=== PATIENT | male | born 1950 | race Caucasian/White ===

== ENCOUNTER → 2017-09-23 08:16 | Outpatient (CLI) | payer MEDICAID, SELFPAY ==
[2017-09-23 09:05] LABS: INR 3.1 (1.0-3.5); Prothrombin Time 29.3 sec (9.3-10.8)
== END ==
PROVIDERS: PCP General Practice; Visit Provider General Practice
DX: I48.91 Unspecified atrial fibrillation (principal); Z79.01 Long term (current) use of anticoagulants
CPT/HCPCS: 36415; 85610

== ENCOUNTER → 2017-09-28 08:00 | Outpatient (CLI) | payer MEDICAID, SELFPAY ==
[2017-09-28 08:45] LABS: INR 3.2 (1.0-3.5); Prothrombin Time 29.9 sec (9.3-10.8)
== END ==
PROVIDERS: PCP General Practice; Visit Provider General Practice
DX: I48.91 Unspecified atrial fibrillation (principal); Z79.01 Long term (current) use of anticoagulants
CPT/HCPCS: 36415; 85610

== ENCOUNTER → 2017-10-04 07:43 | Outpatient (CLI) | payer MEDICAID, SELFPAY ==
[2017-10-04 08:22] LABS: INR 2.4 (1.0-3.5); Prothrombin Time 22.4 sec (9.3-10.8)
== END ==
PROVIDERS: PCP General Practice; Visit Provider General Practice
DX: I48.91 Unspecified atrial fibrillation (principal); Z79.01 Long term (current) use of anticoagulants
CPT/HCPCS: 36415; 85610

== ENCOUNTER 2017-10-19 07:57 | Outpatient (CLI) | payer MEDICAID, SELFPAY ==
[2017-10-19 08:37] LABS: INR 3.1 (1.0-3.5)
== END 2017-10-19 08:17 ==
PROVIDERS: PCP General Practice; Visit Provider General Practice
DX: I48.91 Unspecified atrial fibrillation (principal); Z79.01 Long term (current) use of anticoagulants
CPT/HCPCS: 36415; 85610

== ENCOUNTER 2017-11-01 07:45 | Outpatient (CLI) | payer MEDICAID, SELFPAY ==
[2017-11-01 09:39] LABS: INR 4.2 (1.0-3.5)
== END 2017-11-01 08:05 ==
PROVIDERS: PCP General Practice; Visit Provider General Practice
DX: I48.91 Unspecified atrial fibrillation (principal); Z79.01 Long term (current) use of anticoagulants
CPT/HCPCS: 36415; 85610

== ENCOUNTER 2017-11-04 07:53 | Outpatient (CLI) | payer MEDICAID, SELFPAY ==
[2017-11-04 08:33] LABS: INR 1.5 (1.0-3.5); Prothrombin Time 14.8 sec (9.3-10.8)
== END 2017-11-04 08:13 ==
PROVIDERS: PCP General Practice; Visit Provider General Practice
DX: I48.91 Unspecified atrial fibrillation (principal); Z79.01 Long term (current) use of anticoagulants
CPT/HCPCS: 36415; 85610

== ENCOUNTER 2017-11-08 04:53 | Emergency (ER) | payer MEDICAID, SELFPAY ==
[2017-11-08 05:05] VITALS: BP 145/98; PULSE 81; RESP 15; TEMP 36.4; O2SAT 96
[2017-11-08 05:34] LABS: Abs Immature Grans 0.15 k/cumm (0.0-0.09); Absolute Basophil Count 0.03 k/cumm (0.0-0.2); Absolute Eosinophil Count 0.05 k/cumm (0.0-0.7); Absolute Lymphocyte Count 1.77 k/cumm (1.2-3.4); Absolute Monocyte Count 0.87 k/cumm (0.11-0.7); Absolute Neutrophil Count 7.31 k/cumm (1.2-6.7); Basophils % 0.3; Eosinophils % 0.5; HCT 40.2 % (40.0-50.0); HGB 13.1 g/dL (13.5-17.5); Immature Grans % 1.5; Lymphocytes % 17.4; Mean Corp. HGB Concentration 32.6 g/dL (32.0-36.0); Mean Corpuscular Hemoglobin 30.7 pg (27.0-33.0); Mean Corpuscular Volume 94.1 fL (80-95); Mean Platelet Volume 9.3 fL (8.0-11.0); Monocytes % 8.5; Neutrophils % 71.8; Platelet Count 312 x1000/uL (130-400); RBC 4.27 m/cumm (4.50-6.00); RBC Distribution Width 14.1 % (11.8-14.1); White Blood Cell Count 10.18 k/cumm (4.4-10.8)
[2017-11-08 05:46] LABS: ALT 52 U/L (12-78); AST 31 U/L (15-37); Albumin 3.9 g/dL (3.4-5.0); Alkaline Phosphatase 106 U/L (46-116); Anion Gap 16.2 mmol/L (3-11); BUN 55 mg/dL (7-18); Bilirubin, Total 0.5 mg/dL (0.2-1.0); CO2 22.8 mmol/L (21.0-32.0); Chloride 101 mmol/L (98-107); Estimated GFR 14.05 (mL/min/1.73m2); Glucose 94 mg/dL (70-100); Lipase 715 U/L (73-393); Potassium 3.3 mmol/L (3.5-5.1); Sodium 140 mmol/L (136-145); Total Protein 7.8 g/dL (6.4-8.2)
--- NOTE | 2017-11-08 05:52 | DI.CT_ITS ---
SYMPTOM/DIAGNOSIS: LOW ABD PAIN, H/O COLITIS AND DIARRHEA ABDOMEN AND PELVIC CT: CT scan of the abdomen and pelvis was performed following uneventful administration of oral contrast material. Intravenous contrast material was not administered. Comparison examination is 03/20/16. No acute findings are seen in the lung bases. The heart is enlarged. The unenhanced liver, spleen, pancreas, gallbladder and bile ducts are unremarkable. There is a stable left adrenal nodule. The right adrenal gland is unremarkable. There is stable bilateral renal cortical atrophy and renal cysts. Calcifications are seen in the renal pelves. These may represent vascular or represent non obstructing stones. No ureterolithiasis or hydronephrosis is seen. The urinary bladder is intact. There is apparent thickening of the wall of the urinary bladder. This may be due do under distension. Cystitis cannot be excluded. Please correlate clinically. The prostate gland appears enlarged with calcifications. There is atherosclerosis of the abdominal aorta but no aneurysmal dilatation. No significant abdominal or pelvic adenopathy, ascites or pneumoperitoneum is present. There is diverticulosis of the colon. There is a question of thickening of the wall of the distal colon. This may be due to under distension. No significant pericolonic inflammatory changes are seen. There is a normal appendix present. The remainder of the bowel is unremarkable. Degenerative changes are present in the spine. Central spinal canal stenosis is seen at L 3-4 and L 4-5 due to the degenerative changes. IMPRESSION: 1. Diverticulosis, equivocal thickening of the wall of the distal colon. This may be due to under distension but colitis cannot be excluded. 2. Question of thickening of the wall of the urinary bladder. This may be due to under distension but an infectious or inflammatory cystitis cannot be excluded.
--- NOTE | 2017-11-08 05:53 | W.ED.GENAD ---
Discharge Plan Disposition Patient Disposition: STILL A PATIENT Condition: Stable Discharge Details Chief Complaint: Abd Prob Clinical Impression: Chronic abdominal pain, Chronic kidney disease, History of colitis, Chronic diarrhea Primary Care Provider: Basilio Antunez ED Provider: Kimberly Hernandez Home Meds and New Rx's Prescriptions: No Action pravastatin 20 MG tablet 40 mg PO DAILY RF: 0 warfarin 5 MG tablet 5 mg PO DAILY RF: 0 finasteride 5 MG tablet 5 mg PO DAILY Qty: 90 RF: 4 nitroglycerin 0.4 MG tablet, sublingual 0.4 mg Sublingual PRN PRNRF: 0 Metoprolol Succinate 50 MG TAB.ER.24H 50 mg PO DAILY RF: 0 spironolactone 25 MG tablet 25 mg PO DAILY RF: 0 acetaminophen [Mapap Extra Strength] 500 MG tablet 500 mg PO PRN PRNRF: 0 aspirin [Aspirin Low-Strength] 81 MG tablet,chewable 81 mg PO DAILY RF: 0 Psyllium [Metamucil] 1 EACH Pkt 1 tsp PO DAILY RF: 0 amlodipine 5 mg Tablet 5 g PO DAILY RF: 0 Discharge Data Discharge Date/Time-TO BE ENTERED AT DEPARTURE: 11/08/17 05:30 Medical Decision Making Patient is a 66-year-old male with history of atrial fibrillation, pulmonary embolism on Coumadin, CKD, hypertension, CHF and colitis who presents with lower abdominal pain for 2 years, worse since last night. Followed by GI at [facility] he last saw 2 weeks ago for his abdominal pain and was started on hydrocortisone and sulfasalazine. Took only 1 dose of sulfasalazine due to worsening diarrhea. Admits to some relief of diarrhea with hydrocortisone. Blood pressure 145/98, otherwise vitals within normal limits. Afebrile. Patient's abdomen is soft with very mild tenderness across lower abdomen. No other acute obvious findings on exam. Discussed with patient that as his abdominal pain is chronic, we may not find the source today, but can rule out acute electrolyte abnormality or acute abdominal process. IV fluids and Zofran ordered. Patient cannot take NSAIDs due to his CKD. Patient was offered morphine and discussed that we can keep him here to monitor him for several hours after this dose, but he is again declining stating that he drove himself here and does not have a ride home. 0600 --CT abdomen was initially ordered with IV contrast, but due to patient's chronic kidney disease, will change to p.o. contrast without IV contrast. Per radiology who brought p.o. contrast, patient will be ready for CT at 7:30 AM. 0615 -- EKG notes a rate of 78, paced, no acute significant change from previous. 0620 --labs reviewed. White blood cell count 10. Hemoglobin 13. INR 1.5. Potassium 3.3. Bicarb 22.8. Anion gap 16.2. Creatinine 4.28. GFR 14. Calcium 5.9. Phosphorus 4. Lipase of 715. Hypocalcemia likely due to CKD. Patient denied any upper abdominal pain. He denies any alcohol use. Will await CT to also assess pancreas. 0700 --Pt in no acute distress. Declines pain meds at this time. 0730 --case endorsed to Dr. Williamson to f/u on CT imaging. HPI General Mode of arrival: ambulatory. Date/Time Provider Initiated Documentation: 11/08/17 04:57. Limitations to Documentation: no limitations. Information obtained by: patient. HPI Narrative: Pt is a 66yo M w/ a h/o Afib, PE, CKD, HLD, HTN, GERD, and colitis who presents with chronic lower abdominal pain for 2 years associated with his colitis but states this is been worse since last night. He describes his pain as constant, sharp, without radiation, and currently 6/10. He denies any aggravating or alleviating factors. States he saw his GI doctor Sayra at [facility] 2 weeks ago for this continual abdominal pain and was started on hydrocortisone injections and sulfasalazine. Patient states he stopped the sulfasalazine due to worsening diarrhea. Patient states he feels like the hydrocortisone is helping his diarrhea. He admits to frequent all-day diarrhea every day for 2 years. States he often has more than 20 episodes of loose or watery brown stools daily. He states yesterday he had 4 episodes of diarrhea. He admits to occasional nausea but denies any vomiting. He admits to slightly decreased appetite but otherwise states he has been eating okay. He states his last colonoscopy was 2 years ago. He denies fever, recent antibiotics, recent travel or sick contacts. Past medical history: Pulmonary embolism, chronic kidney disease, hyperlipidemia, atrial fibrillation, hypertension, congestive heart failure, GERD, colitis Surgical history: Pacemaker Social history: Smoked for 40 years, quit in 2013, denies previous history of heavy alcohol use, but states he quit drinking a few years ago, denies drug use Medications: See list, Coumadin Allergies: None PCP: Dr. Tulio DEL ROSARIO at [facility]: Related Data Home Medications Medication Instructions Recorded Confirmed pravastatin 40 mg PO DAILY tab-cap 07/02/15 11/08/17 warfarin 5 mg PO DAILY tab-cap 12/19/15 11/08/17 finasteride 5 mg PO DAILY #90 tab-cap 03/09/16 11/08/17 Psyllium [Metamucil] 1 tsp PO DAILY 11/13/16 11/08/17 acetaminophen [Mapap Extra 500 mg PO PRN PRN 11/13/16 11/08/17 Strength] aspirin [Aspirin Low-Strength] 81 mg PO DAILY 11/13/16 11/08/17 spironolactone 25 mg PO DAILY 11/13/16 11/08/17 Metoprolol Succinate 50 mg PO DAILY tab-cap 01/11/17 11/08/17 nitroglycerin 0.4 mg SUBLINGUAL PRN PRN 01/11/17 11/08/17 amlodipine 5 g PO DAILY 11/08/17 11/08/17 Allergies Allergy/AdvReac Type Severity Reaction Status Date / Time No Known Allergies Allergy Unverified 11/08/17 05:09 General Stated Complaint: Abd Prob BRI: 3 Review of Systems Review of Systems All systems reviewed & are unremarkable except as noted in HPI and below Constitutional Denies chills, Denies excessive sweating, Denies fatigue, Denies fever(s), Denies weakness and Denies weight loss Eyes Reports system reviewed and no additional complaints, except as docu and Denies blurry vision ENT Denies vertigo, Denies dizziness, Denies otalgia, Denies nasal congestion, Denies sore throat and Denies throat swelling Cardiovascular Denies chest pain, Denies syncope, Denies rapid heart rate and Denies dyspnea Respiratory Denies dyspnea Gastrointestinal Reports abdominal pain, Denies melena, Denies hematochezia, Reports diarrhea, Reports nausea and Denies vomiting Genitourinary Denies hematuria, Denies dysuria and Denies flank pain Musculoskeletal Denies back pain and Denies joint swelling Integumentary/Breasts Denies lesions and Denies rash Neurologic Denies behavioral changes, Denies confusion, Denies vertigo, Denies dizziness, Denies syncope and Denies weakness Psychiatric Denies behavioral changes, Denies confusion and Denies depression Endocrine Denies excessive sweating and Denies fatigue Hematologic/Lymphatic Denies easy bruising and Denies lymphadenopathy Allergic/Immunologic Denies throat swelling [facility] Medical History Atrial fibrillation CHF (congestive heart failure), NYHA class I Chronic anticoagulation Chronic kidney disease Essential hypertension GERD with esophagitis History of pulmonary embolism Hyperlipidemia Social History Smoking/Tobacco Use Status: Former Tobacco Use Surgical History Colonoscopy - MAC EGD - MAC (01/29/16) Pacemaker Exam Const General: cooperative and no acute distress Orientation: alert, awake and oriented x3 HENMT Head: normal to inspection Ears: hearing grossly normal bilaterally and external ears normal General nose exam: external nose normal Face and sinus: normal facial exam Mouth: oral mucosae normal Eyes General: appearance normal, both eyes and all related structures Eyelids: eyelids normal EOM: EOM intact bilaterally Neck Neck: normal visual inspection Lymphatic: no lymphadenopathy noted Chest Chest: normal inspection of the chest Resp Effort & Inspection: normal respiratory effort and able to speak in complete sentences Auscultation: clear to auscultation bilaterally Cardio Rate: regular rate Rhythm: regular rhythm GI Inspection: normal to inspection Palpation: soft, not firm, no guarding, no hepatosplenomegaly, no masses and tender (mild across lower abdomen) Auscultation: normal bowel sounds and hyperactive bowel sounds Back/Spine/Pelvis Back: no CVA tenderness Skin General skin exam: no rashes or lesions noted Neuro General: alert and awake Cognition: normal cognition Speech: speech normal Gait: normal gait Motor: muscle tone normal throughout Sensory Exam: no sensory deficits noted Extrem General: normal to inspection, full ROM, normal capillary refill and no edema Psych Appearance: grossly normal Mental Status: mental status grossly normal Speech and Movement: speech and movement normal Affect: normal affect Thought Process: normal Course Vital Signs Temperature 97.5 F L 11/08/17 05:05 Pulse 81 11/08/17 05:05 Respiratory Rate 15 11/08/17 05:05 Blood Pressure 145/98 H 11/08/17 05:05 Pulse Oximetry 96 11/08/17 05:05 Temperature 97.5 F L 11/08/17 05:05 Temperature Source Temporal Artery Scan 11/08/17 05:05 Pulse 81 11/08/17 05:05 Respiratory Rate 15 11/08/17 05:05 Respiratory Effort 11/08/17 05:10 Blood Pressure 145/98 H 11/08/17 05:05 Blood Pressure Position Sitting 11/08/17 05:05 Pulse Oximetry 96 11/08/17 05:05 Oxygen Delivery Method Room Air 11/08/17 05:05 Oxygen Flow Rate 0 11/08/17 05:05 Pain Level 6 11/08/17 05:32 Lab/Test Results Lab/Test Results: Laboratory Tests Range/Units 11/08/17 05:25 WBC (4.4-10.8) k/cumm 10.18 RBC (4.50-6.00) m/cumm 4.27 L Hgb (13.5-17.5) g/dL 13.1 L Hct (40.0-50.0) % 40.2 MCV (80-95) fL 94.1 MCH (27.0-33.0) pg 30.7 MCHC (32.0-36.0) g/dL 32.6 RDW (11.8-14.1) % 14.1 Plt Count (130-400) x1000/uL 312 MPV (8.0-11.0) fL 9.3 Immature Gran % 1.5 Neutrophils % 71.8 Lymphocytes % 17.4 Monocytes % 8.5 Eosinophils % 0.5 Basophils % 0.3 Absolute Neutrophils (1.2-6.7) k/cumm 7.31 H Absolute Lymphocytes (1.2-3.4) k/cumm 1.77 Absolute Monocytes (0.11-0.7) k/cumm 0.87 H Absolute Eosinophils (0.0-0.7) k/cumm 0.05 Absolute Basophils (0.0-0.2) k/cumm 0.03
[2017-11-08 05:57] LABS: CREATININE 4.28 mg/dL (0.70-1.30); Calcium 5.9 mg/dL (8.5-10.1)
[2017-11-08] MEDS: Ondansetron 4 MG/2 ML VIAL IVP (06:01)
[2017-11-08] MEDS: Normal Saline 1,000 ML 125 ML IV (06:02)
[2017-11-08 06:09] LABS: INR 1.5 (1.0-3.5); PTT Activated 25.4 sec (21.0-31.4); Prothrombin Time 14.4 sec (9.3-10.8)
[2017-11-08 07:33] LABS: Bilirubin Negative (Negative); Blood Moderate (Negative); Clarity Clear; Glucose Negative (Negative); Ketones Negative (Negative); Leukocyte Esterase Negative (Negative); Nitrite Negative (Negative); Urobilinogen 0.2 EU/dL (Up TO 0.2)
[2017-11-08 07:35] LABS: Bacteria Rare HPF (Negative); C & S Indicated? No; Casts Negative LPF (Negative); Crystals Negative HPF (Negative); Epithelial Cells Rare HPF (Negative); Mucus Trace (Negative); WBC 0-2 HPF (0-5)
--- NOTE | 2017-11-08 08:13 | DI.VRAD_ITS ---
EXAM: CT Abdomen and Pelvis Without Intravenous Contrast EXAM DATE/TIME: 11/08/2017 5:54 AM CLINICAL HISTORY: 66 years old, male; Pain; Abdominal pain; Additional info: Lower abd shanon h/o colitis diarrhea x 2yrs TECHNIQUE: Axial computed tomography images of the abdomen and pelvis without intravenous contrast. Coronal and sagittal reformatted images were created and reviewed. COMPARISON: CT ABD PELVIS WO CONTRAST 03/20/2016 8:00 AM FINDINGS: Lower thorax: Cardiomegaly ABDOMEN: Liver: Normal. No mass. Gallbladder and bile ducts: Normal. No calcified stones. No ductal dilation. Pancreas: Normal. No ductal dilation. Spleen: Normal. No splenomegaly. Adrenals: Left sided adrenal adenomas hyperplasia incidentally noted Kidneys and ureters: Lobulated atrophic appearance of the kidneys with multiple simple renal cysts Stomach and bowel: Equivocal distal colonic wall thickening may reflect artifact related to underdistention versus a distal colitis, either infectious or inflammatory. Appendix: No evidence of appendicitis. PELVIS: Bladder: The urinary bladder is questionably thickwalled. This may reflect incomplete distention. However correlation with UA is recommended to exclude cystitis. Reproductive: See Bladder Finding. ABDOMEN and PELVIS: Intraperitoneal space: Normal. No free air. No significant fluid collection. Bones/joints: No acute fracture. No dislocation. Soft tissues: Unremarkable. Vasculature: Normal. No abdominal aortic aneurysm. Lymph nodes: Normal. No enlarged lymph nodes. IMPRESSION: 1. Equivocal distal colonic wall thickening may reflect artifact related to underdistention versus a distal colitis, either infectious or inflammatory. 2. Equivocal cystitis. Dictated and Authenticated by: Asael Hinojosa MD. Ordering:PAM CONDON MD
[2017-11-08 08:24] VITALS: BP 139/71; PULSE 82; RESP 17; TEMP 36.7; O2SAT 97
--- NOTE | 2017-11-08 08:51 | W.ED.FU ---
Follow Up Plan: Gus Collins is a 66-year-old man with history of chronic kidney disease and chronic abdominal pain for the past 2 years presenting to the emergency department with worsening abdominal pain. Patient was signed out to me by Dr. Hernandez with CT abdomen/pelvis pending. CT abdomen pelvis shows thickening of the distal colon wall and thickening of the bladder. On reassessment patient reports continued mild pain across the lower abdomen without focality. Mild tenderness across lower abdomen with negative McBurney's point tenderness and no peritoneal signs. Patient is nontoxic appearing. Labs significant for lipase 715, creatinine 4, anion gap 16, calcium 5.9. I discussed patient with Dr. Handley of GI at [facility], who reported that patient has been diagnosed with ulcerative colitis, though has not had a colonoscopy to confirm. She recommended hold abx, give 40 mg of prednisone, and will schedule colonoscopy for tomorrow morning. She requested patient be given prescription for GoLYTELY, and [facility] will call the patient this afternoon to give instructions for starting the medication. She also notes that patient had anion gap of 15 when he was seen in clinic. Plan to replete calcium, will check magnesium. Magnesium low, will give p.o. potassium also repleted. I did speak to Dr. Antunez about Pt presentation/results including abnormal electrolytes, who will send rpt labs/see patient in follow-up this week. Lengthy discussion with patient regarding return to emergency department precautions and importance of outpatient follow-up tomorrow for colonoscopy, with his physician compensation analyst within the next 1-2 weeks, and also with Dr. Antunez this week re abnl labs and CT results. OTC Tums for calcium repletion discussed and not starting GoLYTELY until he speaks further with her this afternoon. Patient's amenable to the plan. ABDOMEN AND PELVIC CT: CT scan of the abdomen and pelvis was performed following uneventful administration of oral contrast material. Intravenous contrast material was not administered. Comparison examination is 03/20/16. No acute findings are seen in the lung bases. The heart is enlarged. The unenhanced liver, spleen, pancreas, gallbladder and bile ducts are unremarkable. There is a stable left adrenal nodule. The right adrenal gland is unremarkable. There is stable bilateral renal cortical atrophy and renal cysts. Calcifications are seen in the renal pelves. These may represent vascular or represent non obstructing stones. No ureterolithiasis or hydronephrosis is seen. The urinary bladder is intact. There is apparent thickening of the wall of the urinary bladder. This may be due do under distension. Cystitis cannot be excluded. Please correlate clinically. The prostate gland appears enlarged with calcifications. There is atherosclerosis of the abdominal aorta but no aneurysmal dilatation. No significant abdominal or pelvic adenopathy, ascites or pneumoperitoneum is present. There is diverticulosis of the colon. There is a question of thickening of the wall of the distal colon. This may be due to under distension. No significant pericolonic inflammatory changes are seen. There is a normal appendix present. The remainder of the bowel is unremarkable. Degenerative changes are present in the spine. Central spinal canal stenosis is seen at L 3-4 and L 4-5 due to the degenerative changes. IMPRESSION: 1. Diverticulosis, equivocal thickening of the wall of the distal colon. This may be due to under distension but colitis cannot be excluded. 2. Question of thickening of the wall of the urinary bladder. This may be due to under distension but an infectious or inflammatory cystitis cannot be excluded.
--- NOTE | 2017-11-08 08:55 | ED.FU.B_ITS ---
Follow Up Plan: Gus Collins is a 66-year-old man with history of chronic kidney disease and chronic abdominal pain for the past 2 years presenting to the emergency department with worsening abdominal pain. Patient was signed out to me by Dr. Hernandez with CT abdomen/pelvis pending. CT abdomen pelvis shows thickening of the distal colon wall and thickening of the bladder. On reassessment patient reports continued mild pain across the lower abdomen without focality. Mild tenderness across lower abdomen with negative McBurney' s point tenderness and no peritoneal signs. Patient is nontoxic appearing. Labs significant for lipase 715, creatinine 4, anion gap 16, calcium 5.9. I discussed patient with Dr. Handley of GI at [facility], who reported that patient has been diagnosed with ulcerative colitis, though has not had a colonoscopy to confirm. She recommended hold abx, give 40 mg of prednisone, and will schedule colonoscopy for tomorrow morning. She requested patient be given prescription for GoLYTELY, and [facility] will call the patient this afternoon to give instructions for starting the medication. She also notes that patient had anion gap of 15 when he was seen in clinic. Plan to replete calcium, will check magnesium. Magnesium low, will give p.o. potassium also repleted. I did speak to Dr. Antunez about Pt presentation/results including abnormal electrolytes, who will send rpt labs/see patient in follow-up this week. 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 Antunez this week re abnl labs and CT results. OTC Tums for calcium repletion discussed and not starting GoLYTELY until he speaks further with her this afternoon. Patient's amenable to the plan. ABDOMEN AND PELVIC CT: CT scan of the abdomen and pelvis was performed following uneventful administration of oral contrast material. Intravenous contrast material was not administered. Comparison examination is 03/20/16. No acute findings are seen in the lung bases. The heart is enlarged. The unenhanced liver, spleen, pancreas, gallbladder and bile ducts are unremarkable. There is a stable left adrenal nodule. The right adrenal gland is unremarkable. There is stable bilateral renal cortical atrophy and renal cysts. Calcifications are seen in the renal pelves. These may represent vascular or represent non obstructing stones. No ureterolithiasis or hydronephrosis is seen. The urinary bladder is intact. There is apparent thickening of the wall of the urinary bladder. This may be due do under distension. Cystitis cannot be excluded. Please correlate clinically. The prostate gland appears enlarged with calcifications. There is atherosclerosis of the abdominal aorta but no aneurysmal dilatation. No significant abdominal or pelvic adenopathy, ascites or pneumoperitoneum is present. There is diverticulosis of the colon. There is a question of thickening of the wall of the distal colon. This may be due to under distension. No significant pericolonic inflammatory changes are seen. There is a normal appendix present. The remainder of the bowel is unremarkable. Degenerative changes are present in the spine. Central spinal canal stenosis is seen at L 3-4 and L 4-5 due to the degenerative changes. IMPRESSION: 1. Diverticulosis, equivocal thickening of the wall of the distal colon. This may be due to under distension but colitis cannot be excluded. 2. Question of thickening of the wall of the urinary bladder. This may be due to under distension but an infectious or inflammatory cystitis cannot be excluded.
[2017-11-08] MEDS: predniSONE 20 MG TAB 40 MG PO (09:33)
[2017-11-08] MEDS: Calcium Gluconate 4.65 MEQ/10 ML VIAL 4.65 MG IVP (09:33)
[2017-11-08 09:35] LABS: Magnesium 1.6 mg/dL (1.8-2.4)
[2017-11-08] MEDS: Potassium Chloride 20 MEQ TABCR 40 MEQ PO (10:36)
[2017-11-08] MEDS: Magnesium Oxide 400 MG TAB PO (10:36)
[2017-11-08 10:40] VITALS: BP 161/88; PULSE 69; RESP 17; TEMP 36.7; O2SAT 97
== END 2017-11-08 11:07 | disposition home or self-care (01) ==
LOC: ER 05:30
PROVIDERS: Physician Assistant; Emergency Provider Student in an Organized Health Care Education/Training Program; PCP General Practice
DX: R10.30 Lower abdominal pain, unspecified (principal); G89.29 Other chronic pain; N18.9 Chronic kidney disease, unspecified; I12.9 Hypertensive chronic kidney disease with stage 1 through stage 4 chronic kidney disease, or unspecified chronic kidney disease; K52.9 Noninfective gastroenteritis and colitis, unspecified; E83.51 Hypocalcemia
CPT/HCPCS: 36415; 80053; 83690; 93005; 96361; 96374; 96375; 99285; 74176; 81003; 81015; 83735; 84100; 85025; 85610; 85730; 93010; J0610; J2405; J7512

== ENCOUNTER 2017-11-10 05:36 | Inpatient (IN) | payer MEDICAID, SELFPAY ==
[2017-11-10] VITALS (50 sets, daily range): BP systolic 94–167; BP diastolic 67–95; PULSE 68–97; RESP 9–18; TEMP 36.1–36.7; O2SAT 85–98
--- NOTE | 2017-11-10 03:00 | DI.RAD_ITS ---
SYMPTOM/DIAGNOSIS: LEUKOCYTOSIS PA AND LATERAL CHEST: Cardiomegaly is demonstrated, unchanged. Cardiac pacing wires are in stable position. There is no pulmonary infiltrate There is no pleural effusion. SUMMARY: Generalized cardiomegaly unchanged. No evidence of congestive failure or pneumonia.
--- NOTE | 2017-11-10 06:01 | W.ED.GENAD ---
Discharge Plan Discharge Details Chief Complaint: Abd Prob Primary Care Provider: Basilio Antunez ED Provider: Ryan Moser Home Meds and New Rx's Prescriptions: No Action pravastatin 20 MG tablet 40 mg PO DAILY RF: 0 warfarin 5 MG tablet 5 mg PO DAILY RF: 0 finasteride 5 MG tablet 5 mg PO DAILY Qty: 90 RF: 4 nitroglycerin 0.4 MG tablet, sublingual 0.4 mg Sublingual PRN PRNRF: 0 Metoprolol Succinate 50 MG TAB.ER.24H 50 mg PO DAILY RF: 0 spironolactone 25 MG tablet 25 mg PO DAILY RF: 0 acetaminophen [Mapap Extra Strength] 500 MG tablet 500 mg PO PRN PRNRF: 0 aspirin [Aspirin Low-Strength] 81 MG tablet,chewable 81 mg PO DAILY RF: 0 Psyllium [Metamucil] 1 EACH Pkt 1 tsp PO DAILY RF: 0 amlodipine 5 mg Tablet 5 g PO DAILY RF: 0 calcium carbonate [Tums Ultra] 1,177 mg tablet,chewable 1,177 mg PO DAILY Qty: 10 RF: 0 magnesium oxide 400 mg capsule 400 mg PO DAILY Qty: 10 RF: 0 Medical Decision Making This is a pleasant 62-year-old male who was in department 48 hours ago, was diagnosed with colitis, and pancreatitis and admitted. He was sent discharged to [facility] for colonoscopy and EGD. Since then he has had continued diarrhea without blood, and worsening abdominal pain. physical exam demonstrates diffuse abdominal tenderness. Differential at this time is concerning for perforation, worsening colitis, or other acute pathology. We will get a CT scan to evaluate for these etiologies, perform laboratory workup, rehydrate the patient, and perform an EKG and troponin for evaluation of nearsyncope which I feel is most likely secondary to dehydration and volume depletion. EKG 6:19 AM Rate 70, QTc 542, QRS 160, electronic ventricular pacing with good capture. NEgative for scarbossa criteria for STEMI Department has called back at 8:10 AM I discussed the case with Dr. Ellis the aba tutor. I discussed the imaging findings, the patient's current laboratory workup, the patient's current clinical disposition with his pain, and signs of dehydration. Dr. Weber specifically recommended that we do not start antibiotics at this time given the findings that were noted on the colonoscopy. She recommends that we perform a steroid enema, to help with the symptoms. She does not recommend starting systemic steroids at this time. We discussed potential further management versus various disposition options, she has no additional recommendations from a gastroenterological perspective at this time. She recommends reassessing after he has been given the steroid enema. We are waiting for callback from the call back Center for potential transfer. 20 6 AM the patient's white count is notably elevated, this was referred to and discussed with the aba tutor who does not recommend antibiotics at this time. Additionally the patient's troponin is mildly elevated at 0.18. EKG shows no signs of ST elevations that are significant in regards Scarbossa criterion. Patient's INR is 2, she is therapeutic. With the patient's ulcerative colitis, recent history of GI bleeding, and therapeutic INR I do not think that heparin is indicated at this time. I feel that at the very least his troponins need to be trended. Patient does require further evaluation and admission for this. HPI General Date/Time Provider Initiated Documentation: 11/10/17 05:47. HPI Narrative: This is a pleasant 66-year-old male who presents today for evaluation of abdominal pain. The patient was here in the emergency department over 48 hours ago, where he was seen and assessed for abdominal pain. His laboratory and imaging workup at that time demonstrated evidence of colitis, as well as mild pancreatitis. The patient has a long history of greater than 2-3 years of abdominal pain, occasional GI bleed, and GI workup for colitis. On his evaluation in the emergency department a few days ago antibiotics were held per [facility]'s recommendation, and steroids were given. The patient was sent down to [facility] for colonoscopy and EGD that occurred yesterday. Review of the records do indicate that he had colitis noted in the colon, biopsies were performed. There are no significant complications from the procedure and he was discharged home. After going home the patient has had continued diarrhea, and worsening abdominal pain. This morning he woke up, stood up, and passed out. He felt himself passing out and is able to slowly lowered himself to the ground. He did have a loss of consciousness albeit extremely brief. He did not hit his head. He landed on his knees without any significant pain or complication. Although the patient initially had some blood in his stool on his prior visit to the ER he denies any current blood in his stool now. States that his stool is slightly darker but denies any melanotic tarry stool. Patient states that he was given a prescription for medication from the aba tutor but he does not recall what it was. Additionally he did not fill it because his insurance did not cover it. We will request these records. Aside for the continued diarrhea and worsening abdominal pain the patient denies any other complaints at this time. He denies any fevers, chills, chest pain, shortness of breath, numbness tingling or weakness. Patient's past medical history is positive for pulmonary embolism, pacemaker, renal disease with a notably elevated creatinine of greater than 4 on his last visit, atrial fibrillation and Coumadin use for which he has been holding his Coumadin for the procedure. Patient denies any IV or illicit drug use. Related Data Home Medications Medication Instructions Recorded Confirmed pravastatin 40 mg PO DAILY tab-cap 07/02/15 11/10/17 warfarin 5 mg PO DAILY tab-cap 12/19/15 11/10/17 finasteride 5 mg PO DAILY #90 tab-cap 03/09/16 11/10/17 Psyllium [Metamucil] 1 tsp PO DAILY 11/13/16 11/10/17 acetaminophen [Mapap Extra 500 mg PO PRN PRN 11/13/16 11/10/17 Strength] aspirin [Aspirin Low-Strength] 81 mg PO DAILY 11/13/16 11/10/17 spironolactone 25 mg PO DAILY 11/13/16 11/10/17 Metoprolol Succinate 50 mg PO DAILY tab-cap 01/11/17 11/10/17 nitroglycerin 0.4 mg SUBLINGUAL PRN PRN 01/11/17 11/10/17 amlodipine 5 g PO DAILY 11/08/17 11/10/17 calcium carbonate [Tums Ultra] 1,177 mg PO DAILY #10 tab 11/08/17 11/10/17 magnesium oxide 400 mg PO DAILY #10 cap 11/08/17 11/10/17 Previous Rx's Medication Instructions Recorded calcium carbonate [Tums Ultra] 1,177 mg PO DAILY #10 tab 11/08/17 magnesium oxide 400 mg PO DAILY #10 cap 11/08/17 Allergies Allergy/AdvReac Type Severity Reaction Status Date / Time No Known Allergies Allergy Unverified 11/10/17 05:43 General Stated Complaint: Abd Prob BRI: 3 Review of Systems Review of Systems All systems reviewed & are unremarkable except as noted in HPI and below Exam Narrative Exam Narrative: 1.Const: Well-nourished, Well-developed, appearing stated age 2.Eyes: PERRL, no conjunctival injection, and symmetrical lids. 3.ENT: Atraumatic external nose and ears. Notably dry MM. Neck: Symmetric, trachea midline, No thyromegaly. No signs of trauma to the head, neck, chest. No signs of significant trauma to the upper extremities. 4.CVS: +S1/S2, mild systolic cardiac murmur. Peripheral pulses 2+ and equal in all extremities. Brisk capillary refill in all extremities. 5.RESP: Unlabored respiratory effort. Clear to auscultation bilaterally. No wheezes rales or rhonchi 6.GI: Abdomen is minimally distended, generalized tenderness throughout. Subjective involuntary guarding is present. Pain at all sites in the abdomen. Patient does have questionable abnormality on palpation of the skin which may be secondary to subcutaneous crepitus versus atypical adipose palpation. 7.MSK: Normocephalic/Atraumatic, Extremities w/o deformity or ttp No cyanosis or clubbing, Normal movement of all extremities. No evidence of significant bruising or deformity of the upper and lower extremities. 8.Skin: Warm, Dry. No rashes or lesions. 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 Sensation grossly intact, no focal neurologic deficits. Normal sensation in all extremities. No signs of horizontal vertical or rotatory nystagmus normal coordination of all extremities. 10.Psych: (AAO) x3. Appropriate mood and affect Course Vital Signs Temperature 36.1 C L 11/10/17 05:39 Pulse 83 11/10/17 05:39 Respiratory Rate 18 11/10/17 05:39 Blood Pressure 153/86 H 11/10/17 05:39 Pulse Oximetry 98 11/10/17 05:39 Temperature 36.1 C L 11/10/17 05:39 Temperature Source Skin 11/10/17 05:39 Pulse 83 11/10/17 05:39 Respiratory Rate 18 11/10/17 05:39 Respiratory Effort Non-Labored 11/10/17 05:41 Blood Pressure 153/86 H 11/10/17 05:39 Blood Pressure Position Sitting 11/10/17 05:39 Pulse Oximetry 98 11/10/17 05:39 Oxygen Delivery Method Room Air 11/10/17 05:39 Oxygen Flow Rate 0 11/10/17 05:39
[2017-11-10 06:07] LABS: Abs Immature Grans 0.09 k/cumm (0.0-0.09); Absolute Eosinophil Count 0.03 k/cumm (0.0-0.7); Absolute Lymphocyte Count 0.57 k/cumm (1.2-3.4); Eosinophils % 0.1; HGB 12.5 g/dL (13.5-17.5); Immature Grans % 0.3; Lymphocytes % 2.1; Mean Corp. HGB Concentration 32.9 g/dL (32.0-36.0); Mean Corpuscular Hemoglobin 30.6 pg (27.0-33.0); Mean Corpuscular Volume 92.9 fL (80-95); Mean Platelet Volume 9.3 fL (8.0-11.0); Monocytes % 4.7; Neutrophils % 92.8; Platelet Count 250 x1000/uL (130-400); RBC 4.09 m/cumm (4.50-6.00); RBC Distribution Width 13.9 % (11.8-14.1)
[2017-11-10 06:08] LABS: Absolute Monocyte Count 1.27 k/cumm (0.11-0.7); Absolute Neutrophil Count 25.12 k/cumm (1.2-6.7)
[2017-11-10 06:09] LABS: White Blood Cell Count 27.07 k/cumm (4.4-10.8)
--- NOTE | 2017-11-10 06:14 | ED.GENADUL_ITS ---
Discharge Plan Discharge Details Chief Complaint: Abd Prob Primary Care Provider: Basilio Antunez ED Provider: Ryan Moser Home Meds and New Rx's Prescriptions: No Action pravastatin 20 MG tablet 40 mg PO DAILY RF: 0 warfarin 5 MG tablet 5 mg PO DAILY RF: 0 finasteride 5 MG tablet 5 mg PO DAILY Qty: 90 RF: 4 nitroglycerin 0.4 MG tablet, sublingual 0.4 mg Sublingual PRN PRNRF: 0 Metoprolol Succinate 50 MG TAB.ER.24H 50 mg PO DAILY RF: 0 spironolactone 25 MG tablet 25 mg PO DAILY RF: 0 acetaminophen [Mapap Extra Strength] 500 MG tablet 500 mg PO PRN PRNRF: 0 aspirin [Aspirin Low-Strength] 81 MG tablet,chewable 81 mg PO DAILY RF: 0 Psyllium [Metamucil] 1 EACH Pkt 1 tsp PO DAILY RF: 0 amlodipine 5 mg Tablet 5 g PO DAILY RF: 0 calcium carbonate [Tums Ultra] 1,177 mg tablet,chewable 1,177 mg PO DAILY Qty: 10 RF: 0 magnesium oxide 400 mg capsule 400 mg PO DAILY Qty: 10 RF: 0 Medical Decision Making This is a pleasant 62-year-old male who was in department 48 hours ago, was diagnosed with colitis, and pancreatitis and admitted. He was sent discharged to [facility] for colonoscopy and EGD. Since then he has had continued diarrhea without blood, and worsening abdominal pain. physical exam demonstrates diffuse abdominal tenderness. Differential at this time is concerning for perforation, worsening colitis, or other acute pathology. We will get a CT scan to evaluate for these etiologies, perform laboratory workup, rehydrate the patient, and perform an EKG and troponin for evaluation of nearsyncope which I feel is most likely secondary to dehydration and volume depletion. EKG 6:19 AM Rate 70, QTc 542, QRS 160, electronic ventricular pacing with good capture. NEgative for scarbossa criteria for STEMI Department has called back at 8:10 AM I discussed the case with Dr. Ellis the serology teacher. I discussed the imaging findings, the patient's current laboratory workup, the patient's current clinical disposition with his pain, and signs of dehydration. Dr. Weber specifically recommended that we do not start antibiotics at this time given the findings that were noted on the colonoscopy. She recommends that we perform a steroid enema, to help with the symptoms. She does not recommend starting systemic steroids at this time. We discussed potential further management versus various disposition options, she has no additional recommendations from a gastroenterological perspective at this time. She recommends reassessing after he has been given the steroid enema. We are waiting for callback from the call back Center for potential transfer. 20 6 AM the patient's white count is notably elevated, this was referred to and discussed with the serology teacher who does not recommend antibiotics at this time. Additionally the patient's troponin is mildly elevated at 0.18. EKG shows no signs of ST elevations that are significant in regards Scarbossa criterion. Patient's INR is 2, she is therapeutic. With the patient's ulcerative colitis, recent history of GI bleeding, and therapeutic INR I do not think that heparin is indicated at this time. I feel that at the very least his troponins need to be trended. Patient does require further evaluation and admission for this. HPI General Date/Time Provider Initiated Documentation: 11/10/17 05:47 . HPI Narrative: This is a pleasant 66-year-old male who presents today for evaluation of abdominal pain. The patient was here in the emergency department over 48 hours ago, where he was seen and assessed for abdominal pain. His laboratory and imaging workup at that time demonstrated evidence of colitis, as well as mild pancreatitis. The patient has a long history of greater than 2-3 years of abdominal pain, occasional GI bleed, and GI workup for colitis. On his evaluation in the emergency department a few days ago antibiotics were held per [facility]'s recommendation, and steroids were given. The patient was sent down to [facility] for colonoscopy and EGD that occurred yesterday. Review of the records do indicate that he had colitis noted in the colon, biopsies were performed. There are no significant complications from the procedure and he was discharged home. After going home the patient has had continued diarrhea, and worsening abdominal pain. This morning he woke up, stood up, and passed out. He felt himself passing out and is able to slowly lowered himself to the ground. He did have a loss of consciousness albeit extremely brief. He did not hit his head. He landed on his knees without any significant pain or complication. Although the patient initially had some blood in his stool on his prior visit to the ER he denies any current blood in his stool now. States that his stool is slightly darker but denies any melanotic tarry stool. Patient states that he was given a prescription for medication from the serology teacher but he does not recall what it was. Additionally he did not fill it because his insurance did not cover it. We will request these records. Aside for the continued diarrhea and worsening abdominal pain the patient denies any other complaints at this time. He denies any fevers, chills, chest pain, shortness of breath, numbness tingling or weakness. Patient's past medical history is positive for pulmonary embolism, pacemaker, renal disease with a notably elevated creatinine of greater than 4 on his last visit, atrial fibrillation and Coumadin use for which he has been holding his Coumadin for the procedure. Patient denies any IV or illicit drug use. Related Data Home Medications Medication Instructions Recorded Confirmed pravastatin 40 mg PO DAILY tab-cap 07/02/15 11/10/17 warfarin 5 mg PO DAILY tab-cap 12/19/15 11/10/17 finasteride 5 mg PO DAILY #90 tab-cap 03/09/16 11/10/17 Psyllium [Metamucil] 1 tsp PO DAILY 11/13/16 11/10/17 acetaminophen [Mapap Extra 500 mg PO PRN PRN 11/13/16 11/10/17 Strength] aspirin [Aspirin Low-Strength] 81 mg PO DAILY 11/13/16 11/10/17 spironolactone 25 mg PO DAILY 11/13/16 11/10/17 Metoprolol Succinate 50 mg PO DAILY tab-cap 01/11/17 11/10/17 nitroglycerin 0.4 mg SUBLINGUAL PRN PRN 01/11/17 11/10/17 amlodipine 5 g PO DAILY 11/08/17 11/10/17 calcium carbonate [Tums Ultra] 1,177 mg PO DAILY #10 tab 11/08/17 11/10/17 magnesium oxide 400 mg PO DAILY #10 cap 11/08/17 11/10/17 Previous Rx's Medication Instructions Recorded calcium carbonate [Tums Ultra] 1,177 mg PO DAILY #10 tab 11/08/17 magnesium oxide 400 mg PO DAILY #10 cap 11/08/17 Allergies Allergy/AdvReac Type Severity Reaction Status Date / Time No Known Allergies Allergy Unverified 11/10/17 05:43 General Stated Complaint: Abd Prob BRI: 3 Review of Systems Review of Systems All systems reviewed & are unremarkable except as noted in HPI and below Exam Narrative Exam Narrative: 1.Const: Well-nourished, Well-developed, appearing stated age 2.Eyes: PERRL, no conjunctival injection, and symmetrical lids. 3.ENT: Atraumatic external nose and ears. Notably dry MM. Neck: Symmetric, trachea midline, No thyromegaly. No signs of trauma to the head, neck, chest. No signs of significant trauma to the upper extremities. 4.CVS: +S1/S2, mild systolic cardiac murmur. Peripheral pulses 2+ and equal in all extremities. Brisk capillary refill in all extremities. 5.RESP: Unlabored respiratory effort. Clear to auscultation bilaterally. No wheezes rales or rhonchi 6.GI: Abdomen is minimally distended, generalized tenderness throughout. Subjective involuntary guarding is present. Pain at all sites in the abdomen. Patient does have questionable abnormality on palpation of the skin which may be secondary to subcutaneous crepitus versus atypical adipose palpation. 7.MSK: Normocephalic/Atraumatic, Extremities w/o deformity or ttp No cyanosis or clubbing, Normal movement of all extremities. No evidence of significant bruising or deformity of the upper and lower extremities. 8.Skin: Warm, Dry. No rashes or lesions. 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 Sensation grossly intact, no focal neurologic deficits. Normal sensation in all extremities. No signs of horizontal vertical or rotatory nystagmus normal coordination of all extremities. 10.Psych: (AAO) x3. Appropriate mood and affect Course Vital Signs Temperature 36.1 C L 11/10/17 05:39 Pulse 83 11/10/17 05:39 Respiratory Rate 18 11/10/17 05:39 Blood Pressure 153/86 H 11/10/17 05:39 Pulse Oximetry 98 11/10/17 05:39 Temperature 36.1 C L 11/10/17 05:39 Temperature Source Skin 11/10/17 05:39 Pulse 83 11/10/17 05:39 Respiratory Rate 18 11/10/17 05:39 Respiratory Effort Non-Labored 11/10/17 05:41 Blood Pressure 153/86 H 11/10/17 05:39 Blood Pressure Position Sitting 11/10/17 05:39 Pulse Oximetry 98 11/10/17 05:39 Oxygen Delivery Method Room Air 11/10/17 05:39 Oxygen Flow Rate 0 11/10/17 05:39
[2017-11-10] MEDS: Lactated Ringers 1,000 ML 1000 ML IV ×2 (06:15→07:40)
[2017-11-10 06:18] LABS: Lipase 497 U/L (73-393)
[2017-11-10] MEDS: MORPHine 10 MG/ML VIAL 4 MG IVP ×2 (06:19→08:50)
[2017-11-10 06:20] LABS: INR 2.1 (1.0-3.5); PTT Activated 30.1 sec (21.0-31.4); Prothrombin Time 20.3 sec (9.3-10.8)
[2017-11-10 06:23] LABS: ALT 35 U/L (12-78); AST 25 U/L (15-37); Albumin 3.4 g/dL (3.4-5.0); Alkaline Phosphatase 93 U/L (46-116); Anion Gap 14.7 mmol/L (3-11); BUN 46 mg/dL (7-18); Bilirubin, Total 0.8 mg/dL (0.2-1.0); CO2 21.3 mmol/L (21.0-32.0); Chloride 100 mmol/L (98-107); Estimated GFR 13.33 (mL/min/1.73m2); Glucose 120 mg/dL (70-100); Potassium 3.4 mmol/L (3.5-5.1); Sodium 136 mmol/L (136-145); Total Protein 6.8 g/dL (6.4-8.2)
--- NOTE | 2017-11-10 06:25 | DI.CT_ITS ---
SYMPTOMS/DIAGNOSIS: RECENT COLONOSCOPY, GENERAL TENDERNESS, ? PERFORATED COLITIS CT EXAMINATION OF THE ABDOMEN AND PELVIS: The study was carried out without contrast enhancement. Cardiomegaly is noted and there is a small pericardial effusion. The liver is normal. The gallbladder is normal. There are no stones or ductal dilatation. The pancreas and spleen are normal. There is probable adenomatous hyperplasia of the adrenal glands. Bilateral renal atrophy is demonstrated. There is colonic wall thickening, which may represent nonspecific colitis, either infectious or inflammatory. There is no evidence of an appendicitis. The bladder is unremarkable. The reproductive organs as visualized are unremarkable. There is no evidence of free air or free fluid in the intraperitoneal space. Scattered bony radiolucencies are present. These include vertebral body as well as iliac bones. These appear to have been present on a previous study and are likely not secondary to metastatic disease. The soft tissues are unremarkable. The vasculature is unremarkable with no evidence of an aortic aneurysm. There is no lymphadenopathy. SUMMARY: Colonic wall thickening could represent a nonspecific colitis of infectious or inflammatory origin. Note is made of renal atrophy and bilateral nonobstructive nephrolithiasis. Also, the heart appears somewhat enlarged and there is an apparent small pericardial effusion.
[2017-11-10 06:27] LABS: CREATININE 4.48 mg/dL (0.70-1.30); Calcium 6.2 mg/dL (8.5-10.1); Troponin I 0.17 ng/mL (0.00-0.06)
--- NOTE | 2017-11-10 06:44 | DI.VRAD_ITS ---
EXAM: CT Abdomen and Pelvis Without Intravenous Contrast EXAM DATE/TIME: 11/10/2017 5:55 AM CLINICAL HISTORY: 66 years old, male; Pain; Abdominal pain; Localized; Lower; Prior surgery; Surgery date: 6+ months; Surgery type: Pacemaker; Patient HX: Pain and discomfort following a colonoscopy yesterday at [facility] TECHNIQUE: Axial computed tomography images of the abdomen and pelvis without intravenous contrast. All CT scans at this facility use at least one of these dose optimization techniques: automated exposure control; mA and/or kV adjustment per patient size (includes targeted exams where dose is matched to clinical indication); or iterative reconstruction. Coronal and sagittal reformatted images were created and reviewed. COMPARISON: DI.CTAPWO 11/08/2017 7:40 AM FINDINGS: Lower thorax: Cardiomegaly Trace pericardial fluid ABDOMEN: Liver: Normal. No mass. Gallbladder and bile ducts: Normal. No calcified stones. No ductal dilation. Pancreas: Normal. No ductal dilation. Spleen: Normal. No splenomegaly. Adrenals: Probable adenomatous hyperplasia of the adrenal glands Kidneys and ureters: Bilateral renal atrophy noted Stomach and bowel: Colonic wall thickening may reflect a nonspecific colitis, either infectious or inflammatory. Appendix: No evidence of appendicitis. PELVIS: Bladder: Unremarkable as visualized. Reproductive: Unremarkable as visualized. ABDOMEN and PELVIS: Intraperitoneal space: Normal. No free air. No significant fluid collection. Bones/joints: Scattered osseous lucencies are present. These include vertebral bodies as well as the iliac bones. These appear to have been present on the previous study and likely does not reflect evidence for metastatic disease Soft tissues: Unremarkable. Vasculature: Normal. No abdominal aortic aneurysm. Lymph nodes: Normal. No enlarged lymph nodes. IMPRESSION: Colonic wall thickening may reflect a nonspecific colitis, either infectious or inflammatory. Dictated and Authenticated by: Asael Hinojosa MD. Ordering:POLLY HUNTER MD
[2017-11-10] MEDS: Pantoprazole 40 MG VIAL IVP (08:34)
[2017-11-10] MEDS: Dicyclomine 10 MG CAP PO (08:35)
[2017-11-10 10:47] LABS: Troponin I 0.18 ng/mL (0.00-0.06)
--- NOTE | 2017-11-10 11:17 | ED.GENADUL_ITS ---
Discharge Plan Discharge Details Chief Complaint: Abd Prob Primary Care Provider: Basilio Antunez ED Provider: Miko Saenz Home Meds and New Rx's Prescriptions: No Action pravastatin 20 MG tablet 40 mg PO DAILY RF: 0 warfarin 5 MG tablet 5 mg PO DAILY RF: 0 finasteride 5 MG tablet 5 mg PO DAILY Qty: 90 RF: 4 nitroglycerin 0.4 MG tablet, sublingual 0.4 mg Sublingual PRN PRNRF: 0 Metoprolol Succinate 50 MG TAB.ER.24H 50 mg PO DAILY RF: 0 spironolactone 25 MG tablet 25 mg PO DAILY RF: 0 acetaminophen [Mapap Extra Strength] 500 MG tablet 500 mg PO PRN PRNRF: 0 aspirin [Aspirin Low-Strength] 81 MG tablet,chewable 81 mg PO DAILY RF: 0 Psyllium [Metamucil] 1 EACH Pkt 1 tsp PO DAILY RF: 0 amlodipine 5 mg Tablet 5 mg PO DAILY RF: 0 calcium carbonate [Tums Ultra] 1,177 mg tablet,chewable 1,177 mg PO DAILY Qty: 10 RF: 0 magnesium oxide 400 mg capsule 400 mg PO DAILY Qty: 10 RF: 0 Medical Decision Making Received signout from Dr. Moser. Please see his note regarding details of the patient's history, presentation, initial exam and findings. The case had been discussed with Dr. Ellis of [facility] gastroenterology by Dr. Moser. She recommended the administration of steroid enemas, admission for fluid resuscitation, ongoing trending of troponin. I discussed the case with the [facility] who stated they also did not have availability to accept in transfer, but may have bed availability tomorrow. For hour repeat troponin is essentially the same. Patient remains stable. Discussed with Dr Augustine who will admit to [facility] in face of lack of bed availability at [facility] or [facility]. HPI General Date/Time Provider Initiated Documentation: 11/10/17 05:47 . Related Data Home Medications Medication Instructions Recorded Confirmed pravastatin 40 mg PO DAILY tab-cap 07/02/15 11/10/17 warfarin 5 mg PO DAILY tab-cap 12/19/15 11/10/17 finasteride 5 mg PO DAILY #90 tab-cap 03/09/16 11/10/17 Psyllium [Metamucil] 1 tsp PO DAILY 11/13/16 11/10/17 acetaminophen [Mapap Extra 500 mg PO PRN PRN 11/13/16 11/10/17 Strength] aspirin [Aspirin Low-Strength] 81 mg PO DAILY 11/13/16 11/10/17 spironolactone 25 mg PO DAILY 11/13/16 11/10/17 Metoprolol Succinate 50 mg PO DAILY tab-cap 01/11/17 11/10/17 nitroglycerin 0.4 mg SUBLINGUAL PRN PRN 01/11/17 11/10/17 amlodipine 5 mg PO DAILY 11/08/17 11/10/17 calcium carbonate [Tums Ultra] 1,177 mg PO DAILY #10 tab 11/08/17 11/10/17 magnesium oxide 400 mg PO DAILY #10 cap 11/08/17 11/10/17 Previous Rx's Medication Instructions Recorded calcium carbonate [Tums Ultra] 1,177 mg PO DAILY #10 tab 11/08/17 magnesium oxide 400 mg PO DAILY #10 cap 11/08/17 Allergies Allergy/AdvReac Type Severity Reaction Status Date / Time No Known Allergies Allergy Unverified 11/10/17 05:43 General Stated Complaint: Abd Prob BRI: 3 Course Vital Signs Temperature 36.1 C L 11/10/17 05:39 Pulse 83 11/10/17 05:39 Respiratory Rate 18 11/10/17 05:39 Blood Pressure 153/86 H 11/10/17 05:39 Pulse Oximetry 98 11/10/17 05:39 Temperature 36.1 C L 11/10/17 05:39 Temperature Source Skin 11/10/17 05:39 Pulse 83 11/10/17 05:39 Pulse 70 11/10/17 06:50 Respiratory Rate 15 11/10/17 06:50 Respiratory Effort Non-Labored 11/10/17 05:41 Blood Pressure 153/86 H 11/10/17 05:39 Blood Pressure Position Sitting 11/10/17 05:39 Pulse Oximetry 98 11/10/17 05:39 Oxygen Delivery Method Room Air 11/10/17 05:39 Oxygen Flow Rate 0 11/10/17 05:39 Pain Level 6 11/10/17 08:50 Lab/Test Results Lab/Test Results: 11/10/17 08:40 Blood Blood Culture - Pending 11/10/17 08:30 Blood Blood Culture - Pending Laboratory Tests Range/Units 11/10/17 11/10/17 11/10/17 05:55 05:55 05:55 WBC (4.4-10.8) k/cumm 27.07 H* RBC (4.50-6.00) m/cumm 4.09 L Hgb (13.5-17.5) g/dL 12.5 L Hct (40.0-50.0) % 38.0 L MCV (80-95) fL 92.9 MCH (27.0-33.0) pg 30.6 MCHC (32.0-36.0) g/dL 32.9 RDW (11.8-14.1) % 13.9 Plt Count (130-400) x1000/uL 250 MPV (8.0-11.0) fL 9.3 Immature Gran % 0.3 Neutrophils % 92.8 Lymphocytes % 2.1 Monocytes % 4.7 Eosinophils % 0.1 Basophils % 0.0 Absolute Neutrophils (1.2-6.7) k/cumm 25.12 H Absolute Lymphocytes (1.2-3.4) k/cumm 0.57 L Absolute Monocytes (0.11-0.7) k/cumm 1.27 H Absolute Eosinophils (0.0-0.7) k/cumm 0.03 Absolute Basophils (0.0-0.2) k/cumm 0.00 Differential Comment PT (9.3-10.8) sec 20.3 H D INR (1.0-3.5) 2.1 D APTT (21.0-31.4) sec 30.1 Sodium (136-145) mmol/L 136 Potassium (3.5-5.1) mmol/L 3.4 L Chloride (98-107) mmol/L 100 Carbon Dioxide (21.0-32.0) mmol/L 21.3 Anion Gap (3-11) mmol/L 14.7 H BUN (7-18) mg/dL 46 H D Creatinine (0.70-1.30) mg/dL 4.48 H* Estimated GFR/1.73 m2 (mL/min/1.73m2) 13.33 Glucose (70-100) mg/dL 120 H Lactate (0.6-1.4) mmol/L Calcium (8.5-10.1) mg/dL 6.2 L* Total Bilirubin (0.2-1.0) mg/dL 0.8 AST (15-37) U/L 25 ALT (12-78) U/L 35 Alkaline Phosphatase (46-116) U/L 93 Troponin I (0.00-0.06) ng/mL Total Protein (6.4-8.2) g/dL 6.8 Albumin (3.4-5.0) g/dL 3.4 Lipase (73-393) U/L Range/Units 11/10/17 11/10/17 11/10/17 05:55 05:55 08:30 WBC (4.4-10.8) k/cumm RBC (4.50-6.00) m/cumm Hgb (13.5-17.5) g/dL Hct (40.0-50.0) % MCV (80-95) fL MCH (27.0-33.0) pg MCHC (32.0-36.0) g/dL RDW (11.8-14.1) % Plt Count (130-400) x1000/uL MPV (8.0-11.0) fL Immature Gran % Neutrophils % Lymphocytes % Monocytes % Eosinophils % Basophils % Absolute Neutrophils (1.2-6.7) k/cumm Absolute Lymphocytes (1.2-3.4) k/cumm Absolute Monocytes (0.11-0.7) k/cumm Absolute Eosinophils (0.0-0.7) k/cumm Absolute Basophils (0.0-0.2) k/cumm Differential Comment PT (9.3-10.8) sec INR (1.0-3.5) APTT (21.0-31.4) sec Sodium (136-145) mmol/L Potassium (3.5-5.1) mmol/L Chloride (98-107) mmol/L Carbon Dioxide (21.0-32.0) mmol/L Anion Gap (3-11) mmol/L BUN (7-18) mg/dL Creatinine (0.70-1.30) mg/dL Estimated GFR/1.73 m2 (mL/min/1.73m2) Glucose (70-100) mg/dL Lactate (0.6-1.4) mmol/L 1.0 Calcium (8.5-10.1) mg/dL Total Bilirubin (0.2-1.0) mg/dL AST (15-37) U/L ALT (12-78) U/L Alkaline Phosphatase (46-116) U/L Troponin I (0.00-0.06) ng/mL 0.17 H Total Protein (6.4-8.2) g/dL Albumin (3.4-5.0) g/dL Lipase (73-393) U/L 497 H Range/Units 11/10/17 10:18 WBC (4.4-10.8) k/cumm RBC (4.50-6.00) m/cumm Hgb (13.5-17.5) g/dL Hct (40.0-50.0) % MCV (80-95) fL MCH (27.0-33.0) pg MCHC (32.0-36.0) g/dL RDW (11.8-14.1) % Plt Count (130-400) x1000/uL MPV (8.0-11.0) fL Immature Gran % Neutrophils % Lymphocytes % Monocytes % Eosinophils % Basophils % Absolute Neutrophils (1.2-6.7) k/cumm Absolute Lymphocytes (1.2-3.4) k/cumm Absolute Monocytes (0.11-0.7) k/cumm Absolute Eosinophils (0.0-0.7) k/cumm Absolute Basophils (0.0-0.2) k/cumm Differential Comment PT (9.3-10.8) sec INR (1.0-3.5) APTT (21.0-31.4) sec Sodium (136-145) mmol/L Potassium (3.5-5.1) mmol/L Chloride (98-107) mmol/L Carbon Dioxide (21.0-32.0) mmol/L Anion Gap (3-11) mmol/L BUN (7-18) mg/dL Creatinine (0.70-1.30) mg/dL Estimated GFR/1.73 m2 (mL/min/1.73m2) Glucose (70-100) mg/dL Lactate (0.6-1.4) mmol/L Calcium (8.5-10.1) mg/dL Total Bilirubin (0.2-1.0) mg/dL AST (15-37) U/L ALT (12-78) U/L Alkaline Phosphatase (46-116) U/L Troponin I (0.00-0.06) ng/mL 0.18 H Total Protein (6.4-8.2) g/dL Albumin (3.4-5.0) g/dL Lipase (73-393) U/L Sign Out Sign Out Data: Sign Out Comment: pending transfer options Last updated by Ryan Moser DO at 11/10/17 08:18
[2017-11-10 14:41] LABS: Bilirubin Negative (Negative); Blood Moderate (Negative); Clarity Clear; Glucose Negative (Negative); Ketones Trace mg/dL (Negative); Leukocyte Esterase Negative (Negative); Nitrite Negative (Negative); Urobilinogen 0.2 EU/dL (Up TO 0.2)
[2017-11-10] MEDS: Normal Saline 1,000 ML 150 ML IV ×2 (14:47→19:10)
[2017-11-10 14:55] LABS: Bacteria Rare HPF (Negative); C & S Indicated? No; Casts Negative LPF (Negative); Crystals Negative HPF (Negative); Epithelial Cells Rare HPF (Negative); Mucus Negative (Negative); RBC 0-2 (0-2); WBC 0-2 HPF (0-5)
--- NOTE | 2017-11-10 18:23 | W.PM.HP.N ---
Date of service: 11/10/17 Time of Service: 18:24 Assessment and Plan (1) Colitis: Current visit: Yes Status: Acute (2) CKD (chronic kidney disease): Current visit: Yes Status: Acute (3) Atrial fibrillation: Current visit: Yes Status: Chronic (4) DVT prophylaxis: Current visit: Yes Status: Acute History of Present Illness Chief Complaint: Abdominal Pain, Diarrhea. Colitis. Narrative: A very pleasant 66-year-old man with a past medical history significant for atrial fibrillation as well as prior history of both deep vein thrombosis and pulmonary embolus on 2 separate occasions, on chronic anticoagulation, as well as chronic kidney disease presented to [facility] emergency department with complaints of multiple bloody bowel movements. Mr. Collins had had a history of loose stools for quite some time. He had had a flexible sigmoidoscopy at [facility] by his rehabilitation therapy aide, for which his Coumadin was not held due to his history of pulmonary embolus, deep vein thrombosis, as well as atrial fibrillation. This test was significant for evidence of moderate to severe segmental colitis associated with diverticulosis, for which biopsies were obtained. He was started on Cipro and Flagyl for a planned 10-day total course. The patient noted that following the procedure he continued to have bloody stools and contacted the outside institution where he had his flexible sigmoidoscopy performed at; and he was advised to continue to monitor. However, the night before his admission he became quite anxious as he had had multiple bloody bowel movements and presented to the emergency department. At that time his hemoglobin was checked at 11.8; with a repeat returning at 11.4. Given his chronic anticoagulation as well as his continued gastrointestinal bleeding, the decision was made to admit the patient for further evaluation and treatment. Past Medical History: 1. Atrial fibrillation on chronic anticoagulation with warfarin. 2. History of deep vein thrombosis in 2016 following hospitalization for hematuria with subsequent holding of his anticoagulation. 3. History of pulmonary embolus in 1996 following placement of his pacemaker. 4. Coronary artery disease with a history of silent myocardial infarction. 5. History of significant hematuria in 2016; follows with Urology. 6. History of cardiomyopathy. 7. Atrophic right kidney. 8. Chronic kidney disease. 9. Benign prostatic hypertrophy. 10. History of nephrolithiasis. 11. Gastroesophageal reflux disease. 12. Transient ischemic attack in 2013. Past Surgical History: 1. Status post permanent pacemaker/ automatic implantable cardioverter-defibrillator. 2. Prior cystoscopy, colonoscopy, and esophagogastroduodenoscopy. Meds Home Medications Medication Instructions Recorded Confirmed Type pravastatin 40 mg PO DAILY tab-cap 07/02/15 11/10/17 History warfarin 5 mg PO DAILY tab-cap 12/19/15 11/10/17 History finasteride 5 mg PO DAILY #90 tab-cap 03/09/16 11/10/17 History Psyllium [Metamucil] 1 tsp PO DAILY 11/13/16 11/10/17 History acetaminophen [Mapap Extra 500 mg PO PRN PRN 11/13/16 11/10/17 History Strength] aspirin [Aspirin Low-Strength] 81 mg PO DAILY 11/13/16 11/10/17 History spironolactone 25 mg PO DAILY 11/13/16 11/10/17 History Metoprolol Succinate 50 mg PO DAILY tab-cap 01/11/17 11/10/17 History nitroglycerin 0.4 mg SUBLINGUAL PRN PRN 01/11/17 11/10/17 History amlodipine 5 mg PO DAILY 11/08/17 11/10/17 History calcium carbonate [Tums Ultra] 1,177 mg PO DAILY #10 tab 11/08/17 11/10/17 Rx magnesium oxide 400 mg PO DAILY #10 cap 11/08/17 11/10/17 Rx Allergies Allergy/AdvReac Type Severity Reaction Status Date / Time No Known Allergies Allergy Unverified 11/10/17 05:43 Exam Narrative Exam Narrative: General: Patient appears comfortable, AAOX3, NAD Neck: Supple CV: Regular, nontachycardic, S1S2, No rubs, murmurs, or gallops. Pulmonary: Clear to auscultation bilaterally, no crackles, wheezing, or rhonchi Abdomen: + Bowel Sounds, soft, nontender, nondistended Vascular: No lower extremity edema Neurologic: CN II-XII grossly intact. No focal deficits. Psych: Normal mood and affect. Results Imaging Imaging Studies: Exam(s) CT EXAMINATION OF THE ABDOMEN AND PELVIS: The study was carried out without contrast enhancement. Cardiomegaly is noted and there is a small pericardial effusion. The liver is normal. The gallbladder is normal. There are no stones or ductal dilatation. The pancreas and spleen are normal. There is probable adenomatous hyperplasia of the adrenal glands. Bilateral renal atrophy is demonstrated. There is colonic wall thickening, which may represent nonspecific colitis, either infectious or inflammatory. There is no evidence of an appendicitis. The bladder is unremarkable. The reproductive organs as visualized are unremarkable. There is no evidence of free air or free fluid in the intraperitoneal space. Scattered bony radiolucencies are present. These include vertebral body as well as iliac bones. These appear to have been present on a previous study and are likely not secondary to metastatic disease. The soft tissues are unremarkable. The vasculature is unremarkable with no evidence of an aortic aneurysm. There is no lymphadenopathy. SUMMARY: Colonic wall thickening could represent a nonspecific colitis of infectious or inflammatory origin. Note is made of renal atrophy and bilateral nonobstructive nephrolithiasis. Also, the heart appears somewhat enlarged and there is an apparent small pericardial effusion. Labs : 11/10/17 05:55 11/10/17 05:55 Laboratory Results - last 24 hr 11/10/17 11/10/17 11/10/17 05:55 05:55 05:55 WBC 27.07 H* RBC 4.09 L Hgb 12.5 L Hct 38.0 L MCV 92.9 MCH 30.6 MCHC 32.9 RDW 13.9 Plt Count 250 MPV 9.3 Immature Gran % 0.3 Neutrophils % 92.8 Lymphocytes % 2.1 Monocytes % 4.7 Eosinophils % 0.1 Basophils % 0.0 Absolute Neutrophils 25.12 H Absolute Lymphocytes 0.57 L Absolute Monocytes 1.27 H Absolute Eosinophils 0.03 Absolute Basophils 0.00 Differential Comment PT 20.3 H D INR 2.1 D APTT 30.1 Sodium 136 Potassium 3.4 L Chloride 100 Carbon Dioxide 21.3 Anion Gap 14.7 H BUN 46 H D Creatinine 4.48 H* Estimated GFR/1.73 m2 13.33 Glucose 120 H Lactate Calcium 6.2 L* Total Bilirubin 0.8 AST 25 ALT 35 Alkaline Phosphatase 93 Troponin I Total Protein 6.8 Albumin 3.4 Lipase Urine Color Urine Clarity Urine pH Ur Specific [place] Urine Protein Urine Ketones Urine Blood Urine Nitrite Urine Bilirubin Urine Urobilinogen Ur Leukocyte Esterase Urine RBC Urine WBC Ur Epithelial Cells Urine Crystals Urine Bacteria Urine Casts Urine Mucus Ur Culture Indicated? Urine Glucose 11/10/17 11/10/17 11/10/17 05:55 05:55 08:30 WBC RBC Hgb Hct MCV MCH MCHC RDW Plt Count MPV Immature Gran % Neutrophils % Lymphocytes % Monocytes % Eosinophils % Basophils % Absolute Neutrophils Absolute Lymphocytes Absolute Monocytes Absolute Eosinophils Absolute Basophils Differential Comment PT INR APTT Sodium Potassium Chloride Carbon Dioxide Anion Gap BUN Creatinine Estimated GFR/1.73 m2 Glucose Lactate 1.0 Calcium Total Bilirubin AST ALT Alkaline Phosphatase Troponin I 0.17 H Total Protein Albumin Lipase 497 H Urine Color Urine Clarity Urine pH Ur Specific [place] Urine Protein Urine Ketones Urine Blood Urine Nitrite Urine Bilirubin Urine Urobilinogen Ur Leukocyte Esterase Urine RBC Urine WBC Ur Epithelial Cells Urine Crystals Urine Bacteria Urine Casts Urine Mucus Ur Culture Indicated? Urine Glucose 11/10/17 11/10/17 10:18 14:32 WBC RBC Hgb Hct MCV MCH MCHC RDW Plt Count MPV Immature Gran % Neutrophils % Lymphocytes % Monocytes % Eosinophils % Basophils % Absolute Neutrophils Absolute Lymphocytes Absolute Monocytes Absolute Eosinophils Absolute Basophils Differential Comment PT INR APTT Sodium Potassium Chloride Carbon Dioxide Anion Gap BUN Creatinine Estimated GFR/1.73 m2 Glucose Lactate Calcium Total Bilirubin AST ALT Alkaline Phosphatase Troponin I 0.18 H Total Protein Albumin Lipase Urine Color Yellow Urine Clarity Clear Urine pH 7.0 Ur Specific [place] 1.010 Urine Protein 100 H Urine Ketones Trace H Urine Blood Moderate H Urine Nitrite Negative Urine Bilirubin Negative Urine Urobilinogen 0.2 Ur Leukocyte Esterase Negative Urine RBC 0-2 Urine WBC 0-2 Ur Epithelial Cells Rare Urine Crystals Negative Urine Bacteria Rare Urine Casts Negative Urine Mucus Negative Ur Culture Indicated? No Urine Glucose Negative
[2017-11-10 19:17] LABS: Troponin I 0.15 ng/mL (0.00-0.06)
[2017-11-11] MEDS: Normal Saline 1,000 ML 150 ML IV ×2 (01:52→08:22)
[2017-11-11 03:00] VITALS: BP 157/92; PULSE 82; RESP 18; TEMP 36.3; O2SAT 95
[2017-11-11 07:15] VITALS: O2SAT 98
[2017-11-11 07:17] LABS: Abs Immature Grans 0.05 k/cumm (0.0-0.09); Absolute Basophil Count 0.01 k/cumm (0.0-0.2); Absolute Eosinophil Count 0.05 k/cumm (0.0-0.7); Absolute Lymphocyte Count 0.67 k/cumm (1.2-3.4); Absolute Monocyte Count 0.61 k/cumm (0.11-0.7); Absolute Neutrophil Count 11.28 k/cumm (1.2-6.7); Basophils % 0.1; Eosinophils % 0.4; HCT 36.9 % (40.0-50.0); HGB 11.7 g/dL (13.5-17.5); Immature Grans % 0.4; Lymphocytes % 5.3; Mean Corp. HGB Concentration 31.7 g/dL (32.0-36.0); Mean Corpuscular Hemoglobin 30.4 pg (27.0-33.0); Mean Corpuscular Volume 95.8 fL (80-95); Mean Platelet Volume 9.7 fL (8.0-11.0); Monocytes % 4.8; Platelet Count 219 x1000/uL (130-400); RBC 3.85 m/cumm (4.50-6.00); RBC Distribution Width 14.1 % (11.8-14.1); White Blood Cell Count 12.67 k/cumm (4.4-10.8)
[2017-11-11 07:30] LABS: INR 2.1 (1.0-3.5)
[2017-11-11 07:47] LABS: ALT 26 U/L (12-78); AST 19 U/L (15-37); Alkaline Phosphatase 84 U/L (46-116); Anion Gap 13.8 mmol/L (3-11); BUN 35 mg/dL (7-18); Bilirubin, Total 0.6 mg/dL (0.2-1.0); CO2 22.2 mmol/L (21.0-32.0); Chloride 105 mmol/L (98-107); Estimated GFR 15.19 (mL/min/1.73m2); Glucose 118 mg/dL (70-100); Potassium 3.7 mmol/L (3.5-5.1); Sodium 141 mmol/L (136-145); Total Protein 6.4 g/dL (6.4-8.2)
[2017-11-11 07:50] VITALS: BP 160/90; PULSE 74; RESP 17; TEMP 36; O2SAT 97
[2017-11-11 07:55] LABS: Troponin I 0.14 ng/mL (0.00-0.06)
[2017-11-11 08:01] VITALS: PULSE 77
[2017-11-11] MEDS: Pravastatin 20 MG TAB 40 MG PO (08:21)
[2017-11-11] MEDS: Finasteride 5 MG TAB PO (08:21)
[2017-11-11 08:23] LABS: Lipase 634 U/L (73-393)
[2017-11-11] MEDS: MetroNIDAZOLE 500 MG/100 ML BAG 100 MG IVPB ×3 (08:24→21:39)
[2017-11-11] MEDS: amLODIPine 5 MG TAB PO (08:25)
[2017-11-11] MEDS: Spironolactone 25 MG TAB PO (08:25)
[2017-11-11] MEDS: Aspirin 81 MG CHEW PO (08:25)
[2017-11-11] MEDS: Metoprolol CR 50 MG TABCR PO (08:25)
[2017-11-11] MEDS: Magnesium Oxide 400 MG TAB PO (08:26)
--- NOTE | 2017-11-11 08:34 | MERGE_ITS ---
*[facility]* *[facility]* [address] [place] [address] Date of study: 11/11/2017 Transthoracic Echocardiography M-mode, complete 2D, complete spectral Doppler, and color Doppler *STUDY CONCLUSIONS* Summary: 1. Left ventricle: The cavity size was dilated. Wall thickness was increased in a pattern of mild LVH. Systolic function was moderately reduced. The estimated ejection fraction was 35-40%. Moderate diffuse hypokinesis. Akinesis of the basalinferior myocardium. 2. Right ventricle: The cavity size was normal. Device wire noted in right ventricle. Systolic function was normal. 3. Ventricular septum: Septal motion showed paradoxical motion consistent with Bundle Branch Block. 4. Left atrium: The atrium was severely dilated. 5. Aortic valve: Trileaflet; mildly thickened, mildly calcified leaflets. Valve mobility was restricted. Transvalvular velocity was increased. There was mild stenosis. VTI ratio of LVOT to aortic valve: 0.58. Valve area (VTI): 1.6cm^2. 6. Tricuspid valve: There was mild-moderate regurgitation. 7. Pulmonary arteries: Pulmonary systolic pressure was increased, in the range of 40mm Hg to 45mm Hg. 8. Pericardium, extracardiac: A trivial pericardial effusion was identified posterior to the heart. There was no evidence of hemodynamic compromise. *PATIENT PRESENTATION* Height: 165.1cm ((65in) ) S/D Pressure: 157 / 92 Weight: 66.7kg ((146.7lb) ) BSA: 1.76m^2 Test start time: 08:30 AM. Test stop time: 09:30 AM. PERFORMING Unknown ORDERING Lathari, Boy A REFERRING Boy Augustine PERFORMING [facility] MANUAL ARTS THERAPIST Angelia Baez *PROCEDURE DATA* Procedure information: This study was interpreted by [facility]. Pertinent images and digital data are archived for permanent storage and are available for subsequent review. No prior study was available for comparison. Study status: Routine. Transthoracic echocardiography. M-mode, complete 2D, complete spectral Doppler, and color Doppler. A Transthoracic Echocardiogram was performed. Scanning was performed from the parasternal, apical, subcostal, and suprasternal notch acoustic windows. Images were obtained using an [employer] SC 2000 cardiac ultrasound machine. Image quality was adequate. Study completion: The patient tolerated the procedure well. There were no complications. History: PMH: CHF. *CARDIAC ANATOMY* Left ventricle: The cavity size was dilated. Wall thickness was increased in a pattern of mild LVH. Systolic function was moderately reduced. The estimated ejection fraction was 35-40%. Moderate diffuse hypokinesis. Regional wall motion abnormalities: Akinesis of the basalinferior myocardium. Aortic valve: Trileaflet; mildly thickened, mildly calcified leaflets. Valve mobility was restricted. Doppler: Transvalvular velocity was increased. There was mild stenosis. There was no significant regurgitation. VTI ratio of LVOT to aortic valve: 0.58. Valve area (VTI): 1.6cm^2. Indexed valve area (VTI): 0.9cm^2/m^2. Peak velocity ratio of LVOT to aortic valve: 0.63. Valve area (Vmax): 1.8cm^2. Indexed valve area (Vmax): 1cm^2/m^2. Mean velocity ratio of LVOT to aortic valve: 0.55. Valve area (Vmean): 1.5cm^2. Indexed valve area (Vmean): 0.9cm^2/m^2. Mean gradient (S): 9.3mm Hg. Peak gradient (S): 17.7mm Hg. Aorta: Aortic root: The aortic root was normal in size. Ascending aorta: The ascending aorta was normal in size. Mitral valve: Mildly calcified annulus. Mildly thickened leaflets. Mobility was not restricted. Doppler: Transvalvular velocity was within the normal range. There was no evidence for stenosis. There was mild regurgitation. Valve area by pressure half-time: 5.8cm^2. Indexed valve area by pressure half-time: 3.3cm^2/m^2. Peak gradient (D): 6.7mm Hg. Left atrium: The atrium was severely dilated. Right ventricle: The cavity size was normal. Device wire noted in right ventricle. Systolic function was normal. Ventricular septum: Septal motion showed paradoxical motion consistent with Bundle Branch Block. Pulmonic valve: Poorly visualized. Doppler: Transvalvular velocity was within the normal range. There was no evidence for stenosis. There was trivial regurgitation. Tricuspid valve: Structurally normal valve. Doppler: Transvalvular velocity was within the normal range. There was no evidence for stenosis. There was mild-moderate regurgitation. Pulmonary artery: Poorly visualized. Pulmonary systolic pressure was increased, in the range of 40mm Hg to 45mm Hg. Right atrium: The atrium was dilated. Device wire noted in right atrium. Pericardium: A trivial pericardial effusion was identified posterior to the heart. There was no evidence of hemodynamic compromise. Systemic veins: Inferior vena cava: The vessel was normal in size. The respirophasic diameter changes were in the normal range (greater than or equal to 50%), consistent with normal central venous pressure. Measurements Left ventricle Value Reference LV ID, ED, PLAX 5.8 cm 3.5 - 6.0 LV ID, ES, PLAX (H) 5.0 cm 2.1 - 4.0 LV PW thickness, ED, PLAX 1.2 cm LV end-diastolic volume, 1-p A2C 115 ml LV ejection fraction, 1-p A2C 47 % LV end-diastolic volume, 1-p A4C 104 ml LV ejection fraction, 1-p A4C 25 % LV e', lateral 0.087 m/sec LV E/e', lateral 15 LV e', medial 0.144 m/sec LV E/e', medial 9 LV e', average 0.115 m/sec LV E/e', average 11 Ventricular septum Value Reference IVS thickness, ED, PLAX 1.2 cm LVOT Value Reference LVOT ID, A-P 1.9 cm LVOT area 2.8 cm^2 LVOT peak velocity, S 1.33 m/sec LVOT mean velocity, S 0.78 m/sec LVOT VTI, S 21.2 cm LVOT peak gradient, S 7 mm Hg LVOT mean gradient, S 3.1 mm Hg Stroke volume (SV), LVOT DP 59 ml Stroke index (SV/bsa), LVOT DP 34 ml/m^2 Aortic valve Value Reference Aortic valve peak velocity, S 2.1 m/sec Aortic valve mean velocity, S 1.42 m/sec Aortic valve VTI, S 36.8 cm Aortic mean gradient, S 9.3 mm Hg Aortic peak gradient, S 17.7 mm Hg VTI ratio, LVOT/AV 0.58 Aortic valve area, VTI 1.6 cm^2 Velocity ratio, peak, LVOT/AV 0.63 Aortic valve area, peak velocity 1.8 cm^2 Velocity ratio, mean, LVOT/AV 0.55 Aortic valve area, mean velocity 1.5 cm^2 Aortic valve area/bsa, mean velocity 0.9 cm^2/m^2 Aorta Value Reference Aortic root ID, ED 2.6 cm Ascending aorta ID, A-P, S 3.0 cm Left atrium Value Reference LA ID, A-P, ES 4.9 cm LA ID/bsa, A-P (H) 2.8 cm/m^2 <=2.2 LA area, ES, A4C (H) 41.1 cm^2 8.8 - 23.4 LA area, ES, A2C 44 cm^2 LA volume/bsa, S 104 ml/m^2 LA volume, ES, 2-p 172 ml LA volume/bsa, ES, 2-p 98 ml/m^2 LA/aortic root ratio 1.86 Mitral valve Value Reference Mitral E-wave peak velocity 1.29 m/sec Mitral A-wave peak velocity 0.44 m/sec Mitral deceleration time (L) 132 ms 150 - 230 Mitral pressure half-time 38 ms Mitral peak gradient, D 6.7 mm Hg Mitral E/A ratio, peak 2.96 Mitral valve area, PHT, DP 5.8 cm^2 Tricuspid valve Value Reference Tricuspid regurg peak velocity 3.1 m/sec Tricuspid peak RV-RA gradient 39.6 mm Hg Right atrium Value Reference RA area, ES, A4C (H) 41.2 cm^2 8.3 - 19.5 Legend: (L) and (H) aileen values outside specified reference range. I have personally reviewed the images and have reviewed and edited the reported findings. Electronically signed by Andrea Toro 11/11/2017 11:30
[2017-11-11] MEDS: CIPROFLOXACIN 400 MG/200 ML BAG 200 MG IVPB (09:38)
[2017-11-11] MEDS: POTASSIUM CHLORIDE 20 MEQ, POTASSIUM CHLORIDE 10 MEQ 30 MEQ PO (09:38)
--- NOTE | 2017-11-11 11:40 | PHARADMIT ---
Addendum entered by Roby Lebron III 11/20/17 14:01: Pharmacy Note Subjective I&Os remain low. Objective VS-OK temp rising 37.4C K+4.7 SCr-4.67 INR-1.4 H&H-8.5/26.9 Plts-255 Assessment No medication changes Plan Awaiting Hospitalist note. Original Note: Addendum entered by Roby Lebron III 11/19/17 15:10: Pharmacy Note Subjective Patient is has marginal intake & urine output, IV fluids restarted. 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 Objective VS-OK INR-1.7 SCr-4.70 K+5.0 Na-139 H&H-down (8.9/28.2 Plts-246 Assessment MD not re-starting Warfarin at this time,(concerned over dark stoolss) Heparin SQ ordered instead. Potassium down Plan May consider IV steroids if GI symptoms do not improve. Original Note: Addendum entered by Roby Lebron III 11/18/17 17:34: Pharmacy Note Subjective Oatient Potassium jumped to 638 (KXL8 ordered with One doses of regular Insulin. Objective VS-OK Na-134 SCr-4.97 Last BM 11/16 Assessment Budesonide Capsules & Jr-enemas continue Plan INR normalized at 3.0 yesterday, MD waiting for Budesonide caps to stabilize patient befoe discharge, once potassium has normalized. Original Note: Addendum entered by Angela Hinojosa 11/17/17 16:51: Pharmacy Note Subjective Objective VS-okay SCr-4.52(up) K+5.7(up) INR-3.0(down) Assessment -sulfasalazine discontinued due to worsening renal function -PO budesonide ordered (non-form, had some in pharmacy but will need to order more if pt is expected to be here over the weekend) -pt had been refusing hydrocortisone enemas, but did get one today -spironolactone and potassium discontinued for now -warfarin still being held -psyllium added before meals in addition to the night time dose Plan watch renal function, INR, electrolytes Original Note: Addendum entered by Roby Lebron III 11/15/17 12:35: Pharmacy Note Subjective C-diff neg, Jr-enemas to daily. Provider wants to add bulk laxative to help with diarrgea. Objective VS-OK INR-5.7 SCr-4.01 K+4.3 Na-136 Ca++7.3 H&H,Plts,WBC-OK BM today (heme+) Assessment Flagyl & Cipro DC'd Plan Cose to discharge Original Note: Addendum entered by Duyen Bush 11/14/17 13:53: Pharmacy Note Subjective waiting for cdiff PCR results Objective INR 6.4, calcium up to 6.6, Mag down to 1.6, Scr stable 4.05 Assessment calcium and hydrocortisone enemas found at [facility]. med order changed to once per day, warfarin stopped Plan follow INR, restart warfarin when in range, watch change meds closely due to renal function Original Note: Addendum entered by Duyen Bush 11/13/17 08:57: Pharmacy Note Subjective hydocortisone enema on backorder we have enough in stock for 1 more day therapy Objective vs ok, INR 4.6 Assessment amlodipine form home list restarted Plan contact local pharmacy to see if they have hydrocortisone enema, will watch for order to hold warfarin dose until INR comes down(make sure MD aware) Original Note: Addendum entered by Roby Lebron III 11/12/17 15:12: Pharmacy Note Subjective MD reviewed past records and determined patient is suffering with another bout of Ulcerative Colitis. Objective VS-OK INR-2.9 SCr-4.00 (Baseline) Lipase-310 Ca-5.9 (MD aware) H&H-10.4/33.0 WBC-10.40 Having liquid stools, C-diff negative for toxin positive for antigen Assessment Hydrocortisone enemas are what work well or this patient.Warfarin continues. Plan Send up Jr-enema BID (Labelled). Watch INRs Original Note: Admission Pharmacy Clinical Review COLITIS 9Hx of diarrhea x 2 yrs) Code Status Full Code Current Weight Wgt-66.7 kg Renally Cleared and Narrow Therapeutic Index Meds CrCl~ 16 mL/min Meds-OK QTc Value / Action Taken na BP Control, Fever BP- 160/90 Tmax- 36.7C Electrolytes reviewed Na- 141 K+3.7 Mag- DVT Prophylaxis Warfarin Opiate Usage / Scheduled Bowel Regimen Ordered No Yes Plt/SCr for Heparin / Enoxaparin Plts-219 SCr-4.00 INR for Warfarin INR-2.1 H/H stable, WBC/Bands H&H- 11.7/36.9 WBC- 12.67 Antibiotic appropriateness Cipro IV, Flagyl IV Cultures and Sensitivities Blood- Gram Positive [facility] ABX d/c within 24 hr na DM control / Insulin Dosing BG-118 Heart Failure (Check EF%) (TIMOTEO's, B-Block, Diuretics) Norvasc, Toprol-XL. NTG, Spironolactone IV to PO Switch No Home Meds Reviewed Yes Home Meds Not Ordered Ordered Comments Lipase-497 ^ 634
[2017-11-11] MEDS: Normal Saline Flush 10 ML SYR IVP (13:45)
--- NOTE | 2017-11-11 13:50 | W.PM.HP.N ---
Date of service: 11/10/17 Time of Service: 18:00 Assessment and Plan (1) Colitis: Current visit: Yes Status: Chronic Likely UC by review of [facility] records. Patient has not tolerated prior attempts at oral or rectal therapy with 5-ASA, oral steroids, or other treatment modalities as per discussion with GI. Continue steroid enemas, and given positive blood cultures also initiated on antibiotic therapy, Day #1 of Cipro/Flagyl. Monitor symptoms, blood cultures carefully. (2) Peptic ulcer disease: Current visit: Yes Status: Chronic Continue IV PPI therapy. Monitor Hgb. Prior EGD reviewed with evidence of erosive gastropathy and duodenal ulcers. (3) Cardiomyopathy: Current visit: Yes Status: Chronic Mention of prior LVEF of 40%. ECHO obtained and showing an LVEF of 35-40% with moderate diffuse hypokinesis. Patient has history of CAD - Unsure if cardiomyopathy is on basis of ischemia or not. Patient appears euvolemic - IVF's discontinued. Continue BB, spironolactone (chronic medication despite CKD 5). Also on statin and asa. Monitor blood pressure, volume status carefully. 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 (5) History of TIA (transient ischemic attack): Current visit: Yes Status: Acute 2013. Continue daily antiplatelet therapy with aspirin. Also with history of afib, on chronic anticoagulation with coumadin, with therapeutic INR. (6) CKD (chronic kidney disease): Current visit: Yes Status: Chronic Stage 5, with clearance calculated at 8. Ensure renally dosed medications and avoid nephrotoxins. (7) Atrial fibrillation: Current visit: Yes Status: Chronic Continue BB, coumadin. Monitor on telemetry. Replete electrolytes. (8) DVT prophylaxis: Current visit: Yes Status: Acute On active anticoagulation with coumadin. Monitor daily INR. History of Present Illness Chief Complaint: Diarrhea, Abdominal Pain Narrative: 66-year-old man with a past medical history significant for atrial fibrillation, prior deep vein thrombosis and pulmonary embolus on 2 separate occasions on chronic anticoagulation, as well as CKD stage 4, presented to [facility] emergency department with complaints of abdominal pain and diarrhea. Mr. Collins had had a history of loose stools for quite some time, approximately 2 years by his account. This is described as diarrhea following meals, along with abdominal discomfort. He had a flexible sigmoidoscopy at [facility] by his application manager in April of this year, and subsequently diagnosed with a moderate to severe segmental colitis based on diverticulitis. He was given a 14 day course of antibiotics. The patient was subsequently admitted here the next day for continued bloody stools in the setting of colonoscopy and active anticoagulation. His hospitalization was uneventful and he was discharged the next day. Mr. Estrada reports ongoing symptoms since that time. He reported to [facility] emergency department 2 days ago with a CT showing a nonspecific colitis of either infectious or inflammatory origin, and had a subsequent colonoscopy and Endoscopy the next day at [facility]. The Colonoscopy showed a mild area of inflammation at the distal colon involving the rectum, and EGD showed evidence of Erosive Gastropathy with multiple duodenal ulcers. However, the patient presented back to the ED the next day with continued symptoms, and a repeat CT was performed and essentially showing the same results. GI recommended initiation of steroid enemas without antibiotic or systemic steroid use. Overnight the patient continued having bloody diarrhea. His blood cultures were positive in one set with Gram Positive Rods, and was initiated on antibiotic therapy overnight. He has remained afebrile, receiving twice daily steroid enemas, with vastly improved leukocytosis. No other events reported. Past Medical History: 1. Atrial fibrillation on chronic anticoagulation with warfarin. 2. History of deep vein thrombosis in 2015 following hospitalization for hematuria with subsequent holding of his anticoagulation. 3. History of pulmonary embolus in 1996 following placement of his pacemaker. 4. Coronary artery disease with a history of silent myocardial infarction. 5. History of significant hematuria in 2016; follows with Urology. 6. History of cardiomyopathy. 7. Atrophic right kidney. 8. Chronic kidney disease, Stage 5 with creatinine clearance calculated at 8. 9. Benign prostatic hypertrophy. 10. History of nephrolithiasis. 11. Gastroesophageal reflux disease. 12. Transient ischemic attack in 2013. 13. PUD 14. Hx Embolus of femoral artery, b/l Past Surgical History: 1. Status post permanent pacemaker/ automatic implantable cardioverter-defibrillator. 2. Prior cystoscopy, colonoscopy, and esophagogastroduodenoscopy. Meds Home Medications Medication Instructions Recorded Confirmed Type pravastatin 40 mg PO DAILY tab-cap 07/02/15 11/10/17 History warfarin 5 mg PO DAILY tab-cap 12/19/15 11/10/17 History finasteride 5 mg PO DAILY #90 tab-cap 03/09/16 11/10/17 History Psyllium [Metamucil] 1 tsp PO DAILY 11/13/16 11/10/17 History acetaminophen [Mapap Extra 500 mg PO PRN PRN 11/13/16 11/10/17 History Strength] aspirin [Aspirin Low-Strength] 81 mg PO DAILY 11/13/16 11/10/17 History spironolactone 25 mg PO DAILY 11/13/16 11/10/17 History Metoprolol Succinate 50 mg PO DAILY tab-cap 01/11/17 11/10/17 History nitroglycerin 0.4 mg SUBLINGUAL PRN PRN 01/11/17 11/10/17 History amlodipine 5 mg PO DAILY 11/08/17 11/10/17 History calcium carbonate [Tums Ultra] 1,177 mg PO DAILY #10 tab 11/08/17 11/10/17 Rx magnesium oxide 400 mg PO DAILY #10 cap 11/08/17 11/10/17 Rx Allergies Allergy/AdvReac Type Severity Reaction Status Date / Time No Known Allergies Allergy Unverified 11/10/17 05:43 Exam Narrative Exam Narrative: General: Patient appears comfortable, AAOX3, NAD Neck: Supple CV: Regular, nontachycardic, S1S2, No rubs, murmurs, or gallops. Pulmonary: Clear to auscultation bilaterally, no crackles, wheezing, or rhonchi Abdomen: + Bowel Sounds, soft, nondistended. Diffuse tenderness, worse in the LLQ. Vascular: No lower extremity edema Psych: Normal mood and affect. Results Imaging Abdomen CT scan report/results: report reviewed CT scan - chest: report reviewed Imaging Studies: Exam(s) a CT:CT abdomen & pelvis wo SYMPTOMS/DIAGNOSIS: RECENT COLONOSCOPY, GENERAL TENDERNESS, ? PERFORATED COLITIS CT EXAMINATION OF THE ABDOMEN AND PELVIS: The study was carried out without contrast enhancement. Cardiomegaly is noted and there is a small pericardial effusion. The liver is normal. The gallbladder is normal. There are no stones or ductal dilatation. The pancreas and spleen are normal. There is probable adenomatous hyperplasia of the adrenal glands. Bilateral renal atrophy is demonstrated. There is colonic wall thickening, which may represent nonspecific colitis, either infectious or inflammatory. There is no evidence of an appendicitis. The bladder is unremarkable. The reproductive organs as visualized are unremarkable. There is no evidence of free air or free fluid in the intraperitoneal space. Scattered bony radiolucencies are present. These include vertebral body as well as iliac bones. These appear to have been present on a previous study and are likely not secondary to metastatic disease. The soft tissues are unremarkable. The vasculature is unremarkable with no evidence of an aortic aneurysm. There is no lymphadenopathy. SUMMARY: Colonic wall thickening could represent a nonspecific colitis of infectious or inflammatory origin. Note is made of renal atrophy and bilateral nonobstructive nephrolithiasis. Also, the heart appears somewhat enlarged and there is an apparent small pericardial effusion. Exam(s) a RAD:XR chest 2V PA & lateral SYMPTOM/DIAGNOSIS: LEUKOCYTOSIS PA AND LATERAL CHEST: Cardiomegaly is demonstrated, unchanged. Cardiac pacing wires are in stable position. There is no pulmonary infiltrate There is no pleural effusion. SUMMARY: Generalized cardiomegaly unchanged. No evidence of congestive failure or pneumonia. Labs : 11/11/17 06:50 11/11/17 06:50 Laboratory Results - last 24 hr 11/10/17 11/10/17 11/11/17 14:32 18:33 06:50 WBC RBC Hgb Hct MCV MCH MCHC RDW Plt Count MPV Immature Gran % Neutrophils % Lymphocytes % Monocytes % Eosinophils % Basophils % Absolute Neutrophils Absolute Lymphocytes Absolute Monocytes Absolute Eosinophils Absolute Basophils PT INR Sodium 141 Potassium 3.7 Chloride 105 Carbon Dioxide 22.2 Anion Gap 13.8 H BUN 35 H D Creatinine 4.00 H* Estimated GFR/1.73 m2 15.19 Glucose 118 H Calcium 6.0 L* Total Bilirubin 0.6 AST 19 ALT 26 Alkaline Phosphatase 84 Troponin I 0.15 H 0.14 H Total Protein 6.4 Albumin 3.0 L Lipase 634 H Urine Color Yellow Urine Clarity Clear Urine pH 7.0 Ur Specific [place] 1.010 Urine Protein 100 H Urine Ketones Trace H Urine Blood Moderate H Urine Nitrite Negative Urine Bilirubin Negative Urine Urobilinogen 0.2 Ur Leukocyte Esterase Negative Urine RBC 0-2 Urine WBC 0-2 Ur Epithelial Cells Rare Urine Crystals Negative Urine Bacteria Rare Urine Casts Negative Urine Mucus Negative Ur Culture Indicated? No Urine Glucose Negative 11/11/17 11/11/17 06:50 06:50 WBC 12.67 H D RBC 3.85 L Hgb 11.7 L Hct 36.9 L MCV 95.8 H MCH 30.4 MCHC 31.7 L RDW 14.1 Plt Count 219 MPV 9.7 Immature Gran % 0.4 Neutrophils % 89.0 Lymphocytes % 5.3 Monocytes % 4.8 Eosinophils % 0.4 Basophils % 0.1 Absolute Neutrophils 11.28 H Absolute Lymphocytes 0.67 L Absolute Monocytes 0.61 Absolute Eosinophils 0.05 Absolute Basophils 0.01 PT 20.0 H INR 2.1 Sodium Potassium Chloride Carbon Dioxide Anion Gap BUN Creatinine Estimated GFR/1.73 m2 Glucose Calcium Total Bilirubin AST ALT Alkaline Phosphatase Troponin I Total Protein Albumin Lipase Urine Color Urine Clarity Urine pH Ur Specific [place] Urine Protein Urine Ketones Urine Blood Urine Nitrite Urine Bilirubin Urine Urobilinogen Ur Leukocyte Esterase Urine RBC Urine WBC Ur Epithelial Cells Urine Crystals Urine Bacteria Urine Casts Urine Mucus Ur Culture Indicated? Urine Glucose
[2017-11-11 13:52] VITALS: PULSE 70
--- NOTE | 2017-11-11 13:54 | HPE_ITS ---
Date of service: 11/10/17 Time of Service: 18:00 Assessment and Plan (1) Colitis: Current visit: Yes Status: Chronic Likely UC by review of [facility] records. Patient has not tolerated prior attempts at oral or rectal therapy with 5-ASA, oral steroids, or other treatment modalities as per discussion with GI. Continue steroid enemas, and given positive blood cultures also initiated on antibiotic therapy, Day #1 of Cipro/Flagyl. Monitor symptoms, blood cultures carefully. (2) Peptic ulcer disease: Current visit: Yes Status: Chronic Continue IV PPI therapy. Monitor Hgb. Prior EGD reviewed with evidence of erosive gastropathy and duodenal ulcers. (3) Cardiomyopathy: Current visit: Yes Status: Chronic Mention of prior LVEF of 40%. ECHO obtained and showing an LVEF of 35-40% with moderate diffuse hypokinesis. Patient has history of CAD - Unsure if cardiomyopathy is on basis of ischemia or not. Patient appears euvolemic - IVF's discontinued. Continue BB, spironolactone ( chronic medication despite CKD 5). Also on statin and asa. Monitor blood pressure, volume status carefully. 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 (5) History of TIA (transient ischemic attack): Current visit: Yes Status: Acute 2013. Continue daily antiplatelet therapy with aspirin. Also with history of afib, on chronic anticoagulation with coumadin, with therapeutic INR. (6) CKD (chronic kidney disease): Current visit: Yes Status: Chronic Stage 5, with clearance calculated at 8. Ensure renally dosed medications and avoid nephrotoxins. (7) Atrial fibrillation: Current visit: Yes Status: Chronic Continue BB, coumadin. Monitor on telemetry. Replete electrolytes. (8) DVT prophylaxis: Current visit: Yes Status: Acute On active anticoagulation with coumadin. Monitor daily INR. History of Present Illness Chief Complaint: Diarrhea, Abdominal Pain Narrative: 66-year-old man with a past medical history significant for atrial fibrillation, prior deep vein thrombosis and pulmonary embolus on 2 separate occasions on chronic anticoagulation, as well as CKD stage 4, presented to [facility] emergency department with complaints of abdominal pain and diarrhea. Mr. Collins had had a history of loose stools for quite some time, approximately 2 years by his account. This is described as diarrhea following meals, along with abdominal discomfort. He had a flexible sigmoidoscopy at [facility] by his public health dentist in April of this year, and subsequently diagnosed with a moderate to severe segmental colitis based on diverticulitis. He was given a 14 day course of antibiotics. The patient was subsequently admitted here the next day for continued bloody stools in the setting of colonoscopy and active anticoagulation. His hospitalization was uneventful and he was discharged the next day. Mr. Estrada reports ongoing symptoms since that time. He reported to [facility] emergency department 2 days ago with a CT showing a nonspecific colitis of either infectious or inflammatory origin, and had a subsequent colonoscopy and Endoscopy the next day at [facility]. The Colonoscopy showed a mild area of inflammation at the distal colon involving the rectum, and EGD showed evidence of Erosive Gastropathy with multiple duodenal ulcers. However, the patient presented back to the ED the next day with continued symptoms, and a repeat CT was performed and essentially showing the same results. GI recommended initiation of steroid enemas without antibiotic or systemic steroid use. Overnight the patient continued having bloody diarrhea. His blood cultures were positive in one set with Gram Positive Rods, and was initiated on antibiotic therapy overnight. He has remained afebrile, receiving twice daily steroid enemas, with vastly improved leukocytosis. No other events reported. Past Medical History: 1. Atrial fibrillation on chronic anticoagulation with warfarin. 2. History of deep vein thrombosis in 2015 following hospitalization for hematuria with subsequent holding of his anticoagulation. 3. History of pulmonary embolus in 1996 following placement of his pacemaker. 4. Coronary artery disease with a history of silent myocardial infarction. 5. History of significant hematuria in 2016; follows with Urology. 6. History of cardiomyopathy. 7. Atrophic right kidney. 8. Chronic kidney disease, Stage 5 with creatinine clearance calculated at 8. 9. Benign prostatic hypertrophy. 10. History of nephrolithiasis. 11. Gastroesophageal reflux disease. 12. Transient ischemic attack in 2013. 13. PUD 14. Hx Embolus of femoral artery, b/l Past Surgical History: 1. Status post permanent pacemaker/ automatic implantable cardioverter- defibrillator. 2. Prior cystoscopy, colonoscopy, and esophagogastroduodenoscopy. Meds Home Medications Medication Instructions Recorded Confirmed Type pravastatin 40 mg PO DAILY tab-cap 07/02/15 11/10/17 History warfarin 5 mg PO DAILY tab-cap 12/19/15 11/10/17 History finasteride 5 mg PO DAILY #90 tab-cap 03/09/16 11/10/17 History Psyllium [Metamucil] 1 tsp PO DAILY 11/13/16 11/10/17 History acetaminophen [Mapap Extra 500 mg PO PRN PRN 11/13/16 11/10/17 History Strength] aspirin [Aspirin Low-Strength] 81 mg PO DAILY 11/13/16 11/10/17 History spironolactone 25 mg PO DAILY 11/13/16 11/10/17 History Metoprolol Succinate 50 mg PO DAILY tab-cap 01/11/17 11/10/17 History nitroglycerin 0.4 mg SUBLINGUAL PRN PRN 01/11/17 11/10/17 History amlodipine 5 mg PO DAILY 11/08/17 11/10/17 History calcium carbonate [Tums Ultra] 1,177 mg PO DAILY #10 tab 11/08/17 11/10/17 Rx magnesium oxide 400 mg PO DAILY #10 cap 11/08/17 11/10/17 Rx Allergies Allergy/AdvReac Type Severity Reaction Status Date / Time No Known Allergies Allergy Unverified 11/10/17 05:43 Exam Narrative Exam Narrative: General: Patient appears comfortable, AAOX3, NAD Neck: Supple CV: Regular, nontachycardic, S1S2, No rubs, murmurs, or gallops. Pulmonary: Clear to auscultation bilaterally, no crackles, wheezing, or rhonchi Abdomen: + Bowel Sounds, soft, nondistended. Diffuse tenderness, worse in the LLQ. Vascular: No lower extremity edema Psych: Normal mood and affect. Results Imaging Abdomen CT scan report/results: report reviewed CT scan - chest: report reviewed Imaging Studies: Exam(s) a CT:CT abdomen & pelvis wo SYMPTOMS/DIAGNOSIS: RECENT COLONOSCOPY, GENERAL TENDERNESS, ? PERFORATED COLITIS CT EXAMINATION OF THE ABDOMEN AND PELVIS: The study was carried out without contrast enhancement. Cardiomegaly is noted and there is a small pericardial effusion. The liver is normal. The gallbladder is normal. There are no stones or ductal dilatation. The pancreas and spleen are normal. There is probable adenomatous hyperplasia of the adrenal glands. Bilateral renal atrophy is demonstrated. There is colonic wall thickening, which may represent nonspecific colitis, either infectious or inflammatory. There is no evidence of an appendicitis. The bladder is unremarkable. The reproductive organs as visualized are unremarkable. There is no evidence of free air or free fluid in the intraperitoneal space. Scattered bony radiolucencies are present. These include vertebral body as well as iliac bones. These appear to have been present on a previous study and are likely not secondary to metastatic disease. The soft tissues are unremarkable. The vasculature is unremarkable with no evidence of an aortic aneurysm. There is no lymphadenopathy. SUMMARY: Colonic wall thickening could represent a nonspecific colitis of infectious or inflammatory origin. Note is made of renal atrophy and bilateral nonobstructive nephrolithiasis. Also, the heart appears somewhat enlarged and there is an apparent small pericardial effusion. Exam(s) a RAD:XR chest 2V PA & lateral SYMPTOM/DIAGNOSIS: LEUKOCYTOSIS PA AND LATERAL CHEST: Cardiomegaly is demonstrated, unchanged. Cardiac pacing wires are in stable position. There is no pulmonary infiltrate There is no pleural effusion. SUMMARY: Generalized cardiomegaly unchanged. No evidence of congestive failure or pneumonia. Labs : 11/11/17 06:50 11/11/17 06:50 Laboratory Results - last 24 hr 11/10/17 11/10/17 11/11/17 14:32 18:33 06:50 WBC RBC Hgb Hct MCV MCH MCHC RDW Plt Count MPV Immature Gran % Neutrophils % Lymphocytes % Monocytes % Eosinophils % Basophils % Absolute Neutrophils Absolute Lymphocytes Absolute Monocytes Absolute Eosinophils Absolute Basophils PT INR Sodium 141 Potassium 3.7 Chloride 105 Carbon Dioxide 22.2 Anion Gap 13.8 H BUN 35 H D Creatinine 4.00 H* Estimated GFR/1.73 m2 15.19 Glucose 118 H Calcium 6.0 L* Total Bilirubin 0.6 AST 19 ALT 26 Alkaline Phosphatase 84 Troponin I 0.15 H 0.14 H Total Protein 6.4 Albumin 3.0 L Lipase 634 H Urine Color Yellow Urine Clarity Clear Urine pH 7.0 Ur Specific [place] 1.010 Urine Protein 100 H Urine Ketones Trace H Urine Blood Moderate H Urine Nitrite Negative Urine Bilirubin Negative Urine Urobilinogen 0.2 Ur Leukocyte Esterase Negative Urine RBC 0-2 Urine WBC 0-2 Ur Epithelial Cells Rare Urine Crystals Negative Urine Bacteria Rare Urine Casts Negative Urine Mucus Negative Ur Culture Indicated? No Urine Glucose Negative 11/11/17 11/11/17 06:50 06:50 WBC 12.67 H D RBC 3.85 L Hgb 11.7 L Hct 36.9 L MCV 95.8 H MCH 30.4 MCHC 31.7 L RDW 14.1 Plt Count 219 MPV 9.7 Immature Gran % 0.4 Neutrophils % 89.0 Lymphocytes % 5.3 Monocytes % 4.8 Eosinophils % 0.4 Basophils % 0.1 Absolute Neutrophils 11.28 H Absolute Lymphocytes 0.67 L Absolute Monocytes 0.61 Absolute Eosinophils 0.05 Absolute Basophils 0.01 PT 20.0 H INR 2.1 Sodium Potassium Chloride Carbon Dioxide Anion Gap BUN Creatinine Estimated GFR/1.73 m2 Glucose Calcium Total Bilirubin AST ALT Alkaline Phosphatase Troponin I Total Protein Albumin Lipase Urine Color Urine Clarity Urine pH Ur Specific [place] Urine Protein Urine Ketones Urine Blood Urine Nitrite Urine Bilirubin Urine Urobilinogen Ur Leukocyte Esterase Urine RBC Urine WBC Ur Epithelial Cells Urine Crystals Urine Bacteria Urine Casts Urine Mucus Ur Culture Indicated? Urine Glucose
--- NOTE | 2017-11-11 14:33 | INITIAL_ITS ---
- If Service Date Differs Date of service: 11/11/17 Time of Service: 13:39 Care Management Initial Assess REASON FOR HOSPITALIZATION:: Colitis PAST MEDICAL HISTORY/PAST SURGICAL HISTORY:: 1. Atrial fibrillation on chronic anticoagulation with warfarin. 2. History of deep vein thrombosis in 2015 following hospitalization for hematuria with subsequent holding of his anticoagulation. 3. History of pulmonary embolus in 1996 following placement of his pacemaker. 4. Coronary artery disease with a history of silent myocardial infarction. 5. History of significant hematuria in 2016; follows with Urology. 6. History of cardiomyopathy. 7. Atrophic right kidney. 8. Chronic kidney disease. 9. Benign prostatic hypertrophy. 10. History of nephrolithiasis. 11. Gastroesophageal reflux disease. 12. Transient ischemic attack in 2013. Past Surgical History: 1. Status post permanent pacemaker/ automatic implantable cardioverter-defibrillator. 2. Prior cystoscopy, colonoscopy, and esophagogastroduodenoscopy. PREVIOUS FUNCTIONAL STATUS/SOCIAL/FAMILY SUPPORTS:: Gus resides alone in an apartment in [facility]. He has no family locally and states that he has no children. Gus is independent at baseline, he drives, and manages ADL's. CURRENT FUNCTIONAL STATUS:: Currently Gus is lying in bed when this insurance writer visits. He is receptive to conversation, though guarded with information. ADVANCE DIRECTIVES:: None on file Has patient been provided with information about the portal?: Yes Did the patient sign up for the portal?: No CODE STATUS:: Full Code INSURANCE COVERAGE / FINANCIAL ISSUES:: Medicaid CURRENT HOME/COMMUNITY SERVICES/EQUIPMENT:: Currently Gus has no services or medical equipment in the community. PRIMARY CARE PHYSICIAN:: Dr. Antunez POTENTIAL DISCHARGE NEEDS:: F/U appointment with PCP PATIENT/FAMILY EDUCATION NEEDS:: Review DC instructions, any limitations, and ongoing DC planning discussion. discuss Ask Me Three ANTICIPATED BARRIERS TO DISCHARGE:: None identified at this time. TRANSPORTATION:: Via private vehicle PLAN:: Gus will return home with no anticipated services. He will f/u with PCP and plan of care as prescribed. Gus will transport via private vehicle
--- NOTE | 2017-11-11 15:06 | W.PM.PROGNOT ---
Assessment and Plan (1) Colitis: Current visit: Yes Status: Chronic Likely UC by review of [facility] records. Patient has not tolerated prior attempts at oral or rectal therapy with 5-ASA, oral steroids, or other treatment modalities as per discussion with GI. Continue steroid enemas, and given positive blood cultures also initiated on antibiotic therapy, Day #1 of Cipro/Flagyl. Monitor symptoms, blood cultures carefully. (2) Peptic ulcer disease: Current visit: Yes Status: Chronic Continue IV PPI therapy. Monitor Hgb. Prior EGD reviewed with evidence of erosive gastropathy and duodenal ulcers. (3) Cardiomyopathy: Current visit: Yes Status: Chronic Mention of prior LVEF of 40%. ECHO obtained and showing an LVEF of 35-40% with moderate diffuse hypokinesis. Patient has history of CAD - Unsure if cardiomyopathy is on basis of ischemia or not. Patient appears euvolemic - IVF's discontinued. Continue BB, spironolactone (chronic medication despite CKD 5). Also on statin and asa. Monitor blood pressure, volume status carefully. 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 (5) History of TIA (transient ischemic attack): Current visit: Yes Status: Acute 2013. Continue daily antiplatelet therapy with aspirin. Also with history of afib, on chronic anticoagulation with coumadin, with therapeutic INR. (6) CKD (chronic kidney disease): Current visit: Yes Status: Chronic Stage 5, with clearance calculated at 8. Ensure renally dosed medications and avoid nephrotoxins. (7) Atrial fibrillation: Current visit: Yes Status: Chronic Continue BB, coumadin. Monitor on telemetry. Replete electrolytes. (8) DVT prophylaxis: Current visit: Yes Status: Acute On active anticoagulation with coumadin. Monitor daily INR. Subjective Interval history since last seen: 66-year-old man with a past medical history significant for atrial fibrillation, prior deep vein thrombosis and pulmonary embolus on 2 separate occasions on chronic anticoagulation, as well as CKD stage 5, presented to [facility] emergency department with complaints of abdominal pain and diarrhea. Mr. Collins had had a history of loose stools for quite some time, approximately 2 years by his account. This is described as diarrhea following meals, along with abdominal discomfort. He had a flexible sigmoidoscopy at [facility] by his computer technology instructor in April of this year, and subsequently diagnosed with a moderate to severe segmental colitis based on diverticulitis. He was given a 14 day course of antibiotics. The patient was subsequently admitted here the next day for continued bloody stools in the setting of colonoscopy and active anticoagulation. His hospitalization was uneventful and he was discharged the next day. Mr. Estrada reports ongoing symptoms since that time. He reported to [facility] emergency department 2 days ago with a CT showing a nonspecific colitis of either infectious or inflammatory origin, and had a subsequent colonoscopy and Endoscopy the next day at [facility]. The Colonoscopy showed a mild area of inflammation at the distal colon involving the rectum, and EGD showed evidence of Erosive Gastropathy with multiple duodenal ulcers. However, the patient presented back to the ED the next day with continued symptoms, and a repeat CT was performed and essentially showing the same results. GI recommended initiation of steroid enemas without antibiotic or systemic steroid use. Overnight the patient continued having bloody diarrhea. His blood cultures were positive in one set with Gram Positive Rods, and was initiated on antibiotic therapy overnight. He has remained afebrile, receiving twice daily steroid enemas, with vastly improved leukocytosis. No other events reported. Exam Narrative Exam Narrative: General: Patient appears comfortable, AAOX3, NAD Neck: Supple CV: Regular, nontachycardic, S1S2, No rubs, murmurs, or gallops. Pulmonary: Clear to auscultation bilaterally, no crackles, wheezing, or rhonchi Abdomen: + Bowel Sounds, soft, nondistended. Diffuse tenderness, worse in the LLQ. Vascular: No lower extremity edema Psych: Normal mood and affect. Objective Objective Clinical Data: Abnormal lab results 11/10/17 11/11/17 11/11/17 Range/Units 18:33 06:50 06:50 WBC 12.67 H D (4.4-10.8) k/cumm RBC 3.85 L (4.50-6.00) m/cumm Hgb 11.7 L (13.5-17.5) g/dL Hct 36.9 L (40.0-50.0) % MCV 95.8 H (80-95) fL MCHC 31.7 L (32.0-36.0) g/dL Absolute Neutrophils 11.28 H (1.2-6.7) k/cumm Absolute Lymphocytes 0.67 L (1.2-3.4) k/cumm PT (9.3-10.8) sec Anion Gap 13.8 H (3-11) mmol/L BUN 35 H D (7-18) mg/dL Creatinine 4.00 H* (0.70-1.30) mg/dL Glucose 118 H (70-100) mg/dL Calcium 6.0 L* (8.5-10.1) mg/dL Troponin I 0.15 H 0.14 H (0.00-0.06) ng/mL Albumin 3.0 L (3.4-5.0) g/dL Lipase 634 H (73-393) U/L 11/11/17 Range/Units 06:50 WBC (4.4-10.8) k/cumm RBC (4.50-6.00) m/cumm Hgb (13.5-17.5) g/dL Hct (40.0-50.0) % MCV (80-95) fL MCHC (32.0-36.0) g/dL Absolute Neutrophils (1.2-6.7) k/cumm Absolute Lymphocytes (1.2-3.4) k/cumm PT 20.0 H (9.3-10.8) sec Anion Gap (3-11) mmol/L BUN (7-18) mg/dL Creatinine (0.70-1.30) mg/dL Glucose (70-100) mg/dL Calcium (8.5-10.1) mg/dL Troponin I (0.00-0.06) ng/mL Albumin (3.4-5.0) g/dL Lipase (73-393) U/L Vital Signs Temperature 36.0 C L 11/11/17 07:50 Temperature Source Tympanic 11/11/17 07:50 Pulse 70 11/11/17 13:52 Pulse Rhythm Regular 11/11/17 05:17 Pulse 76 11/10/17 10:31 Respiratory Rate 17 11/11/17 07:50 Respiratory Effort Non-Labored 11/11/17 08:25 Respiratory Depth Normal 11/11/17 08:25 Respiratory Pattern Normal 11/11/17 08:25 Blood Pressure 160/90 H 11/11/17 07:50 Blood Pressure Mean 95 11/10/17 12:31 Blood Pressure Position Sitting 11/10/17 05:39 Pulse Oximetry 97 11/11/17 07:50 Oxygen Delivery Method Room Air 11/11/17 07:50 Oxygen Flow Rate 0 11/11/17 07:50 Pain Level 0 11/10/17 16:35 Comment 11/11/17 03:00 Intake & Output 11/10/17 11/11/17 11/11/17 23:59 11:59 23:59 Intake Total 1000 / 1000 3027.5 / 3027.5 Output Total 400 / 400 1250 / 1250 Balance 600 / 600 1777.5 / 1777.5 Weight 66.7 kg Intake: IV 1000 / 1000 2487.5 / 2487.5 Oral 540 / 540 Output: Urine 400 / 400 1250 / 1250 Other: Urine Color Yellow Yellow Urine Appearance Clear Clear Urine Odor Normal Normal Comment Urine not seen, voiding independently Stool Occult Blood Positive Stool Size Moderate Small Stool Characteristics Soft Liquid Brown Voiding Methods Toilet Toilet Urinal Laboratory Results WBC 12.67 k/cumm (4.4-10.8) H D 11/11/17 06:50 RBC 3.85 m/cumm (4.50-6.00) L 11/11/17 06:50 Hgb 11.7 g/dL (13.5-17.5) L 11/11/17 06:50 Hct 36.9 % (40.0-50.0) L 11/11/17 06:50 MCV 95.8 fL (80-95) H 11/11/17 06:50 MCH 30.4 pg (27.0-33.0) 11/11/17 06:50 MCHC 31.7 g/dL (32.0-36.0) L 11/11/17 06:50 RDW 14.1 % (11.8-14.1) 11/11/17 06:50 Plt Count 219 x1000/uL (130-400) 11/11/17 06:50 MPV 9.7 fL (8.0-11.0) 11/11/17 06:50 Immature Gran % 0.4 11/11/17 06:50 Neutrophils % 89.0 11/11/17 06:50 Lymphocytes % 5.3 11/11/17 06:50 Monocytes % 4.8 11/11/17 06:50 Eosinophils % 0.4 11/11/17 06:50 Basophils % 0.1 11/11/17 06:50 Absolute Neutrophils 11.28 k/cumm (1.2-6.7) H 11/11/17 06:50 Absolute Lymphocytes 0.67 k/cumm (1.2-3.4) L 11/11/17 06:50 Absolute Monocytes 0.61 k/cumm (0.11-0.7) 11/11/17 06:50 Absolute Eosinophils 0.05 k/cumm (0.0-0.7) 11/11/17 06:50 Absolute Basophils 0.01 k/cumm (0.0-0.2) 11/11/17 06:50 Differential Comment 11/10/17 05:55 PT 20.0 sec (9.3-10.8) H 11/11/17 06:50 INR 2.1 (1.0-3.5) 11/11/17 06:50 APTT 30.1 sec (21.0-31.4) 11/10/17 05:55 Sodium 141 mmol/L (136-145) 11/11/17 06:50 Potassium 3.7 mmol/L (3.5-5.1) 11/11/17 06:50 Chloride 105 mmol/L (98-107) 11/11/17 06:50 Carbon Dioxide 22.2 mmol/L (21.0-32.0) 11/11/17 06:50 Anion Gap 13.8 mmol/L (3-11) H 11/11/17 06:50 BUN 35 mg/dL (7-18) H D 11/11/17 06:50 Creatinine 4.00 mg/dL (0.70-1.30) H* 11/11/17 06:50 Estimated GFR/1.73 m2 15.19 (mL/min/1.73m2) 11/11/17 06:50 Glucose 118 mg/dL (70-100) H 11/11/17 06:50 Lactate 1.0 mmol/L (0.6-1.4) 11/10/17 08:30 Calcium 6.0 mg/dL (8.5-10.1) L* 11/11/17 06:50 Total Bilirubin 0.6 mg/dL (0.2-1.0) 11/11/17 06:50 AST 19 U/L (15-37) 11/11/17 06:50 ALT 26 U/L (12-78) 11/11/17 06:50 Alkaline Phosphatase 84 U/L (46-116) 11/11/17 06:50 Troponin I 0.14 ng/mL (0.00-0.06) H 11/11/17 06:50 Total Protein 6.4 g/dL (6.4-8.2) 11/11/17 06:50 Albumin 3.0 g/dL (3.4-5.0) L 11/11/17 06:50 Lipase 634 U/L (73-393) H 11/11/17 06:50 Urine Color Yellow (Yellow) 11/10/17 14:32 Urine Clarity Clear 11/10/17 14:32 Urine pH 7.0 (5-8) 11/10/17 14:32 Ur Specific [place] 1.010 (1.005-1.025) 11/10/17 14:32 Urine Protein 100 mg/dL (Negative) H 11/10/17 14:32 Urine Ketones Trace mg/dL (Negative) H 11/10/17 14:32 Urine Blood Moderate (Negative) H 11/10/17 14:32 Urine Nitrite Negative (Negative) 11/10/17 14:32 Urine Bilirubin Negative (Negative) 11/10/17 14:32 Urine Urobilinogen 0.2 EU/dL (Up TO 0.2) 11/10/17 14:32 Ur Leukocyte Esterase Negative (Negative) 11/10/17 14:32 Urine RBC 0-2 (0-2) 11/10/17 14:32 Urine WBC 0-2 HPF (0-5) 11/10/17 14:32 Ur Epithelial Cells Rare HPF (Negative) 11/10/17 14:32 Urine Crystals Negative HPF (Negative) 11/10/17 14:32 Urine Bacteria Rare HPF (Negative) 11/10/17 14:32 Urine Casts Negative LPF (Negative) 11/10/17 14:32 Urine Mucus Negative (Negative) 11/10/17 14:32 Ur Culture Indicated? No 11/10/17 14:32 Urine Glucose Negative mg/dL (Negative) 11/10/17 14:32 Objective Narrative Objective Narrative: Exam(s) Date of study: 11/11/2017 Transthoracic Echocardiography M-mode, complete 2D, complete spectral Doppler, and color Doppler *STUDY CONCLUSIONS* Summary: 1. Left ventricle: The cavity size was dilated. Wall thickness was increased in a pattern of mild LVH. Systolic function was moderately reduced. The estimated ejection fraction was 35-40%. Moderate diffuse hypokinesis. Akinesis of the basalinferior myocardium. 2. Right ventricle: The cavity size was normal. Device wire noted in right ventricle. Systolic function was normal. 3. Ventricular septum: Septal motion showed paradoxical motion consistent with Bundle Branch Block. 4. Left atrium: The atrium was severely dilated. 5. Aortic valve: Trileaflet; mildly thickened, mildly calcified leaflets. Valve mobility was restricted. Transvalvular velocity was increased. There was mild stenosis. VTI ratio of LVOT to aortic valve: 0.58. Valve area (VTI): 1.6cm^2. 6. Tricuspid valve: There was mild-moderate regurgitation. 7. Pulmonary arteries: Pulmonary systolic pressure was increased, in the range of 40mm Hg to 45mm Hg. 8. Pericardium, extracardiac: A trivial pericardial effusion was identified posterior to the heart. There was no evidence of hemodynamic compromise.
[2017-11-11 15:57] VITALS: BP 144/76; PULSE 70; RESP 20; TEMP 36.2; O2SAT 97
[2017-11-11] MEDS: Calcium Carbonate *TUMS* 500 MG CHEW 1000 MG CH (18:29)
[2017-11-11] MEDS: Warfarin 5 MG TAB PO (21:37)
[2017-11-12 00:11] VITALS: BP 160/93; PULSE 80; RESP 18; TEMP 36.4; O2SAT 99
[2017-11-12] MEDS: MetroNIDAZOLE 500 MG/100 ML BAG 100 MG IVPB ×4 (02:17→20:50)
[2017-11-12] MEDS: Normal Saline Flush 10 ML SYR IVP ×4 (02:17→20:47)
[2017-11-12 07:08] LABS: Abs Immature Grans 0.03 k/cumm (0.0-0.09); Absolute Eosinophil Count 0.01 k/cumm (0.0-0.7); Absolute Lymphocyte Count 0.33 k/cumm (1.2-3.4); Absolute Monocyte Count 0.39 k/cumm (0.11-0.7); Absolute Neutrophil Count 9.64 k/cumm (1.2-6.7); Eosinophils % 0.1; HGB 10.4 g/dL (13.5-17.5); Immature Grans % 0.3; Lymphocytes % 3.2; Mean Corp. HGB Concentration 31.5 g/dL (32.0-36.0); Mean Corpuscular Hemoglobin 30.2 pg (27.0-33.0); Mean Corpuscular Volume 95.9 fL (80-95); Mean Platelet Volume 9.6 fL (8.0-11.0); Monocytes % 3.8; Neutrophils % 92.6; Platelet Count 190 x1000/uL (130-400); RBC 3.44 m/cumm (4.50-6.00); RBC Distribution Width 13.9 % (11.8-14.1)
[2017-11-12 07:21] LABS: INR 2.9 (1.0-3.5); Prothrombin Time 27.3 sec (9.3-10.8)
[2017-11-12 07:25] LABS: ALT 22 U/L (12-78); AST 15 U/L (15-37); Albumin 2.7 g/dL (3.4-5.0); Alkaline Phosphatase 75 U/L (46-116); Anion Gap 12.4 mmol/L (3-11); BUN 32 mg/dL (7-18); Bilirubin, Total 0.4 mg/dL (0.2-1.0); CO2 20.6 mmol/L (21.0-32.0); Chloride 107 mmol/L (98-107); Estimated GFR 15.19 (mL/min/1.73m2); Glucose 139 mg/dL (70-100); Lipase 310 U/L (73-393); Potassium 3.8 mmol/L (3.5-5.1); Sodium 140 mmol/L (136-145); Total Protein 5.6 g/dL (6.4-8.2)
[2017-11-12 07:45] VITALS: BP 161/89; PULSE 69; RESP 20; TEMP 36.5; O2SAT 95
[2017-11-12 07:51] LABS: Calcium 5.9 mg/dL (8.5-10.1)
[2017-11-12 08:00] VITALS: O2SAT 95
[2017-11-12] MEDS: Metoprolol CR 50 MG TABCR PO (09:11)
[2017-11-12] MEDS: Aspirin 81 MG CHEW PO (09:11)
[2017-11-12] MEDS: Pravastatin 20 MG TAB 40 MG PO (09:11)
[2017-11-12] MEDS: Finasteride 5 MG TAB PO (09:11)
[2017-11-12] MEDS: Spironolactone 25 MG TAB PO (09:11)
[2017-11-12] MEDS: Magnesium Oxide 400 MG TAB PO (09:11)
[2017-11-12] MEDS: amLODIPine 5 MG TAB 7.5 MG PO (09:12)
[2017-11-12] MEDS: Psyllium PKT 1 EACH PO (09:12)
[2017-11-12] MEDS: CIPROFLOXACIN 400 MG/200 ML BAG 200 MG IVPB (10:47)
--- NOTE | 2017-11-12 12:01 | PDOC.CMPRO ---
- If Service Date Differs Date of service: 11/12/17 Time of Service: 12:01 Care Management Progress Note S/O: Gus is sitting up in bed when this ghost writer visits this morning. He is open to discussion, though remains guarded during conversation. Gus continues to require IV antibiotics at this time. As his C. Diff antigen was positive and toxin was negative a send out is required - currently awaiting results. no change in DC plan at this time. A: 66 y/o male admitted 11/10/17 for colitis P: Gus will return home with no anticipated services. he will F/U with PCP and plan of care as prescribed.
--- NOTE | 2017-11-12 12:26 | CMPROGNOTE_ITS ---
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 He is open to discussion, though remains guarded during conversation. Gus continues to require IV antibiotics at this time. As his C. Diff antigen was positive and toxin was negative a send out is required - currently awaiting results. no change in DC plan at this time. A: 66 y/o male admitted 11/10/17 for colitis P: Gus will return home with no anticipated services. he will F/U with PCP and plan of care as prescribed.
--- NOTE | 2017-11-12 14:55 | W.PM.PROGNOT ---
Assessment and Plan (1) Colitis: Current visit: Yes Status: Chronic Likely UC by review of [facility] records. Patient has not tolerated prior attempts at oral or rectal therapy with 5-ASA, oral steroids, or other treatment modalities as per discussion with GI. Continue steroid enemas, and given positive blood cultures also initiated on antibiotic therapy, Day #2 of Cipro/Flagyl. Blood Cultures showing Gram Positive [place], not yet speciated, in one set only. Of note, C. Diff screen returned positive for Ag, negative for Toxin, and PCR has been sent out and pending at this time. (2) Peptic ulcer disease: Current visit: Yes Status: Chronic Continue IV PPI therapy. Monitor Hgb. Prior EGD reviewed with evidence of erosive gastropathy and duodenal ulcers. (3) Cardiomyopathy: Current visit: Yes Status: Chronic Mention of prior LVEF of 40%. ECHO obtained and showing an LVEF of 35-40% with moderate diffuse hypokinesis. Patient has history of CAD - Unsure if cardiomyopathy is on basis of ischemia or not. Patient appears euvolemic - IVF's discontinued. Continue BB, spironolactone (chronic medication despite CKD 5). Also on statin and asa. Monitor blood pressure, volume status carefully. 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 (5) History of TIA (transient ischemic attack): Current visit: Yes Status: Acute 2013. Continue daily antiplatelet therapy with aspirin. Also with history of afib, on chronic anticoagulation with coumadin, with therapeutic INR. (6) CKD (chronic kidney disease): Current visit: Yes Status: Chronic Stage 5, with clearance calculated at 8. Ensure renally dosed medications and avoid nephrotoxins. (7) Atrial fibrillation: Current visit: Yes Status: Chronic Continue BB, coumadin. Monitor on telemetry. Replete electrolytes. (8) DVT prophylaxis: Current visit: Yes Status: Acute On active anticoagulation with coumadin. Monitor daily INR. Subjective Interval history since last seen: 66-year-old man with a past medical history significant for atrial fibrillation, prior history of Iliac and femoral artery thrombus/emboli on chronic anticoagulation, as well as CKD stage 5, presented to [facility] emergency department with complaints of abdominal pain and diarrhea. Mr. Collins had had a history of loose stools for quite some time, approximately 2 years by his account. This is described as diarrhea following meals, along with abdominal discomfort. He had a flexible sigmoidoscopy at [facility] by his market specialist in April of this year, and subsequently diagnosed with a moderate to severe segmental colitis based on diverticulitis. He was given a 14 day course of antibiotics. The patient was subsequently admitted here the next day for continued bloody stools in the setting of colonoscopy and active anticoagulation. His hospitalization was uneventful and he was discharged the next day. Mr. Estrada reports ongoing symptoms since that time. He has been evaluated and has a diagnosis of UC - until now intolerant of oral medications into prednisone. He reported to [facility] emergency department 2 days ago with a CT showing a nonspecific colitis of either infectious or inflammatory origin, and had a subsequent colonoscopy and Endoscopy the next day at [facility]. The Colonoscopy showed a mild area of inflammation at the distal colon involving the rectum. However, the patient presented back to the ED the next day with continued symptoms, and a repeat CT was performed and essentially showing the same results. GI recommended initiation of steroid enemas without antibiotic or systemic steroid use. Overnight the patient continued having bloody diarrhea. His blood cultures were positive in one set with Gram Positive Rods, and was initiated on antibiotic therapy. He has remained afebrile, receiving twice daily steroid enemas, with vastly improved leukocytosis. No other events reported. Exam Narrative Exam Narrative: General: Patient appears comfortable, AAOX3, NAD Neck: Supple CV: Regular, nontachycardic, S1S2, No rubs, murmurs, or gallops. Pulmonary: Clear to auscultation bilaterally, no crackles, wheezing, or rhonchi Abdomen: + Bowel Sounds, soft, nondistended. Diffuse tenderness resolved, and pain in the LLQ vastly improved. Vascular: No lower extremity edema Psych: Normal mood and affect. Objective Objective Clinical Data: Abnormal lab results 11/12/17 11/12/17 11/12/17 Range/Units 06:48 06:48 06:48 RBC 3.44 L (4.50-6.00) m/cumm Hgb 10.4 L (13.5-17.5) g/dL Hct 33.0 L (40.0-50.0) % MCV 95.9 H (80-95) fL MCHC 31.5 L (32.0-36.0) g/dL Absolute Neutrophils 9.64 H (1.2-6.7) k/cumm Absolute Lymphocytes 0.33 L (1.2-3.4) k/cumm PT 27.3 H D (9.3-10.8) sec Carbon Dioxide 20.6 L (21.0-32.0) mmol/L Anion Gap 12.4 H (3-11) mmol/L BUN 32 H (7-18) mg/dL Creatinine 4.00 H* (0.70-1.30) mg/dL Glucose 139 H (70-100) mg/dL Calcium 5.9 L* (8.5-10.1) mg/dL Total Protein 5.6 L (6.4-8.2) g/dL Albumin 2.7 L (3.4-5.0) g/dL Vital Signs Temperature 36.5 C 11/12/17 07:45 Temperature Source Tympanic 11/12/17 07:45 Pulse 69 11/12/17 07:45 Pulse Rhythm Irregular 11/12/17 08:30 Pulse 76 11/10/17 10:31 Respiratory Rate 20 11/12/17 07:45 Respiratory Effort 11/12/17 08:30 Respiratory Depth Normal 11/12/17 08:30 Respiratory Pattern Normal 11/12/17 08:30 Blood Pressure 161/89 H 11/12/17 07:45 Blood Pressure Mean 95 11/10/17 12:31 Blood Pressure Position Sitting 11/10/17 05:39 Pulse Oximetry 95 11/12/17 08:00 Oxygen Delivery Method Room Air 11/12/17 08:00 Oxygen Flow Rate 0 11/12/17 08:00 Pain Level 1 11/11/17 15:57 Comment 11/11/17 03:00 Intake & Output 11/11/17 11/12/17 11/12/17 23:59 11:59 23:59 Intake Total 640 / 640 690 / 690 440 / 440 Output Total 250 / 250 200 / 200 200 / 200 Balance 390 / 390 490 / 490 240 / 240 Intake: IV 400 / 400 200 / 200 200 / 200 Oral 240 / 240 490 / 490 240 / 240 Output: Urine 200 / 200 200 / 200 Stool 250 / 250 Other: Urine Color Pale Yellow Urine Appearance Clear Clear Urine Odor None None Comment toilet Stool Size Moderate Small Stool Characteristics Liquid Liquid Voiding Methods Toilet Laboratory Results WBC 10.40 k/cumm (4.4-10.8) 11/12/17 06:48 RBC 3.44 m/cumm (4.50-6.00) L 11/12/17 06:48 Hgb 10.4 g/dL (13.5-17.5) L 11/12/17 06:48 Hct 33.0 % (40.0-50.0) L 11/12/17 06:48 MCV 95.9 fL (80-95) H 11/12/17 06:48 MCH 30.2 pg (27.0-33.0) 11/12/17 06:48 MCHC 31.5 g/dL (32.0-36.0) L 11/12/17 06:48 RDW 13.9 % (11.8-14.1) 11/12/17 06:48 Plt Count 190 x1000/uL (130-400) 11/12/17 06:48 MPV 9.6 fL (8.0-11.0) 11/12/17 06:48 Immature Gran % 0.3 11/12/17 06:48 Neutrophils % 92.6 11/12/17 06:48 Lymphocytes % 3.2 11/12/17 06:48 Monocytes % 3.8 11/12/17 06:48 Eosinophils % 0.1 11/12/17 06:48 Basophils % 0.0 11/12/17 06:48 Absolute Neutrophils 9.64 k/cumm (1.2-6.7) H 11/12/17 06:48 Absolute Lymphocytes 0.33 k/cumm (1.2-3.4) L 11/12/17 06:48 Absolute Monocytes 0.39 k/cumm (0.11-0.7) 11/12/17 06:48 Absolute Eosinophils 0.01 k/cumm (0.0-0.7) 11/12/17 06:48 Absolute Basophils 0.00 k/cumm (0.0-0.2) 11/12/17 06:48 Differential Comment 11/10/17 05:55 PT 27.3 sec (9.3-10.8) H D 11/12/17 06:48 INR 2.9 (1.0-3.5) D 11/12/17 06:48 APTT 30.1 sec (21.0-31.4) 11/10/17 05:55 Sodium 140 mmol/L (136-145) 11/12/17 06:48 Potassium 3.8 mmol/L (3.5-5.1) 11/12/17 06:48 Chloride 107 mmol/L (98-107) 11/12/17 06:48 Carbon Dioxide 20.6 mmol/L (21.0-32.0) L 11/12/17 06:48 Anion Gap 12.4 mmol/L (3-11) H 11/12/17 06:48 BUN 32 mg/dL (7-18) H 11/12/17 06:48 Creatinine 4.00 mg/dL (0.70-1.30) H* 11/12/17 06:48 Estimated GFR/1.73 m2 15.19 (mL/min/1.73m2) 11/12/17 06:48 Glucose 139 mg/dL (70-100) H 11/12/17 06:48 Lactate 1.0 mmol/L (0.6-1.4) 11/10/17 08:30 Calcium 5.9 mg/dL (8.5-10.1) L* 11/12/17 06:48 Total Bilirubin 0.4 mg/dL (0.2-1.0) 11/12/17 06:48 AST 15 U/L (15-37) 11/12/17 06:48 ALT 22 U/L (12-78) 11/12/17 06:48 Alkaline Phosphatase 75 U/L (46-116) 11/12/17 06:48 Troponin I 0.14 ng/mL (0.00-0.06) H 11/11/17 06:50 Total Protein 5.6 g/dL (6.4-8.2) L 11/12/17 06:48 Albumin 2.7 g/dL (3.4-5.0) L 11/12/17 06:48 Lipase 310 U/L (73-393) 11/12/17 06:48 Urine Color Yellow (Yellow) 11/10/17 14:32 Urine Clarity Clear 11/10/17 14:32 Urine pH 7.0 (5-8) 11/10/17 14:32 Ur Specific [place] 1.010 (1.005-1.025) 11/10/17 14:32 Urine Protein 100 mg/dL (Negative) H 11/10/17 14:32 Urine Ketones Trace mg/dL (Negative) H 11/10/17 14:32 Urine Blood Moderate (Negative) H 11/10/17 14:32 Urine Nitrite Negative (Negative) 11/10/17 14:32 Urine Bilirubin Negative (Negative) 11/10/17 14:32 Urine Urobilinogen 0.2 EU/dL (Up TO 0.2) 11/10/17 14:32 Ur Leukocyte Esterase Negative (Negative) 11/10/17 14:32 Urine RBC 0-2 (0-2) 11/10/17 14:32 Urine WBC 0-2 HPF (0-5) 11/10/17 14:32 Ur Epithelial Cells Rare HPF (Negative) 11/10/17 14:32 Urine Crystals Negative HPF (Negative) 11/10/17 14:32 Urine Bacteria Rare HPF (Negative) 11/10/17 14:32 Urine Casts Negative LPF (Negative) 11/10/17 14:32 Urine Mucus Negative (Negative) 11/10/17 14:32 Ur Culture Indicated? No 11/10/17 14:32 Urine Glucose Negative mg/dL (Negative) 11/10/17 14:32
--- NOTE | 2017-11-12 15:02 | PGE_ITS ---
Assessment and Plan (1) Colitis: Current visit: Yes Status: Chronic Likely UC by review of [facility] records. Patient has not tolerated prior attempts at oral or rectal therapy with 5-ASA, oral steroids, or other treatment modalities as per discussion with GI. Continue steroid enemas, and given positive blood cultures also initiated on antibiotic therapy, Day #2 of Cipro/Flagyl. Blood Cultures showing Gram Positive [place], not yet speciated, in one set only. Of note, C. Diff screen returned positive for Ag, negative for Toxin, and PCR has been sent out and pending at this time. (2) Peptic ulcer disease: Current visit: Yes Status: Chronic Continue IV PPI therapy. Monitor Hgb. Prior EGD reviewed with evidence of erosive gastropathy and duodenal ulcers. (3) Cardiomyopathy: Current visit: Yes Status: Chronic Mention of prior LVEF of 40%. ECHO obtained and showing an LVEF of 35-40% with moderate diffuse hypokinesis. Patient has history of CAD - Unsure if cardiomyopathy is on basis of ischemia or not. Patient appears euvolemic - IVF's discontinued. Continue BB, spironolactone ( chronic medication despite CKD 5). Also on statin and asa. Monitor blood pressure, volume status carefully. 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 (5) History of TIA (transient ischemic attack): Current visit: Yes Status: Acute 2013. Continue daily antiplatelet therapy with aspirin. Also with history of afib, on chronic anticoagulation with coumadin, with therapeutic INR. (6) CKD (chronic kidney disease): Current visit: Yes Status: Chronic Stage 5, with clearance calculated at 8. Ensure renally dosed medications and avoid nephrotoxins. (7) Atrial fibrillation: Current visit: Yes Status: Chronic Continue BB, coumadin. Monitor on telemetry. Replete electrolytes. (8) DVT prophylaxis: Current visit: Yes Status: Acute On active anticoagulation with coumadin. Monitor daily INR. Subjective Interval history since last seen: 66-year-old man with a past medical history significant for atrial fibrillation, prior history of Iliac and femoral artery thrombus/emboli on chronic anticoagulation, as well as CKD stage 5, presented to [facility] emergency department with complaints of abdominal pain and diarrhea. Mr. Collins had had a history of loose stools for quite some time, approximately 2 years by his account. This is described as diarrhea following meals, along with abdominal discomfort. He had a flexible sigmoidoscopy at [facility] by his egg processing supervisor in April of this year, and subsequently diagnosed with a moderate to severe segmental colitis based on diverticulitis. He was given a 14 day course of antibiotics. The patient was subsequently admitted here the next day for continued bloody stools in the setting of colonoscopy and active anticoagulation. His hospitalization was uneventful and he was discharged the next day. Mr. Estrada reports ongoing symptoms since that time. He has been evaluated and has a diagnosis of UC - until now intolerant of oral medications into prednisone. He reported to [facility] emergency department 2 days ago with a CT showing a nonspecific colitis of either infectious or inflammatory origin, and had a subsequent colonoscopy and Endoscopy the next day at [facility]. The Colonoscopy showed a mild area of inflammation at the distal colon involving the rectum. However, the patient presented back to the ED the next day with continued symptoms, and a repeat CT was performed and essentially showing the same results. GI recommended initiation of steroid enemas without antibiotic or systemic steroid use. Overnight the patient continued having bloody diarrhea. His blood cultures were positive in one set with Gram Positive Rods, and was initiated on antibiotic therapy. He has remained afebrile, receiving twice daily steroid enemas, with vastly improved leukocytosis. No other events reported. Exam Narrative Exam Narrative: General: Patient appears comfortable, AAOX3, NAD Neck: Supple CV: Regular, nontachycardic, S1S2, No rubs, murmurs, or gallops. Pulmonary: Clear to auscultation bilaterally, no crackles, wheezing, or rhonchi Abdomen: + Bowel Sounds, soft, nondistended. Diffuse tenderness resolved, and pain in the LLQ vastly improved. Vascular: No lower extremity edema Psych: Normal mood and affect. Objective Objective Clinical Data: Abnormal lab results 11/12/17 11/12/17 11/12/17 Range/Units 06:48 06:48 06:48 RBC 3.44 L (4.50-6.00) m/cumm Hgb 10.4 L (13.5-17.5) g/dL Hct 33.0 L (40.0-50.0) % MCV 95.9 H (80-95) fL MCHC 31.5 L (32.0-36.0) g/dL Absolute Neutrophils 9.64 H (1.2-6.7) k/cumm Absolute Lymphocytes 0.33 L (1.2-3.4) k/cumm PT 27.3 H D (9.3-10.8) sec Carbon Dioxide 20.6 L (21.0-32.0) mmol/L Anion Gap 12.4 H (3-11) mmol/L BUN 32 H (7-18) mg/dL Creatinine 4.00 H* (0.70-1.30) mg/dL Glucose 139 H (70-100) mg/dL Calcium 5.9 L* (8.5-10.1) mg/dL Total Protein 5.6 L (6.4-8.2) g/dL Albumin 2.7 L (3.4-5.0) g/dL Vital Signs Temperature 36.5 C 11/12/17 07:45 Temperature Source Tympanic 11/12/17 07:45 Pulse 69 11/12/17 07:45 Pulse Rhythm Irregular 11/12/17 08:30 Pulse 76 11/10/17 10:31 Respiratory Rate 20 11/12/17 07:45 Respiratory Effort 11/12/17 08:30 Respiratory Depth Normal 11/12/17 08:30 Respiratory Pattern Normal 11/12/17 08:30 Blood Pressure 161/89 H 11/12/17 07:45 Blood Pressure Mean 95 11/10/17 12:31 Blood Pressure Position Sitting 11/10/17 05:39 Pulse Oximetry 95 11/12/17 08:00 Oxygen Delivery Method Room Air 11/12/17 08:00 Oxygen Flow Rate 0 11/12/17 08:00 Pain Level 1 11/11/17 15:57 Comment 11/11/17 03:00 Intake & Output 11/11/17 11/12/17 11/12/17 23:59 11:59 23:59 Intake Total 640 / 640 690 / 690 440 / 440 Output Total 250 / 250 200 / 200 200 / 200 Balance 390 / 390 490 / 490 240 / 240 Intake: IV 400 / 400 200 / 200 200 / 200 Oral 240 / 240 490 / 490 240 / 240 Output: Urine 200 / 200 200 / 200 Stool 250 / 250 Other: Urine Color Pale Yellow Urine Appearance Clear Clear Urine Odor None None Comment toilet Stool Size Moderate Small Stool Characteristics Liquid Liquid Voiding Methods Toilet Laboratory Results WBC 10.40 k/cumm (4.4-10.8) 11/12/17 06:48 RBC 3.44 m/cumm (4.50-6.00) L 11/12/17 06:48 Hgb 10.4 g/dL (13.5-17.5) L 11/12/17 06:48 Hct 33.0 % (40.0-50.0) L 11/12/17 06:48 MCV 95.9 fL (80-95) H 11/12/17 06:48 MCH 30.2 pg (27.0-33.0) 11/12/17 06:48 MCHC 31.5 g/dL (32.0-36.0) L 11/12/17 06:48 RDW 13.9 % (11.8-14.1) 11/12/17 06:48 Plt Count 190 x1000/uL (130-400) 11/12/17 06:48 MPV 9.6 fL (8.0-11.0) 11/12/17 06:48 Immature Gran % 0.3 11/12/17 06:48 Neutrophils % 92.6 11/12/17 06:48 Lymphocytes % 3.2 11/12/17 06:48 Monocytes % 3.8 11/12/17 06:48 Eosinophils % 0.1 11/12/17 06:48 Basophils % 0.0 11/12/17 06:48 Absolute Neutrophils 9.64 k/cumm (1.2-6.7) H 11/12/17 06:48 Absolute Lymphocytes 0.33 k/cumm (1.2-3.4) L 11/12/17 06:48 Absolute Monocytes 0.39 k/cumm (0.11-0.7) 11/12/17 06:48 Absolute Eosinophils 0.01 k/cumm (0.0-0.7) 11/12/17 06:48 Absolute Basophils 0.00 k/cumm (0.0-0.2) 11/12/17 06:48 Differential Comment 11/10/17 05:55 PT 27.3 sec (9.3-10.8) H D 11/12/17 06:48 INR 2.9 (1.0-3.5) D 11/12/17 06:48 APTT 30.1 sec (21.0-31.4) 11/10/17 05:55 Sodium 140 mmol/L (136-145) 11/12/17 06:48 Potassium 3.8 mmol/L (3.5-5.1) 11/12/17 06:48 Chloride 107 mmol/L (98-107) 11/12/17 06:48 Carbon Dioxide 20.6 mmol/L (21.0-32.0) L 11/12/17 06:48 Anion Gap 12.4 mmol/L (3-11) H 11/12/17 06:48 BUN 32 mg/dL (7-18) H 11/12/17 06:48 Creatinine 4.00 mg/dL (0.70-1.30) H* 11/12/17 06:48 Estimated GFR/1.73 m2 15.19 (mL/min/1.73m2) 11/12/17 06:48 Glucose 139 mg/dL (70-100) H 11/12/17 06:48 Lactate 1.0 mmol/L (0.6-1.4) 11/10/17 08:30 Calcium 5.9 mg/dL (8.5-10.1) L* 11/12/17 06:48 Total Bilirubin 0.4 mg/dL (0.2-1.0) 11/12/17 06:48 AST 15 U/L (15-37) 11/12/17 06:48 ALT 22 U/L (12-78) 11/12/17 06:48 Alkaline Phosphatase 75 U/L (46-116) 11/12/17 06:48 Troponin I 0.14 ng/mL (0.00-0.06) H 11/11/17 06:50 Total Protein 5.6 g/dL (6.4-8.2) L 11/12/17 06:48 Albumin 2.7 g/dL (3.4-5.0) L 11/12/17 06:48 Lipase 310 U/L (73-393) 11/12/17 06:48 Urine Color Yellow (Yellow) 11/10/17 14:32 Urine Clarity Clear 11/10/17 14:32 Urine pH 7.0 (5-8) 11/10/17 14:32 Ur Specific [place] 1.010 (1.005-1.025) 11/10/17 14:32 Urine Protein 100 mg/dL (Negative) H 11/10/17 14:32 Urine Ketones Trace mg/dL (Negative) H 11/10/17 14:32 Urine Blood Moderate (Negative) H 11/10/17 14:32 Urine Nitrite Negative (Negative) 11/10/17 14:32 Urine Bilirubin Negative (Negative) 11/10/17 14:32 Urine Urobilinogen 0.2 EU/dL (Up TO 0.2) 11/10/17 14:32 Ur Leukocyte Esterase Negative (Negative) 11/10/17 14:32 Urine RBC 0-2 (0-2) 11/10/17 14:32 Urine WBC 0-2 HPF (0-5) 11/10/17 14:32 Ur Epithelial Cells Rare HPF (Negative) 11/10/17 14:32 Urine Crystals Negative HPF (Negative) 11/10/17 14:32 Urine Bacteria Rare HPF (Negative) 11/10/17 14:32 Urine Casts Negative LPF (Negative) 11/10/17 14:32 Urine Mucus Negative (Negative) 11/10/17 14:32 Ur Culture Indicated? No 11/10/17 14:32 Urine Glucose Negative mg/dL (Negative) 11/10/17 14:32
[2017-11-12 17:02] VITALS: BP 145/73; PULSE 70; RESP 18; TEMP 35.7; O2SAT 96
[2017-11-12] MEDS: Calcium Carbonate *TUMS* 500 MG CHEW 1000 MG CH (18:11)
[2017-11-12 18:54] LABS: Result Negative; Specimen Description Feces
[2017-11-12] MEDS: Warfarin 5 MG TAB PO (20:47)
[2017-11-12] MEDS: Normal Saline 500 ML IV (20:47)
[2017-11-13 00:20] VITALS: BP 153/89; PULSE 71; RESP 18; TEMP 36; O2SAT 98
[2017-11-13] MEDS: MetroNIDAZOLE 500 MG/100 ML BAG 100 MG IVPB ×4 (02:25→20:46)
[2017-11-13] MEDS: Normal Saline Flush 10 ML SYR IVP ×6 (02:25→20:43)
[2017-11-13 07:34] LABS: Abs Immature Grans 0.04 k/cumm (0.0-0.09); Absolute Basophil Count 0.01 k/cumm (0.0-0.2); Absolute Eosinophil Count 0.09 k/cumm (0.0-0.7); Absolute Lymphocyte Count 0.81 k/cumm (1.2-3.4); Absolute Monocyte Count 0.76 k/cumm (0.11-0.7); Absolute Neutrophil Count 8.63 k/cumm (1.2-6.7); Basophils % 0.1; Eosinophils % 0.9; HCT 33.9 % (40.0-50.0); HGB 10.9 g/dL (13.5-17.5); Immature Grans % 0.4; Lymphocytes % 7.8; Mean Corp. HGB Concentration 32.2 g/dL (32.0-36.0); Mean Corpuscular Hemoglobin 30.4 pg (27.0-33.0); Mean Corpuscular Volume 94.7 fL (80-95); Mean Platelet Volume 9.7 fL (8.0-11.0); Monocytes % 7.4; Neutrophils % 83.4; Platelet Count 204 x1000/uL (130-400); RBC 3.58 m/cumm (4.50-6.00); RBC Distribution Width 13.6 % (11.8-14.1); White Blood Cell Count 10.34 k/cumm (4.4-10.8)
[2017-11-13 07:40] VITALS: BP 154/84; PULSE 69; RESP 20; TEMP 36.6; O2SAT 97
[2017-11-13 07:52] LABS: Prothrombin Time 42.1 sec (9.3-10.8)
[2017-11-13 07:53] LABS: ALT 19 U/L (12-78); AST 13 U/L (15-37); Albumin 2.7 g/dL (3.4-5.0); Alkaline Phosphatase 73 U/L (46-116); Anion Gap 12.4 mmol/L (3-11); BUN 29 mg/dL (7-18); Bilirubin, Total 0.4 mg/dL (0.2-1.0); CO2 22.6 mmol/L (21.0-32.0); Chloride 106 mmol/L (98-107); Estimated GFR 14.93 (mL/min/1.73m2); Glucose 108 mg/dL (70-100); Lipase 395 U/L (73-393); Potassium 3.2 mmol/L (3.5-5.1); Sodium 141 mmol/L (136-145); Total Protein 5.7 g/dL (6.4-8.2)
[2017-11-13 07:57] LABS: INR 4.6 (1.0-3.5)
[2017-11-13 08:01] LABS: CREATININE 4.06 mg/dL (0.70-1.30)
[2017-11-13 08:02] LABS: Calcium 6.1 mg/dL (8.5-10.1)
[2017-11-13] MEDS: amLODIPine 5 MG TAB 7.5 MG PO (08:51)
[2017-11-13] MEDS: Metoprolol CR 50 MG TABCR PO (08:52)
[2017-11-13] MEDS: Aspirin 81 MG CHEW PO (08:52)
[2017-11-13] MEDS: Magnesium Oxide 400 MG TAB PO (08:52)
[2017-11-13] MEDS: Pravastatin 20 MG TAB 40 MG PO (08:52)
[2017-11-13] MEDS: Finasteride 5 MG TAB PO (08:52)
[2017-11-13] MEDS: Spironolactone 25 MG TAB PO (08:52)
[2017-11-13] MEDS: CIPROFLOXACIN 400 MG/200 ML BAG 200 MG IVPB (10:12)
--- NOTE | 2017-11-13 12:15 | PDOC.CMPRO ---
- If Service Date Differs Date of service: 11/13/17 Time of Service: 12:15 Care Management Progress Note S/O: Gus is lying in bed when CM and GUITAR REPAIRER Maria Guadalupe visit this morning. He is engaged in conversation, makes good eye contact and is talkative. Gus reports that he is discouraged as he has had abdominal problems for two years. He denies nausea but is having abdominal pain and reports micheline blood in his stools. He is C.diff+ (antigen) and negative for toxin. Labs have been sent out and are pending. Gus is on precautions for C.diff at this time and is being treated for such with IV antibiotics. Gus reports that he is followed by GI at [facility]. A: 66 year old male admitted with colitis. P: Gus will discharge home when medically ready per MD. Anticipate Gus will discharge with no services and follow up with his PCP and GI at [facility]. Gus's car is in the parking lot at [facility] and he will transport himself home. CM will continue to offer support to patient and care team regarding discharge planning and disposition.
--- NOTE | 2017-11-13 12:21 | CMPROGNOTE_ITS ---
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 He is engaged in conversation, makes good eye contact and is talkative. Gus reports that he is discouraged as he has had abdominal problems for two years. He denies nausea but is having abdominal pain and reports micheline blood in his stools. He is C.diff+ (antigen) and negative for toxin. Labs have been sent out and are pending. Gus is on precautions for C.diff at this time and is being treated for such with IV antibiotics. Gus reports that he is followed by GI at [facility]. A: 66 year old male admitted with colitis. P: Gus will discharge home when medically ready per MD. Anticipate Gus will discharge with no services and follow up with his PCP and GI at [facility]. Gus's car is in the parking lot at [facility] and he will transport himself home. CM will continue to offer support to patient and care team regarding discharge planning and disposition.
[2017-11-13 14:01] LABS: Magnesium 1.8 mg/dL (1.8-2.4)
[2017-11-13 15:49] VITALS: BP 143/80; PULSE 70; RESP 18; TEMP 36.4; O2SAT 98
--- NOTE | 2017-11-13 16:03 | PGE_ITS ---
Assessment and Plan (1) Colitis: Current visit: Yes Status: Chronic Has been receiving twice daily steroid enemas will decrease to daily for 1 more week. Will continue Cipro and Flagyl while awaiting C. difficile PCR. We will need to follow his electrolytes closely and replete as needed magnesium was normal today potassium will be replaced with IV and oral and will recheck electrolytes in the a.m. (2) Atrial fibrillation: Current visit: Yes Status: Chronic Rate is controlled, will continue aspirin beta jose Coumadin will be placed on hold as his INR is 4.6 today we will recheck INR in the a.m. (3) CKD (chronic kidney disease): Current visit: Yes Status: Chronic Creatinine is stable we will avoid nephrotoxic drugs (4) DVT prophylaxis: Current visit: Yes Status: Acute Anticoagulated on Coumadin (5) Cardiomyopathy: Current visit: Yes Status: Chronic Stable at this time will monitor fluid balance continue spironolactone and beta-jose (6) Hypocalcemia: Current visit: Yes Status: Acute Likely due to acute illness and renal disease but will check vitamin D and phosphorus levels. Mag level was 1.8, I will give him 1000 mg of calcium gluconate and continue to follow consider adding oral calcium supplement, continue to follow Subjective Patient reports: still having pain, diarrhea, afebrile and other (decreased appetite); denies vomiting and fever Interval history since last seen: This is a 66-year-old male patient with a past medical history significant for A. fib and peripheral vascular disease on chronic anticoagulation, kidney disease stage V who presented to the emergency department with increased abdominal pain and chronic diarrhea. His evaluation showed a nonspecific colitis with a leukocytosis . He continues to receive steroid enemas with no improvement in his symptoms he has been taking the enemas he states for about 2 weeks. His C. difficile PCR is pending. His white count has normalized from a high of 27 on admission, and his H&H has remained stable. He continues to have complaints of abdominal pain which she states worsened yesterday after receiving his enema. His appetite remains poor. Hemodynamically he has been stable. His abdominal exam shows a soft abdomen with hyperactive bowel sounds there is no guarding. He is feeling quite discouraged about his lack of improvement in his symptoms Exam Const General: cooperative, no acute distress and ill appearing chronically Nutritional Appearance: average body habitus Orientation: alert, awake and oriented x3 [facility] Mouth: moist mucous membranes abnormal (Slightly dry no exudate) Resp Effort & Inspection: normal respiratory effort and able to speak in complete sentences Auscultation: clear to auscultation bilaterally Cardio Rate: regular rate Rhythm: regular rhythm GI Inspection: distended (Slightly) Palpation: soft, not firm, no guarding and no hernias Auscultation: hyperactive bowel sounds Skin General skin exam: no rashes or lesions noted Neuro General: alert, awake and oriented x3 Motor: muscle tone normal throughout and strength 5/5 throughout Extrem General: normal to inspection and full ROM Psych Appearance: grossly normal Speech and Movement: speech and movement normal Mood: congruent mood Affect: blunted Attitude: cooperative Objective Objective Clinical Data: Abnormal lab results 11/13/17 11/13/17 11/13/17 Range/Units 06:58 06:58 06:58 RBC 3.58 L (4.50-6.00) m/cumm Hgb 10.9 L (13.5-17.5) g/dL Hct 33.9 L (40.0-50.0) % Absolute Neutrophils 8.63 H (1.2-6.7) k/cumm Absolute Lymphocytes 0.81 L (1.2-3.4) k/cumm Absolute Monocytes 0.76 H (0.11-0.7) k/cumm PT 42.1 H D (9.3-10.8) sec INR 4.6 H* D (1.0-3.5) Potassium 3.2 L (3.5-5.1) mmol/L Anion Gap 12.4 H (3-11) mmol/L BUN 29 H (7-18) mg/dL Creatinine 4.06 H* (0.70-1.30) mg/dL Glucose 108 H (70-100) mg/dL Calcium 6.1 L* (8.5-10.1) mg/dL AST 13 L (15-37) U/L Total Protein 5.7 L (6.4-8.2) g/dL Albumin 2.7 L (3.4-5.0) g/dL Lipase 395 H (73-393) U/L Vital Signs Temperature 36.6 C 11/13/17 07:40 Temperature Source Tympanic 11/13/17 07:40 Pulse 69 11/13/17 07:40 Pulse Rhythm Regular 11/13/17 08:30 Pulse 76 11/10/17 10:31 Respiratory Rate 20 11/13/17 07:40 Respiratory Effort Non-Labored 11/13/17 08:30 Respiratory Depth Normal 11/13/17 08:30 Respiratory Pattern Normal 11/13/17 08:30 Blood Pressure 154/84 H 11/13/17 07:40 Blood Pressure Mean 95 11/10/17 12:31 Blood Pressure Position Sitting 11/10/17 05:39 Pulse Oximetry 97 11/13/17 07:40 Oxygen Delivery Method Room Air 11/13/17 07:40 Oxygen Flow Rate 0 11/13/17 07:40 Pain Level 1 11/11/17 15:57 Comment 11/11/17 03:00 Intake & Output 11/12/17 11/13/17 11/13/17 23:59 11:59 23:59 Intake Total 1168.335 / 1168.335 690 / 690 820 / 820 Output Total 350 / 350 600 / 600 Balance 818.335 / 818.335 90 / 90 820 / 820 Intake: IV 448.335 / 448.335 210 / 210 220 / 220 Oral 720 / 720 480 / 480 600 / 600 Output: Urine 350 / 350 600 / 600 Other: Urine Color Straw Yellow Urine Appearance Clear Clear Urine Odor Normal Normal Stool Occult Blood Positive Stool Size Small Stool Characteristics Liquid Liquid Voiding Methods Urinal Urinal Laboratory Results WBC 10.34 k/cumm (4.4-10.8) 11/13/17 06:58 RBC 3.58 m/cumm (4.50-6.00) L 11/13/17 06:58 Hgb 10.9 g/dL (13.5-17.5) L 11/13/17 06:58 Hct 33.9 % (40.0-50.0) L 11/13/17 06:58 MCV 94.7 fL (80-95) 11/13/17 06:58 MCH 30.4 pg (27.0-33.0) 11/13/17 06:58 MCHC 32.2 g/dL (32.0-36.0) 11/13/17 06:58 RDW 13.6 % (11.8-14.1) 11/13/17 06:58 Plt Count 204 x1000/uL (130-400) 11/13/17 06:58 MPV 9.7 fL (8.0-11.0) 11/13/17 06:58 Immature Gran % 0.4 11/13/17 06:58 Neutrophils % 83.4 11/13/17 06:58 Lymphocytes % 7.8 11/13/17 06:58 Monocytes % 7.4 11/13/17 06:58 Eosinophils % 0.9 11/13/17 06:58 Basophils % 0.1 11/13/17 06:58 Absolute Neutrophils 8.63 k/cumm (1.2-6.7) H 11/13/17 06:58 Absolute Lymphocytes 0.81 k/cumm (1.2-3.4) L 11/13/17 06:58 Absolute Monocytes 0.76 k/cumm (0.11-0.7) H 11/13/17 06:58 Absolute Eosinophils 0.09 k/cumm (0.0-0.7) 11/13/17 06:58 Absolute Basophils 0.01 k/cumm (0.0-0.2) 11/13/17 06:58 Differential Comment 11/10/17 05:55 PT 42.1 sec (9.3-10.8) H D 11/13/17 06:58 INR 4.6 (1.0-3.5) H* D 11/13/17 06:58 APTT 30.1 sec (21.0-31.4) 11/10/17 05:55 Sodium 141 mmol/L (136-145) 11/13/17 06:58 Potassium 3.2 mmol/L (3.5-5.1) L 11/13/17 06:58 Chloride 106 mmol/L (98-107) 11/13/17 06:58 Carbon Dioxide 22.6 mmol/L (21.0-32.0) 11/13/17 06:58 Anion Gap 12.4 mmol/L (3-11) H 11/13/17 06:58 BUN 29 mg/dL (7-18) H 11/13/17 06:58 Creatinine 4.06 mg/dL (0.70-1.30) H* 11/13/17 06:58 Estimated GFR/1.73 m2 14.93 (mL/min/1.73m2) 11/13/17 06:58 Glucose 108 mg/dL (70-100) H 11/13/17 06:58 Lactate 1.0 mmol/L (0.6-1.4) 11/10/17 08:30 Calcium 6.1 mg/dL (8.5-10.1) L* 11/13/17 06:58 Magnesium 1.8 mg/dL (1.8-2.4) 11/13/17 06:58 Total Bilirubin 0.4 mg/dL (0.2-1.0) 11/13/17 06:58 AST 13 U/L (15-37) L 11/13/17 06:58 ALT 19 U/L (12-78) 11/13/17 06:58 Alkaline Phosphatase 73 U/L (46-116) 11/13/17 06:58 Troponin I 0.14 ng/mL (0.00-0.06) H 11/11/17 06:50 Total Protein 5.7 g/dL (6.4-8.2) L 11/13/17 06:58 Albumin 2.7 g/dL (3.4-5.0) L 11/13/17 06:58 Lipase 395 U/L (73-393) H 11/13/17 06:58 Urine Color Yellow (Yellow) 11/10/17 14:32 Urine Clarity Clear 11/10/17 14:32 Urine pH 7.0 (5-8) 11/10/17 14:32 Ur Specific [place] 1.010 (1.005-1.025) 11/10/17 14:32 Urine Protein 100 mg/dL (Negative) H 11/10/17 14:32 Urine Ketones Trace mg/dL (Negative) H 11/10/17 14:32 Urine Blood Moderate (Negative) H 11/10/17 14:32 Urine Nitrite Negative (Negative) 11/10/17 14:32 Urine Bilirubin Negative (Negative) 11/10/17 14:32 Urine Urobilinogen 0.2 EU/dL (Up TO 0.2) 11/10/17 14:32 Ur Leukocyte Esterase Negative (Negative) 11/10/17 14:32 Urine RBC 0-2 (0-2) 11/10/17 14:32 Urine WBC 0-2 HPF (0-5) 11/10/17 14:32 Ur Epithelial Cells Rare HPF (Negative) 11/10/17 14:32 Urine Crystals Negative HPF (Negative) 11/10/17 14:32 Urine Bacteria Rare HPF (Negative) 11/10/17 14:32 Urine Casts Negative LPF (Negative) 11/10/17 14:32 Urine Mucus Negative (Negative) 11/10/17 14:32 Ur Culture Indicated? No 11/10/17 14:32 Urine Glucose Negative mg/dL (Negative) 11/10/17 14:32
[2017-11-13 16:26] LABS: PHOSPHORUS 3.5 mg/dL (2.6-4.7)
[2017-11-13 16:34] LABS: Abs Immature Grans 0.04 k/cumm (0.0-0.09); Absolute Eosinophil Count 0.01 k/cumm (0.0-0.7); Absolute Lymphocyte Count 0.35 k/cumm (1.2-3.4); Absolute Monocyte Count 0.37 k/cumm (0.11-0.7); Absolute Neutrophil Count 8.51 k/cumm (1.2-6.7); Eosinophils % 0.1; HCT 36.1 % (40.0-50.0); HGB 11.7 g/dL (13.5-17.5); Immature Grans % 0.4; Lymphocytes % 3.8; Mean Corp. HGB Concentration 32.4 g/dL (32.0-36.0); Mean Corpuscular Hemoglobin 30.7 pg (27.0-33.0); Mean Corpuscular Volume 94.8 fL (80-95); Mean Platelet Volume 9.3 fL (8.0-11.0); Neutrophils % 91.7; Platelet Count 212 x1000/uL (130-400); RBC 3.81 m/cumm (4.50-6.00); RBC Distribution Width 13.6 % (11.8-14.1); White Blood Cell Count 9.28 k/cumm (4.4-10.8)
[2017-11-13] MEDS: POTASSIUM CHLORIDE 10 MEQ/100 ML BAG 100 MEQ IVPB (16:46)
[2017-11-13] MEDS: Hamamelis Leaf/Glycerin 100 EACH BOX PR (18:48)
[2017-11-13] MEDS: Calcium Carbonate *TUMS* 500 MG CHEW 1000 MG CH (18:48)
[2017-11-13] MEDS: Potassium Chloride 20 MEQ TABCR PO (20:43)
[2017-11-14] MEDS: Normal Saline Flush 10 ML SYR IVP ×3 (02:45→21:14)
[2017-11-14] MEDS: Normal Saline 500 ML 100 ML IV (02:45)
[2017-11-14] MEDS: MetroNIDAZOLE 500 MG/100 ML BAG 100 MG IVPB ×4 (02:45→19:46)
[2017-11-14 02:52] VITALS: BP 155/89; PULSE 72; RESP 18; TEMP 36.7; O2SAT 97
[2017-11-14 07:50] VITALS: BP 155/81; PULSE 71; RESP 18; TEMP 36; O2SAT 97
[2017-11-14 07:57] LABS: ALT 19 U/L (12-78); AST 21 U/L (15-37); Alkaline Phosphatase 73 U/L (46-116); Anion Gap 13.4 mmol/L (3-11); BUN 28 mg/dL (7-18); Bilirubin, Total 0.4 mg/dL (0.2-1.0); CO2 20.6 mmol/L (21.0-32.0); Calcium 6.6 mg/dL (8.5-10.1); Chloride 105 mmol/L (98-107); Estimated GFR 14.98 (mL/min/1.73m2); Glucose 107 mg/dL (70-100); Magnesium 1.6 mg/dL (1.8-2.4); Potassium 3.6 mmol/L (3.5-5.1); Sodium 139 mmol/L (136-145); Total Protein 6.1 g/dL (6.4-8.2)
[2017-11-14 08:02] LABS: Prothrombin Time 58.6 sec (9.3-10.8)
[2017-11-14 08:08] LABS: INR 6.4 (1.0-3.5)
[2017-11-14] MEDS: Finasteride 5 MG TAB PO (08:08)
[2017-11-14] MEDS: amLODIPine 5 MG TAB 7.5 MG PO (08:08)
[2017-11-14 08:09] LABS: CREATININE 4.05 mg/dL (0.70-1.30)
[2017-11-14] MEDS: Pravastatin 20 MG TAB 40 MG PO (08:09)
[2017-11-14] MEDS: Metoprolol CR 50 MG TABCR PO (08:09)
[2017-11-14] MEDS: Aspirin 81 MG CHEW PO (08:09)
[2017-11-14] MEDS: Magnesium Oxide 400 MG TAB PO (08:09)
[2017-11-14] MEDS: Potassium Chloride 20 MEQ TABCR PO ×2 (08:09→19:46)
[2017-11-14] MEDS: Spironolactone 25 MG TAB PO (08:09)
[2017-11-14] MEDS: CIPROFLOXACIN 400 MG/200 ML BAG 200 MG IVPB (09:50)
--- NOTE | 2017-11-14 12:43 | PDOC.CMPRO ---
- If Service Date Differs Date of service: 11/14/17 Time of Service: 12:43 Care Management Progress Note S/O: Gus is lying in bed when CM visits this morning. He is engaged in conversation, makes good eye contact and is talkative. Gus reports that he is still having diarrhea and continues to have moderate abdominal pain. He is C.diff+ (antigen) and negative for toxin. Labs have been sent out and are pending. Gus is on precautions for C.diff at this time and is being treated for such with IV antibiotics. A: 66 year old male admitted with colitis. P: uGs will discharge home when medically ready per MD. Anticipate Gus will discharge with no services and follow up with his PCP and GI at [facility] [place] [place]. Gus's car is in the parking lot at [facility] and he will transport himself home. CM will continue to offer support to patient and care team regarding discharge planning and disposition.
--- NOTE | 2017-11-14 15:25 | PGE_ITS ---
Assessment and Plan (1) Colitis: Current visit: Yes Status: Chronic Cdiff PCR negative. cortenemas reduced to daily yesterday as he has been using BID for over 2 weeks with no significant improvement. He also refused his metamucil yesterday. H&H has stabilized, white count remains normal, he has had no fevers. will continue push oral fluid and electrolyte replacement. probably reasonable to stop cipro/flagyl tomorrow, will have completed 5 days. (2) CKD (chronic kidney disease): Current visit: Yes Status: Chronic stable, avoid nephrotoxic drugs, renally dose medications. follow urine output and kidney functions closely (3) DVT prophylaxis: Current visit: Yes Status: Acute anticoagulated on coumadin (4) Peptic ulcer disease: Current visit: Yes Status: Chronic (5) Cardiomyopathy: Current visit: Yes Status: Chronic Stable at this time will monitor fluid balance continue spironolactone and beta-jose (6) Hypocalcemia: Current visit: Yes Status: Acute slight improvement in calcium after receiving calcium gluconate yesterday , will repeat. phosphorus level normal, creatinine stable (7) Atrial fibrillation: Current visit: Yes Status: Chronic Rate is controlled, will continue aspirin beta jose Coumadin will be placed on hold as his INR is 6.4 today we will recheck INR in the a.m. no signs of active bleeding. will need vitamin K if he does. monitor closely Subjective Patient reports: still having pain (abdominal), tolerating liquids well and diarrhea Interval history since last seen: reports overnight his diarrhea has worsened, no evidence of bleeding. appetite remains poor but tolerating some fluids. hemodynamically stable with no fevers. no dizziness, chest pressure or shortness of breath. Exam Const General: cooperative, comfortable, no acute distress, frail appearing and ill appearing chronically Orientation: alert, awake and oriented x3 [facility] Mouth: abnormal tongue (thrush) and moist mucous membranes abnormal (slightly dry) Chest Chest: normal inspection of the chest Resp Effort & Inspection: normal respiratory effort and not labored Auscultation: clear to auscultation bilaterally and no wheezes Cardio Rate: regular rate Rhythm: regular rhythm GI Inspection: normal to inspection Palpation: soft, not firm, no guarding and tender Skin General skin exam: no rashes or lesions noted Neuro General: alert, awake and oriented x3 Cognition: normal cognition Speech: speech normal Gait: normal gait Motor: muscle tone normal throughout and strength 5/5 throughout Extrem General: normal to inspection and full ROM Objective Objective Clinical Data: Abnormal lab results 11/13/17 11/14/17 11/14/17 Range/Units 16:24 07:09 07:09 RBC 3.81 L (4.50-6.00) m/cumm Hgb 11.7 L (13.5-17.5) g/dL Hct 36.1 L (40.0-50.0) % Absolute Neutrophils 8.51 H (1.2-6.7) k/cumm Absolute Lymphocytes 0.35 L (1.2-3.4) k/cumm PT 58.6 H (9.3-10.8) sec INR 6.4 H* D (1.0-3.5) Carbon Dioxide 20.6 L (21.0-32.0) mmol/L Anion Gap 13.4 H (3-11) mmol/L BUN 28 H (7-18) mg/dL Creatinine 4.05 H* (0.70-1.30) mg/dL Glucose 107 H (70-100) mg/dL Calcium 6.6 L (8.5-10.1) mg/dL Magnesium 1.6 L (1.8-2.4) mg/dL Total Protein 6.1 L (6.4-8.2) g/dL Albumin 3.0 L (3.4-5.0) g/dL Vital Signs Temperature 36 C L 11/14/17 07:50 Temperature Source Tympanic 11/14/17 07:50 Pulse 71 11/14/17 07:50 Pulse Rhythm Regular 11/14/17 02:50 Pulse 76 11/10/17 10:31 Respiratory Rate 18 11/14/17 07:50 Respiratory Effort Non-Labored 11/14/17 02:50 Respiratory Depth Normal 11/14/17 02:50 Respiratory Pattern Normal 11/14/17 02:50 Blood Pressure 155/81 H 11/14/17 07:50 Blood Pressure Mean 95 11/10/17 12:31 Blood Pressure Position Sitting 11/10/17 05:39 Pulse Oximetry 97 11/14/17 07:50 Oxygen Delivery Method Room Air 11/14/17 07:50 Oxygen Flow Rate 0 11/14/17 07:50 Pain Level 0 11/14/17 02:52 Comment 11/11/17 03:00 Intake & Output 11/13/17 11/14/17 11/14/17 23:59 11:59 23:59 Intake Total 1586.666 / 1586.666 250 / 250 250 / 250 Output Total 300 / 300 600 / 600 Balance 1286.666 / 1286.666 -350 / -350 250 / 250 Intake: IV 866.666 / 866.666 250 / 250 Oral 720 / 720 250 / 250 Output: Urine 300 / 300 600 / 600 Other: Urine Color Yellow Yellow Urine Appearance Clear Clear Urine Odor Normal Normal Stool Characteristics Liquid Brown Voiding Methods Urinal Urinal Laboratory Results WBC 9.28 k/cumm (4.4-10.8) 11/13/17 16:24 RBC 3.81 m/cumm (4.50-6.00) L 11/13/17 16:24 Hgb 11.7 g/dL (13.5-17.5) L 11/13/17 16:24 Hct 36.1 % (40.0-50.0) L 11/13/17 16:24 MCV 94.8 fL (80-95) 11/13/17 16:24 MCH 30.7 pg (27.0-33.0) 11/13/17 16:24 MCHC 32.4 g/dL (32.0-36.0) 11/13/17 16:24 RDW 13.6 % (11.8-14.1) 11/13/17 16:24 Plt Count 212 x1000/uL (130-400) 11/13/17 16:24 MPV 9.3 fL (8.0-11.0) 11/13/17 16:24 Immature Gran % 0.4 11/13/17 16:24 Neutrophils % 91.7 11/13/17 16:24 Lymphocytes % 3.8 11/13/17 16:24 Monocytes % 4.0 11/13/17 16:24 Eosinophils % 0.1 11/13/17 16:24 Basophils % 0.0 11/13/17 16:24 Absolute Neutrophils 8.51 k/cumm (1.2-6.7) H 11/13/17 16:24 Absolute Lymphocytes 0.35 k/cumm (1.2-3.4) L 11/13/17 16:24 Absolute Monocytes 0.37 k/cumm (0.11-0.7) 11/13/17 16:24 Absolute Eosinophils 0.01 k/cumm (0.0-0.7) 11/13/17 16:24 Absolute Basophils 0.00 k/cumm (0.0-0.2) 11/13/17 16:24 Differential Comment 11/10/17 05:55 PT 58.6 sec (9.3-10.8) H 11/14/17 07:09 INR 6.4 (1.0-3.5) H* D 11/14/17 07:09 APTT 30.1 sec (21.0-31.4) 11/10/17 05:55 Sodium 139 mmol/L (136-145) 11/14/17 07:09 Potassium 3.6 mmol/L (3.5-5.1) 11/14/17 07:09 Chloride 105 mmol/L (98-107) 11/14/17 07:09 Carbon Dioxide 20.6 mmol/L (21.0-32.0) L 11/14/17 07:09 Anion Gap 13.4 mmol/L (3-11) H 11/14/17 07:09 BUN 28 mg/dL (7-18) H 11/14/17 07:09 Creatinine 4.05 mg/dL (0.70-1.30) H* 11/14/17 07:09 Estimated GFR/1.73 m2 14.98 (mL/min/1.73m2) 11/14/17 07:09 Glucose 107 mg/dL (70-100) H 11/14/17 07:09 Lactate 1.0 mmol/L (0.6-1.4) 11/10/17 08:30 Calcium 6.6 mg/dL (8.5-10.1) L 11/14/17 07:09 Phosphorus 3.5 mg/dL (2.6-4.7) 11/13/17 06:58 Magnesium 1.6 mg/dL (1.8-2.4) L 11/14/17 07:09 Total Bilirubin 0.4 mg/dL (0.2-1.0) 11/14/17 07:09 AST 21 U/L (15-37) 11/14/17 07:09 ALT 19 U/L (12-78) 11/14/17 07:09 Alkaline Phosphatase 73 U/L (46-116) 11/14/17 07:09 Troponin I 0.14 ng/mL (0.00-0.06) H 11/11/17 06:50 Total Protein 6.1 g/dL (6.4-8.2) L 11/14/17 07:09 Albumin 3.0 g/dL (3.4-5.0) L 11/14/17 07:09 Lipase 395 U/L (73-393) H 11/13/17 06:58 Urine Color Yellow (Yellow) 11/10/17 14:32 Urine Clarity Clear 11/10/17 14:32 Urine pH 7.0 (5-8) 11/10/17 14:32 Ur Specific [place] 1.010 (1.005-1.025) 11/10/17 14:32 Urine Protein 100 mg/dL (Negative) H 11/10/17 14:32 Urine Ketones Trace mg/dL (Negative) H 11/10/17 14:32 Urine Blood Moderate (Negative) H 11/10/17 14:32 Urine Nitrite Negative (Negative) 11/10/17 14:32 Urine Bilirubin Negative (Negative) 11/10/17 14:32 Urine Urobilinogen 0.2 EU/dL (Up TO 0.2) 11/10/17 14:32 Ur Leukocyte Esterase Negative (Negative) 11/10/17 14:32 Urine RBC 0-2 (0-2) 11/10/17 14:32 Urine WBC 0-2 HPF (0-5) 11/10/17 14:32 Ur Epithelial Cells Rare HPF (Negative) 11/10/17 14:32 Urine Crystals Negative HPF (Negative) 11/10/17 14:32 Urine Bacteria Rare HPF (Negative) 11/10/17 14:32 Urine Casts Negative LPF (Negative) 11/10/17 14:32 Urine Mucus Negative (Negative) 11/10/17 14:32 Ur Culture Indicated? No 11/10/17 14:32 Urine Glucose Negative mg/dL (Negative) 11/10/17 14:32 Stl C.difficile Tox PCR Negative 11/11/17 15:01 C.difficile Tox Source Feces 11/11/17 15:01
[2017-11-14 15:40] VITALS: BP 144/82; PULSE 71; RESP 18; TEMP 36; O2SAT 98
[2017-11-14] MEDS: MAGNESIUM SULFATE 2 GM/50 ML BAG IVPB (16:56)
[2017-11-14] MEDS: Calcium Carbonate *TUMS* 500 MG CHEW 1000 MG CH (18:51)
[2017-11-14] MEDS: Nystatin 500000 UNITS/5 ML SUSP 5ML CUP PO (19:47)
[2017-11-15 01:16] VITALS: BP 158/75; PULSE 78; RESP 20; TEMP 36.8; O2SAT 96
[2017-11-15] MEDS: Normal Saline Flush 10 ML SYR IVP ×3 (01:22→21:28)
[2017-11-15] MEDS: MetroNIDAZOLE 500 MG/100 ML BAG 100 MG IVPB (01:23)
[2017-11-15 05:36] LABS: Vitamin D 25 Total 9.8 ng/ml (30-100)
[2017-11-15 07:03] LABS: Abs Immature Grans 0.05 k/cumm (0.0-0.09); Absolute Basophil Count 0.02 k/cumm (0.0-0.2); Absolute Eosinophil Count 0.07 k/cumm (0.0-0.7); Absolute Lymphocyte Count 0.68 k/cumm (1.2-3.4); Absolute Monocyte Count 0.55 k/cumm (0.11-0.7); Absolute Neutrophil Count 8.08 k/cumm (1.2-6.7); Basophils % 0.2; Eosinophils % 0.7; HGB 11.9 g/dL (13.5-17.5); Immature Grans % 0.5; Lymphocytes % 7.2; Mean Corp. HGB Concentration 32.2 g/dL (32.0-36.0); Mean Corpuscular Hemoglobin 30.6 pg (27.0-33.0); Mean Corpuscular Volume 95.1 fL (80-95); Mean Platelet Volume 9.7 fL (8.0-11.0); Monocytes % 5.8; Neutrophils % 85.6; Platelet Count 219 x1000/uL (130-400); RBC 3.89 m/cumm (4.50-6.00); RBC Distribution Width 13.4 % (11.8-14.1); White Blood Cell Count 9.45 k/cumm (4.4-10.8)
[2017-11-15 07:06] LABS: Prothrombin Time 52.1 sec (9.3-10.8)
[2017-11-15 07:10] LABS: ALT 19 U/L (12-78); AST 18 U/L (15-37); Albumin 3.1 g/dL (3.4-5.0); Alkaline Phosphatase 75 U/L (46-116); Anion Gap 14.8 mmol/L (3-11); BUN 36 mg/dL (7-18); Bilirubin, Total 0.4 mg/dL (0.2-1.0); CO2 18.2 mmol/L (21.0-32.0); Calcium 7.3 mg/dL (8.5-10.1); Chloride 103 mmol/L (98-107); Estimated GFR 15.15 (mL/min/1.73m2); Glucose 108 mg/dL (70-100); Magnesium 2.2 mg/dL (1.8-2.4); Potassium 4.3 mmol/L (3.5-5.1); Sodium 136 mmol/L (136-145); Total Protein 6.1 g/dL (6.4-8.2)
[2017-11-15 07:15] LABS: CREATININE 4.01 mg/dL (0.70-1.30)
[2017-11-15 07:21] LABS: INR 5.7 (1.0-3.5)
[2017-11-15 07:30] VITALS: BP 161/83; PULSE 68; RESP 20; TEMP 36.5; O2SAT 97
[2017-11-15] MEDS: Pravastatin 20 MG TAB 40 MG PO (08:37)
[2017-11-15] MEDS: Potassium Chloride 20 MEQ TABCR PO ×2 (08:37→21:28)
[2017-11-15] MEDS: Spironolactone 25 MG TAB PO (08:37)
[2017-11-15] MEDS: Nystatin 500000 UNITS/5 ML SUSP 5ML CUP PO ×3 (08:37→21:28)
[2017-11-15] MEDS: Finasteride 5 MG TAB PO (08:37)
[2017-11-15] MEDS: Metoprolol CR 50 MG TABCR PO (08:37)
[2017-11-15] MEDS: Magnesium Oxide 400 MG TAB PO (08:37)
[2017-11-15] MEDS: amLODIPine 5 MG TAB 7.5 MG PO (08:38)
[2017-11-15] MEDS: Aspirin 81 MG CHEW PO (08:38)
--- NOTE | 2017-11-15 10:34 | PDOC.CMPRO ---
- If Service Date Differs Date of service: 11/15/17 Time of Service: 10:35 Care Management Progress Note S/O: Gus is lying in bed when CM visits this morning. He is open to discussion. Per report Gus is negative for C. Diff therefore is no longer on precautions. He continues to discuss having problems with his bowels for a couple of years and how this is discouraging for him. CM reviewed DC plan with Gus which remains unchanged at this time. A: 66 year old male admitted with colitis. P: Gus will discharge home when medically ready per MD. Anticipate Gus will discharge with no services and follow up with his PCP and GI at [facility] [place]. Gus's car is in the parking lot at [facility] and he will transport himself home. CM will continue to offer support to patient and care team regarding discharge planning and disposition.
[2017-11-15] MEDS: Pantoprazole 40 MG TABCR PO (11:34)
--- NOTE | 2017-11-15 12:03 | PGE_ITS ---
Assessment and Plan (1) Colitis: Current visit: Yes Status: Chronic Cdiff PCR negative. Continue Cortenemas daily. Gus has been refusing Metamucil, however we had a discussion regarding its importance in bulking stool , so he is agreeable to taking daily at at bedtime. No leukocytosis, afebrile. We will continue to monitor blood work. Advance diet today from full liquid to regular. Cipro and Flagyl discontinued after 5-day course. Is established with gastroenterology at [facility]. As long as he tolerates advancing his diet and has no further abdominal discomfort he could be discharged with close follow -up. Right aid in [facility] reports that the new prescription is Protonix 40 mg daily which I have started. (2) CKD (chronic kidney disease): Current visit: Yes Status: Chronic Cr stable at 4. Avoid nephrotoxic drugs, renally dose medications. Bloodwork to monitor renal function. (3) DVT prophylaxis: Current visit: Yes Status: Acute anticoagulated on coumadin which is currently being held due to a supratherapeutic INR. (4) Peptic ulcer disease: Current visit: Yes Status: Chronic Monitor Hgb. Prior EGD reviewed with evidence of erosive gastropathy and duodenal ulcers. (5) Cardiomyopathy: Current visit: Yes Status: Chronic Stable at this time will monitor fluid balance continue spironolactone and beta-jose (6) Hypocalcemia: Current visit: Yes Status: Acute Stable after replacement. Continue to monitor. (7) Atrial fibrillation: Current visit: Yes Status: Chronic Rate controlled with BB. Has pacemaker as well. Coumadin being held due to supratherapeutic INR of 5.7, down from 6.4 yesterday. Will continue to monitor with daily INR's. No signs of bleeding so will hold off on reversal for now, but would consider vitamin K if shows signs of bleeding. Subjective Patient reports: no new complaints and diarrhea Interval history since last seen: Gus is a 66-year-old gentleman with history of atrial fibrillation status post pacemaker, chronic anticoagulation with Coumadin, prior DVT and PE, stage IV chronic kidney disease, history of colitis who presented to the emergency department on 11/11/2017 with complaints of abdominal pain and diarrhea. He was started on IV antibiotics including both Cipro and Flagyl and has since completed a 5-day course. Is no longer experiencing abdominal pain, however reports that his diarrhea is ongoing. This is not exactly a new problem for him. He states over the past 2 years his diarrhea has increased in frequency. Is established with a distillation operator at [facility] and states he had a colonoscopy last week. He believes a prescription was sent to him to his local pharmacy, however he has not yet picked this up and is not sure what it is. He is also curious regarding his anticoagulation. Is hoping to be able to take 1 of the NOACs, however was informed by his security rover that he would need to discuss further with nephrology. Review of systems: 10 point review of systems obtained with pertinent positives noted in HPI, otherwise negative. Exam Narrative Exam Narrative: General: 66yo male. Well developed and well nourished. No acute distress. A/Ox3. Pleasant and cooperative. HEENT: Normocephalic, Atraumatic. Conjunctiva clear, sclera non-icteric. PERRL. EOMI. Moist mucous membranes, oropharynx clear. Neck supple, no JVD, thyromegaly or lymphadenopathy. Cardiovascular: Regular rate and rhythm, S1S2, no S3 or S4. No atrial fibrillation appreciated, however could be AV paced. No murmur, rub, gallop. Left anterior chest with permanent pacemaker Respiratory: Chest expansion symmetrical, respirations unlabored. Lungs clear to auscultation, no adventitious breath sounds. GI: Abdomen round, soft, minimal tenderness to palpation. Normoactive bowel sounds in all 4 quadrants. No hepatosplenomegaly or prominent masses. : deferred Extremities: Lower extremities without deformity or edema Neurological: non-focal. CN 2-12 grossly intact. Psychiatric: pleasant and cooperative. Speech clear and articulate. Mood and affect normal. Objective Objective Clinical Data: Abnormal lab results 11/13/17 11/15/17 11/15/17 Range/Units 06:58 06:15 06:15 RBC 3.89 L (4.50-6.00) m/cumm Hgb 11.9 L (13.5-17.5) g/dL Hct 37.0 L (40.0-50.0) % MCV 95.1 H (80-95) fL Absolute Neutrophils 8.08 H (1.2-6.7) k/cumm Absolute Lymphocytes 0.68 L (1.2-3.4) k/cumm PT (9.3-10.8) sec INR (1.0-3.5) Carbon Dioxide 18.2 L (21.0-32.0) mmol/L Anion Gap 14.8 H (3-11) mmol/L BUN 36 H (7-18) mg/dL Creatinine 4.01 H* (0.70-1.30) mg/dL Glucose 108 H (70-100) mg/dL Calcium 7.3 L (8.5-10.1) mg/dL Total Protein 6.1 L (6.4-8.2) g/dL Albumin 3.1 L (3.4-5.0) g/dL 25-OH Vitamin D Total 9.8 L (30-100) ng/ml 11/15/17 Range/Units 06:15 RBC (4.50-6.00) m/cumm Hgb (13.5-17.5) g/dL Hct (40.0-50.0) % MCV (80-95) fL Absolute Neutrophils (1.2-6.7) k/cumm Absolute Lymphocytes (1.2-3.4) k/cumm PT 52.1 H (9.3-10.8) sec INR 5.7 H* D (1.0-3.5) Carbon Dioxide (21.0-32.0) mmol/L Anion Gap (3-11) mmol/L BUN (7-18) mg/dL Creatinine (0.70-1.30) mg/dL Glucose (70-100) mg/dL Calcium (8.5-10.1) mg/dL Total Protein (6.4-8.2) g/dL Albumin (3.4-5.0) g/dL 25-OH Vitamin D Total (30-100) ng/ml Vital Signs Temperature 36.5 C 11/15/17 07:30 Temperature Source Tympanic 11/15/17 07:30 Pulse 68 11/15/17 07:30 Pulse Rhythm Regular 11/15/17 08:41 Pulse 76 11/10/17 10:31 Respiratory Rate 20 11/15/17 07:30 Respiratory Effort Non-Labored 11/15/17 08:41 Respiratory Depth Normal 11/15/17 08:41 Respiratory Pattern Normal 11/15/17 08:41 Blood Pressure 161/83 H 10/01/18 07:30 Blood Pressure Mean 95 11/10/17 12:31 Blood Pressure Position Sitting 11/10/17 05:39 Pulse Oximetry 97 11/15/17 07:30 Oxygen Delivery Method Room Air 11/15/17 07:30 Oxygen Flow Rate 0 11/15/17 07:30 Pain Level 0 11/15/17 01:16 Comment 11/11/17 03:00 Intake & Output 11/14/17 11/14/17 11/15/17 11:59 23:59 11:59 Intake Total 250 / 250 770 / 770 370 / 370 Output Total 600 / 600 200 / 200 100 / 100 Balance -350 / -350 570 / 570 270 / 270 Intake: IV 250 / 250 520 / 520 Oral 250 / 250 370 / 370 Output: Urine 600 / 600 200 / 200 Stool 100 / 100 Other: Urine Color Yellow Yellow Urine Appearance Clear Clear Clear Urine Odor Normal Stool Occult Blood Positive Stool Size Small Stool Characteristics Liquid Liquid Brown Voiding Methods Urinal Bedside Commode Laboratory Results WBC 9.45 k/cumm (4.4-10.8) 11/15/17 06:15 RBC 3.89 m/cumm (4.50-6.00) L 11/15/17 06:15 Hgb 11.9 g/dL (13.5-17.5) L 11/15/17 06:15 Hct 37.0 % (40.0-50.0) L 11/15/17 06:15 MCV 95.1 fL (80-95) H 11/15/17 06:15 MCH 30.6 pg (27.0-33.0) 11/15/17 06:15 MCHC 32.2 g/dL (32.0-36.0) 11/15/17 06:15 RDW 13.4 % (11.8-14.1) 11/15/17 06:15 Plt Count 219 x1000/uL (130-400) 11/15/17 06:15 MPV 9.7 fL (8.0-11.0) 11/15/17 06:15 Immature Gran % 0.5 11/15/17 06:15 Neutrophils % 85.6 11/15/17 06:15 Lymphocytes % 7.2 11/15/17 06:15 Monocytes % 5.8 11/15/17 06:15 Eosinophils % 0.7 11/15/17 06:15 Basophils % 0.2 11/15/17 06:15 Absolute Neutrophils 8.08 k/cumm (1.2-6.7) H 11/15/17 06:15 Absolute Lymphocytes 0.68 k/cumm (1.2-3.4) L 11/15/17 06:15 Absolute Monocytes 0.55 k/cumm (0.11-0.7) 11/15/17 06:15 Absolute Eosinophils 0.07 k/cumm (0.0-0.7) 11/15/17 06:15 Absolute Basophils 0.02 k/cumm (0.0-0.2) 11/15/17 06:15 Differential Comment 11/10/17 05:55 PT 52.1 sec (9.3-10.8) H 11/15/17 06:15 INR 5.7 (1.0-3.5) H* D 11/15/17 06:15 APTT 30.1 sec (21.0-31.4) 11/10/17 05:55 Sodium 136 mmol/L (136-145) 11/15/17 06:15 Potassium 4.3 mmol/L (3.5-5.1) 11/15/17 06:15 Chloride 103 mmol/L (98-107) 11/15/17 06:15 Carbon Dioxide 18.2 mmol/L (21.0-32.0) L 11/15/17 06:15 Anion Gap 14.8 mmol/L (3-11) H 11/15/17 06:15 BUN 36 mg/dL (7-18) H 11/15/17 06:15 Creatinine 4.01 mg/dL (0.70-1.30) H* 11/15/17 06:15 Estimated GFR/1.73 m2 15.15 (mL/min/1.73m2) 11/15/17 06:15 Glucose 108 mg/dL (70-100) H 11/15/17 06:15 Lactate 1.0 mmol/L (0.6-1.4) 11/10/17 08:30 Calcium 7.3 mg/dL (8.5-10.1) L 11/15/17 06:15 Phosphorus 3.5 mg/dL (2.6-4.7) 11/13/17 06:58 Magnesium 2.2 mg/dL (1.8-2.4) 11/15/17 06:15 Total Bilirubin 0.4 mg/dL (0.2-1.0) 11/15/17 06:15 AST 18 U/L (15-37) 11/15/17 06:15 ALT 19 U/L (12-78) 11/15/17 06:15 Alkaline Phosphatase 75 U/L (46-116) 11/15/17 06:15 Troponin I 0.14 ng/mL (0.00-0.06) H 11/11/17 06:50 Total Protein 6.1 g/dL (6.4-8.2) L 11/15/17 06:15 Albumin 3.1 g/dL (3.4-5.0) L 11/15/17 06:15 Lipase 395 U/L (73-393) H 11/13/17 06:58 25-OH Vitamin D Total 9.8 ng/ml (30-100) L 11/13/17 06:58 Urine Color Yellow (Yellow) 11/10/17 14:32 Urine Clarity Clear 11/10/17 14:32 Urine pH 7.0 (5-8) 11/10/17 14:32 Ur Specific [place] 1.010 (1.005-1.025) 11/10/17 14:32 Urine Protein 100 mg/dL (Negative) H 11/10/17 14:32 Urine Ketones Trace mg/dL (Negative) H 11/10/17 14:32 Urine Blood Moderate (Negative) H 11/10/17 14:32 Urine Nitrite Negative (Negative) 11/10/17 14:32 Urine Bilirubin Negative (Negative) 11/10/17 14:32 Urine Urobilinogen 0.2 EU/dL (Up TO 0.2) 11/10/17 14:32 Ur Leukocyte Esterase Negative (Negative) 11/10/17 14:32 Urine RBC 0-2 (0-2) 11/10/17 14:32 Urine WBC 0-2 HPF (0-5) 11/10/17 14:32 Ur Epithelial Cells Rare HPF (Negative) 11/10/17 14:32 Urine Crystals Negative HPF (Negative) 11/10/17 14:32 Urine Bacteria Rare HPF (Negative) 11/10/17 14:32 Urine Casts Negative LPF (Negative) 11/10/17 14:32 Urine Mucus Negative (Negative) 11/10/17 14:32 Ur Culture Indicated? No 11/10/17 14:32 Urine Glucose Negative mg/dL (Negative) 11/10/17 14:32 Stl C.difficile Tox PCR Negative 11/11/17 15:01 C.difficile Tox Source Feces 11/11/17 15:01
[2017-11-15 15:30] VITALS: BP 130/81; PULSE 74; RESP 20; TEMP 34.6; O2SAT 98
[2017-11-15] MEDS: Calcium Carbonate *TUMS* 500 MG CHEW 1000 MG CH (18:01)
[2017-11-15] MEDS: Psyllium PKT 1 EACH PO (21:28)
[2017-11-15 23:42] VITALS: BP 145/94; PULSE 82; RESP 16; TEMP 35.8; O2SAT 96
[2017-11-16 07:18] LABS: Abs Immature Grans 0.06 k/cumm (0.0-0.09); Absolute Basophil Count 0.02 k/cumm (0.0-0.2); Absolute Lymphocyte Count 1.01 k/cumm (1.2-3.4); Absolute Monocyte Count 0.69 k/cumm (0.11-0.7); Basophils % 0.2; Eosinophils % 2.3; HCT 34.6 % (40.0-50.0); HGB 11.1 g/dL (13.5-17.5); Immature Grans % 0.7; Lymphocytes % 11.4; Mean Corp. HGB Concentration 32.1 g/dL (32.0-36.0); Mean Corpuscular Hemoglobin 30.3 pg (27.0-33.0); Mean Corpuscular Volume 94.5 fL (80-95); Mean Platelet Volume 10.1 fL (8.0-11.0); Monocytes % 7.8; Neutrophils % 77.6; Platelet Count 234 x1000/uL (130-400); RBC 3.66 m/cumm (4.50-6.00); RBC Distribution Width 13.6 % (11.8-14.1); White Blood Cell Count 8.88 k/cumm (4.4-10.8)
[2017-11-16 07:25] VITALS: BP 150/80; PULSE 78; RESP 19; TEMP 36.7; O2SAT 98
[2017-11-16 07:26] LABS: BUN 46 mg/dL (7-18); Calcium 7.6 mg/dL (8.5-10.1); Chloride 104 mmol/L (98-107); Estimated GFR 14.36 (mL/min/1.73m2); Glucose 102 mg/dL (70-100); Potassium 5.1 mmol/L (3.5-5.1); Sodium 135 mmol/L (136-145)
[2017-11-16 07:32] LABS: Prothrombin Time 37.6 sec (9.3-10.8)
[2017-11-16 08:30] VITALS: O2SAT 96
[2017-11-16] MEDS: amLODIPine 5 MG TAB 7.5 MG PO (09:24)
[2017-11-16] MEDS: Nystatin 500000 UNITS/5 ML SUSP 5ML CUP PO ×3 (09:24→19:43)
[2017-11-16] MEDS: Magnesium Oxide 400 MG TAB PO (09:24)
[2017-11-16] MEDS: Pravastatin 20 MG TAB 40 MG PO (09:24)
[2017-11-16] MEDS: Finasteride 5 MG TAB PO (09:24)
[2017-11-16] MEDS: sulfaSALAzine 500 MG TAB PO ×2 (09:24→19:43)
[2017-11-16] MEDS: Metoprolol CR 50 MG TABCR PO (09:24)
[2017-11-16] MEDS: Pantoprazole 40 MG TABCR PO (09:25)
[2017-11-16] MEDS: Spironolactone 25 MG TAB PO (09:25)
[2017-11-16] MEDS: Potassium Chloride 20 MEQ TABCR PO ×2 (09:25→19:43)
[2017-11-16] MEDS: Aspirin 81 MG CHEW PO (09:25)
--- NOTE | 2017-11-16 13:25 | W.PM.PROGNOT ---
Assessment and Plan (1) Colitis: Current visit: Yes Status: Chronic Still having diarrhea but it seems to be slowing, not painful and not bloody. Benign exam. Review of the [facility] notes indicates there was a plan to start him on sulfasalazine 1000 mg 3 times daily. He does not recall ever having this prescription. His renal function is a relative contraindication to this medication but I think it is worth a try at low dose to see if he will tolerated and if it will help with his symptoms. Continue cortisone enemas. (2) Atrial fibrillation: Current visit: Yes Status: Chronic He has not had any breakthrough symptoms. No tachyarrhythmias. Exam most indicative of paced rhythm. Anticoagulation remains on hold with his supratherapeutic INR but no bleeding. (3) CKD (chronic kidney disease): Current visit: Yes Status: Chronic Slight bump in his BUN and creatinine in the past 24 hours, unclear if this has any clinical significance. Continue to monitor urine output, BUN and creatinine. (4) Peptic ulcer disease: Current visit: Yes Status: Chronic No dyspeptic symptoms on daily Protonix. (5) Cardiomyopathy: Current visit: Yes Status: Chronic Stable, with no decompensation on his outpatient dose of spironolactone and metoprolol. (6) Hypocalcemia: Current visit: Yes Status: Acute Has been stable, no change in supplement at this time. (7) Positive blood culture: Current visit: Yes Status: Acute Gram-positive rods in anaerobic bottle only, subsequent culture negative. At this point he is not acting septic. Suspect this is contaminant. (8) Vitamin D deficiency: Current visit: Yes Status: Acute Will supplement orally with vitamin D (9) Reactive depression (situational): Current visit: Yes Status: Acute Hopefully with improvement in his diarrhea he will have an improvement in his overall mood. No medications initiated for mood disorder at this time. Subjective Interval history since last seen: Still very worried that his diarrhea will not get better. He has been a captive in his own home because of his unpredictable diarrhea and fear of bowel incontinence. He is very discouraged by the chronicity of this. He is not having much in the way of pain. He denies nausea or vomiting. He has not seen any blood in his diarrhea recently. His appetite is fair. He has had no orthopnea PND chest pain or palpitations. No overt bleeding despite his continued elevated INR. Warfarin remains on hold. Exam Narrative Exam Narrative: A little anxious, no acute emotional or physical distress. He has been afebrile with systolic blood pressures in the 140-150 range. Sclera clear. Neck veins flat. Lungs clear. No heart murmur S3 or S4. Bowel sounds active, neither hyper nor hypoactive. He has no tenderness to palpation the abdomen. No pitting edema at the ankles, good pulses distally. Symmetric movement of all extremities. He sits up unassisted. Objective Objective Clinical Data: Abnormal lab results 11/16/17 11/16/17 11/16/17 Range/Units 06:15 06:15 06:15 RBC 3.66 L (4.50-6.00) m/cumm Hgb 11.1 L (13.5-17.5) g/dL Hct 34.6 L (40.0-50.0) % Absolute Neutrophils 6.90 H (1.2-6.7) k/cumm Absolute Lymphocytes 1.01 L (1.2-3.4) k/cumm PT 37.6 H (9.3-10.8) sec INR 4.0 H D (1.0-3.5) Sodium 135 L (136-145) mmol/L Carbon Dioxide 19.0 L (21.0-32.0) mmol/L Anion Gap 12.0 H (3-11) mmol/L BUN 46 H D (7-18) mg/dL Creatinine 4.20 H* (0.70-1.30) mg/dL Glucose 102 H (70-100) mg/dL Calcium 7.6 L (8.5-10.1) mg/dL Vital Signs Temperature 36.7 C 11/16/17 07:25 Temperature Source Tympanic 11/16/17 07:25 Pulse 78 11/16/17 07:25 Pulse Rhythm Regular 11/16/17 09:28 Pulse 76 11/10/17 10:31 Respiratory Rate 19 11/16/17 07:25 Respiratory Effort Non-Labored 11/16/17 09:28 Respiratory Depth Normal 11/16/17 09:28 Respiratory Pattern Normal 11/16/17 09:28 Blood Pressure 150/80 H 11/16/17 07:25 Blood Pressure Mean 95 11/10/17 12:31 Blood Pressure Position Sitting 11/10/17 05:39 Pulse Oximetry 96 11/16/17 08:30 Oxygen Delivery Method Room Air 11/16/17 08:30 Oxygen Flow Rate 0 11/16/17 08:30 Pain Level 0 11/15/17 01:16 Comment 11/11/17 03:00 Intake & Output 11/15/17 11/16/17 11/16/17 23:59 11:59 23:59 Intake Total 660 / 660 250 / 250 Output Total 300 / 300 300 / 300 Balance 360 / 360 -50 / -50 Intake: IV Oral 640 / 640 250 / 250 Output: Urine 300 / 300 300 / 300 Other: Urine Color Yellow Yellow Urine Appearance Clear Clear Comment pt voiding independently in toilet; not assessed at this time. pt denies issues at this time Stool Size Small Stool Characteristics Liquid Black Voiding Methods Urinal Urinal Laboratory Results WBC 8.88 k/cumm (4.4-10.8) 11/16/17 06:15 RBC 3.66 m/cumm (4.50-6.00) L 11/16/17 06:15 Hgb 11.1 g/dL (13.5-17.5) L 11/16/17 06:15 Hct 34.6 % (40.0-50.0) L 11/16/17 06:15 MCV 94.5 fL (80-95) 11/16/17 06:15 MCH 30.3 pg (27.0-33.0) 11/16/17 06:15 MCHC 32.1 g/dL (32.0-36.0) 11/16/17 06:15 RDW 13.6 % (11.8-14.1) 11/16/17 06:15 Plt Count 234 x1000/uL (130-400) 11/16/17 06:15 MPV 10.1 fL (8.0-11.0) 11/16/17 06:15 Immature Gran % 0.7 11/16/17 06:15 Neutrophils % 77.6 11/16/17 06:15 Lymphocytes % 11.4 11/16/17 06:15 Monocytes % 7.8 11/16/17 06:15 Eosinophils % 2.3 11/16/17 06:15 Basophils % 0.2 11/16/17 06:15 Absolute Neutrophils 6.90 k/cumm (1.2-6.7) H 11/16/17 06:15 Absolute Lymphocytes 1.01 k/cumm (1.2-3.4) L 11/16/17 06:15 Absolute Monocytes 0.69 k/cumm (0.11-0.7) 11/16/17 06:15 Absolute Eosinophils 0.20 k/cumm (0.0-0.7) 11/16/17 06:15 Absolute Basophils 0.02 k/cumm (0.0-0.2) 11/16/17 06:15 Differential Comment 11/10/17 05:55 PT 37.6 sec (9.3-10.8) H 11/16/17 06:15 INR 4.0 (1.0-3.5) H D 11/16/17 06:15 APTT 30.1 sec (21.0-31.4) 11/10/17 05:55 Sodium 135 mmol/L (136-145) L 11/16/17 06:15 Potassium 5.1 mmol/L (3.5-5.1) 11/16/17 06:15 Chloride 104 mmol/L (98-107) 11/16/17 06:15 Carbon Dioxide 19.0 mmol/L (21.0-32.0) L 11/16/17 06:15 Anion Gap 12.0 mmol/L (3-11) H 11/16/17 06:15 BUN 46 mg/dL (7-18) H D 11/16/17 06:15 Creatinine 4.20 mg/dL (0.70-1.30) H* 11/16/17 06:15 Estimated GFR/1.73 m2 14.36 (mL/min/1.73m2) 11/16/17 06:15 Glucose 102 mg/dL (70-100) H 11/16/17 06:15 Lactate 1.0 mmol/L (0.6-1.4) 11/10/17 08:30 Calcium 7.6 mg/dL (8.5-10.1) L 11/16/17 06:15 Phosphorus 3.5 mg/dL (2.6-4.7) 11/13/17 06:58 Magnesium 2.2 mg/dL (1.8-2.4) 11/15/17 06:15 Total Bilirubin 0.4 mg/dL (0.2-1.0) 11/15/17 06:15 AST 18 U/L (15-37) 11/15/17 06:15 ALT 19 U/L (12-78) 11/15/17 06:15 Alkaline Phosphatase 75 U/L (46-116) 11/15/17 06:15 Troponin I 0.14 ng/mL (0.00-0.06) H 11/11/17 06:50 Total Protein 6.1 g/dL (6.4-8.2) L 11/15/17 06:15 Albumin 3.1 g/dL (3.4-5.0) L 11/15/17 06:15 Lipase 395 U/L (73-393) H 11/13/17 06:58 25-OH Vitamin D Total 9.8 ng/ml (30-100) L 11/13/17 06:58 Urine Color Yellow (Yellow) 11/10/17 14:32 Urine Clarity Clear 11/10/17 14:32 Urine pH 7.0 (5-8) 11/10/17 14:32 Ur Specific [place] 1.010 (1.005-1.025) 11/10/17 14:32 Urine Protein 100 mg/dL (Negative) H 11/10/17 14:32 Urine Ketones Trace mg/dL (Negative) H 11/10/17 14:32 Urine Blood Moderate (Negative) H 11/10/17 14:32 Urine Nitrite Negative (Negative) 11/10/17 14:32 Urine Bilirubin Negative (Negative) 11/10/17 14:32 Urine Urobilinogen 0.2 EU/dL (Up TO 0.2) 11/10/17 14:32 Ur Leukocyte Esterase Negative (Negative) 11/10/17 14:32 Urine RBC 0-2 (0-2) 11/10/17 14:32 Urine WBC 0-2 HPF (0-5) 11/10/17 14:32 Ur Epithelial Cells Rare HPF (Negative) 11/10/17 14:32 Urine Crystals Negative HPF (Negative) 11/10/17 14:32 Urine Bacteria Rare HPF (Negative) 11/10/17 14:32 Urine Casts Negative LPF (Negative) 11/10/17 14:32 Urine Mucus Negative (Negative) 11/10/17 14:32 Ur Culture Indicated? No 11/10/17 14:32 Urine Glucose Negative mg/dL (Negative) 11/10/17 14:32 Stl C.difficile Tox PCR Negative 11/11/17 15:01 C.difficile Tox Source Feces 11/11/17 15:01
--- NOTE | 2017-11-16 14:31 | PDOC.CMPRO ---
- If Service Date Differs Date of service: 11/16/17 Time of Service: 14:31 Care Management Progress Note S/O: Gus is lying in bed when CM visits this morning. He continues to discuss his difficulties with leaving his home due to his chronic diarrhea. CM reviewed DC plan which remains unchanged at this time. A: 66 year old male admitted with colitis. P: Gus will discharge home when medically ready per MD. Anticipate Gus will discharge with no services and follow up with his PCP and GI at [facility] [place]. Gus's car is in the parking lot at [facility] and he will transport himself home. CM will continue to offer support to patient and care team regarding discharge planning and disposition.
[2017-11-16 15:25] VITALS: BP 117/74; PULSE 73; RESP 20; TEMP 36.2; O2SAT 99
[2017-11-16] MEDS: Calcium Carbonate *TUMS* 500 MG CHEW 1000 MG CH (18:09)
[2017-11-16] MEDS: Normal Saline Flush 10 ML SYR IVP (21:23)
[2017-11-16] MEDS: Psyllium PKT 1 EACH PO (21:23)
[2017-11-16 21:26] VITALS: BP 124/78; PULSE 72; RESP 18; TEMP 36.6; O2SAT 98
[2017-11-17 07:28] LABS: Prothrombin Time 28.6 sec (9.3-10.8)
[2017-11-17 07:56] LABS: Anion Gap 9.3 mmol/L (3-11); BUN 62 mg/dL (7-18); CO2 20.7 mmol/L (21.0-32.0); Calcium 7.6 mg/dL (8.5-10.1); Chloride 105 mmol/L (98-107); Estimated GFR 13.19 (mL/min/1.73m2); Glucose 100 mg/dL (70-100); Potassium 5.7 mmol/L (3.5-5.1); Sodium 135 mmol/L (136-145)
[2017-11-17 07:58] LABS: CREATININE 4.52 mg/dL (0.70-1.30)
[2017-11-17 08:20] VITALS: O2SAT 98
[2017-11-17] MEDS: Aspirin 81 MG CHEW PO (09:35)
[2017-11-17] MEDS: Pravastatin 20 MG TAB 40 MG PO (09:35)
[2017-11-17] MEDS: Pantoprazole 40 MG TABCR PO (09:35)
[2017-11-17] MEDS: amLODIPine 5 MG TAB 7.5 MG PO (09:35)
[2017-11-17] MEDS: Magnesium Oxide 400 MG TAB PO (09:35)
[2017-11-17] MEDS: Metoprolol CR 50 MG TABCR PO (09:36)
[2017-11-17] MEDS: sulfaSALAzine 500 MG TAB PO (09:36)
[2017-11-17] MEDS: Finasteride 5 MG TAB PO (09:36)
--- NOTE | 2017-11-17 09:36 | PDOC.CMDIS ---
- If Service Date Differs Date of service: 11/17/17 Time of Service: 09:36 LACE Index Scoring Tool - Questions: Length of Stay (in days): 7 - 13 Acuity (Admit via E.D.?): Yes Comorbidities: Congestive Heart Failure, Liver or Renal Disease E.D. Visits: 5 - Answers: Total Score: 17 Risk of Readmission: High Risk Care Management Discharge Reason for Hospitalization: Colitis Discharge Plan: Gus will return home with no anticipated services. He will F/U with PCP and plan of care as prescribed. Patient/Family Education Needs: Review DC instructions, any limitations, and ongoing DC planning discussion.
[2017-11-17] MEDS: Nystatin 500000 UNITS/5 ML SUSP 5ML CUP PO ×3 (09:41→19:24)
--- NOTE | 2017-11-17 09:42 | CMDISCH_ITS ---
- If Service Date Differs Date of service: 11/17/17 Time of Service: 09:36 LACE Index Scoring Tool - Questions: Length of Stay (in days): 7 - 13 Acuity (Admit via E.D.?): Yes Comorbidities: Congestive Heart Failure, Liver or Renal Disease E.D. Visits: 5 - Answers: Total Score: 17 Risk of Readmission: High Risk Care Management Discharge Reason for Hospitalization: Colitis Discharge Plan: Gus will return home with no anticipated services. He will F/ U with PCP and plan of care as prescribed. Patient/Family Education Needs: Review DC instructions, any limitations, and ongoing DC planning discussion.
[2017-11-17 09:44] VITALS: BP 114/68; PULSE 74; RESP 18; TEMP 36.4; O2SAT 98
--- NOTE | 2017-11-17 10:36 | SATEXT_ITS ---
Assessment: Mr. Collins requested a nutrition consult for colitis especially with regard to his diarrhea. He reports that since 0300 today he has 8 watery stools and it was 1000 at the time. His diet recall shows that he does not eat many fruits and vegetables. He takes Metamucil just in the evening. He has an Portuguese muffin with butter for breakfast, soup or sandwich for lunch, and cereal with milk for supper. His BMI is 24 kg/m2 which is WNL. Nutritional Diagnosis: Altered gastrointestinal status related to ulcerative colitis. Intervention: Would consider giving Mr. Collins a dose of Metamucil (or some prepared soluble fiber) three times per day before each meal as it can be helpful to have soluble on fiber in the gut prior to eating minimize or prevent diarrhea. I will also provide Mr. Collins with written materials regarding UC as well as tips to improve the nutritional quality of his diet without exacerbating his diarrhea. For example, he needs to include more protein and he can include fruits and vegetables that are higher in soluble fiber versus insoluble fibers. Monitoring and Evaluation: 1. Will monitor Mr. Collins's progress while he is here and can follow up with him as an outpatient should he desire. 2. Will evaluate nutrition care plan ongoing and adjust as needed.
--- NOTE | 2017-11-17 13:06 | W.PM.PROGNOT ---
Assessment and Plan (1) Colitis: Current visit: Yes Status: Chronic Not much change overnight. Discussion with Dr. Ohara, GI at [facility], suggest we try oral steroids either prednisone or budesonide. Given his past reaction to prednisone I will try to get budesonide, nonformulary medication. Discontinue sulfasalazine because of worsening renal function. Continue hydrocortisone enemas. (2) Atrial fibrillation: Current visit: Yes Status: Chronic No problems with tachyarrhythmias or bradycardia arrhythmias on his outpatient dose of metoprolol. No changes made to his meds today. (3) CKD (chronic kidney disease): Current visit: Yes Status: Chronic BUN and creatinine worsening, not clear how much of this is due to the recent addition of sulfasalazine, possible relative dehydration with GI losses although he has not had excessive diarrhea. Stop sulfasalazine, hold spironolactone and discontinue potassium. Recheck BUN and creatinine tomorrow. Monitor urine output. (4) Peptic ulcer disease: Current visit: Yes Status: Chronic Dark stools but no gross blood. Continue PPI. Monitor CBC. (5) Cardiomyopathy: Current visit: Yes Status: Chronic No decompensation. Spironolactone temporarily on hold. Continue metoprolol. (6) Reactive depression (situational): Current visit: Yes Status: Acute Starting to get a little more hopeful but still discouraged. No meds. (7) Supratherapeutic INR: Current visit: Yes Status: Acute INR slowly drifting down. Warfarin remains on hold. Follow CBC. Subjective Interval history since last seen: Mr. Toney continues to have frequent small volume stools that appear to him to look like coffee grounds. He has not had any bright red blood. He has a little bit of lower abdominal cramping since starting on sulfasalazine. No nausea or vomiting. No trouble with his breathing. No increased swelling. His INR is slowly drifting down. His BUN/creatinine and potassium are all going up. I spoke with GI at [facility], Dr. Anatoliy Coughlin, who has recommended we try some form of steroids, prednisone or budesonide. If this is totally intolerable consider mesalamine enema. Mr. Boggs reports that he was on prednisone in the past, the first week it seemed to work very well with his diarrhea slowing down but in the second week had a intolerable mood changes, trouble sleeping, leg swelling and generally felt worse. He has been afebrile, no dysuria. He has not been up walking much. No chest pains. No trouble breathing. No orthopnea or PND. Exam Narrative Exam Narrative: Comfortable sitting in bed, little bit anxious. Sclera nonicteric and not pale. No JVD. Lungs clear. Heart rhythm is surprisingly regular this morning, no S3-S4 or murmur heard. Bowel sounds present, normal activity, no tenderness to palpation in any quadrant. No ankle swelling with good distal pulses. Symmetric movement of all extremities. Objective Objective Clinical Data: Abnormal lab results 11/17/17 11/17/17 Range/Units 06:17 06:17 PT 28.6 H (9.3-10.8) sec Sodium 135 L (136-145) mmol/L Potassium 5.7 H (3.5-5.1) mmol/L Carbon Dioxide 20.7 L (21.0-32.0) mmol/L BUN 62 H D (7-18) mg/dL Creatinine 4.52 H* (0.70-1.30) mg/dL Calcium 7.6 L (8.5-10.1) mg/dL Vital Signs Temperature 36.4 C L 11/17/17 09:44 Temperature Source Tympanic 11/17/17 09:44 Pulse 74 11/17/17 09:44 Pulse Rhythm Regular 11/16/17 20:41 Pulse 76 11/10/17 10:31 Respiratory Rate 18 11/17/17 09:44 Respiratory Effort 11/16/17 20:41 Respiratory Depth Normal 11/16/17 20:41 Respiratory Pattern Normal 11/16/17 20:41 Blood Pressure 114/68 11/17/17 09:44 Blood Pressure Mean 95 11/10/17 12:31 Blood Pressure Position Sitting 11/10/17 05:39 Pulse Oximetry 98 11/17/17 09:44 Oxygen Delivery Method Room Air 11/17/17 09:44 Oxygen Flow Rate 0 11/17/17 09:44 Pain Level 0 11/15/17 01:16 Comment 11/11/17 03:00 Intake & Output 11/16/17 11/17/17 11/17/17 23:59 11:59 23:59 Intake Total 360 / 360 500 / 500 Output Total 250 / 250 Balance 360 / 360 250 / 250 Intake: Oral 360 / 360 500 / 500 Output: Urine 250 / 250 Other: Urine Color Straw Urine Appearance Clear Urine Odor Normal Stool Size Small Stool Characteristics Brown Black Voiding Methods Urinal Laboratory Results WBC 8.88 k/cumm (4.4-10.8) 11/16/17 06:15 RBC 3.66 m/cumm (4.50-6.00) L 11/16/17 06:15 Hgb 11.1 g/dL (13.5-17.5) L 11/16/17 06:15 Hct 34.6 % (40.0-50.0) L 11/16/17 06:15 MCV 94.5 fL (80-95) 11/16/17 06:15 MCH 30.3 pg (27.0-33.0) 11/16/17 06:15 MCHC 32.1 g/dL (32.0-36.0) 11/16/17 06:15 RDW 13.6 % (11.8-14.1) 11/16/17 06:15 Plt Count 234 x1000/uL (130-400) 11/16/17 06:15 MPV 10.1 fL (8.0-11.0) 11/16/17 06:15 Immature Gran % 0.7 11/16/17 06:15 Neutrophils % 77.6 11/16/17 06:15 Lymphocytes % 11.4 11/16/17 06:15 Monocytes % 7.8 11/16/17 06:15 Eosinophils % 2.3 11/16/17 06:15 Basophils % 0.2 11/16/17 06:15 Absolute Neutrophils 6.90 k/cumm (1.2-6.7) H 11/16/17 06:15 Absolute Lymphocytes 1.01 k/cumm (1.2-3.4) L 11/16/17 06:15 Absolute Monocytes 0.69 k/cumm (0.11-0.7) 11/16/17 06:15 Absolute Eosinophils 0.20 k/cumm (0.0-0.7) 11/16/17 06:15 Absolute Basophils 0.02 k/cumm (0.0-0.2) 11/16/17 06:15 Differential Comment 11/10/17 05:55 PT 28.6 sec (9.3-10.8) H 11/17/17 06:17 INR 3.0 (1.0-3.5) D 11/17/17 06:17 APTT 30.1 sec (21.0-31.4) 11/10/17 05:55 Sodium 135 mmol/L (136-145) L 11/17/17 06:17 Potassium 5.7 mmol/L (3.5-5.1) H 11/17/17 06:17 Chloride 105 mmol/L (98-107) 11/17/17 06:17 Carbon Dioxide 20.7 mmol/L (21.0-32.0) L 11/17/17 06:17 Anion Gap 9.3 mmol/L (3-11) 11/17/17 06:17 BUN 62 mg/dL (7-18) H D 11/17/17 06:17 Creatinine 4.52 mg/dL (0.70-1.30) H* 11/17/17 06:17 Estimated GFR/1.73 m2 13.19 (mL/min/1.73m2) 11/17/17 06:17 Glucose 100 mg/dL (70-100) 11/17/17 06:17 Lactate 1.0 mmol/L (0.6-1.4) 11/10/17 08:30 Calcium 7.6 mg/dL (8.5-10.1) L 11/17/17 06:17 Phosphorus 3.5 mg/dL (2.6-4.7) 11/13/17 06:58 Magnesium 2.2 mg/dL (1.8-2.4) 11/15/17 06:15 Total Bilirubin 0.4 mg/dL (0.2-1.0) 11/15/17 06:15 AST 18 U/L (15-37) 11/15/17 06:15 ALT 19 U/L (12-78) 11/15/17 06:15 Alkaline Phosphatase 75 U/L (46-116) 11/15/17 06:15 Troponin I 0.14 ng/mL (0.00-0.06) H 11/11/17 06:50 Total Protein 6.1 g/dL (6.4-8.2) L 11/15/17 06:15 Albumin 3.1 g/dL (3.4-5.0) L 11/15/17 06:15 Lipase 395 U/L (73-393) H 11/13/17 06:58 25-OH Vitamin D Total 9.8 ng/ml (30-100) L 11/13/17 06:58 Urine Color Yellow (Yellow) 11/10/17 14:32 Urine Clarity Clear 11/10/17 14:32 Urine pH 7.0 (5-8) 11/10/17 14:32 Ur Specific [place] 1.010 (1.005-1.025) 11/10/17 14:32 Urine Protein 100 mg/dL (Negative) H 11/10/17 14:32 Urine Ketones Trace mg/dL (Negative) H 11/10/17 14:32 Urine Blood Moderate (Negative) H 11/10/17 14:32 Urine Nitrite Negative (Negative) 11/10/17 14:32 Urine Bilirubin Negative (Negative) 11/10/17 14:32 Urine Urobilinogen 0.2 EU/dL (Up TO 0.2) 11/10/17 14:32 Ur Leukocyte Esterase Negative (Negative) 11/10/17 14:32 Urine RBC 0-2 (0-2) 11/10/17 14:32 Urine WBC 0-2 HPF (0-5) 11/10/17 14:32 Ur Epithelial Cells Rare HPF (Negative) 11/10/17 14:32 Urine Crystals Negative HPF (Negative) 11/10/17 14:32 Urine Bacteria Rare HPF (Negative) 11/10/17 14:32 Urine Casts Negative LPF (Negative) 11/10/17 14:32 Urine Mucus Negative (Negative) 11/10/17 14:32 Ur Culture Indicated? No 11/10/17 14:32 Urine Glucose Negative mg/dL (Negative) 11/10/17 14:32 Stl C.difficile Tox PCR Negative 11/11/17 15:01 C.difficile Tox Source Feces 11/11/17 15:01
[2017-11-17] MEDS: BUDESONIDE 3 MG CAPCR 9 MG PO (14:45)
[2017-11-17] MEDS: Psyllium PKT 1 EACH PO ×2 (16:16→19:23)
[2017-11-17 16:22] VITALS: BP 125/75; PULSE 71; RESP 18; TEMP 36; O2SAT 98
[2017-11-17] MEDS: Calcium Carbonate *TUMS* 500 MG CHEW 1000 MG CH (17:54)
[2017-11-18] VITALS (7 sets, daily range): BP systolic 117–131; BP diastolic 64–76; PULSE 69–77; RESP 17–20; TEMP 36.2–36.4; O2SAT 98–99
[2017-11-18 06:54] LABS: HCT 29.7 % (40.0-50.0); HGB 9.6 g/dL (13.5-17.5); Mean Corp. HGB Concentration 32.3 g/dL (32.0-36.0); Mean Corpuscular Hemoglobin 31.1 pg (27.0-33.0); Mean Corpuscular Volume 96.1 fL (80-95); Mean Platelet Volume 9.5 fL (8.0-11.0); Platelet Count 231 x1000/uL (130-400); RBC 3.09 m/cumm (4.50-6.00); RBC Distribution Width 13.8 % (11.8-14.1); White Blood Cell Count 6.46 k/cumm (4.4-10.8)
[2017-11-18 06:58] LABS: BUN 66 mg/dL (7-18); Calcium 8.2 mg/dL (8.5-10.1); Chloride 105 mmol/L (98-107); Estimated GFR 11.82 (mL/min/1.73m2); Glucose 96 mg/dL (70-100); Potassium 5.8 mmol/L (3.5-5.1); Sodium 134 mmol/L (136-145)
[2017-11-18 07:13] LABS: CREATININE 4.97 mg/dL (0.70-1.30)
[2017-11-18] MEDS: BUDESONIDE 3 MG CAPCR 9 MG PO (07:56)
[2017-11-18] MEDS: Pravastatin 20 MG TAB 40 MG PO (07:57)
[2017-11-18] MEDS: amLODIPine 5 MG TAB 7.5 MG PO (07:57)
[2017-11-18] MEDS: Pantoprazole 40 MG TABCR PO (07:57)
[2017-11-18] MEDS: Finasteride 5 MG TAB PO (07:58)
[2017-11-18] MEDS: Multivitamin TAB 1 TAB PO (07:58)
[2017-11-18] MEDS: Psyllium PKT 1 EACH PO ×4 (07:58→20:56)
[2017-11-18] MEDS: Aspirin 81 MG CHEW PO (07:58)
[2017-11-18] MEDS: Nystatin 500000 UNITS/5 ML SUSP 5ML CUP PO ×3 (07:58→20:53)
[2017-11-18] MEDS: Magnesium Oxide 400 MG TAB PO (07:58)
[2017-11-18] MEDS: Metoprolol CR 50 MG TABCR PO (07:58)
[2017-11-18] MEDS: Dextrose 50%-Water 25 GM/50 ML SYR IVP ×2 (11:42→17:04)
[2017-11-18] MEDS: Normal Saline Flush 10 ML SYR IVP ×3 (11:42→20:56)
[2017-11-18] MEDS: Lactated Ringers 1,000 ML 80 ML IV (11:43)
[2017-11-18] MEDS: Insulin REGULAR-Human 100 UNITS/ML UNIT 10 UNITS SC (11:43)
--- NOTE | 2017-11-18 12:54 | PGE_ITS ---
Assessment and Plan (1) Colitis: Current visit: Yes Status: Chronic Still no significant change in the frequency of small volume bowel movements. Probably too soon to aqua ammonia operator whether or not oral budesonide has been effective. No change in management at this time. (2) Positive blood culture: Current visit: Yes Status: Acute Clostridium ramosum isolated from 2 blood cultures, the other sterile. He has not been febrile, has had no significant change in any of his vital signs and has not had an elevated white count. I think this is a contaminant and does not represent an infection. No antibiotics initiated at this time. (3) CKD (chronic kidney disease): Current visit: Yes Status: Chronic Worsening of his BUN and creatinine. Spoke with religious studies professor, Dr. Thayer , who suggests IV fluids and encourage oral hydration and treatment of his hyperkalemia with glucose and insulin. We will see how he responds to these interventions. (4) Hyperkalemia: Current visit: Yes Status: Acute IV dextrose and insulin, monitor blood sugar to avoid hypoglycemia. May require additional insulin. Recheck potassium later today. Monitor rhythm while potassium is elevated. (5) Acidemia: Current visit: Yes Status: Acute Due to his worsening renal function. Prevention as above. (6) Supratherapeutic INR: Current visit: Yes Status: Acute Warfarin remains on hold. Recheck INR tomorrow. (7) Atrial fibrillation: Current visit: Yes Status: Chronic Paced rhythm, anticoagulation on hold. (8) Cardiomyopathy: Current visit: Yes Status: Chronic Stable as far, spironolactone remains on hold. Continue beta-jose. (9) Anemia: Current visit: Yes Status: Chronic No gross blood loss. Probably has an element of anemia from chronic kidney disease, supratherapeutic INR increases risk for bleed. Continue to monitor hemoglobin and hematocrit. Subjective Interval history since last seen: Continues to have frequent small bowel movements, 9 since midday yesterday. Has not seen any blood. Does not have pain. No dyspnea with walking about in his room or taking a shower. He has noted decreased urine output but it is not appear dark or bloody. Appetite is stable. No cough. No chest pain. No dizziness. His potassium BUN and creatinine are all going up and his bicarb is going down. His urine output has dropped. Spironolactone and potassium were stopped yesterday as well as his sulfasalazine. I spoke with religious studies professor, Dr. Null, [facility] who recommends insulin and glucose and IV fluids to try to get potassium down and renal function back to his recent baseline. No indication at this time for dialysis. His hemoglobin has dropped without clear etiology. Exam Narrative Exam Narrative: Comfortable seated, speaks in full sentences. Afebrile with blood pressures 130s-170s. Pulse mostly regular, occasional ectopic beat. Neck veins are flat. Lungs clear. Low pitched late systolic murmur mid left sternal border no diastolic murmur S3 or S4. Normal bowel sounds. Abdomen is not distended nor tender. No ankle edema with 1+ distal pulses. A few small bruises from IV puncture sites on his forearms, no bleeding. Objective Objective Clinical Data: Abnormal lab results 11/18/17 11/18/17 Range/Units 06:10 06:10 RBC 3.09 L (4.50-6.00) m/cumm Hgb 9.6 L (13.5-17.5) g/dL Hct 29.7 L (40.0-50.0) % MCV 96.1 H (80-95) fL Sodium 134 L (136-145) mmol/L Potassium 5.8 H (3.5-5.1) mmol/L Carbon Dioxide 19.0 L (21.0-32.0) mmol/L BUN 66 H (7-18) mg/dL Creatinine 4.97 H* (0.70-1.30) mg/dL Calcium 8.2 L (8.5-10.1) mg/dL Vital Signs Temperature 36.4 C L 11/18/17 07:25 Temperature Source Tympanic 11/18/17 07:25 Pulse 69 11/18/17 07:25 Pulse Rhythm Regular 11/18/17 08:04 Pulse 76 11/10/17 10:31 Respiratory Rate 18 11/18/17 07:25 Respiratory Effort Non-Labored 11/18/17 08:04 Respiratory Depth Normal 11/18/17 08:04 Respiratory Pattern Normal 11/18/17 08:04 Blood Pressure 131/73 11/18/17 07:25 Blood Pressure Mean 95 11/10/17 12:31 Blood Pressure Position Sitting 11/10/17 05:39 Pulse Oximetry 99 11/18/17 08:15 Oxygen Delivery Method Room Air 11/18/17 08:15 Oxygen Flow Rate 0 11/18/17 08:15 Pain Level 0 11/17/17 16:22 Comment 11/11/17 03:00 Intake & Output 11/17/17 11/18/17 11/18/17 23:59 11:59 23:59 Intake Total 300 / 300 480 / 480 Output Total 350 / 350 Balance 300 / 300 130 / 130 Intake: Oral 300 / 300 480 / 480 Output: Urine 350 / 350 Other: Urine Color Yellow Urine Appearance Clear Clear Urine Odor Normal Comment voiding independent pt voids independently, denies abnormality Voiding Methods Toilet Urinal Urinal Laboratory Results WBC 6.46 k/cumm (4.4-10.8) 11/18/17 06:10 RBC 3.09 m/cumm (4.50-6.00) L 11/18/17 06:10 Hgb 9.6 g/dL (13.5-17.5) L 11/18/17 06:10 Hct 29.7 % (40.0-50.0) L 11/18/17 06:10 MCV 96.1 fL (80-95) H 11/18/17 06:10 MCH 31.1 pg (27.0-33.0) 11/18/17 06:10 MCHC 32.3 g/dL (32.0-36.0) 11/18/17 06:10 RDW 13.8 % (11.8-14.1) 11/18/17 06:10 Plt Count 231 x1000/uL (130-400) 11/18/17 06:10 MPV 9.5 fL (8.0-11.0) 11/18/17 06:10 Immature Gran % 0.7 11/16/17 06:15 Neutrophils % 77.6 11/16/17 06:15 Lymphocytes % 11.4 11/16/17 06:15 Monocytes % 7.8 11/16/17 06:15 Eosinophils % 2.3 11/16/17 06:15 Basophils % 0.2 11/16/17 06:15 Absolute Neutrophils 6.90 k/cumm (1.2-6.7) H 11/16/17 06:15 Absolute Lymphocytes 1.01 k/cumm (1.2-3.4) L 11/16/17 06:15 Absolute Monocytes 0.69 k/cumm (0.11-0.7) 11/16/17 06:15 Absolute Eosinophils 0.20 k/cumm (0.0-0.7) 11/16/17 06:15 Absolute Basophils 0.02 k/cumm (0.0-0.2) 11/16/17 06:15 Differential Comment 11/10/17 05:55 PT 28.6 sec (9.3-10.8) H 11/17/17 06:17 INR 3.0 (1.0-3.5) D 11/17/17 06:17 APTT 30.1 sec (21.0-31.4) 11/10/17 05:55 Sodium 134 mmol/L (136-145) L 11/18/17 06:10 Potassium 5.8 mmol/L (3.5-5.1) H 11/18/17 06:10 Chloride 105 mmol/L (98-107) 11/18/17 06:10 Carbon Dioxide 19.0 mmol/L (21.0-32.0) L 11/18/17 06:10 Anion Gap 10.0 mmol/L (3-11) 11/18/17 06:10 BUN 66 mg/dL (7-18) H 11/18/17 06:10 Creatinine 4.97 mg/dL (0.70-1.30) H* 11/18/17 06:10 Estimated GFR/1.73 m2 11.82 (mL/min/1.73m2) 11/18/17 06:10 Glucose 96 mg/dL (70-100) 11/18/17 06:10 Lactate 1.0 mmol/L (0.6-1.4) 11/10/17 08:30 Calcium 8.2 mg/dL (8.5-10.1) L 11/18/17 06:10 Phosphorus 3.5 mg/dL (2.6-4.7) 11/13/17 06:58 Magnesium 2.2 mg/dL (1.8-2.4) 11/15/17 06:15 Total Bilirubin 0.4 mg/dL (0.2-1.0) 11/15/17 06:15 AST 18 U/L (15-37) 11/15/17 06:15 ALT 19 U/L (12-78) 11/15/17 06:15 Alkaline Phosphatase 75 U/L (46-116) 11/15/17 06:15 Troponin I 0.14 ng/mL (0.00-0.06) H 11/11/17 06:50 Total Protein 6.1 g/dL (6.4-8.2) L 11/15/17 06:15 Albumin 3.1 g/dL (3.4-5.0) L 11/15/17 06:15 Lipase 395 U/L (73-393) H 11/13/17 06:58 25-OH Vitamin D Total 9.8 ng/ml (30-100) L 11/13/17 06:58 Urine Color Yellow (Yellow) 11/10/17 14:32 Urine Clarity Clear 11/10/17 14:32 Urine pH 7.0 (5-8) 11/10/17 14:32 Ur Specific [place] 1.010 (1.005-1.025) 11/10/17 14:32 Urine Protein 100 mg/dL (Negative) H 11/10/17 14:32 Urine Ketones Trace mg/dL (Negative) H 11/10/17 14:32 Urine Blood Moderate (Negative) H 11/10/17 14:32 Urine Nitrite Negative (Negative) 11/10/17 14:32 Urine Bilirubin Negative (Negative) 11/10/17 14:32 Urine Urobilinogen 0.2 EU/dL (Up TO 0.2) 11/10/17 14:32 Ur Leukocyte Esterase Negative (Negative) 11/10/17 14:32 Urine RBC 0-2 (0-2) 11/10/17 14:32 Urine WBC 0-2 HPF (0-5) 11/10/17 14:32 Ur Epithelial Cells Rare HPF (Negative) 11/10/17 14:32 Urine Crystals Negative HPF (Negative) 11/10/17 14:32 Urine Bacteria Rare HPF (Negative) 11/10/17 14:32 Urine Casts Negative LPF (Negative) 11/10/17 14:32 Urine Mucus Negative (Negative) 11/10/17 14:32 Ur Culture Indicated? No 11/10/17 14:32 Urine Glucose Negative mg/dL (Negative) 11/10/17 14:32 Stl C.difficile Tox PCR Negative 11/11/17 15:01 C.difficile Tox Source Feces 11/11/17 15:01 Lab lab calls reporting the gram-positive azra isolated from 1 of 2 blood cultures is Clostridium ramosum. His other blood culture was negative.
--- NOTE | 2017-11-18 14:43 | PDOC.CMPRO ---
- If Service Date Differs Date of service: 11/18/17 Time of Service: 14:43 Care Management Progress Note S/O: Gus is sitting up this morning when this food writer visits. He is pleasant throughout discussion. Ellis BUN, Potassium, and Creatinine are all elevated, MD has outreached to [facility], and the recommendation is insulin, IV fluids, and glucose at this time. No change in DC plan at this time. Gus is hopeful to be able to return home soon. A: 66 year old male admitted with colitis. P: Gus will discharge home when medically ready per MD. Anticipate Gus will discharge with no services and follow up with his PCP and GI at [facility]. Gus's car is in the parking lot at [facility] and he will transport himself home. CM will continue to offer support to patient and care team regarding discharge planning and disposition.
--- NOTE | 2017-11-18 14:49 | CMPROGNOTE_ITS ---
- If Service Date Differs Date of service: 11/18/17 Time of Service: 14:43 Care Management Progress Note S/O: Gus is sitting up this morning when this justowriter operator visits. He is pleasant throughout discussion. Ellis BUN, Potassium, and Creatinine are all elevated, MD has outreached to [facility], and the recommendation is insulin, IV fluids, and glucose at this time. No change in DC plan at this time. Gus is hopeful to be able to return home soon. A: 66 year old male admitted with colitis. P: Gus will discharge home when medically ready per MD. Anticipate Gus will discharge with no services and follow up with his PCP and GI at [facility]. Gus's car is in the parking lot at [facility] and he will transport himself home. CM will continue to offer support to patient and care team regarding discharge planning and disposition.
[2017-11-18 16:29] LABS: Potassium 6.8 mmol/L (3.5-5.1)
[2017-11-18] MEDS: Insulin REGULAR-Human 100 UNITS/ML UNIT 10 UNITS IV (17:10)
[2017-11-18] MEDS: Calcium Carbonate *TUMS* 500 MG CHEW 1000 MG CH (18:34)
[2017-11-18 19:45] LABS: Potassium 5.7 mmol/L (3.5-5.1)
[2017-11-19 07:00] VITALS: PULSE 73
[2017-11-19 07:08] LABS: HCT 28.2 % (40.0-50.0); HGB 8.9 g/dL (13.5-17.5); Mean Corp. HGB Concentration 31.6 g/dL (32.0-36.0); Mean Corpuscular Hemoglobin 30.2 pg (27.0-33.0); Mean Corpuscular Volume 95.6 fL (80-95); Mean Platelet Volume 9.6 fL (8.0-11.0); Platelet Count 246 x1000/uL (130-400); RBC 2.95 m/cumm (4.50-6.00); RBC Distribution Width 13.8 % (11.8-14.1); White Blood Cell Count 9.01 k/cumm (4.4-10.8)
[2017-11-19 07:18] LABS: Anion Gap 10.4 mmol/L (3-11); BUN 66 mg/dL (7-18); CO2 21.6 mmol/L (21.0-32.0); Calcium 7.5 mg/dL (8.5-10.1); Chloride 107 mmol/L (98-107); Estimated GFR 12.61 (mL/min/1.73m2); Glucose 84 mg/dL (70-100); Sodium 139 mmol/L (136-145)
[2017-11-19 07:20] LABS: INR 1.7 (1.0-3.5); Prothrombin Time 16.6 sec (9.3-10.8)
[2017-11-19 07:35] VITALS: BP 139/76; PULSE 70; RESP 16; TEMP 36.5; O2SAT 99
[2017-11-19] MEDS: amLODIPine 5 MG TAB 7.5 MG PO (08:30)
[2017-11-19] MEDS: Multivitamin TAB 1 TAB PO (08:30)
[2017-11-19] MEDS: Metoprolol CR 50 MG TABCR PO (08:30)
[2017-11-19] MEDS: Psyllium PKT 1 EACH PO ×4 (08:30→20:44)
[2017-11-19] MEDS: Pantoprazole 40 MG TABCR PO ×2 (08:30→20:45)
[2017-11-19] MEDS: Nystatin 500000 UNITS/5 ML SUSP 5ML CUP PO (08:30)
[2017-11-19] MEDS: Magnesium Oxide 400 MG TAB PO (08:30)
[2017-11-19] MEDS: Aspirin 81 MG CHEW PO (08:30)
[2017-11-19] MEDS: Pravastatin 20 MG TAB 40 MG PO (08:31)
[2017-11-19] MEDS: Finasteride 5 MG TAB PO (08:31)
[2017-11-19] MEDS: BUDESONIDE 3 MG CAPCR 9 MG PO (08:31)
[2017-11-19] MEDS: Normal Saline Flush 10 ML SYR IVP ×3 (08:33→20:44)
[2017-11-19 08:35] VITALS: O2SAT 98
[2017-11-19 11:14] VITALS: PULSE 76
[2017-11-19] MEDS: Heparin 5,000 UNITS/ML VIAL 5000 UNITS SC (12:33)
[2017-11-19] MEDS: MetroNIDAZOLE 500 MG/100 ML BAG 100 MG IVPB ×2 (12:33→20:42)
--- NOTE | 2017-11-19 12:34 | W.PM.PROGNOT ---
Assessment and Plan (1) Colitis: Current visit: Yes Status: Chronic Perhaps there has been a slight improvement? Discussion with GI who recommends holding the course in terms of treatment for colitis. Diagnostically will check stool for bacterial pathogens via PCR. Treat for possible Clostridium ramosum bacteremia with Flagyl, recognizing that he has not had any other manifestations of infection. If subsequent cultures are negative and no significant improvement in his GI symptoms, consider parenteral steroids. (2) Positive blood culture: Current visit: Yes Status: Acute Clostridium ramosum isolated from blood culture drawn on the preadmission ER visit open culture culture was negative) and he was initially started on antibiotics, promptly stopped with absence of fever or leukocytosis or localizing signs. In discussion with general medicine and GI at [facility] today, decision to reculture and start empiric treatment with metronidazole intravenously. It is possible there was translocation of this gram-positive azra through GI tract although other than his continued small volume frequent bowel movements, no manifestations of infection anywhere else. (3) CKD (chronic kidney disease): Current visit: Yes Status: Chronic BUN/creatinine and acidemia all improving. Oral intake still marginal and urine output marginal. I am going to resume some IV hydration, monitor urine output, BUN and creatini (4) Hyperkalemia: Current visit: Yes Status: Acute Potassium level is down to with single dose of oral Kayexalate and insulin and glucose yesterday. Continue to monitor labs. (5) Supratherapeutic INR: Current visit: Yes Status: Acute INR is now below the therapeutic range. He has a history of prior arterial embolism. But also is having a dropping hemoglobin with known gastric ulcers. He has not had grossly bloody stools but they are dark. I am not resuming warfarin at this point but will place on prophylactic dose heparin. If hemoglobin stabilizes, consider resuming warfarin within the next 24-48 hours. (6) Atrial fibrillation: Current visit: Yes Status: Chronic Paced rhythm, anticoagulation on hold. Continue metoprolol at current dose. Anticoagulation decision as noted above. Given stability and normalization of potassium I am discontinuing his telemetry. (7) Cardiomyopathy: Current visit: Yes Status: Chronic Stable as far, spironolactone remains on hold. Continue beta-jose. Gentle IV hydration. Monitor for signs or symptoms of cardiac decompensation. (8) Anemia: Current visit: Yes Status: Chronic Probable GI blood loss on a background of anemia of chronic kidney disease. Will check stools for occult blood. Stop aspirin. Double his dose of PPI and monitor hemoglobin and hematocrit. (9) History of TIA (transient ischemic attack): Current visit: Yes Status: Acute Has not manifested any new neurologic symptoms. Had been on aspirin for secondary prevention which I am stopping because of his dropping hemoglobin. 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 Will place on prophylactic dose heparin. Subjective Interval history since last seen: Mr. Levy potassium continued to rise yesterday. He received 2 doses of insulin and dextrose and a single oral dose of Kayexalate with an improvement in his potassium overnight. He also received 1 L of lactated Ringer's. His urine output still is low, 450 mL's in the past 24 hours. He has not manifested any problems with edema, pulmonary edema or decompensation of his heart failure even with Spironolactone on hold. He remains afebrile. He is still having frequent small bowel movements that are quite dark but not bloody. No abdominal pain. No hematuria or dysuria. No cough. No dyspnea. Appetite is good. Spirits are holding. Hemoglobin drifting down, INR down below therapeutic range, BUN creatinine and bicarb all a bit better as is his potassium. Conference phone conversation with hospital medicine and GI at [facility] regarding the overall picture. Discussion regarding his 1 of 2 blood cultures positive for Clostridium species and whether or not it represents a current problem. Given that he has not responded to current treatments, decision made to treat this. Also recommendations against systemic steroids at this point until infection has been ruled out or treated. Difficulties recognize regarding dropping hemoglobin and need for anticoagulation and antiplatelet agents for secondary prevention. Settled on prophylactic dose of heparin. Exam Narrative Exam Narrative: He is comfortable sitting up in bed. Fluid balance has been positive by 1-1-1/2 L for the past sequential days. He remains afebrile, blood pressures 1 teens to 130s paced rhythm on telemetry with no ectopics or intrinsic beats. SaO2 on room air 98%. Sclera slightly pale. No JVD. Lungs clear. Mostly regular heart rhythm, 2/6 systolic ejection murmur mid left sternal border no S3 or S4. No diastolic murmur heard. Abdomen normal bowel sounds nontender not distended. No ankle edema. A few small bruises at IV puncture sites on his forearms and antecubital fossa. He sits up unassisted and has symmetric movement of all extremities. Good pulses in the feet. Objective Objective Clinical Data: Abnormal lab results 11/18/17 11/18/17 11/19/17 Range/Units 16:02 18:07 06:20 RBC (4.50-6.00) m/cumm Hgb (13.5-17.5) g/dL Hct (40.0-50.0) % MCV (80-95) fL MCHC (32.0-36.0) g/dL PT (9.3-10.8) sec Potassium 6.8 H* 5.7 H (3.5-5.1) mmol/L BUN 66 H (7-18) mg/dL Creatinine 4.70 H* (0.70-1.30) mg/dL Calcium 7.5 L (8.5-10.1) mg/dL 11/19/17 11/19/17 Range/Units 06:20 06:20 RBC 2.95 L (4.50-6.00) m/cumm Hgb 8.9 L (13.5-17.5) g/dL Hct 28.2 L (40.0-50.0) % MCV 95.6 H (80-95) fL MCHC 31.6 L (32.0-36.0) g/dL PT 16.6 H D (9.3-10.8) sec Potassium (3.5-5.1) mmol/L BUN (7-18) mg/dL Creatinine (0.70-1.30) mg/dL Calcium (8.5-10.1) mg/dL Vital Signs Temperature 36.5 C 11/19/17 07:35 Temperature Source Tympanic 11/19/17 07:35 Pulse 70 11/19/17 07:35 Pulse Rhythm Regular 11/19/17 07:50 Pulse 76 11/10/17 10:31 Respiratory Rate 16 11/19/17 07:35 Respiratory Effort Non-Labored 11/19/17 07:50 Respiratory Depth Normal 11/19/17 07:50 Respiratory Pattern Normal 11/19/17 07:50 Blood Pressure 139/76 11/19/17 07:35 Blood Pressure Mean 95 11/10/17 12:31 Blood Pressure Position Sitting 11/10/17 05:39 Pulse Oximetry 98 11/19/17 08:35 Oxygen Delivery Method Room Air 11/19/17 08:35 Oxygen Flow Rate 0 11/19/17 08:35 Pain Level 0 11/17/17 16:22 Comment 11/11/17 03:00 Intake & Output 11/18/17 11/19/17 11/19/17 23:59 11:59 23:59 Intake Total 820 / 820 1250 / 1250 Output Total 450 / 450 Balance 820 / 820 800 / 800 Intake: IV 460 / 460 1000 / 1000 Oral 360 / 360 250 / 250 Output: Urine 450 / 450 Other: Urine Color Pale Yellow Urine Appearance Clear Urine Odor None Comment pt voiding independently in the toilet Stool Size Moderate Small Stool Characteristics Liquid Soft Brown Voiding Methods Toilet Urinal Laboratory Results WBC 9.01 k/cumm (4.4-10.8) D 11/19/17 06:20 RBC 2.95 m/cumm (4.50-6.00) L 11/19/17 06:20 Hgb 8.9 g/dL (13.5-17.5) L 11/19/17 06:20 Hct 28.2 % (40.0-50.0) L 11/19/17 06:20 MCV 95.6 fL (80-95) H 11/19/17 06:20 MCH 30.2 pg (27.0-33.0) 11/19/17 06:20 MCHC 31.6 g/dL (32.0-36.0) L 11/19/17 06:20 RDW 13.8 % (11.8-14.1) 11/19/17 06:20 Plt Count 246 x1000/uL (130-400) 11/19/17 06:20 MPV 9.6 fL (8.0-11.0) 11/19/17 06:20 Immature Gran % 0.7 11/16/17 06:15 Neutrophils % 77.6 11/16/17 06:15 Lymphocytes % 11.4 11/16/17 06:15 Monocytes % 7.8 11/16/17 06:15 Eosinophils % 2.3 11/16/17 06:15 Basophils % 0.2 11/16/17 06:15 Absolute Neutrophils 6.90 k/cumm (1.2-6.7) H 11/16/17 06:15 Absolute Lymphocytes 1.01 k/cumm (1.2-3.4) L 11/16/17 06:15 Absolute Monocytes 0.69 k/cumm (0.11-0.7) 11/16/17 06:15 Absolute Eosinophils 0.20 k/cumm (0.0-0.7) 11/16/17 06:15 Absolute Basophils 0.02 k/cumm (0.0-0.2) 11/16/17 06:15 Differential Comment 11/10/17 05:55 PT 16.6 sec (9.3-10.8) H D 11/19/17 06:20 INR 1.7 (1.0-3.5) D 11/19/17 06:20 APTT 30.1 sec (21.0-31.4) 11/10/17 05:55 Sodium 139 mmol/L (136-145) 11/19/17 06:20 Potassium 5.0 mmol/L (3.5-5.1) 11/19/17 06:20 Chloride 107 mmol/L (98-107) 11/19/17 06:20 Carbon Dioxide 21.6 mmol/L (21.0-32.0) 11/19/17 06:20 Anion Gap 10.4 mmol/L (3-11) 11/19/17 06:20 BUN 66 mg/dL (7-18) H 11/19/17 06:20 Creatinine 4.70 mg/dL (0.70-1.30) H* 11/19/17 06:20 Estimated GFR/1.73 m2 12.61 (mL/min/1.73m2) 11/19/17 06:20 Glucose 84 mg/dL (70-100) 11/19/17 06:20 Lactate 1.0 mmol/L (0.6-1.4) 11/10/17 08:30 Calcium 7.5 mg/dL (8.5-10.1) L 11/19/17 06:20 Phosphorus 3.5 mg/dL (2.6-4.7) 11/13/17 06:58 Magnesium 2.2 mg/dL (1.8-2.4) 11/15/17 06:15 Total Bilirubin 0.4 mg/dL (0.2-1.0) 11/15/17 06:15 AST 18 U/L (15-37) 11/15/17 06:15 ALT 19 U/L (12-78) 11/15/17 06:15 Alkaline Phosphatase 75 U/L (46-116) 11/15/17 06:15 Troponin I 0.14 ng/mL (0.00-0.06) H 11/11/17 06:50 Total Protein 6.1 g/dL (6.4-8.2) L 11/15/17 06:15 Albumin 3.1 g/dL (3.4-5.0) L 11/15/17 06:15 Lipase 395 U/L (73-393) H 11/13/17 06:58 25-OH Vitamin D Total 9.8 ng/ml (30-100) L 11/13/17 06:58 Urine Color Yellow (Yellow) 11/10/17 14:32 Urine Clarity Clear 11/10/17 14:32 Urine pH 7.0 (5-8) 11/10/17 14:32 Ur Specific [place] 1.010 (1.005-1.025) 11/10/17 14:32 Urine Protein 100 mg/dL (Negative) H 11/10/17 14:32 Urine Ketones Trace mg/dL (Negative) H 11/10/17 14:32 Urine Blood Moderate (Negative) H 11/10/17 14:32 Urine Nitrite Negative (Negative) 11/10/17 14:32 Urine Bilirubin Negative (Negative) 11/10/17 14:32 Urine Urobilinogen 0.2 EU/dL (Up TO 0.2) 11/10/17 14:32 Ur Leukocyte Esterase Negative (Negative) 11/10/17 14:32 Urine RBC 0-2 (0-2) 11/10/17 14:32 Urine WBC 0-2 HPF (0-5) 11/10/17 14:32 Ur Epithelial Cells Rare HPF (Negative) 11/10/17 14:32 Urine Crystals Negative HPF (Negative) 11/10/17 14:32 Urine Bacteria Rare HPF (Negative) 11/10/17 14:32 Urine Casts Negative LPF (Negative) 11/10/17 14:32 Urine Mucus Negative (Negative) 11/10/17 14:32 Ur Culture Indicated? No 11/10/17 14:32 Urine Glucose Negative mg/dL (Negative) 11/10/17 14:32 Stl C.difficile Tox PCR Negative 11/11/17 15:01 C.difficile Tox Source Feces 11/11/17 15:01
--- NOTE | 2017-11-19 13:18 | PDOC.CMPRO ---
- If Service Date Differs Date of service: 11/19/17 Time of Service: 13:18 Care Management Progress Note S/O: Gus is sitting up this morning when this health technical writer visits. Gus has been started on IV Flagyl today, and continues on IV fluids at this time. Reviewed DC plan which remains unchanged at this time. A: 66 year old male admitted with colitis. P: Gus will discharge home when medically ready per MD. Anticipate Gus will discharge with no services and follow up with his PCP and GI at [facility]. Gus's car is in the parking lot at [facility] and he will transport himself home. CM will continue to offer support to patient and care team regarding discharge planning and disposition.
[2017-11-19 15:56] VITALS: BP 114/60; PULSE 69; RESP 18; TEMP 36.7; O2SAT 99
[2017-11-19] MEDS: Calcium Carbonate *TUMS* 500 MG CHEW 1000 MG CH (20:43)
[2017-11-19] MEDS: Cholestyramine/Aspartame PKT 1 EACH PO (22:31)
[2017-11-20] MEDS: Heparin 5,000 UNITS/ML VIAL 5000 UNITS SC ×3 (00:06→23:31)
[2017-11-20 00:07] VITALS: BP 138/77; PULSE 74; RESP 16; TEMP 36.4; O2SAT 97
[2017-11-20] MEDS: Lactated Ringers 1,000 ML 50 ML IV ×2 (00:18→23:27)
[2017-11-20] MEDS: MetroNIDAZOLE 500 MG/100 ML BAG 100 MG IVPB ×3 (04:31→19:49)
[2017-11-20 07:30] VITALS: O2SAT 97
[2017-11-20 07:45] VITALS: BP 137/81; PULSE 72; RESP 17; TEMP 37.4; O2SAT 98
[2017-11-20 07:51] LABS: HCT 26.9 % (40.0-50.0); HGB 8.5 g/dL (13.5-17.5); Mean Corp. HGB Concentration 31.6 g/dL (32.0-36.0); Mean Corpuscular Hemoglobin 30.7 pg (27.0-33.0); Mean Corpuscular Volume 97.1 fL (80-95); Mean Platelet Volume 9.6 fL (8.0-11.0); Platelet Count 255 x1000/uL (130-400); RBC 2.77 m/cumm (4.50-6.00); White Blood Cell Count 6.11 k/cumm (4.4-10.8)
[2017-11-20 08:02] LABS: INR 1.4 (1.0-3.5); Prothrombin Time 13.6 sec (9.3-10.8)
[2017-11-20] MEDS: Psyllium PKT 1 EACH PO ×4 (08:02→21:02)
[2017-11-20] MEDS: Metoprolol CR 50 MG TABCR PO (08:03)
[2017-11-20] MEDS: BUDESONIDE 3 MG CAPCR 9 MG PO (08:03)
[2017-11-20] MEDS: Pantoprazole 40 MG TABCR PO ×2 (08:03→19:49)
[2017-11-20] MEDS: Pravastatin 20 MG TAB 40 MG PO (08:04)
[2017-11-20] MEDS: Finasteride 5 MG TAB PO (08:04)
[2017-11-20] MEDS: Multivitamin TAB 1 TAB PO (08:04)
[2017-11-20] MEDS: amLODIPine 5 MG TAB 7.5 MG PO (08:04)
[2017-11-20] MEDS: Magnesium Oxide 400 MG TAB PO (08:04)
[2017-11-20 08:06] LABS: Anion Gap 7.6 mmol/L (3-11); BUN 63 mg/dL (7-18); CO2 22.4 mmol/L (21.0-32.0); Calcium 7.4 mg/dL (8.5-10.1); Chloride 107 mmol/L (98-107); Estimated GFR 12.71 (mL/min/1.73m2); Glucose 95 mg/dL (70-100); Potassium 4.7 mmol/L (3.5-5.1); Sodium 137 mmol/L (136-145)
[2017-11-20 08:31] LABS: CREATININE 4.67 mg/dL (0.70-1.30)
[2017-11-20] MEDS: Cholestyramine/Aspartame PKT 1 EACH PO ×2 (11:14→19:06)
[2017-11-20 15:47] VITALS: BP 130/71; PULSE 69; RESP 20; TEMP 36.1; O2SAT 99
--- NOTE | 2017-11-20 16:06 | PDOC.CMPRO ---
Care Management Progress Note S/O Gus was sitting up watching TV. States he is feeling better today and is not experiencing the frequent loose bowel movements. Looking forward to going home soon. A: 66 y.o. male admitted for colitis P: Gus will return home and no services will be needed. Will drive himself, car is at [facility], when medically cleared for discharge.
--- NOTE | 2017-11-20 16:11 | CMPROGNOTE_ITS ---
Care Management Progress Note S/O Gus was sitting up watching TV. States he is feeling better today and is not experiencing the frequent loose bowel movements. Looking forward to going home soon. A: 66 y.o. male admitted for colitis P: Gus will return home and no services will be needed. Will drive himself , car is at [facility], when medically cleared for discharge.
[2017-11-20] MEDS: Calcium Carbonate *TUMS* 500 MG CHEW 1000 MG CH (18:15)
--- NOTE | 2017-11-20 18:26 | PGE_ITS ---
Assessment and Plan (1) Colitis: Current visit: Yes Status: Chronic Nonspecific. Likely UC. Diarrhea appears to be slowing down. Continue questran, budesonide. Ultimately, would need to follow up with GI as outpatient. Nearing point of being medically dischargable - likely tomorrow. (2) Anemia: Current visit: Yes Status: Chronic Stable. Ok to resume coumadin (risks of not being on anticoagulation given history of arterial thrombosis, PE, DVT, Afib are much higher than the risk of bleeding). (3) Cardiomyopathy: Current visit: Yes Status: Chronic Euvolemic. Aldactone on hold due to hyperkalemia on this addmission. Continue to monitor volume status. 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 Repeat blood cultures are with no growth to date. Validity of original blood cultures is questionable. (6) CKD (chronic kidney disease): Current visit: Yes Status: Chronic CKD stage 5, continues to have uinary output. Will need to follow up with nephrology as outpatient. (7) Hyperkalemia: Current visit: Yes Status: Resolved In setting of KUNAL on CKD. Aldactone d/c'ed. Recheck prior to discharge tomorrow. Subjective Interval history since last seen: The patient feels better. Just tired. He had not had more than 4 bowel movements in the last 24 hours. He thinks he can live like this at home. He denies any dizziness, chest pain, shortness of breath, nausea, vomiting. He does not quite feel ready to go home today, but thinks he can do so tomorrow. He tells me that his arterial thrombosis was in 2016. Exam Const General: comfortable, no acute distress and well developed [facility] Head: normocephalic Mouth: moist mucous membranes Eyes General: appearance normal, both eyes and all related structures EOM: EOM intact bilaterally Neck Neck: no JVD Thyroid: thyroid normal Resp Effort & Inspection: normal respiratory effort Auscultation: clear to auscultation bilaterally Cardio Rate: regular rate Rhythm: regular rhythm Heart Sounds: murmur (Quiet systolic ejection murmur) GI Palpation: soft, no hepatosplenomegaly, no guarding and nontender Extrem Other: No edema, clubbing, or cyanosis of bilateral lower extremities. Objective Objective Clinical Data: Abnormal lab results 11/20/17 11/20/17 11/20/17 Range/Units 06:55 06:55 06:55 RBC 2.77 L (4.50-6.00) m/cumm Hgb 8.5 L (13.5-17.5) g/dL Hct 26.9 L (40.0-50.0) % MCV 97.1 H (80-95) fL MCHC 31.6 L (32.0-36.0) g/dL PT 13.6 H (9.3-10.8) sec BUN 63 H (7-18) mg/dL Creatinine 4.67 H* (0.70-1.30) mg/dL Calcium 7.4 L (8.5-10.1) mg/dL Vital Signs Temperature 36.1 C L 11/20/17 15:47 Temperature Source Tympanic 11/20/17 15:47 Pulse 69 11/20/17 15:47 Pulse Rhythm Regular 11/20/17 15:47 Pulse 76 11/10/17 10:31 Respiratory Rate 20 11/20/17 15:47 Respiratory Effort 11/20/17 15:47 Respiratory Depth Normal 11/20/17 15:47 Respiratory Pattern Normal 11/20/17 15:47 Blood Pressure 130/71 11/20/17 15:47 Blood Pressure Mean 95 11/10/17 12:31 Blood Pressure Position Sitting 11/10/17 05:39 Pulse Oximetry 99 11/20/17 15:47 Oxygen Delivery Method Room Air 11/20/17 15:47 Oxygen Flow Rate 0 11/20/17 15:47 Pain Level 0 11/20/17 15:47 Comment 11/11/17 03:00 Intake & Output 11/19/17 11/20/17 11/20/17 23:59 11:59 23:59 Intake Total 320 / 320 830 / 830 1005 / 1005 Output Total 450 / 450 650 / 650 150 / 150 Balance -130 / -130 180 / 180 855 / 855 Intake: IV 200 / 200 100 / 100 785 / 785 Oral 120 / 120 730 / 730 220 / 220 Output: Urine 450 / 450 650 / 650 150 / 150 Other: Urine Color Yellow Yellow Yellow Urine Appearance Clear Clear Clear Urine Odor Normal Normal Stool Occult Blood Positive Stool Size Smear Stool Characteristics Soft Soft Formed Formed Brown Brown Alvarado Voiding Methods Urinal Urinal Urinal Laboratory Results WBC 6.11 k/cumm (4.4-10.8) D 11/20/17 06:55 RBC 2.77 m/cumm (4.50-6.00) L 11/20/17 06:55 Hgb 8.5 g/dL (13.5-17.5) L 11/20/17 06:55 Hct 26.9 % (40.0-50.0) L 11/20/17 06:55 MCV 97.1 fL (80-95) H 11/20/17 06:55 MCH 30.7 pg (27.0-33.0) 11/20/17 06:55 MCHC 31.6 g/dL (32.0-36.0) L 11/20/17 06:55 RDW 14.0 % (11.8-14.1) 11/20/17 06:55 Plt Count 255 x1000/uL (130-400) 11/20/17 06:55 MPV 9.6 fL (8.0-11.0) 11/20/17 06:55 Immature Gran % 0.7 11/16/17 06:15 Neutrophils % 77.6 11/16/17 06:15 Lymphocytes % 11.4 11/16/17 06:15 Monocytes % 7.8 11/16/17 06:15 Eosinophils % 2.3 11/16/17 06:15 Basophils % 0.2 11/16/17 06:15 Absolute Neutrophils 6.90 k/cumm (1.2-6.7) H 11/16/17 06:15 Absolute Lymphocytes 1.01 k/cumm (1.2-3.4) L 11/16/17 06:15 Absolute Monocytes 0.69 k/cumm (0.11-0.7) 11/16/17 06:15 Absolute Eosinophils 0.20 k/cumm (0.0-0.7) 11/16/17 06:15 Absolute Basophils 0.02 k/cumm (0.0-0.2) 11/16/17 06:15 Differential Comment 11/10/17 05:55 PT 13.6 sec (9.3-10.8) H 11/20/17 06:55 INR 1.4 (1.0-3.5) 11/20/17 06:55 APTT 30.1 sec (21.0-31.4) 11/10/17 05:55 Sodium 137 mmol/L (136-145) 11/20/17 06:55 Potassium 4.7 mmol/L (3.5-5.1) 11/20/17 06:55 Chloride 107 mmol/L (98-107) 11/20/17 06:55 Carbon Dioxide 22.4 mmol/L (21.0-32.0) 11/20/17 06:55 Anion Gap 7.6 mmol/L (3-11) 11/20/17 06:55 BUN 63 mg/dL (7-18) H 11/20/17 06:55 Creatinine 4.67 mg/dL (0.70-1.30) H* 11/20/17 06:55 Estimated GFR/1.73 m2 12.71 (mL/min/1.73m2) 11/20/17 06:55 Glucose 95 mg/dL (70-100) 11/20/17 06:55 Lactate 1.0 mmol/L (0.6-1.4) 11/10/17 08:30 Calcium 7.4 mg/dL (8.5-10.1) L 11/20/17 06:55 Phosphorus 3.5 mg/dL (2.6-4.7) 11/13/17 06:58 Magnesium 2.2 mg/dL (1.8-2.4) 11/15/17 06:15 Total Bilirubin 0.4 mg/dL (0.2-1.0) 11/15/17 06:15 AST 18 U/L (15-37) 11/15/17 06:15 ALT 19 U/L (12-78) 11/15/17 06:15 Alkaline Phosphatase 75 U/L (46-116) 11/15/17 06:15 Troponin I 0.14 ng/mL (0.00-0.06) H 11/11/17 06:50 Total Protein 6.1 g/dL (6.4-8.2) L 11/15/17 06:15 Albumin 3.1 g/dL (3.4-5.0) L 11/15/17 06:15 Lipase 395 U/L (73-393) H 11/13/17 06:58 25-OH Vitamin D Total 9.8 ng/ml (30-100) L 11/13/17 06:58 Urine Color Yellow (Yellow) 11/10/17 14:32 Urine Clarity Clear 11/10/17 14:32 Urine pH 7.0 (5-8) 11/10/17 14:32 Ur Specific [place] 1.010 (1.005-1.025) 11/10/17 14:32 Urine Protein 100 mg/dL (Negative) H 11/10/17 14:32 Urine Ketones Trace mg/dL (Negative) H 11/10/17 14:32 Urine Blood Moderate (Negative) H 11/10/17 14:32 Urine Nitrite Negative (Negative) 11/10/17 14:32 Urine Bilirubin Negative (Negative) 11/10/17 14:32 Urine Urobilinogen 0.2 EU/dL (Up TO 0.2) 11/10/17 14:32 Ur Leukocyte Esterase Negative (Negative) 11/10/17 14:32 Urine RBC 0-2 (0-2) 11/10/17 14:32 Urine WBC 0-2 HPF (0-5) 11/10/17 14:32 Ur Epithelial Cells Rare HPF (Negative) 11/10/17 14:32 Urine Crystals Negative HPF (Negative) 11/10/17 14:32 Urine Bacteria Rare HPF (Negative) 11/10/17 14:32 Urine Casts Negative LPF (Negative) 11/10/17 14:32 Urine Mucus Negative (Negative) 11/10/17 14:32 Ur Culture Indicated? No 11/10/17 14:32 Urine Glucose Negative mg/dL (Negative) 11/10/17 14:32 Stl C.difficile Tox PCR Negative 11/11/17 15:01 C.difficile Tox Source Feces 11/11/17 15:01
[2017-11-20 19:10] VITALS: BP 132/76; PULSE 74; RESP 16; TEMP 36.7; O2SAT 97
[2017-11-21 03:45] VITALS: BP 129/72; PULSE 75; RESP 18; TEMP 36.8; O2SAT 99
[2017-11-21] MEDS: MetroNIDAZOLE 500 MG/100 ML BAG 100 MG IVPB ×2 (04:19→11:44)
[2017-11-21 07:35] VITALS: BP 128/64; PULSE 69; RESP 16; TEMP 37.1; O2SAT 96
[2017-11-21] MEDS: Psyllium PKT 1 EACH PO ×2 (07:44→11:44)
[2017-11-21] MEDS: Pantoprazole 40 MG TABCR PO (07:44)
[2017-11-21 08:13] LABS: INR 1.2 (1.0-3.5); Prothrombin Time 11.9 sec (9.3-10.8)
[2017-11-21] MEDS: Metoprolol CR 50 MG TABCR PO (08:43)
[2017-11-21] MEDS: amLODIPine 5 MG TAB 7.5 MG PO (08:43)
[2017-11-21] MEDS: Magnesium Oxide 400 MG TAB PO (08:43)
[2017-11-21] MEDS: Multivitamin TAB 1 TAB PO (08:43)
[2017-11-21] MEDS: BUDESONIDE 3 MG CAPCR 9 MG PO (08:43)
[2017-11-21] MEDS: Pravastatin 20 MG TAB 40 MG PO (08:44)
[2017-11-21] MEDS: Finasteride 5 MG TAB PO (08:44)
[2017-11-21] MEDS: Cholestyramine/Aspartame PKT 1 EACH PO (10:15)
[2017-11-21] MEDS: Apixaban 5 MG TAB PO (12:10)
--- NOTE | 2017-11-21 14:28 | W.PM.DS.N ---
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 His therapy here consisted of oral budesonide, [place] [facility] [place] cortisone enemas. Unfortunately, sulfasalazine therapy had to be stopped as it appears to have resulted in acute kidney injury with hyperkalemia. The patient does have CKD stage 5 and was aldactone - which was also discontinued. The diarrhea took a while to improve - and it finally stopped after initiation of questran. 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 The patient's anticoagluation with coumadin had to be placed on hold here as he was supratherapeutic here for majority of his hospitalization. He does continue to require anticoagulation, but because it was so difficult to get the patient to have a therapeutic INR, other modalities of antiocoagulation were considered. At this time, the safest agent is felt to be eliquis - as it can be tolerated with his kidney function. He was hemoccult positive, but did not require any transfusions. His baseline hemoglobin is around 10, and it is 8.5 on discharge, felt to be due to blood draws and dilutional. The patient is instructed to return to the hospital if he notices any bleeding on eliquis. Finally, review of patient's data revealed a positive blood culture on 11/10/17 growing Clostridium Ramosum. He was found to be C. Diff negative (his other fecal pathogens PCR is pending at time of discharge). Repeat blood cultures done on 11/21/17 were negative. Clinically, the patient did not appear to have a bacteremia. We will not be continuing his antibiotics on discharge. The patient's physical exam is benign, and he is hemodynamically stable. His Cr is 4.67 (around baseline) and potassium is 4.7. He will need to follow a renal diet and have his CBC and BMP monitored as outpatient. He is felt to be safe for discharge. Home Meds and New Rx's Prescriptions: New multivitamin [Multiple Vitamins] Tablet 1 tab PO DAILY Qty: 30 RF: 0 amlodipine 5 mg Tablet 7.5 mg PO DAILY Qty: 30 RF: 0 witch carmen-glycerin (hamamel) [Medi Pads] Pads, Medicated 100 ea [place] PRN PRNQty: 10 RF: 0 budesonide [Entocort EC] 3 mg Capsule,Delayed,Extend.Release 9 mg PO DAILY Qty: 21 RF: 0 cholecalciferol (vitamin D3) [Vitamin D3] 400 unit Tablet 400 unit PO BID Qty: 30 RF: 0 cholestyramine-aspartame [Prevalite] 4 gram Powder In Packet 1 ea PO 1000,1900 Qty: 14 RF: 0 pantoprazole [Protonix] 40 mg tablet,delayed release (DR/EC) 40 mg PO DAILY Qty: 30 RF: 0 apixaban [Eliquis] 5 mg tablet 5 mg PO BID Qty: 60 RF: 0 Continue pravastatin 20 MG tablet 40 mg PO DAILY RF: 0 finasteride 5 MG tablet 5 mg PO DAILY Qty: 90 RF: 4 nitroglycerin 0.4 MG tablet, sublingual 0.4 mg Sublingual PRN PRNRF: 0 Metoprolol Succinate 50 MG TAB.ER.24H 50 mg PO DAILY RF: 0 acetaminophen [Mapap Extra Strength] 500 MG tablet 500 mg PO PRN PRNRF: 0 aspirin [Aspirin Low-Strength] 81 MG tablet,chewable 81 mg PO DAILY RF: 0 Psyllium [Metamucil] 1 EACH Pkt 1 tsp PO DAILY RF: 0 calcium carbonate [Tums Ultra] 1,177 mg tablet,chewable 1,177 mg PO DAILY Qty: 10 RF: 0 magnesium oxide 400 mg capsule 400 mg PO DAILY Qty: 10 RF: 0 Discontinued warfarin 5 MG tablet 5 mg PO DAILY RF: 0 spironolactone 25 MG tablet 25 mg PO DAILY RF: 0 amlodipine 5 mg Tablet 5 mg PO DAILY RF: 0 Discharge Instructions Instructions: Cholestyramine (By mouth), Budesonide (By mouth), Apixaban (By mouth), Ulcerative Colitis (DC) Additional Instructions: Return to the hospital with any fever, bleeding, chest pain, or shortness of breath. Back off on questran if you notice no bowel movements for greater than 24 hours. Stand Alone Forms: Nursing Discharge Form Referrals: Basilio Antunez MD [Primary Care Provider] - (Please call the office tomorrow for a follow up ) Activity:: Activity as Tolerated Equipment/Supplies:: No Equipment Needed Diet:: As Tolerated Discharge Orders Discharge Orders: Discharge Order (Routine); Ordered 11/21/17 Ordered By: Kate oFrbes Other Ambulatory Orders: Basic Metabolic Panel (Routine) Timeframe: 3 Days Location: Determined by Patient Ordered By: Kate Forbes Complete Blood Count w/Diff (Routine) Timeframe: 3 Days Location: Determined by Patient Ordered By: Kate Forbes DS: Data Vitals/I&O Vitals and I&O: Vital Signs Temperature 37.1 C 11/21/17 07:35 Temperature Source Tympanic 11/21/17 07:35 Pulse 69 11/21/17 07:35 Pulse Rhythm Regular 11/21/17 08:15 Pulse 76 11/10/17 10:31 Respiratory Rate 16 11/21/17 07:35 Respiratory Effort Non-Labored 11/21/17 08:15 Respiratory Depth Normal 11/21/17 08:15 Respiratory Pattern Normal 11/21/17 08:15 Blood Pressure 128/64 11/21/17 07:35 Blood Pressure Mean 95 11/10/17 12:31 Blood Pressure Position Sitting 11/10/17 05:39 Pulse Oximetry 96 11/21/17 07:35 Oxygen Delivery Method Room Air 11/21/17 07:35 Oxygen Flow Rate 0 11/21/17 07:35 Pain Level 0 11/21/17 07:35 Comment 11/11/17 03:00 Intake & Output 11/20/17 11/21/17 11/21/17 23:59 11:59 23:59 Intake Total 1660 / 1660 540 / 540 Output Total 350 / 350 200 / 200 Balance 1310 / 1310 340 / 340 Intake: IV 1200 / 1200 100 / 100 Oral 460 / 460 440 / 440 Output: Urine 350 / 350 200 / 200 Other: Urine Color Yellow Yellow Urine Appearance Clear Clear Stool Size Moderate Stool Characteristics Soft Brown Voiding Methods Urinal Toilet Completed studies during hospitalization [Text1]: C. Diff negative Echo: 1. Left ventricle: The cavity size was dilated. Wall thickness was increased in a pattern of mild LVH. Systolic function was moderately reduced. The estimated ejection fraction was 35-40%. Moderate diffuse hypokinesis. Akinesis of the basalinferior myocardium. 2. Right ventricle: The cavity size was normal. Device wire noted in right ventricle. Systolic function was normal. 3. Ventricular septum: Septal motion showed paradoxical motion consistent with Bundle Branch Block. 4. Left atrium: The atrium was severely dilated. 5. Aortic valve: Trileaflet; mildly thickened, mildly calcified leaflets. Valve mobility was restricted. Transvalvular velocity was increased. There was mild stenosis. VTI ratio of LVOT to aortic valve: 0.58. Valve area (VTI): 1.6cm^2. 6. Tricuspid valve: There was mild-moderate regurgitation. 7. Pulmonary arteries: Pulmonary systolic pressure was increased, in the range of 40mm Hg to 45mm Hg. 8. Pericardium, extracardiac: A trivial pericardial effusion was identified posterior to the heart. There was no evidence of hemodynamic compromise. Pending studies at discharge: PCR enteric pathogens Labs on day of discharge: Labs from last 24 hours 11/21/17 07:10 PT 11.9 H INR 1.2 Preliminary micro results at discharge 11/19/17 12:30 Blood Culture - Preliminary Blood NO GROWTH 24 HOURS 11/19/17 12:30 Blood Culture - Preliminary Blood NO GROWTH 24 HOURS
--- NOTE | 2017-11-21 14:35 | DSE_ITS ---
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 His therapy here consisted of oral budesonide, sulfasalazine (recommended by [facility] [place]), cortisone enemas. Unfortunately, sulfasalazine therapy had to be stopped as it appears to have resulted in acute kidney injury with hyperkalemia. The patient does have CKD stage 5 and was aldactone - which was also discontinued. The diarrhea took a while to improve - and it finally stopped after initiation of questran. 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 The patient's anticoagluation with coumadin had to be placed on hold here as he was supratherapeutic here for majority of his hospitalization. He does continue to require anticoagulation, but because it was so difficult to get the patient to have a therapeutic INR, other modalities of antiocoagulation were considered. At this time, the safest agent is felt to be eliquis - as it can be tolerated with his kidney function. He was hemoccult positive, but did not require any transfusions. His baseline hemoglobin is around 10, and it is 8.5 on discharge, felt to be due to blood draws and dilutional. The patient is instructed to return to the hospital if he notices any bleeding on eliquis. Finally, review of patient's data revealed a positive blood culture on 11/10/17 growing Clostridium Ramosum. He was found to be C. Diff negative (his other fecal pathogens PCR is pending at time of discharge). Repeat blood cultures done on 11/21/17 were negative. Clinically, the patient did not appear to have a bacteremia. We will not be continuing his antibiotics on discharge. The patient's physical exam is benign, and he is hemodynamically stable. His Cr is 4.67 (around baseline) and potassium is 4.7. He will need to follow a renal diet and have his CBC and BMP monitored as outpatient. He is felt to be safe for discharge. Home Meds and New Rx's Prescriptions: New multivitamin [Multiple Vitamins] Tablet 1 tab PO DAILY Qty: 30 RF: 0 amlodipine 5 mg Tablet 7.5 mg PO DAILY Qty: 30 RF: 0 witch carmen-glycerin (hamamel) [Medi Pads] Pads, Medicated 100 ea [place] PRN PRNQty: 10 RF: 0 budesonide [Entocort EC] 3 mg Capsule,Delayed,Extend.Release 9 mg PO DAILY Qty: 21 RF: 0 cholecalciferol (vitamin D3) [Vitamin D3] 400 unit Tablet 400 unit PO BID Qty: 30 RF: 0 cholestyramine-aspartame [Prevalite] 4 gram Powder In Packet 1 ea PO 1000,1900 Qty: 14 RF: 0 pantoprazole [Protonix] 40 mg tablet,delayed release (DR/EC) 40 mg PO DAILY Qty: 30 RF: 0 apixaban [Eliquis] 5 mg tablet 5 mg PO BID Qty: 60 RF: 0 Continue pravastatin 20 MG tablet 40 mg PO DAILY RF: 0 finasteride 5 MG tablet 5 mg PO DAILY Qty: 90 RF: 4 nitroglycerin 0.4 MG tablet, sublingual 0.4 mg Sublingual PRN PRNRF: 0 Metoprolol Succinate 50 MG TAB.ER.24H 50 mg PO DAILY RF: 0 acetaminophen [Mapap Extra Strength] 500 MG tablet 500 mg PO PRN PRNRF: 0 aspirin [Aspirin Low-Strength] 81 MG tablet,chewable 81 mg PO DAILY RF: 0 Psyllium [Metamucil] 1 EACH Pkt 1 tsp PO DAILY RF: 0 calcium carbonate [Tums Ultra] 1,177 mg tablet,chewable 1,177 mg PO DAILY Qty: 10 RF: 0 magnesium oxide 400 mg capsule 400 mg PO DAILY Qty: 10 RF: 0 Discontinued warfarin 5 MG tablet 5 mg PO DAILY RF: 0 spironolactone 25 MG tablet 25 mg PO DAILY RF: 0 amlodipine 5 mg Tablet 5 mg PO DAILY RF: 0 Discharge Instructions Instructions: Cholestyramine (By mouth), Budesonide (By mouth), Apixaban (By mouth), Ulcerative Colitis (DC) Additional Instructions: Return to the hospital with any fever, bleeding, chest pain, or shortness of breath. Back off on questran if you notice no bowel movements for greater than 24 hours. Stand Alone Forms: Nursing Discharge Form Referrals: Basilio Antunez MD [Primary Care Provider] - (Please call the office tomorrow for a follow up ) Activity:: Activity as Tolerated Equipment/Supplies:: No Equipment Needed Diet:: As Tolerated Discharge Orders Discharge Orders: Discharge Order (Routine); Ordered 11/21/17 Ordered By: Kate Forbes Other Ambulatory Orders: Basic Metabolic Panel (Routine) Timeframe: 3 Days Location: Determined by Patient Ordered By: Kate Forbes Complete Blood Count w/Diff (Routine) Timeframe: 3 Days Location: Determined by Patient Ordered By: Kate Forbes DS: Data Vitals/I&O Vitals and I&O: Vital Signs Temperature 37.1 C 11/21/17 07:35 Temperature Source Tympanic 11/21/17 07:35 Pulse 69 11/21/17 07:35 Pulse Rhythm Regular 11/21/17 08:15 Pulse 76 11/10/17 10:31 Respiratory Rate 16 11/21/17 07:35 Respiratory Effort Non-Labored 11/21/17 08:15 Respiratory Depth Normal 11/21/17 08:15 Respiratory Pattern Normal 11/21/17 08:15 Blood Pressure 128/64 11/21/17 07:35 Blood Pressure Mean 95 11/10/17 12:31 Blood Pressure Position Sitting 11/10/17 05:39 Pulse Oximetry 96 11/21/17 07:35 Oxygen Delivery Method Room Air 11/21/17 07:35 Oxygen Flow Rate 0 11/21/17 07:35 Pain Level 0 11/21/17 07:35 Comment 11/11/17 03:00 Intake & Output 11/20/17 11/21/17 11/21/17 23:59 11:59 23:59 Intake Total 1660 / 1660 540 / 540 Output Total 350 / 350 200 / 200 Balance 1310 / 1310 340 / 340 Intake: IV 1200 / 1200 100 / 100 Oral 460 / 460 440 / 440 Output: Urine 350 / 350 200 / 200 Other: Urine Color Yellow Yellow Urine Appearance Clear Clear Stool Size Moderate Stool Characteristics Soft Brown Voiding Methods Urinal Toilet Completed studies during hospitalization [Text1]: C. Diff negative Echo: 1. Left ventricle: The cavity size was dilated. Wall thickness was increased in a pattern of mild LVH. Systolic function was moderately reduced. The estimated ejection fraction was 35-40%. Moderate diffuse hypokinesis. Akinesis of the basalinferior myocardium. 2. Right ventricle: The cavity size was normal. Device wire noted in right ventricle. Systolic function was normal. 3. Ventricular septum: Septal motion showed paradoxical motion consistent with Bundle Branch Block. 4. Left atrium: The atrium was severely dilated. 5. Aortic valve: Trileaflet; mildly thickened, mildly calcified leaflets. Valve mobility was restricted. Transvalvular velocity was increased. There was mild stenosis. VTI ratio of LVOT to aortic valve: 0.58. Valve area (VTI): 1.6cm^2. 6. Tricuspid valve: There was mild-moderate regurgitation. 7. Pulmonary arteries: Pulmonary systolic pressure was increased, in the range of 40mm Hg to 45mm Hg. 8. Pericardium, extracardiac: A trivial pericardial effusion was identified posterior to the heart. There was no evidence of hemodynamic compromise. Pending studies at discharge: PCR enteric pathogens Labs on day of discharge: Labs from last 24 hours 11/21/17 07:10 PT 11.9 H INR 1.2 Preliminary micro results at discharge 11/19/17 12:30 Blood Culture - Preliminary Blood NO GROWTH 24 HOURS 11/19/17 12:30 Blood Culture - Preliminary Blood NO GROWTH 24 HOURS
--- NOTE | 2017-11-21 19:03 | PDOC.CMDIS ---
LACE Index Scoring Tool - Questions: Length of Stay (in days): 7 - 13 Acuity (Admit via E.D.?): Yes E.D. Visits: 3 - Answers: Total Score: 11 Risk of Readmission: High Risk Care Management Discharge Reason for Hospitalization: Colitis Discharge Plan: Home with no services. Gus has his car at the hospital and will drive himself home. Patient/Family Education Needs: Discharge insructions
[2017-11-22 12:29] LABS: Campylobacter PCR SEE COMMENTS; Salmonella PCR SEE COMMENTS; Shiga Toxin PCR SEE COMMENTS; Shigella/Enteroinvasive Ecoli SEE COMMENTS
== END 2017-11-21 16:10 | disposition home or self-care (01) | DRG 386 ==
LOC: ER 13:02 → MS 16:26
PROVIDERS: Family Medicine; Internal Medicine; Nurse Practitioner Acute Care; Student in an Organized Health Care Education/Training Program; Admitting Provider Internal Medicine; Emergency Provider Emergency Medicine; PCP General Practice; Visit Provider Internal Medicine
DX: K51.90 Ulcerative colitis, unspecified, without complications (principal); N17.9 Acute kidney failure, unspecified; I42.9 Cardiomyopathy, unspecified; N18.5 Chronic kidney disease, stage 5; R78.81 Bacteremia; K27.7 Chronic peptic ulcer, site unspecified, without hemorrhage or perforation; R19.5 Other fecal abnormalities; E87.5 Hyperkalemia; T37.0X5A Adverse effect of sulfonamides, initial encounter; E83.51 Hypocalcemia; F32.9 Major depressive disorder, single episode, unspecified; I51.7 Cardiomegaly; I08.2 Rheumatic disorders of both aortic and tricuspid valves; R79.1 Abnormal coagulation profile; T45.515A Adverse effect of anticoagulants, initial encounter; I48.91 Unspecified atrial fibrillation; Z23 Encounter for immunization; Z79.01 Long term (current) use of anticoagulants; Z86.73 Personal history of transient ischemic attack (TIA), and cerebral infarction without residual deficits; N40.0 Benign prostatic hyperplasia without lower urinary tract symptoms; Z86.711 Personal history of pulmonary embolism; Z86.718 Personal history of other venous thrombosis and embolism; N26.1 Atrophy of kidney (terminal); Z95.0 Presence of cardiac pacemaker
CPT/HCPCS: 36410; 36415; 80048; 80053; 82306; 83690; 85027; 87040; 87077; 87505; 93005; 96361; 96374; 96375; 96376; 99223; 99232; 99233; 99239; 99285; 71046; 74176; 81003; 81015; 83605; 83735; 84100; 84132; 84484; 85025; 85610; 85730; 87324; 87798; 93010; 93306; 99222; J0610; J0744; J1644; J2270; J3480; J3490

== ENCOUNTER 2017-11-24 07:40 | Outpatient (CLI) | payer MEDICAID, SELFPAY ==
[2017-11-24 08:01] LABS: Abs Immature Grans 0.03 k/cumm (0.0-0.09); Absolute Basophil Count 0.03 k/cumm (0.0-0.2); Absolute Eosinophil Count 0.12 k/cumm (0.0-0.7); Absolute Lymphocyte Count 0.76 k/cumm (1.2-3.4); Absolute Monocyte Count 0.42 k/cumm (0.11-0.7); Absolute Neutrophil Count 4.48 k/cumm (1.2-6.7); Basophils % 0.5; Eosinophils % 2.1; HCT 26.5 % (40.0-50.0); HGB 8.3 g/dL (13.5-17.5); Immature Grans % 0.5; Mean Corp. HGB Concentration 31.3 g/dL (32.0-36.0); Mean Corpuscular Hemoglobin 30.9 pg (27.0-33.0); Mean Corpuscular Volume 98.5 fL (80-95); Mean Platelet Volume 8.6 fL (8.0-11.0); Monocytes % 7.2; Neutrophils % 76.7; Platelet Count 276 x1000/uL (130-400); RBC 2.69 m/cumm (4.50-6.00); RBC Distribution Width 14.3 % (11.8-14.1); White Blood Cell Count 5.84 k/cumm (4.4-10.8)
[2017-11-24 08:39] LABS: Anion Gap 15.5 mmol/L (3-11); BUN 52 mg/dL (7-18); CO2 17.5 mmol/L (21.0-32.0); Calcium 7.1 mg/dL (8.5-10.1); Chloride 108 mmol/L (98-107); Estimated GFR 11.96 (mL/min/1.73m2); Glucose 171 mg/dL (70-100); Potassium 4.1 mmol/L (3.5-5.1); Sodium 141 mmol/L (136-145)
[2017-11-24 08:48] LABS: CREATININE 4.92 mg/dL (0.70-1.30)
== END 2017-11-24 08:00 ==
PROVIDERS: PCP General Practice; Visit Provider Internal Medicine
DX: E87.5 Hyperkalemia (principal); N18.9 Chronic kidney disease, unspecified
CPT/HCPCS: 36415; 80048; 85025

== ENCOUNTER 2017-12-03 01:21 | Outpatient (CLI) | payer MEDICAID, SELFPAY ==
--- NOTE | 2017-12-03 10:00 | DI.US_ITS ---
SYMPTOMS/DIAGNOSIS: KAT KIDNEY STONES, N20.0, MONITOR STONES, ? HYDRO, ELEVATED CREAT, CA OXALATE STONES RENAL ULTRASOUND: Renal cortex shows increased echogenicity bilaterally with atrophic appearance of the kidneys. No hydronephrosis identified. No gross renal calcifications seen. The urinary bladder is unremarkable in appearance with pre and postvoid urinary bladder volume measurements 174 cc's and 8 cc's respectively. CONCLUSION: Findings suggesting bilateral renal atrophy with no evidence of obstruction. No gross interval change in appearance in comparison with examination of 08/20/17. The prostate volume is estimated at 28 cc's.
== END 2017-12-03 01:41 ==
PROVIDERS: PCP General Practice; Visit Provider Urology
DX: N20.0 Calculus of kidney (principal); R79.89 Other specified abnormal findings of blood chemistry
CPT/HCPCS: 76770

== ENCOUNTER 2017-12-31 05:20 | Emergency (ER) | payer MEDICARE, MEDICAID, SELFPAY ==
[2017-12-31] VITALS (9 sets, daily range): BP systolic 139–151; BP diastolic 66–74; PULSE 69–91; RESP 16–25; TEMP 36.7; O2SAT 90–95
--- NOTE | 2017-12-31 05:36 | W.ED.GENAD ---
Discharge Plan Disposition Patient Disposition: HOME Condition: Improving Discharge Details Chief Complaint: SOB Clinical Impression: Community acquired pneumonia of right upper lobe of lung Primary Care Provider: Basilio Antunez ED Provider: Miko Saenz Home Meds and New Rx's Prescriptions: New cefdinir 300 mg capsule 300 mg PO Q12H 10 Days Qty: 20 RF: 0 Continue amlodipine 5 mg tablet 10 mg PO DAILY RF: 0 budesonide [Entocort EC] 3 mg capsule,delayed,extend.release 3 mg PO DAILY RF: 0 mirtazapine 15 mg tablet 15 mg PO DAILY RF: 0 pravastatin 20 MG tablet 40 mg PO DAILY RF: 0 finasteride 5 MG tablet 5 mg PO DAILY Qty: 90 RF: 4 nitroglycerin 0.4 MG tablet, sublingual 0.4 mg Sublingual PRN PRNRF: 0 Metoprolol Succinate 50 MG TAB.ER.24H 50 mg PO DAILY RF: 0 acetaminophen [Mapap Extra Strength] 500 MG tablet 500 mg PO PRN PRNRF: 0 aspirin [Aspirin Low-Strength] 81 MG tablet,chewable 81 mg PO DAILY RF: 0 Psyllium [Metamucil] 1 EACH Pkt 1 tsp PO DAILY RF: 0 multivitamin [Multiple Vitamins] Tablet 1 tab PO DAILY Qty: 30 RF: 0 cholecalciferol (vitamin D3) [Vitamin D3] 400 unit Tablet 400 unit PO BID Qty: 30 RF: 0 cholestyramine-aspartame [Prevalite] 4 gram Powder In Packet 1 ea PO 1000,1900 Qty: 14 RF: 0 pantoprazole [Protonix] 40 mg tablet,delayed release (DR/EC) 40 mg PO DAILY Qty: 30 RF: 0 apixaban [Eliquis] 5 mg tablet 5 mg PO BID Qty: 60 RF: 0 calcitriol 0.25 mcg Capsule 0.25 mcg PO QWEEK RF: 0 calcium carbonate [Tums Ultra] 1,177 mg tablet,chewable 1,177 mg PO DAILY Qty: 10 RF: 0 magnesium oxide 400 mg capsule 400 mg PO DAILY Qty: 10 RF: 0 Discharge Instructions Instructions: Community Acquired Pneumonia (ED), Pneumonia (ED) Additional Instructions: Home to rest today. Followup with treatment of your chronic anemia and chronic kidney disease as planned. Antibiotics as prescribed. Return for any acute concern or for worsening. Medical Decision Making 67-year-old male with a history of cardiomyopathy, chronic kidney disease, chronic anemia presents with intermittent episodes of exertional shortness of breath over weeks time. He is afebrile and well-appearing with normal oxygenation. Differential diagnosis is broad including pneumonia, fluid overload, ACS. Patient placed in a cardiac rn referred for laboratory testing and chest x-ray. Diagnostic studies notable for unchanged chronic anemia, unchanged chronic kidney injury with creatinine of 4.6. Potassium is 3.6. 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 He does not have hypoxia. Chest x-ray with right upper lobe pneumonia. Patient given Rocephin IV in the ED, will place on a course of Cefdinir. He has prestading folowup for anemia and CKI. We will ask that care management/community health agent arrange a followup appointment in PMD clinic. Lab Data Lab results reviewed: Yes I reviewed the patient's lab results. Laboratory Tests Range/Units 12/31/17 12/31/17 05:45 05:45 WBC (4.4-10.8) k/cumm 9.53 RBC (4.50-6.00) m/cumm 2.82 L Hgb (13.5-17.5) g/dL 8.1 L Hct (40.0-50.0) % 26.3 L MCV (80-95) fL 93.3 MCH (27.0-33.0) pg 28.7 MCHC (32.0-36.0) g/dL 30.8 L RDW (11.8-14.1) % 14.7 H Plt Count (130-400) x1000/uL 348 MPV (8.0-11.0) fL 8.4 Immature Gran % 0.4 Neutrophils % 81.1 Lymphocytes % 8.1 Monocytes % 7.6 Eosinophils % 2.4 Basophils % 0.4 Absolute Neutrophils (1.2-6.7) k/cumm 7.73 H Absolute Lymphocytes (1.2-3.4) k/cumm 0.77 L Absolute Monocytes (0.11-0.7) k/cumm 0.72 H Absolute Eosinophils (0.0-0.7) k/cumm 0.23 Absolute Basophils (0.0-0.2) k/cumm 0.04 RBC Morphology See below Polychromasia Present Anisocytosis 1+ Sodium (136-145) mmol/L 140 Potassium (3.5-5.1) mmol/L 3.6 Chloride (98-107) mmol/L 105 Carbon Dioxide (21.0-32.0) mmol/L 20.8 L Anion Gap (3-11) mmol/L 14.2 H BUN (7-18) mg/dL 37 H Creatinine (0.70-1.30) mg/dL 4.67 H* Estimated GFR/1.73 m2 (mL/min/1.73m2) 12.67 Glucose (70-100) mg/dL 124 H Calcium (8.5-10.1) mg/dL 8.0 L Total Bilirubin (0.2-1.0) mg/dL 0.3 AST (15-37) U/L 18 ALT (12-78) U/L 29 Alkaline Phosphatase (46-116) U/L 101 Troponin I (0.00-0.06) ng/mL 0.06 NT-Pro-B Natriuret Pep ( - 299) pg/mL 19271 H Total Protein (6.4-8.2) g/dL 6.9 Albumin (3.4-5.0) g/dL 3.0 L ECG Data Attestation: I personally reviewed and interpreted this ECG (s) as follows: Interpretation: Normal sinus rhythm, rate of 84, intraventricular conduction delay with left bundle branch block and repolarization abnormalities. HPI General Mode of arrival: ambulatory. Date/Time Provider Initiated Documentation: 12/31/17 05:21. Limitations to Documentation: no limitations. Information obtained by: patient. History of Present Illness 67 year old M presents to the emergency department with the chief complaint of Shortness of breath, described as moderate and similar to prior episodes, Quality is described as dull, and is localized to the chest. Patient reports no radiation. Patient started experiencing this day(s) and it has been intermittent. Rest improves symptom(s), Movement worsens symptoms . Patient notes cough. HPI Narrative: 67-year-old male presents the emergency department stating he has had intermittent episodes of exertional shortness of breath since being discharged from the hospital in early November. He states that this morning he got up at his normal time and had increased exertional dyspnea when going to the bathroom. Is been associated with a cough and congestion. He is noted chronic lower extremity edema. He states that his Spironolactone was discontinued upon his recent discharge from the hospital. He has known chronic kidney disease, known chronic anemia for which he follows with [facility]. Related Data Home Medications Medication Instructions Recorded Confirmed pravastatin 40 mg PO DAILY tab-cap 07/02/15 12/31/17 finasteride 5 mg PO DAILY #90 tab-cap 03/09/16 12/31/17 Psyllium [Metamucil] 1 tsp PO DAILY 11/13/16 12/31/17 acetaminophen [Mapap Extra 500 mg PO PRN PRN 11/13/16 12/31/17 Strength] aspirin [Aspirin Low-Strength] 81 mg PO DAILY 11/13/16 12/31/17 Metoprolol Succinate 50 mg PO DAILY tab-cap 01/11/17 12/31/17 nitroglycerin 0.4 mg SUBLINGUAL PRN PRN 01/11/17 12/31/17 calcium carbonate [Tums Ultra] 1,177 mg PO DAILY #10 tab 11/08/17 12/31/17 magnesium oxide 400 mg PO DAILY #10 cap 11/08/17 12/31/17 apixaban [Eliquis] 5 mg PO BID #60 tab 11/21/17 12/31/17 cholecalciferol (vitamin D3) 400 unit PO BID #30 tab 11/21/17 12/31/17 [Vitamin D3] cholestyramine-aspartame 1 ea PO 1000,1900 #14 ea 11/21/17 12/31/17 [Prevalite] multivitamin [Multiple Vitamins] 1 tab PO DAILY #30 tab 11/21/17 12/31/17 pantoprazole [Protonix] 40 mg PO DAILY #30 tab 11/21/17 12/31/17 amlodipine 5 mg tablet 10 mg PO DAILY tab 12/03/17 12/31/[address] - ER 3 mg 3 mg PO DAILY cap 12/03/17 12/31/17 capsule,delayed,extended release mirtazapine 15 mg tablet 15 mg PO DAILY 12/03/17 12/31/17 calcitriol 0.25 mcg PO QWEEK 12/31/17 12/31/17 cefdinir 300 mg PO Q12H 10 Days #20 cap 11/16/18 Previous Rx's Medication Instructions Recorded calcium carbonate [Tums Ultra] 1,177 mg PO DAILY #10 tab 11/08/17 magnesium oxide 400 mg PO DAILY #10 cap 11/08/17 apixaban [Eliquis] 5 mg PO BID #60 tab 11/21/17 cholecalciferol (vitamin D3) 400 unit PO BID #30 tab 11/21/17 [Vitamin D3] cholestyramine-aspartame 1 ea PO 1000,1900 #14 ea 11/21/17 [Prevalite] multivitamin [Multiple Vitamins] 1 tab PO DAILY #30 tab 11/21/17 pantoprazole [Protonix] 40 mg PO DAILY #30 tab 11/21/17 cefdinir 300 mg PO Q12H 10 Days #20 cap 12/31/17 Allergies Allergy/AdvReac Type Severity Reaction Status Date / Time No Known Allergies Allergy Unverified 12/31/17 05:28 General Stated Complaint: SOB BRI: 3 Review of Systems Review of Systems 8 systems reviewed and otherwise neg PFSH Medical History History of TIA (transient ischemic attack) (Acute) 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 Pleasant, well groomed, interactive. HEAD: Normocephalic, atraumatic ENT: Mucous membranes moist, oropharynx unremarkable, External ear exam unremarkable EYES: PERRL, EOMI NECK: Full ROM, no YANCI, no menigismus CHEST/RESP: Nontender, clear to auscultation bilateral, no wheeze/rhonchi/rales CARDIOVASCULAR: RRR, 3 out of 6 systolic murmur, rub landy. 2+ Rad pulse bilateral ABDOMEN: Soft, nontender, no mass. +Bowel sounds EXT: Full ROM, trace bilateral pretibial edema, no rash Neuro: Grossly normal neurologic exam, conversant, interactive. Psych: Speech fluent, thoughts congruent, affect normal Course Vital Signs Temperature 36.7 C 12/31/17 05:23 Pulse 87 12/31/17 05:23 Respiratory Rate 24 12/31/17 05:23 Blood Pressure 151/74 H 12/31/17 05:23 Pulse Oximetry 94 L 12/31/17 05:23 Temperature 36.7 C 12/31/17 05:23 Temperature Source Temporal Artery Scan 12/31/17 05:23 Pulse 87 12/31/17 05:23 Respiratory Rate 23 12/31/17 05:32 Respiratory Effort 12/31/17 05:32 Respiratory Depth Shallow 12/31/17 05:32 Respiratory Pattern Normal 12/31/17 05:32 Blood Pressure 151/74 H 12/31/17 05:23 Blood Pressure Position Sitting 12/31/17 05:23 Pulse Oximetry 94 L 12/31/17 05:23 Oxygen Delivery Method Room Air 12/31/17 05:23 Oxygen Flow Rate 0 12/31/17 05:23 Pain Level 0 12/31/17 05:23
--- NOTE | 2017-12-31 05:40 | ED.GENADUL_ITS ---
Discharge Plan Disposition Patient Disposition: HOME Condition: Improving Discharge Details Chief Complaint: SOB Clinical Impression: Community acquired pneumonia of right upper lobe of lung Primary Care Provider: Basilio Antunez ED Provider: Miko Saenz Home Meds and New Rx's Prescriptions: New cefdinir 300 mg capsule 300 mg PO Q12H 10 Days Qty: 20 RF: 0 Continue amlodipine 5 mg tablet 10 mg PO DAILY RF: 0 budesonide [Entocort EC] 3 mg capsule,delayed,extend.release 3 mg PO DAILY RF: 0 mirtazapine 15 mg tablet 15 mg PO DAILY RF: 0 pravastatin 20 MG tablet 40 mg PO DAILY RF: 0 finasteride 5 MG tablet 5 mg PO DAILY Qty: 90 RF: 4 nitroglycerin 0.4 MG tablet, sublingual 0.4 mg Sublingual PRN PRNRF: 0 Metoprolol Succinate 50 MG TAB.ER.24H 50 mg PO DAILY RF: 0 acetaminophen [Mapap Extra Strength] 500 MG tablet 500 mg PO PRN PRNRF: 0 aspirin [Aspirin Low-Strength] 81 MG tablet,chewable 81 mg PO DAILY RF: 0 Psyllium [Metamucil] 1 EACH Pkt 1 tsp PO DAILY RF: 0 multivitamin [Multiple Vitamins] Tablet 1 tab PO DAILY Qty: 30 RF: 0 cholecalciferol (vitamin D3) [Vitamin D3] 400 unit Tablet 400 unit PO BID Qty: 30 RF: 0 cholestyramine-aspartame [Prevalite] 4 gram Powder In Packet 1 ea PO 1000,1900 Qty: 14 RF: 0 pantoprazole [Protonix] 40 mg tablet,delayed release (DR/EC) 40 mg PO DAILY Qty: 30 RF: 0 apixaban [Eliquis] 5 mg tablet 5 mg PO BID Qty: 60 RF: 0 calcitriol 0.25 mcg Capsule 0.25 mcg PO QWEEK RF: 0 calcium carbonate [Tums Ultra] 1,177 mg tablet,chewable 1,177 mg PO DAILY Qty: 10 RF: 0 magnesium oxide 400 mg capsule 400 mg PO DAILY Qty: 10 RF: 0 Discharge Instructions Instructions: Community Acquired Pneumonia (ED), Pneumonia (ED) Additional Instructions: Home to rest today. Followup with treatment of your chronic anemia and chronic kidney disease as planned. Antibiotics as prescribed. Return for any acute concern or for worsening. Medical Decision Making 67-year-old male with a history of cardiomyopathy, chronic kidney disease, chronic anemia presents with intermittent episodes of exertional shortness of breath over weeks time. He is afebrile and well-appearing with normal oxygenation. Differential diagnosis is broad including pneumonia, fluid overload, ACS. Patient placed in a phototypesetting equipment monitor referred for laboratory testing and chest x-ray. Diagnostic studies notable for unchanged chronic anemia, unchanged chronic kidney injury with creatinine of 4.6. Potassium is 3.6. Troponin is negative; BNP is elevated at 15,000, but difficult to tire wrapper given his chronic renal insufficiency. He does not have hypoxia. Chest x-ray with right upper lobe pneumonia. Patient given Rocephin IV in the ED , will place on a course of Cefdinir. He has prestading folowup for anemia and CKI. We will ask that care management/unit director arrange a followup appointment in PMD clinic. Lab Data Lab results reviewed: Yes I reviewed the patient's lab results. Laboratory Tests Range/Units 12/31/17 12/31/17 05:45 05:45 WBC (4.4-10.8) k/cumm 9.53 RBC (4.50-6.00) m/cumm 2.82 L Hgb (13.5-17.5) g/dL 8.1 L Hct (40.0-50.0) % 26.3 L MCV (80-95) fL 93.3 MCH (27.0-33.0) pg 28.7 MCHC (32.0-36.0) g/dL 30.8 L RDW (11.8-14.1) % 14.7 H Plt Count (130-400) x1000/uL 348 MPV (8.0-11.0) fL 8.4 Immature Gran % 0.4 Neutrophils % 81.1 Lymphocytes % 8.1 Monocytes % 7.6 Eosinophils % 2.4 Basophils % 0.4 Absolute Neutrophils (1.2-6.7) k/cumm 7.73 H Absolute Lymphocytes (1.2-3.4) k/cumm 0.77 L Absolute Monocytes (0.11-0.7) k/cumm 0.72 H Absolute Eosinophils (0.0-0.7) k/cumm 0.23 Absolute Basophils (0.0-0.2) k/cumm 0.04 RBC Morphology See below Polychromasia Present Anisocytosis 1+ Sodium (136-145) mmol/L 140 Potassium (3.5-5.1) mmol/L 3.6 Chloride (98-107) mmol/L 105 Carbon Dioxide (21.0-32.0) mmol/L 20.8 L Anion Gap (3-11) mmol/L 14.2 H BUN (7-18) mg/dL 37 H Creatinine (0.70-1.30) mg/dL 4.67 H* Estimated GFR/1.73 m2 (mL/min/1.73m2) 12.67 Glucose (70-100) mg/dL 124 H Calcium (8.5-10.1) mg/dL 8.0 L Total Bilirubin (0.2-1.0) mg/dL 0.3 AST (15-37) U/L 18 ALT (12-78) U/L 29 Alkaline Phosphatase (46-116) U/L 101 Troponin I (0.00-0.06) ng/mL 0.06 NT-Pro-B Natriuret Pep ( - 299) pg/mL 61274 H Total Protein (6.4-8.2) g/dL 6.9 Albumin (3.4-5.0) g/dL 3.0 L ECG Data Attestation: I personally reviewed and interpreted this ECG (s) as follows: Interpretation: Normal sinus rhythm, rate of 84, intraventricular conduction delay with left bundle branch block and repolarization abnormalities. HPI General Mode of arrival: ambulatory . Date/Time Provider Initiated Documentation: 12/31/17 05:21 . Limitations to Documentation: no limitations . Information obtained by: patient . History of Present Illness 67 year old M presents to the emergency department with the chief complaint of Shortness of breath, described as moderate and similar to prior episodes, Quality is described as dull, and is localized to the chest. Patient reports no radiation. Patient started experiencing this day(s) and it has been intermittent. Rest improves symptom(s), Movement worsens symptoms . Patient notes cough. HPI Narrative: 67-year-old male presents the emergency department stating he has had intermittent episodes of exertional shortness of breath since being discharged from the hospital in early November. He states that this morning he got up at his normal time and had increased exertional dyspnea when going to the bathroom. Is been associated with a cough and congestion. He is noted chronic lower extremity edema. He states that his Spironolactone was discontinued upon his recent discharge from the hospital. He has known chronic kidney disease, known chronic anemia for which he follows with [facility]. Related Data Home Medications Medication Instructions Recorded Confirmed pravastatin 40 mg PO DAILY tab-cap 07/02/15 12/31/17 finasteride 5 mg PO DAILY #90 tab-cap 03/09/16 12/31/17 Psyllium [Metamucil] 1 tsp PO DAILY 11/13/16 12/31/17 acetaminophen [Mapap Extra 500 mg PO PRN PRN 11/13/16 12/31/17 Strength] aspirin [Aspirin Low-Strength] 81 mg PO DAILY 11/13/16 12/31/17 Metoprolol Succinate 50 mg PO DAILY tab-cap 01/11/17 12/31/17 nitroglycerin 0.4 mg SUBLINGUAL PRN PRN 01/11/17 12/31/17 calcium carbonate [Tums Ultra] 1,177 mg PO DAILY #10 tab 11/08/17 12/31/17 magnesium oxide 400 mg PO DAILY #10 cap 11/08/17 12/31/17 apixaban [Eliquis] 5 mg PO BID #60 tab 11/21/17 12/31/17 cholecalciferol (vitamin D3) 400 unit PO BID #30 tab 11/21/17 12/31/17 [Vitamin D3] cholestyramine-aspartame 1 ea PO 1000,1900 #14 ea 11/21/17 12/31/17 [Prevalite] multivitamin [Multiple Vitamins] 1 tab PO DAILY #30 tab 11/21/17 12/31/17 pantoprazole [Protonix] 40 mg PO DAILY #30 tab 11/21/17 12/31/17 amlodipine 5 mg tablet 10 mg PO DAILY tab 12/03/17 12/31/[address] - ER 3 mg 3 mg PO DAILY cap 12/03/17 12/31/17 capsule,delayed,extended release mirtazapine 15 mg tablet 15 mg PO DAILY 12/03/17 12/31/17 calcitriol 0.25 mcg PO QWEEK 12/31/17 12/31/17 cefdinir 300 mg PO Q12H 10 Days #20 cap 11/16/18 Previous Rx's Medication Instructions Recorded calcium carbonate [Tums Ultra] 1,177 mg PO DAILY #10 tab 11/08/17 magnesium oxide 400 mg PO DAILY #10 cap 11/08/17 apixaban [Eliquis] 5 mg PO BID #60 tab 11/21/17 cholecalciferol (vitamin D3) 400 unit PO BID #30 tab 11/21/17 [Vitamin D3] cholestyramine-aspartame 1 ea PO 1000,1900 #14 ea 11/21/17 [Prevalite] multivitamin [Multiple Vitamins] 1 tab PO DAILY #30 tab 11/21/17 pantoprazole [Protonix] 40 mg PO DAILY #30 tab 11/21/17 cefdinir 300 mg PO Q12H 10 Days #20 cap 12/31/17 Allergies Allergy/AdvReac Type Severity Reaction Status Date / Time No Known Allergies Allergy Unverified 12/31/17 05:28 General Stated Complaint: SOB BRI: 3 Review of Systems Review of Systems 8 systems reviewed and otherwise neg PFSH Medical History History of TIA (transient ischemic attack) (Acute) 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 Pleasant, well groomed, interactive. HEAD: Normocephalic, atraumatic ENT: Mucous membranes moist, oropharynx unremarkable, External ear exam unremarkable EYES: PERRL, EOMI NECK: Full ROM, no YANCI, no menigismus CHEST/RESP: Nontender, clear to auscultation bilateral, no wheeze/rhonchi/rales CARDIOVASCULAR: RRR, 3 out of 6 systolic murmur, rub landy. 2+ Rad pulse bilateral ABDOMEN: Soft, nontender, no mass. +Bowel sounds EXT: Full ROM, trace bilateral pretibial edema, no rash Neuro: Grossly normal neurologic exam, conversant, interactive. Psych: Speech fluent, thoughts congruent, affect normal Course Vital Signs Temperature 36.7 C 12/31/17 05:23 Pulse 87 12/31/17 05:23 Respiratory Rate 24 12/31/17 05:23 Blood Pressure 151/74 H 12/31/17 05:23 Pulse Oximetry 94 L 12/31/17 05:23 Temperature 36.7 C 12/31/17 05:23 Temperature Source Temporal Artery Scan 12/31/17 05:23 Pulse 87 12/31/17 05:23 Respiratory Rate 23 12/31/17 05:32 Respiratory Effort 12/31/17 05:32 Respiratory Depth Shallow 12/31/17 05:32 Respiratory Pattern Normal 12/31/17 05:32 Blood Pressure 151/74 H 12/31/17 05:23 Blood Pressure Position Sitting 12/31/17 05:23 Pulse Oximetry 94 L 12/31/17 05:23 Oxygen Delivery Method Room Air 12/31/17 05:23 Oxygen Flow Rate 0 12/31/17 05:23 Pain Level 0 12/31/17 05:23
[2017-12-31 05:51] LABS: Abs Immature Grans 0.04 k/cumm (0.0-0.09); Absolute Basophil Count 0.04 k/cumm (0.0-0.2); Absolute Eosinophil Count 0.23 k/cumm (0.0-0.7); Absolute Lymphocyte Count 0.77 k/cumm (1.2-3.4); Absolute Monocyte Count 0.72 k/cumm (0.11-0.7); Absolute Neutrophil Count 7.73 k/cumm (1.2-6.7); Basophils % 0.4; Eosinophils % 2.4; HCT 26.3 % (40.0-50.0); HGB 8.1 g/dL (13.5-17.5); Immature Grans % 0.4; Lymphocytes % 8.1; Mean Corp. HGB Concentration 30.8 g/dL (32.0-36.0); Mean Corpuscular Hemoglobin 28.7 pg (27.0-33.0); Mean Corpuscular Volume 93.3 fL (80-95); Mean Platelet Volume 8.4 fL (8.0-11.0); Monocytes % 7.6; Neutrophils % 81.1; Platelet Count 348 x1000/uL (130-400); RBC 2.82 m/cumm (4.50-6.00); RBC Distribution Width 14.7 % (11.8-14.1); White Blood Cell Count 9.53 k/cumm (4.4-10.8)
--- NOTE | 2017-12-31 05:55 | DI.RAD_ITS ---
SYMPTOM/DIAGNOSIS: SOB, COUGH FRONTAL AND LATERAL CHEST: Comparison is made with 11/10/17. The heart is enlarged but stable. Pacing wires are in stable position. There is a right upper lobe infiltrate. The lungs are otherwise clear. No effusions or pneumothoraces are identified. IMPRESSION: Right upper lobe pneumonia.
[2017-12-31 06:06] LABS: Anisocytosis 1+; Polychromasia Present
[2017-12-31 06:11] LABS: ALT 29 U/L (12-78); AST 18 U/L (15-37); Alkaline Phosphatase 101 U/L (46-116); Anion Gap 14.2 mmol/L (3-11); BUN 37 mg/dL (7-18); Bilirubin, Total 0.3 mg/dL (0.2-1.0); CO2 20.8 mmol/L (21.0-32.0); Chloride 105 mmol/L (98-107); Estimated GFR 12.67 (mL/min/1.73m2); Glucose 124 mg/dL (70-100); NT-proBNP 15352 pg/mL; Potassium 3.6 mmol/L (3.5-5.1); Sodium 140 mmol/L (136-145); Total Protein 6.9 g/dL (6.4-8.2); Troponin I 0.06 ng/mL (0.00-0.06)
[2017-12-31 06:16] LABS: CREATININE 4.67 mg/dL (0.70-1.30)
--- NOTE | 2017-12-31 06:23 | DI.VRAD_ITS ---
EXAM: XR Chest, 2 Views EXAM DATE/TIME: 12/31/2017 5:35 AM CLINICAL HISTORY: 67 years old, male; Signs and symptoms; Shortness of breath; Prior surgery; Surgery date: 6+ months; Surgery type: Pacemaker in 1996; Patient HX: SOB with activity, recent hospital stay TECHNIQUE: XR of the chest, 2 views. COMPARISON: CR XR CHEST 2V PA LATERAL 11/10/2017 12:51 PM FINDINGS: Lungs: Right upper lobe airspace process. Pleural space: Unremarkable. No pleural effusion. No pneumothorax. Heart/Mediastinum: Cardiac silhouette is enlarged, unchanged. Bones/joints: Unremarkable. Other findings: ICD. IMPRESSION: 1. Right upper lobe pneumonia. 2. Stable cardiomegaly. Dictated and Authenticated by: Tawanda Lee MD. Ordering:ISHMAEL MEANS MD
--- NOTE | 2017-12-31 06:58 | NUR.NOTE ---
Assumed care of patient, pt. is sleeping, RR WNL. Will continue to monitor.
== END 2017-12-31 07:31 | disposition home or self-care (01) ==
PROVIDERS: Emergency Provider Emergency Medicine; PCP General Practice
DX: J18.9 Pneumonia, unspecified organism (principal); I13.0 Hypertensive heart and chronic kidney disease with heart failure and stage 1 through stage 4 chronic kidney disease, or unspecified chronic kidney disease; I50.9 Heart failure, unspecified; N18.9 Chronic kidney disease, unspecified; Z86.711 Personal history of pulmonary embolism; I48.91 Unspecified atrial fibrillation; Z79.01 Long term (current) use of anticoagulants; Z87.891 Personal history of nicotine dependence
CPT/HCPCS: 36415; 80053; 93005; 96365; 99285; 71046; 83880; 84484; 85025; 93010; J0696

== ENCOUNTER 2018-01-08 10:40 | Inpatient (IN) | payer MEDICARE, MEDICAID, SELFPAY ==
[2018-01-08] VITALS (22 sets, daily range): BP systolic 132–148; BP diastolic 66–97; PULSE 69–93; RESP 14–33; TEMP 36.4–37.1; O2SAT 91–98
--- NOTE | 2018-01-08 11:26 | W.ED.GENAD ---
Discharge Plan Discharge Details Chief Complaint: SOB Primary Care Provider: Basilio Antunez ED Provider: Luis Alberto Bajwa Home Meds and New Rx's Prescriptions: No Action amlodipine 5 mg tablet 10 mg PO DAILY RF: 0 budesonide [Entocort EC] 3 mg capsule,delayed,extend.release 3 mg PO DAILY RF: 0 mirtazapine 15 mg tablet 15 mg PO DAILY RF: 0 pravastatin 20 MG tablet 40 mg PO DAILY RF: 0 finasteride 5 MG tablet 5 mg PO DAILY Qty: 90 RF: 4 nitroglycerin 0.4 MG tablet, sublingual 0.4 mg Sublingual PRN PRNRF: 0 Metoprolol Succinate 50 MG TAB.ER.24H 50 mg PO DAILY RF: 0 acetaminophen [Mapap Extra Strength] 500 MG tablet 500 mg PO PRN PRNRF: 0 aspirin [Aspirin Low-Strength] 81 MG tablet,chewable 81 mg PO DAILY RF: 0 Psyllium [Metamucil] 1 EACH Pkt 1 tsp PO DAILY RF: 0 multivitamin [Multiple Vitamins] Tablet 1 tab PO DAILY Qty: 30 RF: 0 cholecalciferol (vitamin D3) [Vitamin D3] 400 unit Tablet 400 unit PO BID Qty: 30 RF: 0 cholestyramine-aspartame [Prevalite] 4 gram Powder In Packet 1 ea PO 1000,1900 Qty: 14 RF: 0 pantoprazole [Protonix] 40 mg tablet,delayed release (DR/EC) 40 mg PO DAILY Qty: 30 RF: 0 apixaban [Eliquis] 5 mg tablet 5 mg PO BID Qty: 60 RF: 0 calcitriol 0.25 mcg Capsule 0.25 mcg PO QWEEK RF: 0 cefdinir 300 mg capsule 300 mg PO Q12H 10 Days Qty: 20 RF: 0 magnesium oxide 400 mg capsule 400 mg PO DAILY Qty: 10 RF: 0 furosemide 40 mg Tablet 40 mg PO DAILY PRNRF: 0 calcium carbonate [Tums Ultra] 1,177 mg tablet,chewable 1,177 mg PO DAILY PRNRF: 0 Medical Decision Making 67-year-old male with a history of cardiomyopathy, chronic kidney disease, chronic anemia. He is afebrile and well-appearing with normal oxygenation and no CP. Differential diagnosis is broad including unresolved pneumonia, KUNAL on CKI, and fluid retention from lack of aldactone. Patient referred for laboratory testing and chest x-ray. Diagnostic studies notable for unchanged chronic anemia, unchanged chronic kidney injury with creatinine of 4.6. Potassium is 4. Troponin is negative 0.05; [place] [address] up from previous 15,352, NA 142, Mg 2. He does have slight hypoxia in the low 90's but no distress. Chest X-ray: To me looks likeworsening of the right upper lobe pneumonia. Pt is afebrile non toxic looking and does not look clinically like he has pneumonia. Discussed with Dr. Augustine he accepts patient for admission on Dx of worsening pneumonia failed outpatient antibiotics. Pt apprised and is agreeable to admission. Imaging Data Radiologic Study: Imaging: X-Ray My impression: ? worsening of the RUL pneumonia. Radiologist's impression: FINDINGS: Interval increase in right upper lobe consolidation consistent with worsening of pneumonia or pneumonitis. No other consolidations. Cardiomegaly unchanged. Left-sided pacemaker device in good position. Costophrenic angles are sharp. IMPRESSION: Interval increase in right upper lobe consolidation consistent with worsening of pneumonia or pneumonitis. Lab Data Lab results reviewed: Yes I reviewed the patient's lab results. Lab results narrative: Diagnostic studies notable for unchanged chronic anemia, unchanged chronic kidney injury with creatinine of 4.6. Potassium is 4. Troponin is negative 0.05; [place] [address] up from previous 15,352, NA 142, Mg 2. Creatnine unchanged at 4.67. ECG Data Interpretation: No acute ST changes read with Dr. Hernandez. HPI General Mode of arrival: ambulatory. Date/Time Provider Initiated Documentation: 01/08/18 11:02. Limitations to Documentation: no limitations. Information obtained by: patient. History of Present Illness 67 year old M presents to the emergency department with the chief complaint of CKD, HPI Narrative: 67 y/o male here with concerns of increased leg/foot swelling, pain to feet, and SOB. He was seen here one week ago with similar complaints and was for right upper lobe pneumonia. Patient given Rocephin IV in the ED, and placed on a course of Cefdinir. He has a history of cardiomyopathy, chronic kidney disease, chronic anemia presents with intermittent episodes of exertional shortness of breath over 2 weeks time. He is afebrile and well-appearing with normal oxygenation. Differential diagnosis is broad including pneumonia and fluid overload. He tells me he does not have a cough or fever. He is almost done with his antibiotics. He tells me his editor in chief is ready for him to go on dialysis and recommended trial period to see how he responds and feels. He has been reluctant but now is starting consider. He further explains that he was in this hospital a month ago (hospital course pasted below) and had medication changes resulting in his fluid pill (aldactone) being DC'd. Since that time he has had the increase in swelling and sob. Denies CP. Hospital Course: Mr Collins presented to [facility] on 11/11/17 for intractable diarrhea thought to be secondary due to a flare of suspected underlying ulcerative colitis. His therapy here consisted of oral budesonide, sulfasalazine (recommended by [facility] gastro[facility]), cortisone enemas. Unfortunately, sulfasalazine therapy had to be stopped as it appears to have resulted in acute kidney injury with hyperkalemia. The patient does have CKD stage 5 and was aldactone - which was also discontinued. The diarrhea took a while to improve - and it finally stopped after initiation of questran. The patient will be discharged home with oral budesonide as well as questran and is recommended to follow up with his rn hemodialysis charge for further management of his UC. The patient's anticoagluation with coumadin had to be placed on hold here as he was supratherapeutic here for majority of his hospitalization. He does continue to require anticoagulation, but because it was so difficult to get the patient to have a therapeutic INR, other modalities of antiocoagulation were considered. At this time, the safest agent is felt to be eliquis - as it can be tolerated with his kidney function. He was hemoccult positive, but did not require any transfusions. His baseline hemoglobin is around 10, and it is 8.5 on discharge, felt to be due to blood draws and dilutional. The patient is instructed to return to the hospital if he notices any bleeding on eliquis. Finally, review of patient's data revealed a positive blood culture on 11/10/17 growing Clostridium Ramosum. He was found to be C. Diff negative (his other fecal pathogens PCR is pending at time of discharge). Repeat blood cultures done on 11/21/17 were negative. Clinically, the patient did not appear to have a bacteremia. We will not be continuing his antibiotics on discharge. The patient's physical exam is benign, and he is hemodynamically stable. His Cr is 4.67 (around baseline) and potassium is 4.7. He will need to follow a renal diet and have his CBC and BMP monitored as outpatient. He is felt to be safe for discharge. Related Data Home Medications Medication Instructions Recorded Confirmed pravastatin 40 mg PO DAILY tab-cap 07/02/15 01/08/18 finasteride 5 mg PO DAILY #90 tab-cap 03/09/16 01/08/18 Psyllium [Metamucil] 1 tsp PO DAILY 11/13/16 01/08/18 acetaminophen [Mapap Extra 500 mg PO PRN PRN 11/13/16 01/08/18 Strength] aspirin [Aspirin Low-Strength] 81 mg PO DAILY 11/13/16 01/08/18 Metoprolol Succinate 50 mg PO DAILY tab-cap 01/11/17 01/08/18 nitroglycerin 0.4 mg SUBLINGUAL PRN PRN 01/11/17 01/08/18 magnesium oxide 400 mg PO DAILY #10 cap 11/08/17 01/08/18 apixaban [Eliquis] 5 mg PO BID #60 tab 11/21/17 01/08/18 cholecalciferol (vitamin D3) 400 unit PO BID #30 tab 11/21/17 01/08/18 [Vitamin D3] cholestyramine-aspartame 1 ea PO 1000,1900 #14 ea 11/21/17 01/08/18 [Prevalite] multivitamin [Multiple Vitamins] 1 tab PO DAILY #30 tab 11/21/17 01/08/18 pantoprazole [Protonix] 40 mg PO DAILY #30 tab 11/21/17 01/08/18 amlodipine 5 mg tablet 10 mg PO DAILY tab 12/03/17 01/08/[address] - ER 3 mg 3 mg PO DAILY cap 12/03/17 01/08/18 capsule,delayed,extended release mirtazapine 15 mg tablet 15 mg PO DAILY 12/03/17 01/08/18 calcitriol 0.25 mcg PO QWEEK 12/31/17 01/08/18 cefdinir 300 mg PO Q12H 10 Days #20 cap 12/31/17 01/08/18 calcium carbonate [Tums Ultra] 1,177 mg PO DAILY PRN 01/08/18 01/08/18 furosemide 40 mg PO DAILY PRN 01/08/18 01/08/18 Previous Rx's Medication Instructions Recorded magnesium oxide 400 mg PO DAILY #10 cap 11/08/17 apixaban [Eliquis] 5 mg PO BID #60 tab 11/21/17 cholecalciferol (vitamin D3) 400 unit PO BID #30 tab 11/21/17 [Vitamin D3] cholestyramine-aspartame 1 ea PO 1000,1900 #14 ea 11/21/17 [Prevalite] multivitamin [Multiple Vitamins] 1 tab PO DAILY #30 tab 11/21/17 pantoprazole [Protonix] 40 mg PO DAILY #30 tab 11/21/17 cefdinir 300 mg PO Q12H 10 Days #20 cap 12/31/17 Allergies Allergy/AdvReac Type Severity Reaction Status Date / Time No Known Allergies Allergy Unverified 01/08/18 10:53 General Stated Complaint: SOB BRI: 3 Review of Systems Eyes Reports system reviewed and no additional complaints, except as docu ENT Reports system reviewed and no additional complaints, except as docu Cardiovascular Reports leg edema and Reports dyspnea on exertion Respiratory Reports dyspnea on exertion Gastrointestinal Reports system reviewed and no additional complaints, except as docu Genitourinary Reports dysuria Musculoskeletal Reports system reviewed and no additional complaints, except as docu Integumentary/Breasts Reports system reviewed and no additional complaints, except as docu Hematologic/Lymphatic Reports system reviewed and no additional complaints, except as docu Exam Const General: cooperative, healthy appearing, comfortable and no acute distress Nutritional Appearance: overweight Orientation: alert, awake and oriented x3 HENMT Head: atraumatic Ears: hearing grossly normal bilaterally and external ears normal General nose exam: external nose normal and nares normal Mouth: oral mucosae normal and moist mucous membranes Eyes General: appearance normal, both eyes and all related structures Neck Neck: normal visual inspection, full ROM, no lymphadenopathy and no JVD Resp Effort & Inspection: normal respiratory effort Auscultation: clear to auscultation bilaterally Cardio Rate: regular rate Rhythm: regular rhythm Heart Sounds: murmur GI Inspection: normal to inspection Palpation: soft and nontender Male General Exam: No ecchymosis, Yes edema, No erythema, No inguinal lymphadenopathy and No tenderness Penis: edematous and not erythematous Meatus: meatus normal Scrotum: no ecchymosis, edematous and not erythematous Back/Spine/Pelvis Back: no CVA tenderness and No back tenderness Skin General skin exam: no rashes or lesions noted Other: pale to lower extremeties Neuro General: alert, awake, oriented x3 and gait normal Extrem General: full ROM and normal capillary refill Right upper extremity: full ROM Left upper extremity: full ROM Right lower extremity: full ROM and edema Details: 2+ Left lower extremity: full ROM and edema Details: 2+ Psych Appearance: grossly normal Speech and Movement: speech and movement normal Mood: congruent mood Affect: normal affect Attitude: cooperative Thought Process: normal Thought Content: normal Insight: insight good Judgment: judgment good Course Vital Signs Temperature 36.4 C L 01/08/18 10:44 Pulse 74 01/08/18 10:44 Respiratory Rate 16 01/08/18 10:44 Blood Pressure 148/66 H 01/08/18 10:44 Pulse Oximetry 94 L 01/08/18 10:44 Temperature 36.4 C L 01/08/18 10:44 Temperature Source Skin 01/08/18 10:44 Pulse 74 01/08/18 10:44 Respiratory Rate 16 01/08/18 10:44 Respiratory Effort Labored 01/08/18 10:58 Respiratory Depth Normal 01/08/18 10:58 Respiratory Pattern Normal 01/08/18 10:58 Blood Pressure 148/66 H 01/08/18 10:44 Pulse Oximetry 94 L 01/08/18 10:44 Oxygen Delivery Method Room Air 01/08/18 10:44 Oxygen Flow Rate 0 01/08/18 10:44 Pain Level 2 01/08/18 10:44
--- NOTE | 2018-01-08 11:31 | ED.GENADUL_ITS ---
Discharge Plan Discharge Details Chief Complaint: SOB Primary Care Provider: Basilio Antunez ED Provider: Luis Alberto Bajwa Home Meds and New Rx's Prescriptions: No Action amlodipine 5 mg tablet 10 mg PO DAILY RF: 0 budesonide [Entocort EC] 3 mg capsule,delayed,extend.release 3 mg PO DAILY RF: 0 mirtazapine 15 mg tablet 15 mg PO DAILY RF: 0 pravastatin 20 MG tablet 40 mg PO DAILY RF: 0 finasteride 5 MG tablet 5 mg PO DAILY Qty: 90 RF: 4 nitroglycerin 0.4 MG tablet, sublingual 0.4 mg Sublingual PRN PRNRF: 0 Metoprolol Succinate 50 MG TAB.ER.24H 50 mg PO DAILY RF: 0 acetaminophen [Mapap Extra Strength] 500 MG tablet 500 mg PO PRN PRNRF: 0 aspirin [Aspirin Low-Strength] 81 MG tablet,chewable 81 mg PO DAILY RF: 0 Psyllium [Metamucil] 1 EACH Pkt 1 tsp PO DAILY RF: 0 multivitamin [Multiple Vitamins] Tablet 1 tab PO DAILY Qty: 30 RF: 0 cholecalciferol (vitamin D3) [Vitamin D3] 400 unit Tablet 400 unit PO BID Qty: 30 RF: 0 cholestyramine-aspartame [Prevalite] 4 gram Powder In Packet 1 ea PO 1000,1900 Qty: 14 RF: 0 pantoprazole [Protonix] 40 mg tablet,delayed release (DR/EC) 40 mg PO DAILY Qty: 30 RF: 0 apixaban [Eliquis] 5 mg tablet 5 mg PO BID Qty: 60 RF: 0 calcitriol 0.25 mcg Capsule 0.25 mcg PO QWEEK RF: 0 cefdinir 300 mg capsule 300 mg PO Q12H 10 Days Qty: 20 RF: 0 magnesium oxide 400 mg capsule 400 mg PO DAILY Qty: 10 RF: 0 furosemide 40 mg Tablet 40 mg PO DAILY PRNRF: 0 calcium carbonate [Tums Ultra] 1,177 mg tablet,chewable 1,177 mg PO DAILY PRNRF: 0 Medical Decision Making 67-year-old male with a history of cardiomyopathy, chronic kidney disease, chronic anemia. He is afebrile and well-appearing with normal oxygenation and no CP. Differential diagnosis is broad including unresolved pneumonia, KUNAL on CKI, and fluid retention from lack of aldactone. Patient referred for laboratory testing and chest x-ray. Diagnostic studies notable for unchanged chronic anemia, unchanged chronic kidney injury with creatinine of 4.6. Potassium is 4. Troponin is negative 0.05; [place] [address] up from previous 15,352, NA 142, Mg 2. He does have slight hypoxia in the low 90's but no distress. Chest X-ray: To me looks likeworsening of the right upper lobe pneumonia. Pt is afebrile non toxic looking and does not look clinically like he has pneumonia. Discussed with Dr. Augustine he accepts patient for admission on Dx of worsening pneumonia failed outpatient antibiotics. Pt apprised and is agreeable to admission. Imaging Data Radiologic Study: Imaging: X-Ray My impression: ? worsening of the RUL pneumonia. Radiologist's impression: FINDINGS: Interval increase in right upper lobe consolidation consistent with worsening of pneumonia or pneumonitis. No other consolidations. Cardiomegaly unchanged. Left-sided pacemaker device in good position. Costophrenic angles are sharp. IMPRESSION: Interval increase in right upper lobe consolidation consistent with worsening of pneumonia or pneumonitis. Lab Data Lab results reviewed: Yes I reviewed the patient's lab results. Lab results narrative: Diagnostic studies notable for unchanged chronic anemia, unchanged chronic kidney injury with creatinine of 4.6. Potassium is 4. Troponin is negative 0.05; [place] [address] up from previous 15,352, NA 142, Mg 2. Creatnine unchanged at 4.67. ECG Data Interpretation: No acute ST changes read with Dr. Hernandez. HPI General Mode of arrival: ambulatory . Date/Time Provider Initiated Documentation: 01/08/18 11:02 . Limitations to Documentation: no limitations . Information obtained by: patient . History of Present Illness 67 year old M presents to the emergency department with the chief complaint of CKD, HPI Narrative: 67 y/o male here with concerns of increased leg/foot swelling, pain to feet, and SOB. He was seen here one week ago with similar complaints and was for right upper lobe pneumonia. Patient given Rocephin IV in the ED, and placed on a course of Cefdinir. He has a history of cardiomyopathy, chronic kidney disease, chronic anemia presents with intermittent episodes of exertional shortness of breath over 2 weeks time. He is afebrile and well- appearing with normal oxygenation. Differential diagnosis is broad including pneumonia and fluid overload. He tells me he does not have a cough or fever. He is almost done with his antibiotics. He tells me his health analytics consultant is ready for him to go on dialysis and recommended trial period to see how he responds and feels. He has been reluctant but now is starting consider. He further explains that he was in this hospital a month ago (hospital course pasted below) and had medication changes resulting in his fluid pill (aldactone) being DC'd. Since that time he has had the increase in swelling and sob. Denies CP. Hospital Course: Mr Collins presented to [facility] on 11/11/17 for intractable diarrhea thought to be secondary due to a flare of suspected underlying ulcerative colitis. His therapy here consisted of oral budesonide, sulfasalazine (recommended by [facility]), cortisone enemas. Unfortunately, sulfasalazine therapy had to be stopped as it appears to have resulted in acute kidney injury with hyperkalemia. The patient does have CKD stage 5 and was aldactone - which was also discontinued. The diarrhea took a while to improve - and it finally stopped after initiation of questran. The patient will be discharged home with oral budesonide as well as questran and is recommended to follow up with his steel cutter for further management of his UC. The patient's anticoagluation with coumadin had to be placed on hold here as he was supratherapeutic here for majority of his hospitalization. He does continue to require anticoagulation, but because it was so difficult to get the patient to have a therapeutic INR, other modalities of antiocoagulation were considered. At this time, the safest agent is felt to be eliquis - as it can be tolerated with his kidney function. He was hemoccult positive, but did not require any transfusions. His baseline hemoglobin is around 10, and it is 8.5 on discharge, felt to be due to blood draws and dilutional. The patient is instructed to return to the hospital if he notices any bleeding on eliquis. Finally, review of patient's data revealed a positive blood culture on 11/10/17 growing Clostridium Ramosum. He was found to be C. Diff negative (his other fecal pathogens PCR is pending at time of discharge). Repeat blood cultures done on 11/21/17 were negative. Clinically, the patient did not appear to have a bacteremia. We will not be continuing his antibiotics on discharge. The patient's physical exam is benign, and he is hemodynamically stable. His Cr is 4.67 (around baseline) and potassium is 4.7. He will need to follow a renal diet and have his CBC and BMP monitored as outpatient. He is felt to be safe for discharge. Related Data Home Medications Medication Instructions Recorded Confirmed pravastatin 40 mg PO DAILY tab-cap 07/02/15 01/08/18 finasteride 5 mg PO DAILY #90 tab-cap 03/09/16 01/08/18 Psyllium [Metamucil] 1 tsp PO DAILY 11/13/16 01/08/18 acetaminophen [Mapap Extra 500 mg PO PRN PRN 11/13/16 01/08/18 Strength] aspirin [Aspirin Low-Strength] 81 mg PO DAILY 11/13/16 01/08/18 Metoprolol Succinate 50 mg PO DAILY tab-cap 01/11/17 01/08/18 nitroglycerin 0.4 mg SUBLINGUAL PRN PRN 01/11/17 01/08/18 magnesium oxide 400 mg PO DAILY #10 cap 11/08/17 01/08/18 apixaban [Eliquis] 5 mg PO BID #60 tab 11/21/17 01/08/18 cholecalciferol (vitamin D3) 400 unit PO BID #30 tab 11/21/17 01/08/18 [Vitamin D3] cholestyramine-aspartame 1 ea PO 1000,1900 #14 ea 11/21/17 01/08/18 [Prevalite] multivitamin [Multiple Vitamins] 1 tab PO DAILY #30 tab 11/21/17 01/08/18 pantoprazole [Protonix] 40 mg PO DAILY #30 tab 11/21/17 01/08/18 amlodipine 5 mg tablet 10 mg PO DAILY tab 12/03/17 01/08/[address] - ER 3 mg 3 mg PO DAILY cap 12/03/17 01/08/18 capsule,delayed,extended release mirtazapine 15 mg tablet 15 mg PO DAILY 12/03/17 01/08/18 calcitriol 0.25 mcg PO QWEEK 12/31/17 01/08/18 cefdinir 300 mg PO Q12H 10 Days #20 cap 12/31/17 01/08/18 calcium carbonate [Tums Ultra] 1,177 mg PO DAILY PRN 01/08/18 01/08/18 furosemide 40 mg PO DAILY PRN 01/08/18 01/08/18 Previous Rx's Medication Instructions Recorded magnesium oxide 400 mg PO DAILY #10 cap 11/08/17 apixaban [Eliquis] 5 mg PO BID #60 tab 11/21/17 cholecalciferol (vitamin D3) 400 unit PO BID #30 tab 11/21/17 [Vitamin D3] cholestyramine-aspartame 1 ea PO 1000,1900 #14 ea 11/21/17 [Prevalite] multivitamin [Multiple Vitamins] 1 tab PO DAILY #30 tab 11/21/17 pantoprazole [Protonix] 40 mg PO DAILY #30 tab 11/21/17 cefdinir 300 mg PO Q12H 10 Days #20 cap 12/31/17 Allergies Allergy/AdvReac Type Severity Reaction Status Date / Time No Known Allergies Allergy Unverified 01/08/18 10:53 General Stated Complaint: SOB BRI: 3 Review of Systems Eyes Reports system reviewed and no additional complaints, except as docu ENT Reports system reviewed and no additional complaints, except as docu Cardiovascular Reports leg edema and Reports dyspnea on exertion Respiratory Reports dyspnea on exertion Gastrointestinal Reports system reviewed and no additional complaints, except as docu Genitourinary Reports dysuria Musculoskeletal Reports system reviewed and no additional complaints, except as docu Integumentary/Breasts Reports system reviewed and no additional complaints, except as docu Hematologic/Lymphatic Reports system reviewed and no additional complaints, except as docu Exam Const General: cooperative, healthy appearing, comfortable and no acute distress Nutritional Appearance: overweight Orientation: alert, awake and oriented x3 HENMT Head: atraumatic Ears: hearing grossly normal bilaterally and external ears normal General nose exam: external nose normal and nares normal Mouth: oral mucosae normal and moist mucous membranes Eyes General: appearance normal, both eyes and all related structures Neck Neck: normal visual inspection, full ROM, no lymphadenopathy and no JVD Resp Effort & Inspection: normal respiratory effort Auscultation: clear to auscultation bilaterally Cardio Rate: regular rate Rhythm: regular rhythm Heart Sounds: murmur GI Inspection: normal to inspection Palpation: soft and nontender Male General Exam: No ecchymosis, Yes edema, No erythema, No inguinal lymphadenopathy and No tenderness Penis: edematous and not erythematous Meatus: meatus normal Scrotum: no ecchymosis, edematous and not erythematous Back/Spine/Pelvis Back: no CVA tenderness and No back tenderness Skin General skin exam: no rashes or lesions noted Other: pale to lower extremeties Neuro General: alert, awake, oriented x3 and gait normal Extrem General: full ROM and normal capillary refill Right upper extremity: full ROM Left upper extremity: full ROM Right lower extremity: full ROM and edema Details: 2+ Left lower extremity: full ROM and edema Details: 2+ Psych Appearance: grossly normal Speech and Movement: speech and movement normal Mood: congruent mood Affect: normal affect Attitude: cooperative Thought Process: normal Thought Content: normal Insight: insight good Judgment: judgment good Course Vital Signs Temperature 36.4 C L 01/08/18 10:44 Pulse 74 01/08/18 10:44 Respiratory Rate 16 01/08/18 10:44 Blood Pressure 148/66 H 01/08/18 10:44 Pulse Oximetry 94 L 01/08/18 10:44 Temperature 36.4 C L 01/08/18 10:44 Temperature Source Skin 01/08/18 10:44 Pulse 74 01/08/18 10:44 Respiratory Rate 16 01/08/18 10:44 Respiratory Effort Labored 01/08/18 10:58 Respiratory Depth Normal 01/08/18 10:58 Respiratory Pattern Normal 01/08/18 10:58 Blood Pressure 148/66 H 01/08/18 10:44 Pulse Oximetry 94 L 01/08/18 10:44 Oxygen Delivery Method Room Air 01/08/18 10:44 Oxygen Flow Rate 0 01/08/18 10:44 Pain Level 2 01/08/18 10:44
[2018-01-08 12:06] LABS: Bilirubin Negative (Negative); Blood Trace-lysed (Negative); Clarity Clear; Glucose Negative (Negative); Ketones Negative (Negative); Leukocyte Esterase Negative (Negative); Nitrite Negative (Negative); Specific Gravity 1.015 (1.005-1.025); Urobilinogen 0.2 EU/dL (Up TO 0.2)
[2018-01-08 12:09] LABS: Abs Immature Grans 0.05 k/cumm (0.0-0.09); Absolute Basophil Count 0.04 k/cumm (0.0-0.2); Absolute Eosinophil Count 0.25 k/cumm (0.0-0.7); Absolute Monocyte Count 0.69 k/cumm (0.11-0.7); Absolute Neutrophil Count 6.89 k/cumm (1.2-6.7); Basophils % 0.5; HCT 25.8 % (40.0-50.0); HGB 7.9 g/dL (13.5-17.5); Immature Grans % 0.6; Lymphocytes % 5.9; Mean Corp. HGB Concentration 30.6 g/dL (32.0-36.0); Mean Corpuscular Hemoglobin 28.3 pg (27.0-33.0); Mean Corpuscular Volume 92.5 fL (80-95); Mean Platelet Volume 8.9 fL (8.0-11.0); Monocytes % 8.2; Neutrophils % 81.8; Platelet Count 408 x1000/uL (130-400); RBC 2.79 m/cumm (4.50-6.00); RBC Distribution Width 15.9 % (11.8-14.1); White Blood Cell Count 8.42 k/cumm (4.4-10.8)
--- NOTE | 2018-01-08 12:10 | DI.RAD_ITS ---
SYMPTOM/DIAGNOSIS: PREVIOUS PNEUMONIA, ? HEART FAILURE PA AND LATERAL CHEST: There has been interval increase in size and density of the previously noted right upper lobe infiltrate. Cardiomegaly and pacemaker are stable. No effusions are seen. IMPRESSION: Some interval worsening of right upper lobe pneumonia.
[2018-01-08 12:15] LABS: Bacteria Negative HPF (Negative); C & S Indicated? No; Casts Negative LPF (Negative); Crystals Negative HPF (Negative); Epithelial Cells Negative HPF (Negative); Mucus Negative (Negative); RBC 0-2 (0-2); WBC 0-2 HPF (0-5)
[2018-01-08 12:22] LABS: PTT Activated 30.2 sec (21.0-31.4); Prothrombin Time 11.2 sec (9.3-10.8)
[2018-01-08 12:29] LABS: ALT 22 U/L (12-78); AST 16 U/L (15-37); Albumin 2.7 g/dL (3.4-5.0); Alkaline Phosphatase 101 U/L (46-116); Anion Gap 12.1 mmol/L (3-11); BUN 33 mg/dL (7-18); Bilirubin, Total 0.4 mg/dL (0.2-1.0); CO2 23.9 mmol/L (21.0-32.0); Calcium 8.4 mg/dL (8.5-10.1); Chloride 106 mmol/L (98-107); Creatine Kinase 70 U/L (39-308); Estimated GFR 12.67 (mL/min/1.73m2); Glucose 104 mg/dL (70-100); Sodium 142 mmol/L (136-145); Total Protein 6.9 g/dL (6.4-8.2); Troponin I 0.05 ng/mL (0.00-0.06)
[2018-01-08 12:30] LABS: CREATININE 4.67 mg/dL (0.70-1.30)
[2018-01-08 12:32] LABS: INR 1.1 (1.0-3.5)
--- NOTE | 2018-01-08 13:01 | DI.VRAD_ITS ---
EXAM: XR Chest, 2 Views EXAM DATE/TIME: 01/08/2018 11:25 AM CLINICAL HISTORY: 67 years old, male; Signs and symptoms; Shortness of breath; Prior surgery; Surgery date: 6+ months; Surgery type: Pacemaker. TECHNIQUE: XR of the chest, 2 views. COMPARISON: CR XR CHEST 2V PA LATERAL 12/31/2017 5:54 AM FINDINGS: Interval increase in right upper lobe consolidation consistent with worsening of pneumonia or pneumonitis. No other consolidations. Cardiomegaly unchanged. Left-sided pacemaker device in good position. Costophrenic angles are sharp. IMPRESSION: Interval increase in right upper lobe consolidation consistent with worsening of pneumonia or pneumonitis. Dictated and Authenticated by: Ean Martinez MD. Ordering:NAJMA SPRING MD
--- NOTE | 2018-01-08 14:18 | NUR.NOTE ---
Report called to [facility] on Med Surge Floor.
[2018-01-08] MEDS: Furosemide 40 MG/4 ML VIAL IVP (14:43)
[2018-01-08] MEDS: VANCOMYCIN 1,000 MG in Normal Saline 250 ML 166.667 MG IVPB (14:43)
[2018-01-08] MEDS: Normal Saline Flush 10 ML SYR IVP ×2 (14:44→20:02)
--- NOTE | 2018-01-08 16:17 | W.PM.HP.N ---
Date of service: 01/08/18 Time of Service: 16:17 Assessment and Plan (1) Pneumonia: Current visit: Yes Status: Acute Given failure with outpatient oral antibiotics and recent hospitalization merits treatment with HCAP coverage. Will initiate Vancomycin and renally dosed Cefepime. Check Blood and Sputum cultures as well. (2) Cardiomyopathy: Current visit: Yes Status: Chronic ECHO from 10/2017 with LVEF 35-40%. Despite patient's reported worsening LE Edema his weight is actually essentially unchanged from his prior hospitalization. However, the LE Edema started with discontinuation of patient's Spironolactone in the setting of hyperkalemia and KUNAL. Restart Spironolactone at half dose, and attempt diuresis with careful monitoring of kidney function and electrolytes. Will also continue patient home regimen of ASA and statin. Monitor daily weights and fluid restrict as well. (3) CKD (chronic kidney disease): Current visit: Yes Status: Chronic Creatinine elevated but stable and at baseline. Creatinine Clearance of 6 currently - CKD Stage 5. Monitor renal function with diuresis and reinitiation of Spironolactone. Avoid nephrotoxins, and renally dose medications when appropriate. (4) Atrial fibrillation: Current visit: Yes Status: Chronic Continue BB therapy. On anticoagulation with Apixaban. Will monitor overnight on telemetry. (5) Colitis: Current visit: Yes Status: Chronic Appears quiescent currently. Continue cholestyramine, oral budesonide. (6) History of TIA (transient ischemic attack): Current visit: Yes Status: Chronic Currently on ASA. Also with Afib on chronic anticoagulation. (7) Anemia: Current visit: No Status: Chronic Chronic but slightly lower than baseline. Patient does have a history of UC, with likely GI Blood loss while anticoagulated. Continue to monitor Hgb closely. (8) DVT prophylaxis: Current visit: Yes Status: Acute On anticoagulation with Apixaban. History of Present Illness Chief Complaint: Dyspnea Narrative: 67 year old pleasant man with a past medical history significant for atrial fibrillation, prior DVT and Pulmonary Embolism on 2 separate occasions on chronic anticoagulation, prior arterial thrombus, as well as CKD stage 5, presented to [facility] emergency department with complaints of worsening dyspnea. Mr. Collins was hospitalized at [facility] in October to early November with acute flare of his underlying Ulcerative Colitis. During that hospitalization he was initiated on a trial of Sulfasalazine, with resultant KUNAL and hyperkalemia that prompted discontinuation of his Spironolactone. The patient's UC flare eventually came under control with treatment utilizing Cholestyramine and oral Budesonide. The patient actually reports onset of lower extremity swelling prior to his discharge from the hospital, and it has continued and worsened over the last 1-2 months. However, what initially prompted a visit to the emergency room approximately a week ago was onset of dyspnea with a cough, and although Mr. Collins has a history of Cardiomyopathy, his chest x-ray on 12/31 showed evidence of an infiltrate in the RUL. He was started on Cefdinir and discharged. The patient reports continued and worsening dyspnea despite treatment with antibiotics, prompting a return visit to the emergency department this afternoon. His imaging shows evidence of increase in the RUL consolidation consistent with worsening pneumonia. His labwork did not show any evidence of leukocytosis, and he was noted to be afebrile and without significant hypoxia. He was referred for further evaluation and treatment. Past Medical History: 1. Atrial fibrillation on chronic anticoagulation with warfarin. 2. History of deep vein thrombosis in 2015 following hospitalization for hematuria with subsequent holding of his anticoagulation. 3. History of pulmonary embolus in 1996 following placement of his pacemaker. 4. Coronary artery disease with a history of silent myocardial infarction. 5. History of significant hematuria in 2015; follows with Urology. 6. History of cardiomyopathy. 7. Atrophic right kidney. 8. Chronic kidney disease, Stage 5 with creatinine clearance calculated at 8. 9. Benign prostatic hypertrophy. 10. History of nephrolithiasis. 11. Gastroesophageal reflux disease. 12. Transient ischemic attack in 2013. 13. PUD 14. Hx Embolus of femoral artery, b/l Past Surgical History: 1. Status post permanent pacemaker/ automatic implantable cardioverter-defibrillator. 2. Prior cystoscopy, colonoscopy, and esophagogastroduodenoscopy. Review of Systems Review of Systems All systems reviewed & are unremarkable except as noted in HPI and below Meds Home Medications Medication Instructions Recorded Confirmed Type pravastatin 40 mg PO DAILY tab-cap 07/02/15 01/08/18 History finasteride 5 mg PO DAILY #90 tab-cap 03/09/16 01/08/18 History Psyllium [Metamucil] 1 tsp PO DAILY 11/13/16 01/08/18 History acetaminophen [Mapap Extra 500 mg PO PRN PRN 11/13/16 01/08/18 History Strength] aspirin [Aspirin Low-Strength] 81 mg PO DAILY 11/13/16 01/08/18 History Metoprolol Succinate 50 mg PO DAILY tab-cap 01/11/17 01/08/18 History nitroglycerin 0.4 mg SUBLINGUAL PRN PRN 01/11/17 01/08/18 History magnesium oxide 400 mg PO DAILY #10 cap 11/08/17 01/08/18 Rx apixaban [Eliquis] 5 mg PO BID #60 tab 11/21/17 01/08/18 Rx cholecalciferol (vitamin D3) 400 unit PO BID #30 tab 11/21/17 01/08/18 Rx [Vitamin D3] cholestyramine-aspartame 1 ea PO 1000,1900 #14 ea 11/21/17 01/08/18 Rx [Prevalite] multivitamin [Multiple Vitamins] 1 tab PO DAILY #30 tab 11/21/17 01/08/18 Rx pantoprazole [Protonix] 40 mg PO DAILY #30 tab 11/21/17 01/08/18 Rx amlodipine 5 mg tablet 10 mg PO DAILY tab 12/03/17 01/08/[address] - ER 3 mg 3 mg PO DAILY cap 12/03/17 01/08/18 History capsule,delayed,extended release mirtazapine 15 mg tablet 15 mg PO DAILY 12/03/17 01/08/18 History calcitriol 0.25 mcg PO QWEEK 12/31/17 01/08/18 History cefdinir 300 mg PO Q12H 10 Days #20 cap 12/31/17 01/08/18 Rx calcium carbonate [Tums Ultra] 1,177 mg PO DAILY PRN 01/08/18 01/08/18 History furosemide 40 mg PO DAILY PRN 01/08/18 01/08/18 History Allergies Allergy/AdvReac Type Severity Reaction Status Date / Time No Known Allergies Allergy Unverified 01/08/18 10:53 Exam Narrative Exam Narrative: General: Patient appears comfortable, AAOX3, NAD Neck: Supple CV: Regular, nontachycardic, S1S2, No rubs, murmurs, or gallops. Pulmonary: Clear to auscultation bilaterally with the exception of crackles and decreased breath sounds in the Right upper lung field. Abdomen: + Bowel Sounds, soft, nontender, nondistended Vascular: + b/l equal lower extremity edema - difficult to assess due to current use of TEDS. Neurologic: CN II-XII grossly intact. No focal deficits. Psych: Normal mood and affect. Results Labs : 01/08/18 11:55 01/08/18 11:55 Laboratory Results - last 24 hr 01/08/18 01/08/18 01/08/18 11:19 11:24 11:55 WBC RBC Hgb Hct MCV MCH MCHC RDW Plt Count MPV Immature Gran % Neutrophils % Lymphocytes % Monocytes % Eosinophils % Basophils % Absolute Neutrophils Absolute Lymphocytes Absolute Monocytes Absolute Eosinophils Absolute Basophils PT INR APTT Sodium 142 Potassium 4.0 Chloride 106 Carbon Dioxide 23.9 Anion Gap 12.1 H BUN 33 H Creatinine 4.67 H* Estimated GFR/1.73 m2 12.67 Glucose 104 H Calcium 8.4 L Magnesium 2.0 Total Bilirubin 0.4 AST 16 ALT 22 Alkaline Phosphatase 101 Creatine Kinase Cancelled 70 Troponin I Cancelled 0.05 NT-Pro-B Natriuret Pep Cancelled 35727 H Total Protein 6.9 Albumin 2.7 L Urine Color Urine Clarity Urine pH Ur Specific [place] Urine Protein Urine Ketones Urine Blood Urine Nitrite Urine Bilirubin Urine Urobilinogen Ur Leukocyte Esterase Urine RBC Urine WBC Ur Epithelial Cells Urine Crystals Urine Bacteria Urine Casts Urine Mucus Ur Culture Indicated? Urine Glucose 01/08/18 01/08/18 01/08/18 11:55 11:55 12:03 WBC 8.42 RBC 2.79 L Hgb 7.9 L Hct 25.8 L MCV 92.5 MCH 28.3 MCHC 30.6 L RDW 15.9 H Plt Count 408 H MPV 8.9 Immature Gran % 0.6 Neutrophils % 81.8 Lymphocytes % 5.9 Monocytes % 8.2 Eosinophils % 3.0 Basophils % 0.5 Absolute Neutrophils 6.89 H Absolute Lymphocytes 0.50 L Absolute Monocytes 0.69 Absolute Eosinophils 0.25 Absolute Basophils 0.04 PT 11.2 H INR 1.1 APTT 30.2 Sodium Potassium Chloride Carbon Dioxide Anion Gap BUN Creatinine Estimated GFR/1.73 m2 Glucose Calcium Magnesium Total Bilirubin AST ALT Alkaline Phosphatase Creatine Kinase Troponin I NT-Pro-B Natriuret Pep Total Protein Albumin Urine Color Yellow Urine Clarity Clear Urine pH 6.0 Ur Specific [place] 1.015 Urine Protein 100 H Urine Ketones Negative Urine Blood Trace-lysed H Urine Nitrite Negative Urine Bilirubin Negative Urine Urobilinogen 0.2 Ur Leukocyte Esterase Negative Urine RBC 0-2 Urine WBC 0-2 Ur Epithelial Cells Negative Urine Crystals Negative Urine Bacteria Negative Urine Casts Negative Urine Mucus Negative Ur Culture Indicated? No Urine Glucose Negative Last Vital Signs Temp 36.7 C 01/08/18 16:05 Pulse 70 01/08/18 16:05 Resp 18 01/08/18 16:05 BP 145/75 H 01/08/18 16:05 Pulse Ox 98 01/08/18 16:05
[2018-01-08] MEDS: CEFEPIME 2 GM in Normal Saline 100 ML IVPB (16:31)
[2018-01-08] MEDS: Normal Saline 100 ML 200 ML (16:47)
[2018-01-08] MEDS: Cholestyramine/Aspartame PKT 1 EACH PO (18:19)
[2018-01-08] MEDS: Apixaban 5 MG TAB PO (20:02)
[2018-01-09] VITALS (14 sets, daily range): BP systolic 104–154; BP diastolic 53–85; PULSE 70–82; RESP 18; TEMP 36–37.4; O2SAT 92–99
[2018-01-09 05:56] LABS: Abs Immature Grans 0.02 k/cumm (0.0-0.09); Absolute Basophil Count 0.03 k/cumm (0.0-0.2); Absolute Eosinophil Count 0.39 k/cumm (0.0-0.7); Absolute Lymphocyte Count 0.55 k/cumm (1.2-3.4); Absolute Monocyte Count 0.68 k/cumm (0.11-0.7); Absolute Neutrophil Count 6.17 k/cumm (1.2-6.7); Basophils % 0.4; HCT 23.6 % (40.0-50.0); HGB 7.1 g/dL (13.5-17.5); Immature Grans % 0.3; Mean Corp. HGB Concentration 30.1 g/dL (32.0-36.0); Mean Corpuscular Hemoglobin 27.7 pg (27.0-33.0); Mean Corpuscular Volume 92.2 fL (80-95); Mean Platelet Volume 8.1 fL (8.0-11.0); Monocytes % 8.7; Neutrophils % 78.6; Platelet Count 365 x1000/uL (130-400); RBC 2.56 m/cumm (4.50-6.00); RBC Distribution Width 15.8 % (11.8-14.1); White Blood Cell Count 7.84 k/cumm (4.4-10.8)
[2018-01-09 06:04] LABS: Anion Gap 12.6 mmol/L (3-11); BUN 37 mg/dL (7-18); CO2 23.4 mmol/L (21.0-32.0); Calcium 8.3 mg/dL (8.5-10.1); Chloride 106 mmol/L (98-107); Glucose 95 mg/dL (70-100); Magnesium 1.7 mg/dL (1.8-2.4); Sodium 142 mmol/L (136-145)
[2018-01-09 06:11] LABS: CREATININE 4.69 mg/dL (0.70-1.30)
--- NOTE | 2018-01-09 08:21 | PDOC.CMIN ---
- If Service Date Differs Date of service: 01/09/18 Time of Service: 08:21 Care Management Initial Assess REASON FOR HOSPITALIZATION:: HCAP PAST MEDICAL HISTORY/PAST SURGICAL HISTORY:: Atrial fibrillation on chronic anticoagulation with warfarin, deep vein thrombosis in 2015 following hospitalization for hematuria with subsequent holding of his anticoagulation, pulmonary embolus in 1996 following placement of his pacemaker, Coronary artery disease with a history of silent myocardial infarction. 5. History of significant hematuria in 2016; follows with Urology. History of cardiomyopathy, atrophic right kidney, chronic kidney disease, benign prostatic hypertrophy, nephrolithiasis, Gastroesophageal reflux disease, colitis, transient ischemic attack in 2013. Past Surgical History:Status post permanent pacemaker/ automatic implantable cardioverter-defibrillator, prior cystoscopy, colonoscopy, and esophagogastroduodenoscopy. PREVIOUS FUNCTIONAL STATUS/SOCIAL/FAMILY SUPPORTS:: Gus resides alone in an apartment in [facility]. He has no family locally and states that he has no children. Gus is independent at baseline, he drives, and manages ADL's. CURRENT FUNCTIONAL STATUS:: Gus is sitting up in the chair he is alert and engaged during CM assessment. He states he went to the ED and received oral antibiotics before being admitted for HCAP. ADVANCE DIRECTIVES:: Gus reports he has a DPOA which is Mcihael Tatum (Brother). CM requested a copy be brought in to be scanned. Has patient been provided with information about the portal?: Yes Did the patient sign up for the portal?: No CODE STATUS:: Full Code INSURANCE COVERAGE / FINANCIAL ISSUES:: Medicaid CURRENT HOME/COMMUNITY SERVICES/EQUIPMENT:: No community resources of services PRIMARY CARE PHYSICIAN:: POTENTIAL DISCHARGE NEEDS:: Follow up with primary care provider scheduled prior to discharge. PATIENT/FAMILY EDUCATION NEEDS:: Review DC instructions, any limitations, and ongoing DC planning discussion. discuss Ask Me Three ANTICIPATED BARRIERS TO DISCHARGE:: None identified at this time TRANSPORTATION:: Via private car PLAN:: Gus is receiving IV antibiotics. Gus will be discharged home when medically ready per provider. Anticipate no addtional services at times of discharge. Gus does not feel he needs addtional services in the community states he does not have a barriers to health care. CM to continue to provide support to patient during his admission discharge planning.
--- NOTE | 2018-01-09 08:28 | INITIAL_ITS ---
- If Service Date Differs Date of service: 01/09/18 Time of Service: 08:21 Care Management Initial Assess REASON FOR HOSPITALIZATION:: HCAP PAST MEDICAL HISTORY/PAST SURGICAL HISTORY:: Atrial fibrillation on chronic anticoagulation with warfarin, deep vein thrombosis in 2015 following hospitalization for hematuria with subsequent holding of his anticoagulation, pulmonary embolus in 1996 following placement of his pacemaker, Coronary artery disease with a history of silent myocardial infarction. 5. History of significant hematuria in 2016; follows with Urology. History of cardiomyopathy, atrophic right kidney, chronic kidney disease, benign prostatic hypertrophy, nephrolithiasis, Gastroesophageal reflux disease, colitis, transient ischemic attack in 2013. Past Surgical History:Status post permanent pacemaker/ automatic implantable cardioverter-defibrillator, prior cystoscopy, colonoscopy , and esophagogastroduodenoscopy. PREVIOUS FUNCTIONAL STATUS/SOCIAL/FAMILY SUPPORTS:: Gus resides alone in an apartment in [facility]. He has no family locally and states that he has no children. Gus is independent at baseline, he drives, and manages ADL's. CURRENT FUNCTIONAL STATUS:: Gus is sitting up in the chair he is alert and engaged during CM assessment. He states he went to the ED and received oral antibiotics before being admitted for HCAP. ADVANCE DIRECTIVES:: Gus reports he has a DPOA which is Michael Tatum ( Brother). CM requested a copy be brought in to be scanned. Has patient been provided with information about the portal?: Yes Did the patient sign up for the portal?: No CODE STATUS:: Full Code INSURANCE COVERAGE / FINANCIAL ISSUES:: Medicaid CURRENT HOME/COMMUNITY SERVICES/EQUIPMENT:: No community resources of services PRIMARY CARE PHYSICIAN:: POTENTIAL DISCHARGE NEEDS:: Follow up with primary care provider scheduled prior to discharge. PATIENT/FAMILY EDUCATION NEEDS:: Review DC instructions, any limitations, and ongoing DC planning discussion. discuss Ask Me Three ANTICIPATED BARRIERS TO DISCHARGE:: None identified at this time TRANSPORTATION:: Via private car PLAN:: Gus is receiving IV antibiotics. Gus will be discharged home when medically ready per provider. Anticipate no addtional services at times of discharge. Gus does not feel he needs addtional services in the community states he does not have a barriers to health care. CM to continue to provide support to patient during his admission discharge planning.
[2018-01-09 08:31] LABS: Iron 16 ug/dL (50-175); Total Iron Binding Capacity 352 ug/dL (250-450); Transferrin Sat 5 % (20-55)
[2018-01-09] MEDS: Finasteride 5 MG TAB PO (08:47)
[2018-01-09] MEDS: Magnesium Oxide 400 MG TAB PO (08:47)
[2018-01-09] MEDS: Apixaban 5 MG TAB PO ×2 (08:47→19:52)
[2018-01-09] MEDS: Pravastatin 20 MG TAB 40 MG PO (08:48)
[2018-01-09] MEDS: Metoprolol CR 50 MG TABCR PO (08:48)
[2018-01-09] MEDS: amLODIPine 5 MG TAB 10 MG PO (08:48)
[2018-01-09] MEDS: Pantoprazole 40 MG TABCR PO (08:48)
[2018-01-09] MEDS: Spironolactone 25 MG TAB 12.5 MG PO (08:48)
[2018-01-09] MEDS: Aspirin 81 MG CHEW PO (08:48)
[2018-01-09] MEDS: Psyllium PKT 1 EACH PO (08:48)
[2018-01-09] MEDS: Multivitamin TAB 1 TAB PO (08:48)
[2018-01-09 08:58] LABS: Ferritin 271 ng/mL (8-388); TSH 4.31 uIU/mL (0.358-3.74); Vitamin B12 504 pg/mL (193-986)
[2018-01-09 09:10] LABS: Folate > 20.0 ng/mL (8.6-20.0)
[2018-01-09] MEDS: Cholestyramine/Aspartame PKT 1 EACH PO ×2 (10:08→18:15)
[2018-01-09] MEDS: diphenhydrAMINE 25 MG CAP PO (10:20)
[2018-01-09] MEDS: Acetaminophen 325 MG TAB 650 MG PO (10:21)
[2018-01-09] MEDS: Normal Saline Flush 10 ML SYR IVP ×3 (10:22→19:52)
--- NOTE | 2018-01-09 10:59 | PHARADMIT ---
Addendum entered by Roby Lebron III 01/14/18 12:36: MD aware SCr- 5.14, wants patient to DISCHARGE THIS PATIENT AFTER THE VENOFER INFUSION AND UPON COMPLETION OF VANCOMYCIN (DAY 7 @ 1800) AND CEFEPIME 1Gm (DAY 7 @ 1600) VS-OK K+4.6 H&H- 8.5/28.0 Wgt- 65 kg BM today Original Note: Addendum entered by Roby Lebron III 01/13/18 14:30: Pharmacy Note Subjective Plan is for patient be discharged tomorrow, if SCr improves. Objective VS-OK SCR- 5.12 (up) Labs-WNL Wgt-65.6 kg Last BM 01/09 Assessment Venofer 300mg ordered for 10am (Infusion room dose) VANCOMYCIN TROUGH (20.1) Dose adjusted to q40hrs , next dose due 01/14 @1800 Plan Discahrge after Venofer completed. Original Note: Addendum entered by Duyen Bush 01/12/18 14:28: Pharmacy Note Subjective HCAP, failed outpatient ABX here for renally dosed Vanco/Cefepime Objective SCr stable, vs ok, BC no gowth 72 hours, Assessment cefeime and vancomycin IV day 5. vanco trough ordered 01/13/18 @ 0100, one time dose of furosemide Plan evaluate vanco trough, follow SCR Original Note: Addendum entered by Roby Lebron III 01/11/18 16:58: Pharmacy Note Subjective HCAP, failed outpatient ABX here for renally dosed Vanco/Cefepime Objective VS-OK SCr-4.90 (up) H&H, Plts-419 Assessment Spironolactone restarted at half dose. On Apixaban Blood cultures No Growth x 72 hrs. Vancomycin @ q36hrs Cefepime q24hrs Plan Follow Vanco trough, SCr Original Note: Addendum entered by Angela Hinojosa 01/10/18 15:31: Pharmacy Note Subjective Objective BP-145/77 Cl-108 SCr-4.89(up) H/H-8.7/28.4 Assessment blood cultures- no growth at 24 hrs; stool occult blood negative cefepime and vanco continue Plan continue to watch VS, SCr, labs and for med changes. Order vanco trough when needed, due to dosing it may not be for awhile Original Note: Admission Pharmacy Clinical Review HCAP Code Status Full Code Current Weight 67 kg Renally Cleared and Narrow Therapeutic Index Meds crcl ~13ml/min QTc Value / Action Taken 489. pantoprazole, diphenhydramine, furosemide(all CR), mirtazepine- MA BP Control, Fever 145/85 afebrile Electrolytes reviewed ok DVT Prophylaxis apixaban Opiate Usage / Scheduled Bowel Regimen Ordered no/yes Plt/SCr for Heparin / Enoxaparin 365/4.69 INR for Warfarin 1.1 not on warfarin H/H stable, WBC/Bands 7.1/23.6 wbc 7.84 Antibiotic appropriateness vancomycin pharmacy dosing and cefepime reanllly dosed Cultures and Sensitivities BC pending, stool occult pending Surgical ABX d/c within 24 hr na DM control / Insulin Dosing na Heart Failure (Check EF%) (TIMOTEO's, B-Block, Diuretics) spironolactone, furosemide, metoprolol, amlodipine IV to PO Switch IV abx, Home Meds Reviewed no home med interactions Home Meds Not Ordered cefdinir 300 mg PO Q12H 10 Days #20 cap 12/31/17 [Rx Confirmed 01/08/18] Comments
--- NOTE | 2018-01-09 11:03 | NUR.NOTE ---
Addendum entered by Fannie Lazo 01/09/18 11:04: CC notified. Original Note: Nursing Note: Pre-blood transfusion Pt BP was 145/85, 15 minutes into transfusion BP 104/53. Pt has no other vital sign changes, no other associated s/s of transfusion reaction. Next set of vitals due 1128, will continue to monitor closely.
[2018-01-09] MEDS: Sucralfate 1 GM TAB PO ×3 (11:07→19:52)
--- NOTE | 2018-01-09 11:23 | W.PM.PROGNOT ---
Date of Service Date of service: 01/09/18 Time of Service: 11:27 Assessment and Plan (1) Pneumonia: Current visit: Yes Status: Acute Given failure with outpatient oral antibiotics and recent hospitalization merits treatment with HCAP coverage. Continue Vancomycin and renally dosed Cefepime, now day #2. Blood and Sputum cultures ordered as well. (2) Anemia: Current visit: No Status: Chronic Chronic but lower than baseline at time of admission, now dropped to 7.1. Patient does have a history of UC, with likely GI Blood loss while anticoagulated. He also has a history of PUD. Mr. Collins needs anticoagulation not just on the basis of Afib, but on prior DVTs and PEs when not anticoagulated (setting of Hematuria and PPM placement in the past), and also endorses a history of arterial thrombi. Change PO PPI to IV and administer twice daily. Will also add Sucralfate. Iron studies with low iron, but normal TIBC and ferritin. Also with normal B12, elevated FA, and mildly elevated TSH in the setting of acute illness. Stool for occult blood is pending. Given current Hgb with continued drop as well as history of CAD will also transfuse one unit very slowly, with administration of IV Lasix following. (3) Cardiomyopathy: Current visit: Yes Status: Chronic ECHO from 10/2017 with LVEF 35-40%. Despite patient's reported worsening LE Edema and grossly elevated and worsed BNP, dyspnea appears to be on the basis of pneumonia. Patient's LE Edema also started with discontinuation of patient's Spironolactone in the setting of hyperkalemia and KUNAL. Restarted Spironolactone at half dose, and attempt diuresis with careful monitoring of kidney function and electrolytes. Will also continue patient home regimen of ASA and statin. Monitor daily weights and fluid restrict as well. (4) CKD (chronic kidney disease): Current visit: Yes Status: Chronic Creatinine elevated but stable and at baseline. Creatinine Clearance of 6 currently - CKD Stage 5. Monitor renal function with diuresis and reinitiation of Spironolactone. Avoid nephrotoxins, and renally dose medications when appropriate. (5) Atrial fibrillation: Current visit: Yes Status: Chronic Continue BB therapy. On anticoagulation with Apixaban. Will continue to monitor on telemetry. (6) Colitis: Current visit: Yes Status: Chronic Appears quiescent currently. Continue cholestyramine, oral budesonide. (7) History of TIA (transient ischemic attack): Current visit: Yes Status: Chronic Currently on ASA. Also with Afib on chronic anticoagulation. (8) DVT prophylaxis: Current visit: Yes Status: Acute On anticoagulation with Apixaban. Subjective Interval history since last seen: 67 year old pleasant man with a past medical history significant for atrial fibrillation, prior DVT and Pulmonary Embolism on 2 separate occasions on chronic anticoagulation, prior arterial thrombus, as well as CKD stage 5, presented to [facility] emergency department with complaints of worsening dyspnea. Mr. Collins was hospitalized at [facility] in October to early November with acute flare of his underlying Ulcerative Colitis. During that hospitalization he was initiated on a trial of Sulfasalazine, with resultant KUNAL and hyperkalemia that prompted discontinuation of his Spironolactone. The patient's UC flare eventually came under control with treatment utilizing Cholestyramine and oral Budesonide. The patient actually reports onset of lower extremity swelling prior to his discharge from the hospital, and it has continued and worsened over the last 1-2 months. However, what initially prompted a visit to the emergency room approximately a week ago was onset of dyspnea with a cough, and although Mr. Collins has a history of Cardiomyopathy, his chest x-ray on 12/31 showed evidence of an infiltrate in the RUL. He was started on Cefdinir and discharged. The patient reports continued and worsening dyspnea despite treatment with antibiotics, prompting a return visit to the emergency department this afternoon. His imaging shows evidence of increase in the RUL consolidation consistent with worsening pneumonia. His labwork did not show any evidence of leukocytosis, and he was noted to be afebrile and without significant hypoxia. He was referred for further evaluation and treatment. The patient's Spironolactone was reinitiated at half dose, and he was started on IV Furosemide, as well as broad spectrum antibiotics for HCAP coverage. This morning he reports slight improvement in his breathing. His renal function remains stable. His hemoglobin however appears to have dropped despite attempt at diuresis. No other events reported overnight. Remains afebrile. Exam Narrative Exam Narrative: General: Patient appears comfortable, AAOX3, NAD Neck: Supple CV: Regular, nontachycardic, S1S2, 3/6 LLSB murmur appreciated. Pulmonary: Prior crackles and decreased breath sounds in the Right upper lung field have improved. No rhonchi or wheezing. Abdomen: + Bowel Sounds, soft, nontender, nondistended Vascular: + b/l equal lower extremity edema - 1-2 +. Psych: Normal mood and affect. Objective Objective Clinical Data: Abnormal lab results 01/08/18 01/08/18 01/08/18 Range/Units 11:55 11:55 11:55 RBC 2.79 L (4.50-6.00) m/cumm Hgb 7.9 L (13.5-17.5) g/dL Hct 25.8 L (40.0-50.0) % MCHC 30.6 L (32.0-36.0) g/dL RDW 15.9 H (11.8-14.1) % Plt Count 408 H (130-400) x1000/uL Absolute Neutrophils 6.89 H (1.2-6.7) k/cumm Absolute Lymphocytes 0.50 L (1.2-3.4) k/cumm PT 11.2 H (9.3-10.8) sec Anion Gap 12.1 H (3-11) mmol/L BUN 33 H (7-18) mg/dL Creatinine 4.67 H* (0.70-1.30) mg/dL Glucose 104 H (70-100) mg/dL Calcium 8.4 L (8.5-10.1) mg/dL Magnesium (1.8-2.4) mg/dL Iron (50-175) ug/dL Transferrin % Sat (20-55) % NT-Pro-B Natriuret Pep 08027 H ( - 299) pg/mL Albumin 2.7 L (3.4-5.0) g/dL Folate (8.6-20.0) ng/mL TSH (0.358-3.74) uIU/mL Urine Protein (Negative) mg/dL Urine Blood (Negative) Crossmatch 01/08/18 01/08/18 01/08/18 Range/Units 12:03 14:12 14:12 RBC (4.50-6.00) m/cumm Hgb (13.5-17.5) g/dL Hct (40.0-50.0) % MCHC (32.0-36.0) g/dL RDW (11.8-14.1) % Plt Count (130-400) x1000/uL Absolute Neutrophils (1.2-6.7) k/cumm Absolute Lymphocytes (1.2-3.4) k/cumm PT (9.3-10.8) sec Anion Gap (3-11) mmol/L BUN (7-18) mg/dL Creatinine (0.70-1.30) mg/dL Glucose (70-100) mg/dL Calcium (8.5-10.1) mg/dL Magnesium (1.8-2.4) mg/dL Iron 16 L (50-175) ug/dL Transferrin % Sat 5 L (20-55) % NT-Pro-B Natriuret Pep ( - 299) pg/mL Albumin (3.4-5.0) g/dL Folate > 20.0 H (8.6-20.0) ng/mL TSH 4.31 H (0.358-3.74) uIU/mL Urine Protein 100 H (Negative) mg/dL Urine Blood Trace-lysed H (Negative) Crossmatch 01/09/18 01/09/18 01/09/18 Range/Units 05:42 05:42 08:30 RBC 2.56 L (4.50-6.00) m/cumm Hgb 7.1 L (13.5-17.5) g/dL Hct 23.6 L (40.0-50.0) % MCHC 30.1 L (32.0-36.0) g/dL RDW 15.8 H (11.8-14.1) % Plt Count (130-400) x1000/uL Absolute Neutrophils (1.2-6.7) k/cumm Absolute Lymphocytes 0.55 L (1.2-3.4) k/cumm PT (9.3-10.8) sec Anion Gap 12.6 H (3-11) mmol/L BUN 37 H (7-18) mg/dL Creatinine 4.69 H* (0.70-1.30) mg/dL Glucose (70-100) mg/dL Calcium 8.3 L (8.5-10.1) mg/dL Magnesium 1.7 L (1.8-2.4) mg/dL Iron (50-175) ug/dL Transferrin % Sat (20-55) % NT-Pro-B Natriuret Pep ( - 299) pg/mL Albumin (3.4-5.0) g/dL Folate (8.6-20.0) ng/mL TSH (0.358-3.74) uIU/mL Urine Protein (Negative) mg/dL Urine Blood (Negative) Crossmatch See Detail Vital Signs Temperature 36.7 C 01/09/18 10:58 Temperature Source Skin 01/09/18 08:07 Pulse 70 01/09/18 10:58 Pulse Rhythm Regular 01/09/18 08:50 Pulse 70 01/08/18 13:31 Respiratory Rate 18 01/09/18 10:58 Respiratory Effort Non-Labored 01/09/18 08:50 Respiratory Depth Normal 01/09/18 08:50 Respiratory Pattern Normal 01/09/18 08:50 Blood Pressure 104/53 L 01/09/18 10:58 Blood Pressure Mean 88 01/08/18 13:31 Pulse Oximetry 98 01/09/18 10:58 Oxygen Delivery Method Nasal Cannula 01/09/18 10:58 Oxygen Flow Rate 2 01/09/18 10:58 Pain Level 0 01/09/18 08:07 Comment 01/09/18 08:07 Intake & Output 01/08/18 01/08/18 01/09/18 11:59 23:59 11:59 Intake Total 864 / 864 360 / 360 Output Total 925 / 925 850 / 850 Balance -61 / -61 -490 / -490 Weight 63.503 kg 63.503 kg 67 kg Intake: IV 374 / 374 10 / 10 Oral 490 / 490 350 / 350 Output: Urine 925 / 925 850 / 850 Other: Urine Color Pale Pale Yellow Yellow Urine Appearance Clear Clear Urine Odor None Stool Size Moderate Stool Characteristics Soft Voiding Methods Urinal Urinal Laboratory Results WBC 7.84 k/cumm (4.4-10.8) 01/09/18 05:42 RBC 2.56 m/cumm (4.50-6.00) L 01/09/18 05:42 Hgb 7.1 g/dL (13.5-17.5) L 01/09/18 05:42 Hct 23.6 % (40.0-50.0) L 01/09/18 05:42 MCV 92.2 fL (80-95) 01/09/18 05:42 MCH 27.7 pg (27.0-33.0) 01/09/18 05:42 MCHC 30.1 g/dL (32.0-36.0) L 01/09/18 05:42 RDW 15.8 % (11.8-14.1) H 01/09/18 05:42 Plt Count 365 x1000/uL (130-400) 01/09/18 05:42 MPV 8.1 fL (8.0-11.0) 01/09/18 05:42 Immature Gran % 0.3 01/09/18 05:42 Neutrophils % 78.6 01/09/18 05:42 Lymphocytes % 7.0 01/09/18 05:42 Monocytes % 8.7 01/09/18 05:42 Eosinophils % 5.0 01/09/18 05:42 Basophils % 0.4 01/09/18 05:42 Absolute Neutrophils 6.17 k/cumm (1.2-6.7) 01/09/18 05:42 Absolute Lymphocytes 0.55 k/cumm (1.2-3.4) L 01/09/18 05:42 Absolute Monocytes 0.68 k/cumm (0.11-0.7) 01/09/18 05:42 Absolute Eosinophils 0.39 k/cumm (0.0-0.7) 01/09/18 05:42 Absolute Basophils 0.03 k/cumm (0.0-0.2) 01/09/18 05:42 PT 11.2 sec (9.3-10.8) H 01/08/18 11:55 INR 1.1 (1.0-3.5) 01/08/18 11:55 APTT 30.2 sec (21.0-31.4) 01/08/18 11:55 Sodium 142 mmol/L (136-145) 01/09/18 05:42 Potassium 4.0 mmol/L (3.5-5.1) 01/09/18 05:42 Chloride 106 mmol/L (98-107) 01/09/18 05:42 Carbon Dioxide 23.4 mmol/L (21.0-32.0) 01/09/18 05:42 Anion Gap 12.6 mmol/L (3-11) H 01/09/18 05:42 BUN 37 mg/dL (7-18) H 01/09/18 05:42 Creatinine 4.69 mg/dL (0.70-1.30) H* 01/09/18 05:42 Estimated GFR/1.73 m2 12.60 (mL/min/1.73m2) 01/09/18 05:42 Glucose 95 mg/dL (70-100) 01/09/18 05:42 Calcium 8.3 mg/dL (8.5-10.1) L 01/09/18 05:42 Magnesium 1.7 mg/dL (1.8-2.4) L 01/09/18 05:42 Iron 16 ug/dL (50-175) L 01/08/18 14:12 TIBC 352 ug/dL (250-450) 01/08/18 14:12 Transferrin % Sat 5 % (20-55) L 01/08/18 14:12 Ferritin 271 ng/mL (8-388) 01/08/18 14:12 Total Bilirubin 0.4 mg/dL (0.2-1.0) 01/08/18 11:55 AST 16 U/L (15-37) 01/08/18 11:55 ALT 22 U/L (12-78) 01/08/18 11:55 Alkaline Phosphatase 101 U/L (46-116) 01/08/18 11:55 Creatine Kinase 70 U/L (39-308) 01/08/18 11:55 Troponin I 0.05 ng/mL (0.00-0.06) 01/08/18 11:55 NT-Pro-B Natriuret Pep 46775 pg/mL (-299) H 01/08/18 11:55 Total Protein 6.9 g/dL (6.4-8.2) 01/08/18 11:55 Albumin 2.7 g/dL (3.4-5.0) L 01/08/18 11:55 Vitamin B12 504 pg/mL (193-986) 01/08/18 14:12 Folate > 20.0 ng/mL (8.6-20.0) H 01/08/18 14:12 TSH 4.31 uIU/mL (0.358-3.74) H 01/08/18 14:12 Urine Color Yellow (Yellow) 01/08/18 12:03 Urine Clarity Clear 01/08/18 12:03 Urine pH 6.0 (5-8) 01/08/18 12:03 Ur Specific [place] 1.015 (1.005-1.025) 01/08/18 12:03 Urine Protein 100 mg/dL (Negative) H 01/08/18 12:03 Urine Ketones Negative mg/dL (Negative) 01/08/18 12:03 Urine Blood Trace-lysed (Negative) H 01/08/18 12:03 Urine Nitrite Negative (Negative) 01/08/18 12:03 Urine Bilirubin Negative (Negative) 01/08/18 12:03 Urine Urobilinogen 0.2 EU/dL (Up TO 0.2) 01/08/18 12:03 Ur Leukocyte Esterase Negative (Negative) 01/08/18 12:03 Urine RBC 0-2 (0-2) 01/08/18 12:03 Urine WBC 0-2 HPF (0-5) 01/08/18 12:03 Ur Epithelial Cells Negative HPF (Negative) 01/08/18 12:03 Urine Crystals Negative HPF (Negative) 01/08/18 12:03 Urine Bacteria Negative HPF (Negative) 01/08/18 12:03 Urine Casts Negative LPF (Negative) 01/08/18 12:03 Urine Mucus Negative (Negative) 01/08/18 12:03 Ur Culture Indicated? No 01/08/18 12:03 Urine Glucose Negative mg/dL (Negative) 01/08/18 12:03 Patient ABO/Rh B Positive 01/09/18 08:30 Antibody Screen Negative 01/09/18 08:30 Crossmatch See Detail 01/09/18 08:30
[2018-01-09] MEDS: Furosemide 40 MG/4 ML VIAL IVP (14:23)
[2018-01-09] MEDS: CEFEPIME 1 GM in Normal Saline 50 ML IVPB (16:12)
[2018-01-09 18:28] LABS: HCT 29.2 % (40.0-50.0); HGB 9.1 g/dL (13.5-17.5)
[2018-01-09] MEDS: Pantoprazole 40 MG VIAL IVP (19:52)
[2018-01-09] MEDS: Mirtazapine 15 MG TAB PO (21:17)
[2018-01-10] VITALS (10 sets, daily range): BP systolic 131–168; BP diastolic 76–83; PULSE 70–80; RESP 18–20; TEMP 36.4–36.6; O2SAT 94–96
[2018-01-10] MEDS: VANCOMYCIN 750 MG in Normal Saline 250 ML 166.667 MG IVPB (02:04)
[2018-01-10 07:17] LABS: Abs Immature Grans 0.05 k/cumm (0.0-0.09); Absolute Basophil Count 0.03 k/cumm (0.0-0.2); Absolute Eosinophil Count 0.42 k/cumm (0.0-0.7); Absolute Lymphocyte Count 0.72 k/cumm (1.2-3.4); Absolute Monocyte Count 0.83 k/cumm (0.11-0.7); Absolute Neutrophil Count 7.44 k/cumm (1.2-6.7); Basophils % 0.3; Eosinophils % 4.4; HCT 27.3 % (40.0-50.0); HGB 8.4 g/dL (13.5-17.5); Immature Grans % 0.5; Lymphocytes % 7.6; Mean Corp. HGB Concentration 30.8 g/dL (32.0-36.0); Mean Corpuscular Hemoglobin 28.2 pg (27.0-33.0); Mean Corpuscular Volume 91.6 fL (80-95); Mean Platelet Volume 8.8 fL (8.0-11.0); Monocytes % 8.7; Neutrophils % 78.5; Platelet Count 393 x1000/uL (130-400); RBC 2.98 m/cumm (4.50-6.00); White Blood Cell Count 9.49 k/cumm (4.4-10.8)
[2018-01-10 07:23] LABS: Anion Gap 10.3 mmol/L (3-11); BUN 41 mg/dL (7-18); CO2 24.7 mmol/L (21.0-32.0); Calcium 8.1 mg/dL (8.5-10.1); Chloride 108 mmol/L (98-107); Estimated GFR 12.01 (mL/min/1.73m2); Glucose 97 mg/dL (70-100); Magnesium 1.8 mg/dL (1.8-2.4); Potassium 4.1 mmol/L (3.5-5.1); Sodium 143 mmol/L (136-145)
[2018-01-10 07:26] LABS: CREATININE 4.89 mg/dL (0.70-1.30)
[2018-01-10] MEDS: Psyllium PKT 1 EACH PO (08:20)
[2018-01-10] MEDS: Multivitamin TAB 1 TAB PO (08:21)
[2018-01-10] MEDS: amLODIPine 5 MG TAB 10 MG PO (08:21)
[2018-01-10] MEDS: Metoprolol CR 50 MG TABCR PO (08:21)
[2018-01-10] MEDS: Calcitriol 0.25 MCG CAP PO (08:21)
[2018-01-10] MEDS: Apixaban 5 MG TAB PO ×2 (08:21→21:20)
[2018-01-10] MEDS: Magnesium Oxide 400 MG TAB PO ×2 (08:21→09:36)
[2018-01-10] MEDS: Sucralfate 1 GM TAB PO ×4 (08:21→21:20)
[2018-01-10] MEDS: Finasteride 5 MG TAB PO (08:21)
[2018-01-10] MEDS: Pravastatin 20 MG TAB 40 MG PO (08:21)
[2018-01-10] MEDS: Spironolactone 25 MG TAB 12.5 MG PO (08:21)
[2018-01-10] MEDS: Aspirin 81 MG CHEW PO (08:22)
[2018-01-10] MEDS: Normal Saline Flush 10 ML SYR IVP ×3 (08:22→21:19)
[2018-01-10] MEDS: Pantoprazole 40 MG VIAL IVP ×2 (08:22→21:19)
[2018-01-10] MEDS: Cholestyramine/Aspartame PKT 1 EACH PO ×2 (09:36→18:23)
--- NOTE | 2018-01-10 12:36 | W.PM.PROGNOT ---
Date of Service Date of service: 01/10/18 Time of Service: 12:36 Assessment and Plan (1) Pneumonia: Current visit: Yes Status: Acute Given failure with outpatient oral antibiotics and recent hospitalization merits treatment with HCAP coverage. Continue Vancomycin and renally dosed Cefepime, now day #3. Blood Cultures with no growth X24 hours. Sputum cultures ordered as well. (2) Anemia: Current visit: No Status: Chronic Chronic but lower than baseline at time of admission, then dropped to 7.1. Patient does have a history of UC, with likely GI Blood loss while anticoagulated. He also has a history of PUD. Mr. Collins needs anticoagulation not just on the basis of Afib, but on prior DVTs and PEs when not anticoagulated (setting of Hematuria and PPM placement in the past), and also endorses a history of arterial thrombi. Changed PO PPI to IV and administering twice daily, along with the addition of Sucralfate. Iron studies with low iron, but normal TIBC and ferritin. Also with normal B12, elevated FA, and mildly elevated TSH in the setting of acute illness. Stool for occult blood checked and negative. Received one unit of PRBCs on 01/09 with appropriate response, with some drop in Hgb again this morning. Will repeat value this afternoon. (3) Cardiomyopathy: Current visit: Yes Status: Chronic ECHO from 10/2017 with LVEF 35-40%. Despite patient's reported worsening LE Edema and grossly elevated and worsed BNP, dyspnea appears to be on the basis of pneumonia, improving with antibiotics. Patient's LE Edema also started with discontinuation of patient's Spironolactone in the setting of hyperkalemia and KUNAL. Restarted Spironolactone at half dose, and attempt diuresis with careful monitoring of kidney function and electrolytes. Will also continue patient home regimen of ASA and statin. Monitor daily weights and fluid restrict as well. (4) CKD (chronic kidney disease): Current visit: Yes Status: Chronic Creatinine elevated but stable and at or around his baseline. Creatinine Clearance of 6 currently - CKD Stage 5. Monitor renal function with diuresis and reinitiation of Spironolactone. Avoid nephrotoxins, and renally dose medications when appropriate. (5) Atrial fibrillation: Current visit: Yes Status: Chronic Continue BB therapy. On anticoagulation with Apixaban. Will continue to monitor on telemetry. (6) Colitis: Current visit: Yes Status: Chronic Appears quiescent currently. Continue cholestyramine, oral budesonide. (7) History of TIA (transient ischemic attack): Current visit: Yes Status: Chronic Currently on ASA. Also with Afib on chronic anticoagulation. (8) DVT prophylaxis: Current visit: Yes Status: Acute On anticoagulation with Apixaban. Subjective Interval history since last seen: 67 year old pleasant man with a past medical history significant for atrial fibrillation, prior DVT and Pulmonary Embolism on 2 separate occasions on chronic anticoagulation, prior arterial thrombus, as well as CKD stage 5, presented to [facility] emergency department with complaints of worsening dyspnea. Mr. Collins was hospitalized at [facility] in October to early November with acute flare of his underlying Ulcerative Colitis. During that hospitalization he was initiated on a trial of Sulfasalazine, with resultant KUNAL and hyperkalemia that prompted discontinuation of his Spironolactone. The patient's UC flare eventually came under control with treatment utilizing Cholestyramine and oral Budesonide. The patient reports onset of lower extremity swelling prior to his discharge from the hospital, and it continued and worsened over the last 1-2 months. However, what initially prompted a visit to the emergency room approximately a week prior to his admission was onset of dyspnea with a cough, and although Mr. Collins has a history of Cardiomyopathy, his chest x-ray on 12/31 showed evidence of an infiltrate in the RUL without congestion. He was started on Cefdinir and discharged. The patient then reported continued and worsening dyspnea despite treatment with antibiotics, prompting a return visit to the emergency department. His imaging showed evidence of increase in the RUL consolidation consistent with worsening pneumonia. His labwork did not show any evidence of leukocytosis, and he was noted to be afebrile and without significant hypoxia. He was referred for further evaluation and treatment. Given his LE swelling the patient's Spironolactone was reinitiated at half dose, and he was started on IV Furosemide, as well as broad spectrum antibiotics for HCAP coverage. This morning he reports continued improvement in his breathing. His renal function remains stable despite initiation of spironolactone and lasix. His hemoglobin however appears to have dropped despite attempt at diuresis, prompting transfusion yesterday. No other events reported overnight. Remains afebrile. Exam Narrative Exam Narrative: General: Patient appears comfortable, AAOX3, NAD Neck: Supple CV: Regular, nontachycardic, S1S2, 3/6 LLSB murmur appreciated. Pulmonary: Prior crackles and decreased breath sounds in the Right upper lung field have resolved. No rhonchi or wheezing. Abdomen: + Bowel Sounds, soft, nontender, nondistended Vascular: + b/l equal lower extremity edema - 1-2 +. Psych: Normal mood and affect. Objective Objective Clinical Data: Abnormal lab results 01/09/18 01/09/18 01/10/18 Range/Units 08:30 18:12 06:08 RBC (4.50-6.00) m/cumm Hgb 9.1 L (13.5-17.5) g/dL Hct 29.2 L D (40.0-50.0) % MCHC (32.0-36.0) g/dL RDW (11.8-14.1) % Absolute Neutrophils (1.2-6.7) k/cumm Absolute Lymphocytes (1.2-3.4) k/cumm Absolute Monocytes (0.11-0.7) k/cumm Chloride 108 H (98-107) mmol/L BUN 41 H (7-18) mg/dL Creatinine 4.89 H* (0.70-1.30) mg/dL Calcium 8.1 L (8.5-10.1) mg/dL Crossmatch See Detail 01/10/18 Range/Units 06:08 RBC 2.98 L (4.50-6.00) m/cumm Hgb 8.4 L (13.5-17.5) g/dL Hct 27.3 L (40.0-50.0) % MCHC 30.8 L (32.0-36.0) g/dL RDW 16.0 H (11.8-14.1) % Absolute Neutrophils 7.44 H (1.2-6.7) k/cumm Absolute Lymphocytes 0.72 L (1.2-3.4) k/cumm Absolute Monocytes 0.83 H (0.11-0.7) k/cumm Chloride (98-107) mmol/L BUN (7-18) mg/dL Creatinine (0.70-1.30) mg/dL Calcium (8.5-10.1) mg/dL Crossmatch Vital Signs Temperature 36.4 C L 01/10/18 11:45 Temperature Source Temporal Artery Scan 01/10/18 11:45 Pulse 78 01/10/18 11:45 Pulse Rhythm Regular 01/10/18 07:25 Pulse 70 01/08/18 13:31 Respiratory Rate 18 01/10/18 11:45 Respiratory Effort Non-Labored 01/10/18 07:25 Respiratory Depth Normal 01/10/18 07:25 Respiratory Pattern Normal 01/10/18 07:25 Blood Pressure 145/77 H 01/10/18 11:45 Blood Pressure Mean 88 01/08/18 13:31 Pulse Oximetry 95 01/10/18 11:45 Oxygen Delivery Method Room Air 01/10/18 11:45 Oxygen Flow Rate 0 01/10/18 11:45 Pain Level 0 01/10/18 11:45 Comment 01/09/18 08:07 Intake & Output 01/09/18 01/10/18 01/10/18 23:59 11:59 23:59 Intake Total 1114 / 1114 1220 / 1220 Output Total 500 / 500 650 / 650 Balance 614 / 614 570 / 570 Weight 66.3 kg Intake: IV 94 / 94 270 / 270 Oral 770 / 770 950 / 950 Blood Product 250 / 250 Rbc Leuko Reduced Unit 250 / 250 [id number] Output: Urine 500 / 500 650 / 650 Other: Urine Color Yellow Yellow Urine Appearance Clear Clear Urine Odor None Voiding Methods Urinal Urinal Laboratory Results WBC 9.49 k/cumm (4.4-10.8) 01/10/18 06:08 RBC 2.98 m/cumm (4.50-6.00) L 01/10/18 06:08 Hgb 8.4 g/dL (13.5-17.5) L 01/10/18 06:08 Hct 27.3 % (40.0-50.0) L 01/10/18 06:08 MCV 91.6 fL (80-95) 01/10/18 06:08 MCH 28.2 pg (27.0-33.0) 01/10/18 06:08 MCHC 30.8 g/dL (32.0-36.0) L 01/10/18 06:08 RDW 16.0 % (11.8-14.1) H 01/10/18 06:08 Plt Count 393 x1000/uL (130-400) 01/10/18 06:08 MPV 8.8 fL (8.0-11.0) 01/10/18 06:08 Immature Gran % 0.5 01/10/18 06:08 Neutrophils % 78.5 01/10/18 06:08 Lymphocytes % 7.6 01/10/18 06:08 Monocytes % 8.7 01/10/18 06:08 Eosinophils % 4.4 01/10/18 06:08 Basophils % 0.3 01/10/18 06:08 Absolute Neutrophils 7.44 k/cumm (1.2-6.7) H 01/10/18 06:08 Absolute Lymphocytes 0.72 k/cumm (1.2-3.4) L 01/10/18 06:08 Absolute Monocytes 0.83 k/cumm (0.11-0.7) H 01/10/18 06:08 Absolute Eosinophils 0.42 k/cumm (0.0-0.7) 01/10/18 06:08 Absolute Basophils 0.03 k/cumm (0.0-0.2) 01/10/18 06:08 PT 11.2 sec (9.3-10.8) H 01/08/18 11:55 INR 1.1 (1.0-3.5) 01/08/18 11:55 APTT 30.2 sec (21.0-31.4) 01/08/18 11:55 Sodium 143 mmol/L (136-145) 01/10/18 06:08 Potassium 4.1 mmol/L (3.5-5.1) 01/10/18 06:08 Chloride 108 mmol/L (98-107) H 01/10/18 06:08 Carbon Dioxide 24.7 mmol/L (21.0-32.0) 01/10/18 06:08 Anion Gap 10.3 mmol/L (3-11) 01/10/18 06:08 BUN 41 mg/dL (7-18) H 01/10/18 06:08 Creatinine 4.89 mg/dL (0.70-1.30) H* 01/10/18 06:08 Estimated GFR/1.73 m2 12.01 (mL/min/1.73m2) 01/10/18 06:08 Glucose 97 mg/dL (70-100) 01/10/18 06:08 Calcium 8.1 mg/dL (8.5-10.1) L 01/10/18 06:08 Magnesium 1.8 mg/dL (1.8-2.4) 01/10/18 06:08 Iron 16 ug/dL (50-175) L 01/08/18 14:12 TIBC 352 ug/dL (250-450) 01/08/18 14:12 Transferrin % Sat 5 % (20-55) L 01/08/18 14:12 Ferritin 271 ng/mL (8-388) 01/08/18 14:12 Total Bilirubin 0.4 mg/dL (0.2-1.0) 01/08/18 11:55 AST 16 U/L (15-37) 01/08/18 11:55 ALT 22 U/L (12-78) 01/08/18 11:55 Alkaline Phosphatase 101 U/L (46-116) 01/08/18 11:55 Creatine Kinase 70 U/L (39-308) 01/08/18 11:55 Troponin I 0.05 ng/mL (0.00-0.06) 01/08/18 11:55 NT-Pro-B Natriuret Pep 76791 pg/mL (-299) H 01/08/18 11:55 Total Protein 6.9 g/dL (6.4-8.2) 01/08/18 11:55 Albumin 2.7 g/dL (3.4-5.0) L 01/08/18 11:55 Vitamin B12 504 pg/mL (193-986) 01/08/18 14:12 Folate > 20.0 ng/mL (8.6-20.0) H 01/08/18 14:12 TSH 4.31 uIU/mL (0.358-3.74) H 01/08/18 14:12 Urine Color Yellow (Yellow) 01/08/18 12:03 Urine Clarity Clear 01/08/18 12:03 Urine pH 6.0 (5-8) 01/08/18 12:03 Ur Specific [place] 1.015 (1.005-1.025) 01/08/18 12:03 Urine Protein 100 mg/dL (Negative) H 01/08/18 12:03 Urine Ketones Negative mg/dL (Negative) 01/08/18 12:03 Urine Blood Trace-lysed (Negative) H 01/08/18 12:03 Urine Nitrite Negative (Negative) 01/08/18 12:03 Urine Bilirubin Negative (Negative) 01/08/18 12:03 Urine Urobilinogen 0.2 EU/dL (Up TO 0.2) 01/08/18 12:03 Ur Leukocyte Esterase Negative (Negative) 01/08/18 12:03 Urine RBC 0-2 (0-2) 01/08/18 12:03 Urine WBC 0-2 HPF (0-5) 01/08/18 12:03 Ur Epithelial Cells Negative HPF (Negative) 01/08/18 12:03 Urine Crystals Negative HPF (Negative) 01/08/18 12:03 Urine Bacteria Negative HPF (Negative) 01/08/18 12:03 Urine Casts Negative LPF (Negative) 01/08/18 12:03 Urine Mucus Negative (Negative) 01/08/18 12:03 Ur Culture Indicated? No 01/08/18 12:03 Urine Glucose Negative mg/dL (Negative) 01/08/18 12:03 Patient ABO/Rh B Positive 01/09/18 08:30 Antibody Screen Negative 01/09/18 08:30 Crossmatch See Detail 01/09/18 08:30
[2018-01-10 14:16] LABS: HCT 28.4 % (40.0-50.0); HGB 8.7 g/dL (13.5-17.5)
--- NOTE | 2018-01-10 14:24 | PDOC.CMPRO ---
- If Service Date Differs Date of service: 01/10/18 Time of Service: 14:24 Care Management Progress Note S/O: Gus is lying in bed when this com writer visits this morning. He is receptive to discussion and easily engages with this com writer. Gus continues on IV antibiotics at this time, and on a fluid restriction. CM reviewed CM role and DC plan, no changes at this time. A: 67 y/o male admitted 01/08/18 for HCAP P: Gus will return home with no anticipated services. He will F/U with PCP and plan of care as prescribed. Gus will drive himself home when medically cleared.
--- NOTE | 2018-01-10 14:36 | CMPROGNOTE_ITS ---
- If Service Date Differs Date of service: 01/10/18 Time of Service: 14:24 Care Management Progress Note S/O: uGs is lying in bed when this senior mortgage underwriter visits this morning. He is receptive to discussion and easily engages with this senior mortgage underwriter. Gus continues on IV antibiotics at this time, and on a fluid restriction. CM reviewed CM role and DC plan, no changes at this time. A: 67 y/o male admitted 01/08/18 for HCAP P: Gus will return home with no anticipated services. He will F/U with PCP and plan of care as prescribed. Gus will drive himself home when medically cleared.
--- NOTE | 2018-01-10 15:20 | CHAPLAIN ---
Caleb was sitting up in his chair when I visited. He said he drove himself here and will drive himself home. He told me that he doesn't expect any visitors today because he will likely be discharged tomorrow. According to Care Management notes, Gus states that he doesn't have any family locally. I will plan to visit him again tomorrow before discharge.
[2018-01-10] MEDS: CEFEPIME 1 GM in Normal Saline 50 ML IVPB (16:21)
[2018-01-10] MEDS: Mirtazapine 15 MG TAB PO (21:20)
[2018-01-11] VITALS (10 sets, daily range): BP systolic 131–155; BP diastolic 73–83; PULSE 70–76; RESP 16–19; TEMP 36.4–37.6; O2SAT 87–97
[2018-01-11 07:23] LABS: Abs Immature Grans 0.07 k/cumm (0.0-0.09); Absolute Basophil Count 0.04 k/cumm (0.0-0.2); Absolute Eosinophil Count 0.47 k/cumm (0.0-0.7); Absolute Lymphocyte Count 0.94 k/cumm (1.2-3.4); Absolute Monocyte Count 0.69 k/cumm (0.11-0.7); Absolute Neutrophil Count 6.65 k/cumm (1.2-6.7); Basophils % 0.5; Eosinophils % 5.3; HCT 28.6 % (40.0-50.0); HGB 8.7 g/dL (13.5-17.5); Immature Grans % 0.8; Lymphocytes % 10.6; Mean Corp. HGB Concentration 30.4 g/dL (32.0-36.0); Mean Corpuscular Hemoglobin 27.7 pg (27.0-33.0); Mean Corpuscular Volume 91.1 fL (80-95); Monocytes % 7.8; Platelet Count 419 x1000/uL (130-400); RBC 3.14 m/cumm (4.50-6.00); RBC Distribution Width 15.9 % (11.8-14.1); White Blood Cell Count 8.86 k/cumm (4.4-10.8)
[2018-01-11 07:33] LABS: Anion Gap 12.6 mmol/L (3-11); BUN 41 mg/dL (7-18); CO2 23.4 mmol/L (21.0-32.0); Calcium 8.5 mg/dL (8.5-10.1); Chloride 107 mmol/L (98-107); Estimated GFR 11.98 (mL/min/1.73m2); Glucose 92 mg/dL (70-100); Magnesium 1.8 mg/dL (1.8-2.4); Potassium 4.1 mmol/L (3.5-5.1); Sodium 143 mmol/L (136-145)
[2018-01-11] MEDS: Normal Saline Flush 10 ML SYR IVP ×3 (08:10→19:37)
[2018-01-11] MEDS: Psyllium PKT 1 EACH PO (08:11)
[2018-01-11] MEDS: amLODIPine 5 MG TAB 10 MG PO (08:11)
[2018-01-11] MEDS: Spironolactone 25 MG TAB 12.5 MG PO (08:11)
[2018-01-11] MEDS: Finasteride 5 MG TAB PO (08:12)
[2018-01-11] MEDS: Metoprolol CR 50 MG TABCR PO (08:13)
[2018-01-11] MEDS: Aspirin 81 MG CHEW PO (08:13)
[2018-01-11] MEDS: Multivitamin TAB 1 TAB PO (08:13)
[2018-01-11] MEDS: Apixaban 5 MG TAB PO ×2 (08:13→19:36)
[2018-01-11] MEDS: Sucralfate 1 GM TAB PO ×4 (08:13→21:49)
[2018-01-11] MEDS: Pravastatin 20 MG TAB 40 MG PO (08:13)
[2018-01-11] MEDS: Pantoprazole 40 MG VIAL IVP ×2 (08:14→19:36)
[2018-01-11] MEDS: Magnesium Oxide 400 MG TAB PO ×2 (08:17→08:55)
[2018-01-11] MEDS: Cholestyramine/Aspartame PKT 1 EACH PO ×2 (10:25→19:36)
[2018-01-11] MEDS: VANCOMYCIN 750 MG in Normal Saline 250 ML 166.667 MG IVPB (14:10)
--- NOTE | 2018-01-11 14:10 | PDOC.CMPRO ---
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 Gus continues on IV antibiotics and a fluid restriction at this time. Overnight he required oxygen and remains on telemetry monitoring. No change in plan at this time. A: 67 y/o male admitted 01/08/18 for HCAP P: Gus will return home with no anticipated services. He will F/U with PCP and plan of care as prescribed. Gus will drive himself home when medically cleared.
--- NOTE | 2018-01-11 15:10 | W.PM.PROGNOT ---
Date of Service Date of service: 01/11/18 Time of Service: 15:10 Assessment and Plan (1) Pneumonia: Current visit: Yes Status: Acute Given failure with outpatient oral antibiotics and recent hospitalization merits treatment with HCAP coverage. Continue Vancomycin and renally dosed Cefepime, now day #4. Blood Cultures with no growth X48 hours. Sputum cultures ordered as well. (2) Anemia: Current visit: No Status: Chronic Chronic but lower than baseline at time of admission, then dropped to 7.1. Patient does have a history of UC, with likely GI Blood loss while anticoagulated during his last hospitalization for acute flare. He also has a history of PUD. Mr. Collins needs anticoagulation not just on the basis of Afib, but on prior DVTs and PEs when not anticoagulated (setting of Hematuria and PPM placement in the past), and also endorses a history of arterial thrombi. Changed PO PPI to IV and administering twice daily, along with the addition of Sucralfate. Iron studies with low iron, but normal TIBC and ferritin. Also with normal B12, elevated FA, and mildly elevated TSH in the setting of acute illness. Stool for occult blood checked and negative. Received one unit of PRBCs on 01/09 with appropriate response, with apparent stability again this morning. (3) Cardiomyopathy: Current visit: Yes Status: Chronic ECHO from 10/2017 with LVEF 35-40%. Despite patient's reported worsening LE Edema and grossly elevated and worsed BNP, dyspnea appears to be on the basis of pneumonia, improving with antibiotics. Patient's LE Edema also started with discontinuation of patient's Spironolactone in the setting of hyperkalemia and KUNAL. Restarted Spironolactone at half dose, and attempt diuresis with careful monitoring of kidney function and electrolytes. Will also continue patient home regimen of ASA and statin. Monitor daily weights and fluid restrict as well. Lasix currently on hold with mild but continued rise in creatinine, with careful monitoring of renal function. (4) CKD (chronic kidney disease): Current visit: Yes Status: Chronic Creatinine elevated but stable and at or around his baseline. Creatinine Clearance of 6 currently - CKD Stage 5. Monitor renal function with diuresis and reinitiation of Spironolactone. Avoid nephrotoxins, and renally dose medications when appropriate. (5) Atrial fibrillation: Current visit: Yes Status: Chronic Continue BB therapy. On anticoagulation with Apixaban. Will continue to monitor on telemetry. (6) Colitis: Current visit: Yes Status: Chronic Appears quiescent currently. Continue cholestyramine, oral budesonide. (7) History of TIA (transient ischemic attack): Current visit: Yes Status: Chronic Currently on ASA. Also with Afib on chronic anticoagulation. (8) DVT prophylaxis: Current visit: Yes Status: Acute On anticoagulation with Apixaban. Subjective Interval history since last seen: 67 year old pleasant man with a past medical history significant for atrial fibrillation, prior DVT and Pulmonary Embolism on 2 separate occasions on chronic anticoagulation, prior arterial thrombus, as well as CKD stage 5, presented to [facility] emergency department with complaints of worsening dyspnea. Mr. Collins was hospitalized at [facility] in October to early November with acute flare of his underlying Ulcerative Colitis. During that hospitalization he was initiated on a trial of Sulfasalazine, with resultant KUNAL and hyperkalemia that prompted discontinuation of his Spironolactone. The patient's UC flare eventually came under control with treatment utilizing Cholestyramine and oral Budesonide. The patient reports onset of lower extremity swelling prior to his discharge from the hospital, and it continued and worsened over the last 1-2 months. However, what initially prompted a visit to the emergency room approximately a week prior to his admission was onset of dyspnea with a cough, and although Mr. Collnis has a history of Cardiomyopathy, his chest x-ray on 12/31 showed evidence of an infiltrate in the RUL without congestion. He was started on Cefdinir and discharged. The patient then reported continued and worsening dyspnea despite treatment with antibiotics, prompting a return visit to the emergency department. His imaging showed evidence of increase in the RUL consolidation consistent with worsening pneumonia. His labwork did not show any evidence of leukocytosis, and he was noted to be afebrile and without significant hypoxia. He was referred for further evaluation and treatment. Given his LE swelling the patient's Spironolactone was reinitiated at half dose, and he was started on IV Furosemide, as well as broad spectrum antibiotics for HCAP coverage. His pulmonary symptoms have slowly improved, and this morning he reports continued improvement in his breathing. His renal function remains stable despite initiation of spironolactone and lasix, with mild increase this morning. His hemoglobin appeared to have dropped prompting transfusion on 01/09, with resultant increase in and stability in hemoglobin. His anemia work-up and stool for occult blood were essentially negative. No other events reported overnight. Remains afebrile. Exam Narrative Exam Narrative: General: Patient appears comfortable, AAOX3, NAD Neck: Supple CV: Regular, nontachycardic, S1S2, 3/6 LLSB murmur appreciated. Pulmonary: Prior crackles and decreased breath sounds in the Right upper lung field have resolved. No rhonchi or wheezing. Minimal right basilar crackles this morning. Abdomen: + Bowel Sounds, soft, nontender, nondistended Vascular: + b/l equal lower extremity edema - 1-2 +. Psych: Normal mood and affect. Objective Objective Clinical Data: Abnormal lab results 01/11/18 01/11/18 Range/Units 06:12 06:12 RBC 3.14 L (4.50-6.00) m/cumm Hgb 8.7 L (13.5-17.5) g/dL Hct 28.6 L (40.0-50.0) % MCHC 30.4 L (32.0-36.0) g/dL RDW 15.9 H (11.8-14.1) % Plt Count 419 H (130-400) x1000/uL Absolute Lymphocytes 0.94 L (1.2-3.4) k/cumm Anion Gap 12.6 H (3-11) mmol/L BUN 41 H (7-18) mg/dL Creatinine 4.90 H* (0.70-1.30) mg/dL Vital Signs Temperature 36.9 C 01/11/18 11:28 Temperature Source Tympanic 01/11/18 11:28 Pulse 74 01/11/18 11:28 Pulse Rhythm Regular 01/11/18 07:52 Pulse 70 01/08/18 13:31 Respiratory Rate 17 01/11/18 11:28 Respiratory Effort Non-Labored 01/11/18 07:52 Respiratory Depth Normal 01/11/18 07:52 Respiratory Pattern Normal 01/11/18 07:52 Blood Pressure 131/75 01/11/18 11:28 Blood Pressure Mean 88 01/08/18 13:31 Pulse Oximetry 95 01/11/18 11:28 Oxygen Delivery Method Room Air 01/11/18 11:28 Oxygen Flow Rate 0 01/11/18 11:28 Pain Level 0 01/11/18 11:28 Comment 01/11/18 02:28 Intake & Output 01/10/18 01/11/18 01/11/18 23:59 11:59 23:59 Intake Total 730 / 730 550 / 550 Output Total 300 / 300 Balance 730 / 730 250 / 250 Weight 66.7 kg Intake: IV 80 / 80 10 / 10 Oral 650 / 650 540 / 540 Output: Urine 300 / 300 Other: Comment Pt reports voiding multiple times in toilet without alerting nurse in toilet. Voiding Methods Toilet Urinal Laboratory Results WBC 8.86 k/cumm (4.4-10.8) 01/11/18 06:12 RBC 3.14 m/cumm (4.50-6.00) L 01/11/18 06:12 Hgb 8.7 g/dL (13.5-17.5) L 01/11/18 06:12 Hct 28.6 % (40.0-50.0) L 01/11/18 06:12 MCV 91.1 fL (80-95) 01/11/18 06:12 MCH 27.7 pg (27.0-33.0) 01/11/18 06:12 MCHC 30.4 g/dL (32.0-36.0) L 01/11/18 06:12 RDW 15.9 % (11.8-14.1) H 01/11/18 06:12 Plt Count 419 x1000/uL (130-400) H 01/11/18 06:12 MPV 9.0 fL (8.0-11.0) 01/11/18 06:12 Immature Gran % 0.8 01/11/18 06:12 Neutrophils % 75.0 01/11/18 06:12 Lymphocytes % 10.6 01/11/18 06:12 Monocytes % 7.8 01/11/18 06:12 Eosinophils % 5.3 01/11/18 06:12 Basophils % 0.5 01/11/18 06:12 Absolute Neutrophils 6.65 k/cumm (1.2-6.7) 01/11/18 06:12 Absolute Lymphocytes 0.94 k/cumm (1.2-3.4) L 01/11/18 06:12 Absolute Monocytes 0.69 k/cumm (0.11-0.7) 01/11/18 06:12 Absolute Eosinophils 0.47 k/cumm (0.0-0.7) 01/11/18 06:12 Absolute Basophils 0.04 k/cumm (0.0-0.2) 01/11/18 06:12 PT 11.2 sec (9.3-10.8) H 01/08/18 11:55 INR 1.1 (1.0-3.5) 01/08/18 11:55 APTT 30.2 sec (21.0-31.4) 01/08/18 11:55 Sodium 143 mmol/L (136-145) 01/11/18 06:12 Potassium 4.1 mmol/L (3.5-5.1) 01/11/18 06:12 Chloride 107 mmol/L (98-107) 01/11/18 06:12 Carbon Dioxide 23.4 mmol/L (21.0-32.0) 01/11/18 06:12 Anion Gap 12.6 mmol/L (3-11) H 01/11/18 06:12 BUN 41 mg/dL (7-18) H 01/11/18 06:12 Creatinine 4.90 mg/dL (0.70-1.30) H* 01/11/18 06:12 Estimated GFR/1.73 m2 11.98 (mL/min/1.73m2) 01/11/18 06:12 Glucose 92 mg/dL (70-100) 01/11/18 06:12 Calcium 8.5 mg/dL (8.5-10.1) 01/11/18 06:12 Magnesium 1.8 mg/dL (1.8-2.4) 01/11/18 06:12 Iron 16 ug/dL (50-175) L 01/08/18 14:12 TIBC 352 ug/dL (250-450) 01/08/18 14:12 Transferrin % Sat 5 % (20-55) L 01/08/18 14:12 Ferritin 271 ng/mL (8-388) 01/08/18 14:12 Total Bilirubin 0.4 mg/dL (0.2-1.0) 01/08/18 11:55 AST 16 U/L (15-37) 01/08/18 11:55 ALT 22 U/L (12-78) 01/08/18 11:55 Alkaline Phosphatase 101 U/L (46-116) 01/08/18 11:55 Creatine Kinase 70 U/L (39-308) 01/08/18 11:55 Troponin I 0.05 ng/mL (0.00-0.06) 01/08/18 11:55 NT-Pro-B Natriuret Pep 25891 pg/mL (-299) H 01/08/18 11:55 Total Protein 6.9 g/dL (6.4-8.2) 01/08/18 11:55 Albumin 2.7 g/dL (3.4-5.0) L 01/08/18 11:55 Vitamin B12 504 pg/mL (193-986) 01/08/18 14:12 Folate > 20.0 ng/mL (8.6-20.0) H 01/08/18 14:12 TSH 4.31 uIU/mL (0.358-3.74) H 01/08/18 14:12 Urine Color Yellow (Yellow) 01/08/18 12:03 Urine Clarity Clear 01/08/18 12:03 Urine pH 6.0 (5-8) 01/08/18 12:03 Ur Specific [place] 1.015 (1.005-1.025) 01/08/18 12:03 Urine Protein 100 mg/dL (Negative) H 01/08/18 12:03 Urine Ketones Negative mg/dL (Negative) 01/08/18 12:03 Urine Blood Trace-lysed (Negative) H 01/08/18 12:03 Urine Nitrite Negative (Negative) 01/08/18 12:03 Urine Bilirubin Negative (Negative) 01/08/18 12:03 Urine Urobilinogen 0.2 EU/dL (Up TO 0.2) 01/08/18 12:03 Ur Leukocyte Esterase Negative (Negative) 01/08/18 12:03 Urine RBC 0-2 (0-2) 01/08/18 12:03 Urine WBC 0-2 HPF (0-5) 01/08/18 12:03 Ur Epithelial Cells Negative HPF (Negative) 01/08/18 12:03 Urine Crystals Negative HPF (Negative) 01/08/18 12:03 Urine Bacteria Negative HPF (Negative) 01/08/18 12:03 Urine Casts Negative LPF (Negative) 01/08/18 12:03 Urine Mucus Negative (Negative) 01/08/18 12:03 Ur Culture Indicated? No 01/08/18 12:03 Urine Glucose Negative mg/dL (Negative) 01/08/18 12:03 Patient ABO/Rh B Positive 01/09/18 08:30 Antibody Screen Negative 01/09/18 08:30 Crossmatch See Detail 01/09/18 08:30
[2018-01-11] MEDS: CEFEPIME 1 GM in Normal Saline 50 ML IVPB (15:58)
[2018-01-11] MEDS: Mirtazapine 15 MG TAB PO (21:49)
[2018-01-12 07:00] VITALS: PULSE 74
[2018-01-12 07:19] LABS: Abs Immature Grans 0.09 k/cumm (0.0-0.09); Absolute Basophil Count 0.05 k/cumm (0.0-0.2); Absolute Eosinophil Count 0.53 k/cumm (0.0-0.7); Absolute Lymphocyte Count 0.92 k/cumm (1.2-3.4); Absolute Monocyte Count 0.67 k/cumm (0.11-0.7); Absolute Neutrophil Count 6.52 k/cumm (1.2-6.7); Basophils % 0.6; HCT 28.2 % (40.0-50.0); HGB 8.7 g/dL (13.5-17.5); Lymphocytes % 10.5; Mean Corp. HGB Concentration 30.9 g/dL (32.0-36.0); Mean Corpuscular Hemoglobin 28.2 pg (27.0-33.0); Mean Corpuscular Volume 91.6 fL (80-95); Monocytes % 7.6; Neutrophils % 74.3; Platelet Count 403 x1000/uL (130-400); RBC 3.08 m/cumm (4.50-6.00); RBC Distribution Width 15.6 % (11.8-14.1); White Blood Cell Count 8.78 k/cumm (4.4-10.8)
[2018-01-12 07:24] VITALS: BP 157/81; PULSE 70; RESP 16; TEMP 36.7; O2SAT 94
[2018-01-12 07:32] LABS: BUN 46 mg/dL (7-18); Calcium 8.5 mg/dL (8.5-10.1); Chloride 108 mmol/L (98-107); Estimated GFR 12.15 (mL/min/1.73m2); Glucose 92 mg/dL (70-100); Magnesium 1.8 mg/dL (1.8-2.4); Potassium 4.4 mmol/L (3.5-5.1); Sodium 141 mmol/L (136-145)
[2018-01-12 07:40] LABS: Anion Gap 9.6 mmol/L (3-11); CO2 23.4 mmol/L (21.0-32.0)
[2018-01-12] MEDS: Normal Saline Flush 10 ML SYR IVP ×3 (07:42→15:53)
[2018-01-12] MEDS: Calcitriol 0.25 MCG CAP PO (07:43)
[2018-01-12] MEDS: Multivitamin TAB 1 TAB PO (07:43)
[2018-01-12] MEDS: Sucralfate 1 GM TAB PO ×3 (07:43→20:50)
[2018-01-12] MEDS: Psyllium PKT 1 EACH PO (07:43)
[2018-01-12] MEDS: Pantoprazole 40 MG VIAL IVP (07:43)
[2018-01-12] MEDS: amLODIPine 5 MG TAB 10 MG PO (07:43)
[2018-01-12 07:44] LABS: CREATININE 4.84 mg/dL (0.70-1.30)
[2018-01-12] MEDS: Apixaban 5 MG TAB PO ×2 (07:44→20:50)
[2018-01-12] MEDS: Magnesium Oxide 400 MG TAB PO ×2 (07:44→09:10)
[2018-01-12] MEDS: Metoprolol CR 50 MG TABCR PO (07:44)
[2018-01-12] MEDS: Spironolactone 25 MG TAB 12.5 MG PO (07:44)
[2018-01-12] MEDS: Aspirin 81 MG CHEW PO (07:44)
[2018-01-12] MEDS: Pravastatin 20 MG TAB 40 MG PO (07:44)
[2018-01-12] MEDS: Finasteride 5 MG TAB PO (07:44)
[2018-01-12] MEDS: Furosemide 40 MG/4 ML VIAL IVP (09:10)
[2018-01-12] MEDS: Cholestyramine/Aspartame PKT 1 EACH PO ×2 (09:11→18:14)
[2018-01-12 11:25] VITALS: BP 131/71; PULSE 75; RESP 17; TEMP 36.4; O2SAT 95
--- NOTE | 2018-01-12 14:03 | W.PM.PROGNOT ---
Date of Service Date of service: 01/12/18 Time of Service: 14:03 Assessment and Plan (1) Pneumonia: Current visit: Yes Status: Acute Given failure with outpatient oral antibiotics and recent hospitalization merits treatment with HCAP coverage. Continue Vancomycin and renally dosed Cefepime, now day #5. Blood Cultures with no growth X72 hours. Sputum cultures ordered but not produced/collected. (2) Anemia: Current visit: No Status: Chronic Chronic but lower than baseline at time of admission, then dropped to 7.1. Patient does have a history of UC, with likely GI Blood loss while anticoagulated during his last hospitalization for acute flare. He also has a history of PUD. Mr. Collins needs anticoagulation not just on the basis of Afib, but on prior DVTs and PEs when not anticoagulated (setting of Hematuria and PPM placement in the past), and also endorses a history of arterial thrombi. Changed PO PPI to IV and administering twice daily, along with the addition of Sucralfate. Iron studies with low iron, but normal TIBC and ferritin. Also with normal B12, elevated FA, and mildly elevated TSH in the setting of acute illness. Stool for occult blood checked and negative. Received one unit of PRBCs on 01/09 with appropriate response, with apparent stability again this morning. Will change back to oral PPI and decrease sucralfate to bid dosing. (3) Cardiomyopathy: Current visit: Yes Status: Chronic ECHO from 10/2017 with LVEF 35-40%. Despite patient's reported worsening LE Edema and grossly elevated and worsed BNP, dyspnea appears to be on the basis of pneumonia, improving with antibiotics, with exam and imaging not showing signs of CHF. Patient's LE Edema also started with discontinuation of patient's Spironolactone in the setting of hyperkalemia and KUNAL. Restarted Spironolactone at half dose, and attempt diuresis with careful monitoring of kidney function and electrolytes. Will also continue patient home regimen of ASA and statin. Monitor daily weights and fluid restrict as well. One dose of IV Lasix this morning, with careful monitoring of renal function. (4) CKD (chronic kidney disease): Current visit: Yes Status: Chronic Creatinine elevated but stable and at or around his baseline. Creatinine Clearance of 6 currently - CKD Stage 5. Monitor renal function with diuresis and reinitiation of Spironolactone. Avoid nephrotoxins, and renally dose medications when appropriate. (5) Atrial fibrillation: Current visit: Yes Status: Chronic Continue BB therapy. On anticoagulation with Apixaban. Will continue to monitor on telemetry. (6) Colitis: Current visit: Yes Status: Chronic Appears quiescent currently. Continue cholestyramine, oral budesonide. (7) History of TIA (transient ischemic attack): Current visit: Yes Status: Chronic Currently on ASA. Also with Afib on chronic anticoagulation. (8) DVT prophylaxis: Current visit: Yes Status: Acute On anticoagulation with Apixaban. Subjective Interval history since last seen: 67 year old pleasant man with a past medical history significant for atrial fibrillation, prior DVT and Pulmonary Embolism on 2 separate occasions on chronic anticoagulation, prior arterial thrombus, as well as CKD stage 5, presented to [facility] emergency department with complaints of worsening dyspnea. Mr. Collins was hospitalized at [facility] in October to early November with acute flare of his underlying Ulcerative Colitis. During that hospitalization he was initiated on a trial of Sulfasalazine, with resultant KUNAL and hyperkalemia that prompted discontinuation of his Spironolactone. The patient's UC flare eventually came under control with treatment utilizing Cholestyramine and oral Budesonide. The patient reports onset of lower extremity swelling prior to his discharge from the hospital, and it continued and worsened over the last 1-2 months. However, what initially prompted a visit to the emergency room approximately a week prior to his admission was onset of dyspnea with a cough, and although Mr. Collins has a history of Cardiomyopathy, his chest x-ray on 12/31 showed evidence of an infiltrate in the RUL without congestion. He was started on Cefdinir and discharged. The patient then reported continued and worsening dyspnea despite treatment with antibiotics, prompting a return visit to the emergency department. His imaging showed evidence of increase in the RUL consolidation consistent with worsening pneumonia. His labwork did not show any evidence of leukocytosis, and he was noted to be afebrile and without significant hypoxia. He was referred for further evaluation and treatment. Given his LE swelling the patient's Spironolactone was reinitiated at half dose, and he was started on IV Furosemide, as well as broad spectrum antibiotics for HCAP coverage. His pulmonary symptoms have slowly improved, and this morning he reports continued improvement in his breathing. His renal function remains stable despite initiation of spironolactone and lasix, with mild decrease this morning. His weight appears stable this morning. The patient's hemoglobin appeared to have dropped prompting transfusion on 01/09, with resultant increase in and stability in hemoglobin. His anemia work-up and stool for occult blood were essentially negative. No other events reported overnight. Remains afebrile. Exam Narrative Exam Narrative: General: Patient appears comfortable, AAOX3, NAD Neck: Supple CV: Regular, nontachycardic, S1S2, 3/6 LLSB murmur appreciated. Pulmonary: Prior crackles and decreased breath sounds in the Right upper lung field have resolved. No rhonchi or wheezing. Abdomen: + Bowel Sounds, soft, nontender, nondistended Vascular: + b/l equal lower extremity edema - 1-2 +. Psych: Normal mood and affect. Objective Objective Clinical Data: Abnormal lab results 01/12/18 01/12/18 Range/Units 06:20 06:20 RBC 3.08 L (4.50-6.00) m/cumm Hgb 8.7 L (13.5-17.5) g/dL Hct 28.2 L (40.0-50.0) % MCHC 30.9 L (32.0-36.0) g/dL RDW 15.6 H (11.8-14.1) % Plt Count 403 H (130-400) x1000/uL Absolute Lymphocytes 0.92 L (1.2-3.4) k/cumm Chloride 108 H (98-107) mmol/L BUN 46 H (7-18) mg/dL Creatinine 4.84 H* (0.70-1.30) mg/dL Vital Signs Temperature 36.4 C L 01/12/18 11:25 Temperature Source Tympanic 01/12/18 11:25 Pulse 75 01/12/18 11:25 Pulse Rhythm Regular 01/12/18 07:45 Pulse 70 01/08/18 13:31 Respiratory Rate 17 01/12/18 11:25 Respiratory Effort Non-Labored 01/12/18 07:45 Respiratory Depth Normal 01/12/18 07:45 Respiratory Pattern Normal 01/12/18 07:45 Blood Pressure 131/71 01/12/18 11:25 Blood Pressure Mean 88 01/08/18 13:31 Pulse Oximetry 95 01/12/18 11:25 Oxygen Delivery Method Room Air 01/12/18 11:25 Oxygen Flow Rate 0 01/12/18 11:25 Pain Level 0 01/11/18 11:28 Comment 01/11/18 02:28 Intake & Output 01/11/18 01/12/18 01/12/18 23:59 11:59 23:59 Intake Total 550 / 550 574 / 574 240 / 240 Output Total 300 / 300 600 / 600 Balance 250 / 250 -26 / -26 240 / 240 Weight 66.5 kg Intake: IV 310 / 310 34 / 34 Oral 240 / 240 540 / 540 240 / 240 Output: Urine 300 / 300 600 / 600 Other: Urine Color Yellow Pale Yellow Urine Appearance Clear Clear Urine Odor Normal None Comment toilet void x 1, ind to toilet. Voiding Methods Urinal Urinal Laboratory Results WBC 8.78 k/cumm (4.4-10.8) 01/12/18 06:20 RBC 3.08 m/cumm (4.50-6.00) L 01/12/18 06:20 Hgb 8.7 g/dL (13.5-17.5) L 01/12/18 06:20 Hct 28.2 % (40.0-50.0) L 01/12/18 06:20 MCV 91.6 fL (80-95) 01/12/18 06:20 MCH 28.2 pg (27.0-33.0) 01/12/18 06:20 MCHC 30.9 g/dL (32.0-36.0) L 01/12/18 06:20 RDW 15.6 % (11.8-14.1) H 01/12/18 06:20 Plt Count 403 x1000/uL (130-400) H 01/12/18 06:20 MPV 9.0 fL (8.0-11.0) 01/12/18 06:20 Immature Gran % 1.0 01/12/18 06:20 Neutrophils % 74.3 01/12/18 06:20 Lymphocytes % 10.5 01/12/18 06:20 Monocytes % 7.6 01/12/18 06:20 Eosinophils % 6.0 01/12/18 06:20 Basophils % 0.6 01/12/18 06:20 Absolute Neutrophils 6.52 k/cumm (1.2-6.7) 01/12/18 06:20 Absolute Lymphocytes 0.92 k/cumm (1.2-3.4) L 01/12/18 06:20 Absolute Monocytes 0.67 k/cumm (0.11-0.7) 01/12/18 06:20 Absolute Eosinophils 0.53 k/cumm (0.0-0.7) 01/12/18 06:20 Absolute Basophils 0.05 k/cumm (0.0-0.2) 01/12/18 06:20 PT 11.2 sec (9.3-10.8) H 01/08/18 11:55 INR 1.1 (1.0-3.5) 01/08/18 11:55 APTT 30.2 sec (21.0-31.4) 01/08/18 11:55 Sodium 141 mmol/L (136-145) 01/12/18 06:20 Potassium 4.4 mmol/L (3.5-5.1) 01/12/18 06:20 Chloride 108 mmol/L (98-107) H 01/12/18 06:20 Carbon Dioxide 23.4 mmol/L (21.0-32.0) 01/12/18 06:20 Anion Gap 9.6 mmol/L (3-11) 01/12/18 06:20 BUN 46 mg/dL (7-18) H 01/12/18 06:20 Creatinine 4.84 mg/dL (0.70-1.30) H* 01/12/18 06:20 Estimated GFR/1.73 m2 12.15 (mL/min/1.73m2) 01/12/18 06:20 Glucose 92 mg/dL (70-100) 01/12/18 06:20 Calcium 8.5 mg/dL (8.5-10.1) 01/12/18 06:20 Magnesium 1.8 mg/dL (1.8-2.4) 01/12/18 06:20 Iron 16 ug/dL (50-175) L 01/08/18 14:12 TIBC 352 ug/dL (250-450) 01/08/18 14:12 Transferrin % Sat 5 % (20-55) L 01/08/18 14:12 Ferritin 271 ng/mL (8-388) 01/08/18 14:12 Total Bilirubin 0.4 mg/dL (0.2-1.0) 01/08/18 11:55 AST 16 U/L (15-37) 01/08/18 11:55 ALT 22 U/L (12-78) 01/08/18 11:55 Alkaline Phosphatase 101 U/L (46-116) 01/08/18 11:55 Creatine Kinase 70 U/L (39-308) 01/08/18 11:55 Troponin I 0.05 ng/mL (0.00-0.06) 01/08/18 11:55 NT-Pro-B Natriuret Pep 37168 pg/mL (-299) H 01/08/18 11:55 Total Protein 6.9 g/dL (6.4-8.2) 01/08/18 11:55 Albumin 2.7 g/dL (3.4-5.0) L 01/08/18 11:55 Vitamin B12 504 pg/mL (193-986) 01/08/18 14:12 Folate > 20.0 ng/mL (8.6-20.0) H 01/08/18 14:12 TSH 4.31 uIU/mL (0.358-3.74) H 01/08/18 14:12 Urine Color Yellow (Yellow) 01/08/18 12:03 Urine Clarity Clear 01/08/18 12:03 Urine pH 6.0 (5-8) 01/08/18 12:03 Ur Specific [place] 1.015 (1.005-1.025) 01/08/18 12:03 Urine Protein 100 mg/dL (Negative) H 01/08/18 12:03 Urine Ketones Negative mg/dL (Negative) 01/08/18 12:03 Urine Blood Trace-lysed (Negative) H 01/08/18 12:03 Urine Nitrite Negative (Negative) 01/08/18 12:03 Urine Bilirubin Negative (Negative) 01/08/18 12:03 Urine Urobilinogen 0.2 EU/dL (Up TO 0.2) 01/08/18 12:03 Ur Leukocyte Esterase Negative (Negative) 01/08/18 12:03 Urine RBC 0-2 (0-2) 01/08/18 12:03 Urine WBC 0-2 HPF (0-5) 01/08/18 12:03 Ur Epithelial Cells Negative HPF (Negative) 01/08/18 12:03 Urine Crystals Negative HPF (Negative) 01/08/18 12:03 Urine Bacteria Negative HPF (Negative) 01/08/18 12:03 Urine Casts Negative LPF (Negative) 01/08/18 12:03 Urine Mucus Negative (Negative) 01/08/18 12:03 Ur Culture Indicated? No 01/08/18 12:03 Urine Glucose Negative mg/dL (Negative) 01/08/18 12:03 Patient ABO/Rh B Positive 01/09/18 08:30 Antibody Screen Negative 01/09/18 08:30 Crossmatch See Detail 01/09/18 08:30
--- NOTE | 2018-01-12 14:36 | PDOC.CMPRO ---
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 Gus states that he continues on IV antibiotics at this time, and that he is hopeful for a quick hospitalization to be able to return home. No change in DC plan at this time. A: 67 y/o male admitted 01/08/18 for HCAP P: Gus will return home with no anticipated services. He will F/U with PCP and plan of care as prescribed. Gus will drive himself home when medically cleared.
[2018-01-12 15:35] VITALS: PULSE 75
[2018-01-12 15:38] VITALS: BP 118/73; PULSE 70; RESP 18; TEMP 36.4; O2SAT 97
[2018-01-12] MEDS: CEFEPIME 1 GM in Normal Saline 50 ML IVPB (15:53)
[2018-01-12 20:37] VITALS: BP 118/73; PULSE 70; RESP 18; TEMP 37; O2SAT 96
[2018-01-12] MEDS: Mirtazapine 15 MG TAB PO (20:50)
[2018-01-13] VITALS (9 sets, daily range): BP systolic 134–166; BP diastolic 74–91; PULSE 70–77; RESP 17–20; TEMP 36.1–36.7; O2SAT 93–95
[2018-01-13 01:12] LABS: Vancomycin, Trough 20.1 ug/mL (10.0-20.0)
[2018-01-13] MEDS: VANCOMYCIN 750 MG in Normal Saline 250 ML 166.667 MG IVPB (01:34)
[2018-01-13] MEDS: Normal Saline Flush 10 ML SYR IVP ×2 (01:34→17:45)
[2018-01-13 07:29] LABS: Abs Immature Grans 0.06 k/cumm (0.0-0.09); Absolute Basophil Count 0.06 k/cumm (0.0-0.2); Absolute Eosinophil Count 0.49 k/cumm (0.0-0.7); Absolute Lymphocyte Count 0.96 k/cumm (1.2-3.4); Absolute Monocyte Count 0.71 k/cumm (0.11-0.7); Absolute Neutrophil Count 6.29 k/cumm (1.2-6.7); Basophils % 0.7; Eosinophils % 5.7; HCT 29.2 % (40.0-50.0); HGB 8.9 g/dL (13.5-17.5); Immature Grans % 0.7; Lymphocytes % 11.2; Mean Corp. HGB Concentration 30.5 g/dL (32.0-36.0); Mean Corpuscular Hemoglobin 27.7 pg (27.0-33.0); Mean Platelet Volume 8.9 fL (8.0-11.0); Monocytes % 8.3; Neutrophils % 73.4; Platelet Count 411 x1000/uL (130-400); RBC 3.21 m/cumm (4.50-6.00); RBC Distribution Width 15.8 % (11.8-14.1); White Blood Cell Count 8.57 k/cumm (4.4-10.8)
[2018-01-13 07:34] LABS: Anion Gap 11.5 mmol/L (3-11); BUN 52 mg/dL (7-18); CO2 22.5 mmol/L (21.0-32.0); Calcium 8.7 mg/dL (8.5-10.1); Chloride 107 mmol/L (98-107); Estimated GFR 11.39 (mL/min/1.73m2); Glucose 100 mg/dL (70-100); Magnesium 1.8 mg/dL (1.8-2.4); Potassium 4.4 mmol/L (3.5-5.1); Sodium 141 mmol/L (136-145)
[2018-01-13 07:39] LABS: CREATININE 5.12 mg/dL (0.70-1.30)
[2018-01-13] MEDS: Psyllium PKT 1 EACH PO (08:53)
[2018-01-13] MEDS: Finasteride 5 MG TAB PO (08:53)
[2018-01-13] MEDS: Apixaban 5 MG TAB PO ×2 (08:53→21:04)
[2018-01-13] MEDS: Pravastatin 20 MG TAB 40 MG PO (08:53)
[2018-01-13] MEDS: Aspirin 81 MG CHEW PO (08:54)
[2018-01-13] MEDS: Sucralfate 1 GM TAB PO ×2 (08:54→21:04)
[2018-01-13] MEDS: Spironolactone 25 MG TAB 12.5 MG PO (08:54)
[2018-01-13] MEDS: Magnesium Oxide 400 MG TAB PO (08:54)
[2018-01-13] MEDS: amLODIPine 5 MG TAB 10 MG PO (08:54)
[2018-01-13] MEDS: Multivitamin TAB 1 TAB PO (08:54)
[2018-01-13] MEDS: Metoprolol CR 50 MG TABCR PO (08:54)
[2018-01-13] MEDS: Cholestyramine/Aspartame PKT 1 EACH PO ×2 (10:02→18:39)
--- NOTE | 2018-01-13 13:06 | W.PM.PROGNOT ---
Date of Service Date of service: 01/13/18 Time of Service: 13:06 Assessment and Plan (1) Pneumonia: Current visit: Yes Status: Acute Given failure with outpatient oral antibiotics and recent hospitalization merits treatment with HCAP coverage. Continue Vancomycin and renally dosed Cefepime, now day #6 of a planned 7 day course. Blood Cultures with no growth X96 hours. Sputum cultures ordered but not produced/collected. (2) Anemia: Current visit: No Status: Chronic Chronic but lower than baseline at time of admission, then dropped to 7.1. Patient does have a history of UC, with likely GI Blood loss while anticoagulated during his last hospitalization for acute flare. He also has a history of PUD. Mr. Collins needs anticoagulation not just on the basis of Afib, but on prior DVTs and PEs when not anticoagulated (setting of Hematuria and PPM placement in the past), and also endorses a history of arterial thrombi. Changed PO PPI to IV and administering twice daily, along with the addition of Sucralfate. Iron studies with low iron, but normal TIBC and ferritin. Also with normal B12, elevated FA, and mildly elevated TSH in the setting of acute illness. Stool for occult blood checked and negative. Received one unit of PRBCs on 01/09 with appropriate response, with apparent stability again this morning. Changed back to oral PPI and decreased sucralfate to bid dosing. Continue to monitor. (3) Cardiomyopathy: Current visit: Yes Status: Chronic ECHO from 10/2017 with LVEF 35-40%. Despite patient's reported worsening LE Edema and grossly elevated and worsed BNP, dyspnea appears to be on the basis of pneumonia, improving with antibiotics, with exam and imaging not showing signs of CHF. Patient's LE Edema also started with discontinuation of patient's Spironolactone in the setting of hyperkalemia and KUNAL. Restarted Spironolactone at half dose, and attempt diuresis with careful monitoring of kidney function and electrolytes. Will also continue patient home regimen of ASA and statin. Monitor daily weights and fluid restrict as well. One dose of IV Lasix this morning, with careful monitoring of renal function. Current weight down from 67 --> 65.6 Kg today. (4) CKD (chronic kidney disease): Current visit: Yes Status: Chronic Creatinine elevated but stable and at or around his baseline. Creatinine Clearance of 6 currently - CKD Stage 5. Monitor renal function with diuresis and reinitiation of Spironolactone. Avoid nephrotoxins, and renally dose medications when appropriate. (5) Atrial fibrillation: Current visit: Yes Status: Chronic Continue BB therapy. On anticoagulation with Apixaban. Will continue to monitor on telemetry. (6) Colitis: Current visit: Yes Status: Chronic Appears quiescent currently. Continue cholestyramine, oral budesonide. (7) History of TIA (transient ischemic attack): Current visit: Yes Status: Chronic Currently on ASA. Also with Afib on chronic anticoagulation. (8) DVT prophylaxis: Current visit: Yes Status: Acute On anticoagulation with Apixaban. Subjective Interval history since last seen: 67 year old pleasant man with a past medical history significant for atrial fibrillation, prior DVT and Pulmonary Embolism on 2 separate occasions on chronic anticoagulation, prior arterial thrombus, as well as CKD stage 5, presented to [facility] emergency department with complaints of worsening dyspnea. Mr. Collins was hospitalized at [facility] in October to early November with acute flare of his underlying Ulcerative Colitis. During that hospitalization he was initiated on a trial of Sulfasalazine, with resultant KUNAL and hyperkalemia that prompted discontinuation of his Spironolactone. The patient's UC flare eventually came under control with treatment utilizing Cholestyramine and oral Budesonide. The patient reports onset of lower extremity swelling prior to his discharge from the hospital, and it continued and worsened over the last 1-2 months. However, what initially prompted a visit to the emergency room approximately a week prior to his admission was onset of dyspnea with a cough, and although Mr. Collins has a history of Cardiomyopathy, his chest x-ray on 12/31 showed evidence of an infiltrate in the RUL without congestion. He was started on Cefdinir and discharged. The patient then reported continued and worsening dyspnea despite treatment with antibiotics, prompting a return visit to the emergency department. His imaging showed evidence of increase in the RUL consolidation consistent with worsening pneumonia. His labwork did not show any evidence of leukocytosis, and he was noted to be afebrile and without significant hypoxia. He was referred for further evaluation and treatment. Given his LE swelling the patient's Spironolactone was reinitiated at half dose, and he was started on IV Furosemide that has been given pending results of his daily weight and creatinine. He was also initiated on broad spectrum antibiotics for HCAP coverage. His pulmonary symptoms have slowly improved, and this morning he reports continued improvement in his breathing. His renal function remains stable despite initiation of spironolactone and lasix, with mild increase this morning following administration of IV Lasix yesterday. His weight appears decreased this morning - Baseline weight appears to be between 61-64 Kg, with patient presenting to the hospital at 67 Kg. Today he is down to 65.6. The patient's hemoglobin appeared to have dropped prompting transfusion on 01/09, with resultant increase in and stability in hemoglobin. His anemia work-up and stool for occult blood were essentially negative. No other events reported overnight. Remains afebrile. Exam Narrative Exam Narrative: General: Patient appears comfortable, AAOX3, NAD Neck: Supple CV: Regular, nontachycardic, S1S2, 3/6 LLSB murmur appreciated. Pulmonary: Prior crackles and decreased breath sounds in the Right upper lung field have resolved. No rhonchi or wheezing. Abdomen: + Bowel Sounds, soft, nontender, nondistended Vascular: + b/l equal lower extremity edema - 1-2 +. Psych: Normal mood and affect. Objective Objective Clinical Data: Abnormal lab results 01/13/18 01/13/18 01/13/18 Range/Units 00:50 07:06 07:06 RBC 3.21 L (4.50-6.00) m/cumm Hgb 8.9 L (13.5-17.5) g/dL Hct 29.2 L (40.0-50.0) % MCHC 30.5 L (32.0-36.0) g/dL RDW 15.8 H (11.8-14.1) % Plt Count 411 H (130-400) x1000/uL Absolute Lymphocytes 0.96 L (1.2-3.4) k/cumm Absolute Monocytes 0.71 H (0.11-0.7) k/cumm Anion Gap 11.5 H (3-11) mmol/L BUN 52 H (7-18) mg/dL Creatinine 5.12 H* (0.70-1.30) mg/dL Vancomycin Trough 20.1 H (10.0-20.0) ug/mL Vital Signs Temperature 36.7 C 01/13/18 09:00 Temperature Source Tympanic 01/13/18 09:00 Pulse 70 01/13/18 09:00 Pulse Rhythm Regular 01/13/18 07:41 Pulse 70 01/08/18 13:31 Respiratory Rate 18 01/13/18 09:00 Respiratory Effort Non-Labored 01/13/18 07:41 Respiratory Depth Normal 01/13/18 07:41 Respiratory Pattern Normal 01/13/18 07:41 Blood Pressure 154/79 H 01/13/18 09:00 Blood Pressure Mean 88 01/08/18 13:31 Pulse Oximetry 93 L 01/13/18 09:00 Oxygen Delivery Method Room Air 01/13/18 09:00 Oxygen Flow Rate 0 01/13/18 09:00 Pain Level 0 01/13/18 07:41 Comment 01/11/18 02:28 Intake & Output 01/12/18 01/13/18 01/13/18 23:59 11:59 23:59 Intake Total 800 / 800 590 / 590 Output Total 300 / 300 475 / 475 125 / 125 Balance 500 / 500 115 / 115 -125 / -125 Weight 65.6 kg Intake: IV 70 / 70 250 / 250 Oral 730 / 730 340 / 340 Output: Urine 300 / 300 475 / 475 125 / 125 Other: Urine Color Yellow Yellow Yellow Urine Appearance Clear Clear Clear Urine Odor None Comment Void x1 in the toilet. RN unable to visualize urine; void per pt. report. Pt. instructed to continue using urinal for measurment purposes. Void x1 in the urinal. Voiding Methods Urinal Toilet Urinal Laboratory Results WBC 8.57 k/cumm (4.4-10.8) 01/13/18 07:06 RBC 3.21 m/cumm (4.50-6.00) L 01/13/18 07:06 Hgb 8.9 g/dL (13.5-17.5) L 01/13/18 07:06 Hct 29.2 % (40.0-50.0) L 01/13/18 07:06 MCV 91.0 fL (80-95) 01/13/18 07:06 MCH 27.7 pg (27.0-33.0) 01/13/18 07:06 MCHC 30.5 g/dL (32.0-36.0) L 01/13/18 07:06 RDW 15.8 % (11.8-14.1) H 01/13/18 07:06 Plt Count 411 x1000/uL (130-400) H 01/13/18 07:06 MPV 8.9 fL (8.0-11.0) 01/13/18 07:06 Immature Gran % 0.7 01/13/18 07:06 Neutrophils % 73.4 01/13/18 07:06 Lymphocytes % 11.2 01/13/18 07:06 Monocytes % 8.3 01/13/18 07:06 Eosinophils % 5.7 01/13/18 07:06 Basophils % 0.7 01/13/18 07:06 Absolute Neutrophils 6.29 k/cumm (1.2-6.7) 01/13/18 07:06 Absolute Lymphocytes 0.96 k/cumm (1.2-3.4) L 01/13/18 07:06 Absolute Monocytes 0.71 k/cumm (0.11-0.7) H 01/13/18 07:06 Absolute Eosinophils 0.49 k/cumm (0.0-0.7) 01/13/18 07:06 Absolute Basophils 0.06 k/cumm (0.0-0.2) 01/13/18 07:06 PT 11.2 sec (9.3-10.8) H 01/08/18 11:55 INR 1.1 (1.0-3.5) 01/08/18 11:55 APTT 30.2 sec (21.0-31.4) 01/08/18 11:55 Sodium 141 mmol/L (136-145) 01/13/18 07:06 Potassium 4.4 mmol/L (3.5-5.1) 01/13/18 07:06 Chloride 107 mmol/L (98-107) 01/13/18 07:06 Carbon Dioxide 22.5 mmol/L (21.0-32.0) 01/13/18 07:06 Anion Gap 11.5 mmol/L (3-11) H 01/13/18 07:06 BUN 52 mg/dL (7-18) H 01/13/18 07:06 Creatinine 5.12 mg/dL (0.70-1.30) H* 01/13/18 07:06 Estimated GFR/1.73 m2 11.39 (mL/min/1.73m2) 01/13/18 07:06 Glucose 100 mg/dL (70-100) 01/13/18 07:06 Calcium 8.7 mg/dL (8.5-10.1) 01/13/18 07:06 Magnesium 1.8 mg/dL (1.8-2.4) 01/13/18 07:06 Iron 16 ug/dL (50-175) L 01/08/18 14:12 TIBC 352 ug/dL (250-450) 01/08/18 14:12 Transferrin % Sat 5 % (20-55) L 01/08/18 14:12 Ferritin 271 ng/mL (8-388) 01/08/18 14:12 Total Bilirubin 0.4 mg/dL (0.2-1.0) 01/08/18 11:55 AST 16 U/L (15-37) 01/08/18 11:55 ALT 22 U/L (12-78) 01/08/18 11:55 Alkaline Phosphatase 101 U/L (46-116) 01/08/18 11:55 Creatine Kinase 70 U/L (39-308) 01/08/18 11:55 Troponin I 0.05 ng/mL (0.00-0.06) 01/08/18 11:55 NT-Pro-B Natriuret Pep 17040 pg/mL (-299) H 01/08/18 11:55 Total Protein 6.9 g/dL (6.4-8.2) 01/08/18 11:55 Albumin 2.7 g/dL (3.4-5.0) L 01/08/18 11:55 Vitamin B12 504 pg/mL (193-986) 01/08/18 14:12 Folate > 20.0 ng/mL (8.6-20.0) H 01/08/18 14:12 TSH 4.31 uIU/mL (0.358-3.74) H 01/08/18 14:12 Urine Color Yellow (Yellow) 01/08/18 12:03 Urine Clarity Clear 01/08/18 12:03 Urine pH 6.0 (5-8) 01/08/18 12:03 Ur Specific [place] 1.015 (1.005-1.025) 01/08/18 12:03 Urine Protein 100 mg/dL (Negative) H 01/08/18 12:03 Urine Ketones Negative mg/dL (Negative) 01/08/18 12:03 Urine Blood Trace-lysed (Negative) H 01/08/18 12:03 Urine Nitrite Negative (Negative) 01/08/18 12:03 Urine Bilirubin Negative (Negative) 01/08/18 12:03 Urine Urobilinogen 0.2 EU/dL (Up TO 0.2) 01/08/18 12:03 Ur Leukocyte Esterase Negative (Negative) 01/08/18 12:03 Urine RBC 0-2 (0-2) 01/08/18 12:03 Urine WBC 0-2 HPF (0-5) 01/08/18 12:03 Ur Epithelial Cells Negative HPF (Negative) 01/08/18 12:03 Urine Crystals Negative HPF (Negative) 01/08/18 12:03 Urine Bacteria Negative HPF (Negative) 01/08/18 12:03 Urine Casts Negative LPF (Negative) 01/08/18 12:03 Urine Mucus Negative (Negative) 01/08/18 12:03 Ur Culture Indicated? No 01/08/18 12:03 Urine Glucose Negative mg/dL (Negative) 01/08/18 12:03 Vancomycin Trough 20.1 ug/mL (10.0-20.0) H 01/13/18 00:50 Patient ABO/Rh B Positive 01/09/18 08:30 Antibody Screen Negative 01/09/18 08:30 Crossmatch See Detail 01/09/18 08:30
--- NOTE | 2018-01-13 14:01 | CHAPLAIN ---
Gus was sitting up in his chair watching TV when I visited. He said he may go home tomorrow and that he'll likely be starting dialysis soon. He said that after he assumed having dialysis meant it was the end, but that he has since learned that people can be on dialysis for years. However, it's still a major change in his life. He identified a niece, who lives in [place], but calls him daily, as someone that he can talk to about his health concerns. Gus grew up in [place] and has brothers who have moved out of the area. He said he's been passing his days here watching TV.
--- NOTE | 2018-01-13 14:53 | PDOC.CMPRO ---
- If Service Date Differs Date of service: 01/13/18 Time of Service: 14:53 Care Management Progress Note S/O: CM met with patient in the room he is sitting up in the chair. Identifies no needs at this time and no change in the plan of care. He continues to receive IV antibiotics for HCAP. Anticipates Gus will discharged home in the next 24 hours per provider. A: 67 y/o male admitted 01/08/18 for HCAP P: Gus will return home with no anticipated services. He will F/U with PCP and plan of care as prescribed. Gus will drive himself home when medically cleared. Anticipate he will be discharged home in the next 24 hours.
[2018-01-13] MEDS: CEFEPIME 1 GM in Normal Saline 50 ML IVPB (16:59)
[2018-01-13] MEDS: Normal Saline 500 ML 30 ML IV (16:59)
[2018-01-13] MEDS: Mirtazapine 15 MG TAB PO (21:04)
[2018-01-14] VITALS (11 sets, daily range): BP systolic 126–155; BP diastolic 70–88; PULSE 67–88; RESP 17–20; TEMP 35.7–36.5; O2SAT 92–97
--- NOTE | 2018-01-14 00:58 | NUR.NOTE ---
Patient with 5 beat run of V-tach on telemetry around 12:50. RN went to bedside, patient denies chest pain or pressure, denies SOB, S1S2 via ascultation, BP 155/82, radial pulse 88bpm, patient currently in V-paced rythym on telemetry. Will continue to closely monitor
[2018-01-14 06:43] LABS: Abs Immature Grans 0.07 k/cumm (0.0-0.09); Absolute Basophil Count 0.04 k/cumm (0.0-0.2); Absolute Eosinophil Count 0.39 k/cumm (0.0-0.7); Absolute Lymphocyte Count 0.98 k/cumm (1.2-3.4); Absolute Monocyte Count 0.63 k/cumm (0.11-0.7); Absolute Neutrophil Count 5.72 k/cumm (1.2-6.7); Basophils % 0.5; HGB 8.5 g/dL (13.5-17.5); Immature Grans % 0.9; Lymphocytes % 12.5; Mean Corp. HGB Concentration 30.4 g/dL (32.0-36.0); Mean Corpuscular Hemoglobin 27.8 pg (27.0-33.0); Mean Corpuscular Volume 91.5 fL (80-95); Neutrophils % 73.1; Platelet Count 382 x1000/uL (130-400); RBC 3.06 m/cumm (4.50-6.00); RBC Distribution Width 15.8 % (11.8-14.1); White Blood Cell Count 7.83 k/cumm (4.4-10.8)
[2018-01-14 07:12] LABS: Anion Gap 10.9 mmol/L (3-11); BUN 55 mg/dL (7-18); CO2 22.1 mmol/L (21.0-32.0); Calcium 8.5 mg/dL (8.5-10.1); Chloride 107 mmol/L (98-107); Estimated GFR 11.34 (mL/min/1.73m2); Glucose 90 mg/dL (70-100); Magnesium 1.8 mg/dL (1.8-2.4); Potassium 4.6 mmol/L (3.5-5.1); Sodium 140 mmol/L (136-145)
[2018-01-14 07:15] LABS: CREATININE 5.14 mg/dL (0.70-1.30)
[2018-01-14] MEDS: amLODIPine 5 MG TAB 10 MG PO (08:35)
[2018-01-14] MEDS: Spironolactone 25 MG TAB 12.5 MG PO (08:35)
[2018-01-14] MEDS: Calcitriol 0.25 MCG CAP PO (08:35)
[2018-01-14] MEDS: Pravastatin 20 MG TAB 40 MG PO (08:35)
[2018-01-14] MEDS: Psyllium PKT 1 EACH PO (08:35)
[2018-01-14] MEDS: Sucralfate 1 GM TAB PO ×2 (08:35→19:53)
[2018-01-14] MEDS: Magnesium Oxide 400 MG TAB PO (08:35)
[2018-01-14] MEDS: Finasteride 5 MG TAB PO (08:35)
[2018-01-14] MEDS: Metoprolol CR 50 MG TABCR PO (08:35)
[2018-01-14] MEDS: Aspirin 81 MG CHEW PO (08:35)
[2018-01-14] MEDS: Apixaban 5 MG TAB PO ×2 (08:35→19:53)
[2018-01-14] MEDS: Multivitamin TAB 1 TAB PO (08:35)
[2018-01-14] MEDS: Cholestyramine/Aspartame PKT 1 EACH PO ×2 (10:19→19:10)
[2018-01-14] MEDS: Normal Saline Flush 10 ML SYR IVP ×2 (12:17→19:10)
--- NOTE | 2018-01-14 13:59 | W.PM.PROGNOT ---
Date of Service Date of service: 01/14/18 Time of Service: 13:59 Assessment and Plan (1) Pneumonia: Current visit: Yes Status: Acute Given failure with outpatient oral antibiotics and recent hospitalization merits treatment with HCAP coverage. Continue Vancomycin and renally dosed Cefepime, now day #7 of a planned 7 day course. Blood Cultures with no growth X120 hours. Sputum cultures ordered but not produced/collected. (2) Anemia: Current visit: No Status: Chronic Chronic but lower than baseline at time of admission, then dropped to 7.1. Patient does have a history of UC, with likely GI Blood loss while anticoagulated during his last hospitalization for acute flare. He also has a history of PUD. Mr. Collins needs anticoagulation not just on the basis of Afib, but on prior DVTs and PEs when not anticoagulated (setting of Hematuria and PPM placement in the past), and also endorses a history of arterial thrombi. Changed PO PPI to IV and administering twice daily, along with the addition of Sucralfate. Iron studies with low iron, but normal TIBC and ferritin. Also with normal B12, elevated FA, and mildly elevated TSH in the setting of acute illness. Stool for occult blood checked and negative. Received one unit of PRBCs on 01/09 with appropriate response, with apparent stability again this morning. Changed back to oral PPI and decreased sucralfate to bid dosing. Continue to monitor. (3) Cardiomyopathy: Current visit: Yes Status: Chronic ECHO from 10/2017 with LVEF 35-40%. Despite patient's reported worsening LE Edema and grossly elevated and worsed BNP, dyspnea appeared to be on the basis of pneumonia, improved with antibiotics, with exam and imaging not showing signs of CHF. Patient's LE Edema also started with discontinuation of patient's Spironolactone in the setting of hyperkalemia and KUNAL last hospitalization. Restarted Spironolactone at half dose, and attempted diuresis with careful monitoring of kidney function and electrolytes. Will also continue patient home regimen of ASA and statin. Monitor daily weights and fluid restrict as well. No further doses of diuretics - will await overnight and if creatinine stable will plan on discharge with outpatient monitoring of renal function. Current weight down from 67 --> 65 Kg today. Also consider increase in Spironolactone dose back to former dose when able. (4) CKD (chronic kidney disease): Current visit: Yes Status: Chronic Creatinine elevated but stable at mildly above baseline, but essentially unchanged. Creatinine Clearance of 6 currently - CKD Stage 5. Monitor renal function with diuresis and reinitiation of Spironolactone. Avoid nephrotoxins, and renally dose medications when appropriate. Patient is considering care home Hemodialysis. Follows with Nephrology at [facility]. (5) Atrial fibrillation: Current visit: Yes Status: Chronic Continue BB therapy. On anticoagulation with Apixaban. Will continue to monitor on telemetry. (6) Colitis: Current visit: Yes Status: Chronic Appears quiescent currently. Continue cholestyramine, oral budesonide. (7) History of TIA (transient ischemic attack): Current visit: Yes Status: Chronic Currently on ASA. Also with Afib on chronic anticoagulation. (8) DVT prophylaxis: Current visit: Yes Status: Acute On anticoagulation with Apixaban. 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 Mr. Collins was hospitalized at [facility] in October to early November with acute flare of his underlying Ulcerative Colitis. During that hospitalization he was initiated on a trial of Sulfasalazine, with resultant KUNAL and hyperkalemia that prompted discontinuation of his Spironolactone. The patient's UC flare eventually came under control with treatment utilizing Cholestyramine and oral Budesonide. The patient reports onset of lower extremity swelling prior to his discharge from the hospital, and it continued and worsened over the last 1-2 months. However, what initially prompted a visit to the emergency room approximately a week prior to his admission was onset of dyspnea with a cough, and although Mr. Collins has a history of Cardiomyopathy, his chest x-ray on 12/31 showed evidence of an infiltrate in the RUL without congestion. He was started on Cefdinir and discharged. The patient then reported continued and worsening dyspnea despite treatment with antibiotics, prompting a return visit to the emergency department. His imaging showed evidence of increase in the RUL consolidation consistent with worsening pneumonia. His labwork did not show any evidence of leukocytosis, and he was noted to be afebrile and without significant hypoxia. He was referred for further evaluation and treatment. Given his LE swelling the patient's Spironolactone was reinitiated at half dose, and he was started on IV Furosemide that has been given pending results of his daily weight and creatinine. He has currently lost 2 kg with limited diuresis. He was also initiated on broad spectrum antibiotics for HCAP coverage. His pulmonary symptoms have slowly improved. His renal function remains stable despite initiation of spironolactone and lasix, with mild increase this morning following administration of IV Lasix previously. His weight appears decreased this morning - Baseline weight appears to be between 61-64 Kg, with patient presenting to the hospital at 67 Kg. Today he is down to 65. The patient's hemoglobin appeared to have dropped prompting transfusion on 01/09, with resultant increase in and stability in hemoglobin. His anemia work-up and stool for occult blood were essentially negative. No other events reported overnight. Remains afebrile. Exam Narrative Exam Narrative: General: Patient appears comfortable, AAOX3, NAD Neck: Supple CV: Regular, nontachycardic, S1S2, 3/6 LLSB murmur appreciated. Pulmonary: Prior crackles and decreased breath sounds in the Right upper lung field have resolved. No rhonchi or wheezing. Abdomen: + Bowel Sounds, soft, nontender, nondistended Vascular: + b/l equal lower extremity edema - 1-2 +. Psych: Normal mood and affect. Objective Objective Clinical Data: Abnormal lab results 01/14/18 01/14/18 Range/Units 06:16 06:16 RBC 3.06 L (4.50-6.00) m/cumm Hgb 8.5 L (13.5-17.5) g/dL Hct 28.0 L (40.0-50.0) % MCHC 30.4 L (32.0-36.0) g/dL RDW 15.8 H (11.8-14.1) % Absolute Lymphocytes 0.98 L (1.2-3.4) k/cumm BUN 55 H (7-18) mg/dL Creatinine 5.14 H* (0.70-1.30) mg/dL Vital Signs Temperature 35.7 C L 01/14/18 11:40 Temperature Source Tympanic 01/14/18 11:40 Pulse 70 01/14/18 11:40 Pulse Rhythm Regular 01/13/18 21:22 Pulse 70 01/08/18 13:31 Respiratory Rate 17 01/14/18 11:40 Respiratory Effort Non-Labored 01/13/18 21:22 Respiratory Depth Normal 01/13/18 21:22 Respiratory Pattern Normal 01/13/18 21:22 Blood Pressure 126/75 01/14/18 11:40 Blood Pressure Mean 88 01/08/18 13:31 Pulse Oximetry 96 01/14/18 11:40 Oxygen Delivery Method Room Air 01/14/18 11:40 Oxygen Flow Rate 0 01/14/18 11:40 Pain Level 0 01/14/18 11:40 Comment 01/11/18 02:28 Intake & Output 01/13/18 01/14/18 01/14/18 23:59 11:59 23:59 Intake Total 1548.5 / 1548.5 835 / 835 24.5 / 24.5 Output Total 600 / 600 700 / 700 Balance 948.5 / 948.5 135 / 135 24.5 / 24.5 Weight 65 kg Intake: IV 68.5 / 68.5 115 / 115 24.5 / 24.5 Oral 1480 / 1480 720 / 720 Output: Urine 600 / 600 700 / 700 Other: Urine Color Yellow Yellow Urine Appearance Clear Clear Urine Odor None None Comment Void x1 in the urinal. Void x1 in the urinal. Stool Size Moderate Stool Characteristics Soft Brown Voiding Methods Urinal Urinal Laboratory Results WBC 7.83 k/cumm (4.4-10.8) 01/14/18 06:16 RBC 3.06 m/cumm (4.50-6.00) L 01/14/18 06:16 Hgb 8.5 g/dL (13.5-17.5) L 01/14/18 06:16 Hct 28.0 % (40.0-50.0) L 01/14/18 06:16 MCV 91.5 fL (80-95) 01/14/18 06:16 MCH 27.8 pg (27.0-33.0) 01/14/18 06:16 MCHC 30.4 g/dL (32.0-36.0) L 01/14/18 06:16 RDW 15.8 % (11.8-14.1) H 01/14/18 06:16 Plt Count 382 x1000/uL (130-400) 01/14/18 06:16 MPV 9.0 fL (8.0-11.0) 01/14/18 06:16 Immature Gran % 0.9 01/14/18 06:16 Neutrophils % 73.1 01/14/18 06:16 Lymphocytes % 12.5 01/14/18 06:16 Monocytes % 8.0 01/14/18 06:16 Eosinophils % 5.0 01/14/18 06:16 Basophils % 0.5 01/14/18 06:16 Absolute Neutrophils 5.72 k/cumm (1.2-6.7) 01/14/18 06:16 Absolute Lymphocytes 0.98 k/cumm (1.2-3.4) L 01/14/18 06:16 Absolute Monocytes 0.63 k/cumm (0.11-0.7) 01/14/18 06:16 Absolute Eosinophils 0.39 k/cumm (0.0-0.7) 01/14/18 06:16 Absolute Basophils 0.04 k/cumm (0.0-0.2) 01/14/18 06:16 PT 11.2 sec (9.3-10.8) H 01/08/18 11:55 INR 1.1 (1.0-3.5) 01/08/18 11:55 APTT 30.2 sec (21.0-31.4) 01/08/18 11:55 Sodium 140 mmol/L (136-145) 01/14/18 06:16 Potassium 4.6 mmol/L (3.5-5.1) 01/14/18 06:16 Chloride 107 mmol/L (98-107) 01/14/18 06:16 Carbon Dioxide 22.1 mmol/L (21.0-32.0) 01/14/18 06:16 Anion Gap 10.9 mmol/L (3-11) 01/14/18 06:16 BUN 55 mg/dL (7-18) H 01/14/18 06:16 Creatinine 5.14 mg/dL (0.70-1.30) H* 01/14/18 06:16 Estimated GFR/1.73 m2 11.34 (mL/min/1.73m2) 01/14/18 06:16 Glucose 90 mg/dL (70-100) 01/14/18 06:16 Calcium 8.5 mg/dL (8.5-10.1) 01/14/18 06:16 Magnesium 1.8 mg/dL (1.8-2.4) 01/14/18 06:16 Iron 16 ug/dL (50-175) L 01/08/18 14:12 TIBC 352 ug/dL (250-450) 01/08/18 14:12 Transferrin % Sat 5 % (20-55) L 01/08/18 14:12 Ferritin 271 ng/mL (8-388) 01/08/18 14:12 Total Bilirubin 0.4 mg/dL (0.2-1.0) 01/08/18 11:55 AST 16 U/L (15-37) 01/08/18 11:55 ALT 22 U/L (12-78) 01/08/18 11:55 Alkaline Phosphatase 101 U/L (46-116) 01/08/18 11:55 Creatine Kinase 70 U/L (39-308) 01/08/18 11:55 Troponin I 0.05 ng/mL (0.00-0.06) 01/08/18 11:55 NT-Pro-B Natriuret Pep 72486 pg/mL (-299) H 01/08/18 11:55 Total Protein 6.9 g/dL (6.4-8.2) 01/08/18 11:55 Albumin 2.7 g/dL (3.4-5.0) L 01/08/18 11:55 Vitamin B12 504 pg/mL (193-986) 01/08/18 14:12 Folate > 20.0 ng/mL (8.6-20.0) H 01/08/18 14:12 TSH 4.31 uIU/mL (0.358-3.74) H 01/08/18 14:12 Urine Color Yellow (Yellow) 01/08/18 12:03 Urine Clarity Clear 01/08/18 12:03 Urine pH 6.0 (5-8) 01/08/18 12:03 Ur Specific [place] 1.015 (1.005-1.025) 01/08/18 12:03 Urine Protein 100 mg/dL (Negative) H 01/08/18 12:03 Urine Ketones Negative mg/dL (Negative) 01/08/18 12:03 Urine Blood Trace-lysed (Negative) H 01/08/18 12:03 Urine Nitrite Negative (Negative) 01/08/18 12:03 Urine Bilirubin Negative (Negative) 01/08/18 12:03 Urine Urobilinogen 0.2 EU/dL (Up TO 0.2) 01/08/18 12:03 Ur Leukocyte Esterase Negative (Negative) 01/08/18 12:03 Urine RBC 0-2 (0-2) 01/08/18 12:03 Urine WBC 0-2 HPF (0-5) 01/08/18 12:03 Ur Epithelial Cells Negative HPF (Negative) 01/08/18 12:03 Urine Crystals Negative HPF (Negative) 01/08/18 12:03 Urine Bacteria Negative HPF (Negative) 01/08/18 12:03 Urine Casts Negative LPF (Negative) 01/08/18 12:03 Urine Mucus Negative (Negative) 01/08/18 12:03 Ur Culture Indicated? No 01/08/18 12:03 Urine Glucose Negative mg/dL (Negative) 01/08/18 12:03 Vancomycin Trough 20.1 ug/mL (10.0-20.0) H 01/13/18 00:50 Patient ABO/Rh B Positive 01/09/18 08:30 Antibody Screen Negative 01/09/18 08:30 Crossmatch See Detail 01/09/18 08:30
--- NOTE | 2018-01-14 14:05 | PGE_ITS ---
Date of Service Date of service: 01/14/18 Time of Service: 13:59 Assessment and Plan (1) Pneumonia: Current visit: Yes Status: Acute Given failure with outpatient oral antibiotics and recent hospitalization merits treatment with HCAP coverage. Continue Vancomycin and renally dosed Cefepime, now day #7 of a planned 7 day course. Blood Cultures with no growth X120 hours. Sputum cultures ordered but not produced/collected. (2) Anemia: Current visit: No Status: Chronic Chronic but lower than baseline at time of admission, then dropped to 7.1. Patient does have a history of UC, with likely GI Blood loss while anticoagulated during his last hospitalization for acute flare. He also has a history of PUD. Mr. Collins needs anticoagulation not just on the basis of Afib, but on prior DVTs and PEs when not anticoagulated (setting of Hematuria and PPM placement in the past), and also endorses a history of arterial thrombi. Changed PO PPI to IV and administering twice daily, along with the addition of Sucralfate. Iron studies with low iron, but normal TIBC and ferritin. Also with normal B12, elevated FA, and mildly elevated TSH in the setting of acute illness. Stool for occult blood checked and negative. Received one unit of PRBCs on 01/09 with appropriate response, with apparent stability again this morning. Changed back to oral PPI and decreased sucralfate to bid dosing. Continue to monitor. (3) Cardiomyopathy: Current visit: Yes Status: Chronic ECHO from 10/2017 with LVEF 35-40%. Despite patient's reported worsening LE Edema and grossly elevated and worsed BNP, dyspnea appeared to be on the basis of pneumonia, improved with antibiotics, with exam and imaging not showing signs of CHF. Patient's LE Edema also started with discontinuation of patient's Spironolactone in the setting of hyperkalemia and KUNAL last hospitalization. Restarted Spironolactone at half dose, and attempted diuresis with careful monitoring of kidney function and electrolytes. Will also continue patient home regimen of ASA and statin. Monitor daily weights and fluid restrict as well. No further doses of diuretics - will await overnight and if creatinine stable will plan on discharge with outpatient monitoring of renal function. Current weight down from 67 --> 65 Kg today. Also consider increase in Spironolactone dose back to former dose when able. (4) CKD (chronic kidney disease): Current visit: Yes Status: Chronic Creatinine elevated but stable at mildly above baseline, but essentially unchanged. Creatinine Clearance of 6 currently - CKD Stage 5. Monitor renal function with diuresis and reinitiation of Spironolactone. Avoid nephrotoxins, and renally dose medications when appropriate. Patient is considering half-way Hemodialysis. Follows with Nephrology at [facility]. (5) Atrial fibrillation: Current visit: Yes Status: Chronic Continue BB therapy. On anticoagulation with Apixaban. Will continue to monitor on telemetry. (6) Colitis: Current visit: Yes Status: Chronic Appears quiescent currently. Continue cholestyramine, oral budesonide. (7) History of TIA (transient ischemic attack): Current visit: Yes Status: Chronic Currently on ASA. Also with Afib on chronic anticoagulation. (8) DVT prophylaxis: Current visit: Yes Status: Acute On anticoagulation with Apixaban. Subjective Interval history since last seen: 67 year old pleasant man with a past medical history significant for atrial fibrillation, prior DVT and Pulmonary Embolism on 2 separate occasions on chronic anticoagulation, prior arterial thrombus, as well as CKD stage 5, presented to [facility] emergency department with complaints of worsening dyspnea. Mr. Collins was hospitalized at [facility] in October to early November with acute flare of his underlying Ulcerative Colitis. During that hospitalization he was initiated on a trial of Sulfasalazine, with resultant KUNAL and hyperkalemia that prompted discontinuation of his Spironolactone. The patient's UC flare eventually came under control with treatment utilizing Cholestyramine and oral Budesonide. The patient reports onset of lower extremity swelling prior to his discharge from the hospital, and it continued and worsened over the last 1-2 months. However, what initially prompted a visit to the emergency room approximately a week prior to his admission was onset of dyspnea with a cough, and although Mr. Collins has a history of Cardiomyopathy, his chest x-ray on showed evidence of an infiltrate in the RUL without congestion. He was started on Cefdinir and discharged. The patient then reported continued and worsening dyspnea despite treatment with antibiotics, prompting a return visit to the emergency department. His imaging showed evidence of increase in the RUL consolidation consistent with worsening pneumonia. His labwork did not show any evidence of leukocytosis, and he was noted to be afebrile and without significant hypoxia. He was referred for further evaluation and treatment. Given his LE swelling the patient's Spironolactone was reinitiated at half dose , and he was started on IV Furosemide that has been given pending results of his daily weight and creatinine. He has currently lost 2 kg with limited diuresis. He was also initiated on broad spectrum antibiotics for HCAP coverage. His pulmonary symptoms have slowly improved. His renal function remains stable despite initiation of spironolactone and lasix, with mild increase this morning following administration of IV Lasix previously. His weight appears decreased this morning - Baseline weight appears to be between 61 -64 Kg, with patient presenting to the hospital at 67 Kg. Today he is down to 65. The patient's hemoglobin appeared to have dropped prompting transfusion on 01/09, with resultant increase in and stability in hemoglobin. His anemia work- up and stool for occult blood were essentially negative. No other events reported overnight. Remains afebrile. Exam Narrative Exam Narrative: General: Patient appears comfortable, AAOX3, NAD Neck: Supple CV: Regular, nontachycardic, S1S2, 3/6 LLSB murmur appreciated. Pulmonary: Prior crackles and decreased breath sounds in the Right upper lung field have resolved. No rhonchi or wheezing. Abdomen: + Bowel Sounds, soft, nontender, nondistended Vascular: + b/l equal lower extremity edema - 1-2 +. Psych: Normal mood and affect. Objective Objective Clinical Data: Abnormal lab results 01/14/18 01/14/18 Range/Units 06:16 06:16 RBC 3.06 L (4.50-6.00) m/cumm Hgb 8.5 L (13.5-17.5) g/dL Hct 28.0 L (40.0-50.0) % MCHC 30.4 L (32.0-36.0) g/dL RDW 15.8 H (11.8-14.1) % Absolute Lymphocytes 0.98 L (1.2-3.4) k/cumm BUN 55 H (7-18) mg/dL Creatinine 5.14 H* (0.70-1.30) mg/dL Vital Signs Temperature 35.7 C L 01/14/18 11:40 Temperature Source Tympanic 01/14/18 11:40 Pulse 70 01/14/18 11:40 Pulse Rhythm Regular 01/13/18 21:22 Pulse 70 01/08/18 13:31 Respiratory Rate 17 01/14/18 11:40 Respiratory Effort Non-Labored 01/13/18 21:22 Respiratory Depth Normal 01/13/18 21:22 Respiratory Pattern Normal 01/13/18 21:22 Blood Pressure 126/75 01/14/18 11:40 Blood Pressure Mean 88 01/08/18 13:31 Pulse Oximetry 96 01/14/18 11:40 Oxygen Delivery Method Room Air 01/14/18 11:40 Oxygen Flow Rate 0 01/14/18 11:40 Pain Level 0 01/14/18 11:40 Comment 01/11/18 02:28 Intake & Output 01/13/18 01/14/18 01/14/18 23:59 11:59 23:59 Intake Total 1548.5 / 1548.5 835 / 835 24.5 / 24.5 Output Total 600 / 600 700 / 700 Balance 948.5 / 948.5 135 / 135 24.5 / 24.5 Weight 65 kg Intake: IV 68.5 / 68.5 115 / 115 24.5 / 24.5 Oral 1480 / 1480 720 / 720 Output: Urine 600 / 600 700 / 700 Other: Urine Color Yellow Yellow Urine Appearance Clear Clear Urine Odor None None Comment Void x1 in the urinal. Void x1 in the urinal. Stool Size Moderate Stool Characteristics Soft Brown Voiding Methods Urinal Urinal Laboratory Results WBC 7.83 k/cumm (4.4-10.8) 01/14/18 06:16 RBC 3.06 m/cumm (4.50-6.00) L 01/14/18 06:16 Hgb 8.5 g/dL (13.5-17.5) L 01/14/18 06:16 Hct 28.0 % (40.0-50.0) L 01/14/18 06:16 MCV 91.5 fL (80-95) 01/14/18 06:16 MCH 27.8 pg (27.0-33.0) 01/14/18 06:16 MCHC 30.4 g/dL (32.0-36.0) L 01/14/18 06:16 RDW 15.8 % (11.8-14.1) H 01/14/18 06:16 Plt Count 382 x1000/uL (130-400) 01/14/18 06:16 MPV 9.0 fL (8.0-11.0) 01/14/18 06:16 Immature Gran % 0.9 01/14/18 06:16 Neutrophils % 73.1 01/14/18 06:16 Lymphocytes % 12.5 01/14/18 06:16 Monocytes % 8.0 01/14/18 06:16 Eosinophils % 5.0 01/14/18 06:16 Basophils % 0.5 01/14/18 06:16 Absolute Neutrophils 5.72 k/cumm (1.2-6.7) 01/14/18 06:16 Absolute Lymphocytes 0.98 k/cumm (1.2-3.4) L 01/14/18 06:16 Absolute Monocytes 0.63 k/cumm (0.11-0.7) 01/14/18 06:16 Absolute Eosinophils 0.39 k/cumm (0.0-0.7) 01/14/18 06:16 Absolute Basophils 0.04 k/cumm (0.0-0.2) 01/14/18 06:16 PT 11.2 sec (9.3-10.8) H 01/08/18 11:55 INR 1.1 (1.0-3.5) 01/08/18 11:55 APTT 30.2 sec (21.0-31.4) 01/08/18 11:55 Sodium 140 mmol/L (136-145) 01/14/18 06:16 Potassium 4.6 mmol/L (3.5-5.1) 01/14/18 06:16 Chloride 107 mmol/L (98-107) 01/14/18 06:16 Carbon Dioxide 22.1 mmol/L (21.0-32.0) 01/14/18 06:16 Anion Gap 10.9 mmol/L (3-11) 01/14/18 06:16 BUN 55 mg/dL (7-18) H 01/14/18 06:16 Creatinine 5.14 mg/dL (0.70-1.30) H* 01/14/18 06:16 Estimated GFR/1.73 m2 11.34 (mL/min/1.73m2) 01/14/18 06:16 Glucose 90 mg/dL (70-100) 01/14/18 06:16 Calcium 8.5 mg/dL (8.5-10.1) 01/14/18 06:16 Magnesium 1.8 mg/dL (1.8-2.4) 01/14/18 06:16 Iron 16 ug/dL (50-175) L 01/08/18 14:12 TIBC 352 ug/dL (250-450) 01/08/18 14:12 Transferrin % Sat 5 % (20-55) L 01/08/18 14:12 Ferritin 271 ng/mL (8-388) 01/08/18 14:12 Total Bilirubin 0.4 mg/dL (0.2-1.0) 01/08/18 11:55 AST 16 U/L (15-37) 01/08/18 11:55 ALT 22 U/L (12-78) 01/08/18 11:55 Alkaline Phosphatase 101 U/L (46-116) 01/08/18 11:55 Creatine Kinase 70 U/L (39-308) 01/08/18 11:55 Troponin I 0.05 ng/mL (0.00-0.06) 01/08/18 11:55 NT-Pro-B Natriuret Pep 77765 pg/mL (-299) H 01/08/18 11:55 Total Protein 6.9 g/dL (6.4-8.2) 01/08/18 11:55 Albumin 2.7 g/dL (3.4-5.0) L 01/08/18 11:55 Vitamin B12 504 pg/mL (193-986) 01/08/18 14:12 Folate > 20.0 ng/mL (8.6-20.0) H 01/08/18 14:12 TSH 4.31 uIU/mL (0.358-3.74) H 01/08/18 14:12 Urine Color Yellow (Yellow) 01/08/18 12:03 Urine Clarity Clear 01/08/18 12:03 Urine pH 6.0 (5-8) 01/08/18 12:03 Ur Specific [place] 1.015 (1.005-1.025) 01/08/18 12:03 Urine Protein 100 mg/dL (Negative) H 01/08/18 12:03 Urine Ketones Negative mg/dL (Negative) 01/08/18 12:03 Urine Blood Trace-lysed (Negative) H 01/08/18 12:03 Urine Nitrite Negative (Negative) 01/08/18 12:03 Urine Bilirubin Negative (Negative) 01/08/18 12:03 Urine Urobilinogen 0.2 EU/dL (Up TO 0.2) 01/08/18 12:03 Ur Leukocyte Esterase Negative (Negative) 01/08/18 12:03 Urine RBC 0-2 (0-2) 01/08/18 12:03 Urine WBC 0-2 HPF (0-5) 01/08/18 12:03 Ur Epithelial Cells Negative HPF (Negative) 01/08/18 12:03 Urine Crystals Negative HPF (Negative) 01/08/18 12:03 Urine Bacteria Negative HPF (Negative) 01/08/18 12:03 Urine Casts Negative LPF (Negative) 01/08/18 12:03 Urine Mucus Negative (Negative) 01/08/18 12:03 Ur Culture Indicated? No 01/08/18 12:03 Urine Glucose Negative mg/dL (Negative) 01/08/18 12:03 Vancomycin Trough 20.1 ug/mL (10.0-20.0) H 01/13/18 00:50 Patient ABO/Rh B Positive 01/09/18 08:30 Antibody Screen Negative 01/09/18 08:30 Crossmatch See Detail 01/09/18 08:30
--- NOTE | 2018-01-14 14:20 | PDOC.CMPRO ---
- If Service Date Differs Date of service: 01/14/18 Time of Service: 14:20 Care Management Progress Note S/O: Gus is doing well when this underwriter solicitation director visits this morning. He states that he is feeling well this morning. Gus continues to require telemetry monitoring at this time. No change in DC plan. A: 67 y/o male admitted 01/08/18 for HCAP P: Gus will return home with no anticipated services. He will F/U with PCP and plan of care as prescribed. Gus will drive himself home when medically cleared. Anticipate he will be discharged home in the next 24 hours.
--- NOTE | 2018-01-14 14:27 | CMPROGNOTE_ITS ---
- If Service Date Differs Date of service: 01/14/18 Time of Service: 14:20 Care Management Progress Note S/O: Gus is doing well when this engineering writer visits this morning. He states that he is feeling well this morning. Gus continues to require telemetry monitoring at this time. No change in DC plan. A: 67 y/o male admitted 01/08/18 for HCAP P: Gus will return home with no anticipated services. He will F/U with PCP and plan of care as prescribed. Gus will drive himself home when medically cleared. Anticipate he will be discharged home in the next 24 hours.
[2018-01-14] MEDS: CEFEPIME 1 GM in Normal Saline 50 ML IVPB (16:43)
[2018-01-14] MEDS: VANCOMYCIN 750 MG in Normal Saline 250 ML 166.667 MG IVPB (17:16)
[2018-01-14] MEDS: Mirtazapine 15 MG TAB PO (21:26)
[2018-01-15 07:00] VITALS: PULSE 70
[2018-01-15 07:25] VITALS: BP 156/79; PULSE 72; RESP 20; TEMP 36.4; O2SAT 92
[2018-01-15 07:59] LABS: Absolute Basophil Count 0.07 k/cumm (0.0-0.2); Absolute Eosinophil Count 0.47 k/cumm (0.0-0.7); Absolute Lymphocyte Count 0.96 k/cumm (1.2-3.4); Absolute Monocyte Count 0.62 k/cumm (0.11-0.7); Absolute Neutrophil Count 6.11 k/cumm (1.2-6.7); Basophils % 0.8; Eosinophils % 5.6; HCT 28.8 % (40.0-50.0); HGB 8.7 g/dL (13.5-17.5); Immature Grans % 1.2; Lymphocytes % 11.5; Mean Corp. HGB Concentration 30.2 g/dL (32.0-36.0); Mean Corpuscular Hemoglobin 27.8 pg (27.0-33.0); Mean Platelet Volume 9.3 fL (8.0-11.0); Monocytes % 7.4; Neutrophils % 73.5; Platelet Count 393 x1000/uL (130-400); RBC 3.13 m/cumm (4.50-6.00); RBC Distribution Width 16.1 % (11.8-14.1); White Blood Cell Count 8.33 k/cumm (4.4-10.8)
[2018-01-15 08:01] LABS: BUN 61 mg/dL (7-18); Calcium 8.5 mg/dL (8.5-10.1); Chloride 108 mmol/L (98-107); Glucose 89 mg/dL (70-100); Magnesium 1.9 mg/dL (1.8-2.4); Potassium 4.6 mmol/L (3.5-5.1); Sodium 139 mmol/L (136-145)
[2018-01-15 08:15] LABS: CREATININE 4.93 mg/dL (0.70-1.30)
[2018-01-15] MEDS: Finasteride 5 MG TAB PO (08:42)
[2018-01-15] MEDS: Multivitamin TAB 1 TAB PO (08:42)
[2018-01-15] MEDS: Magnesium Oxide 400 MG TAB PO (08:42)
[2018-01-15] MEDS: Pravastatin 20 MG TAB 40 MG PO (08:43)
[2018-01-15] MEDS: Sucralfate 1 GM TAB PO (08:43)
[2018-01-15] MEDS: amLODIPine 5 MG TAB 10 MG PO (08:43)
[2018-01-15] MEDS: Spironolactone 25 MG TAB 12.5 MG PO (08:43)
[2018-01-15] MEDS: Metoprolol CR 50 MG TABCR PO (08:43)
[2018-01-15] MEDS: Psyllium PKT 1 EACH PO (08:44)
[2018-01-15] MEDS: Apixaban 5 MG TAB PO (08:44)
[2018-01-15] MEDS: Aspirin 81 MG CHEW PO (08:44)
[2018-01-15 08:54] LABS: Anisocytosis 2+; Diff Comment RBC Morph Reviewed
[2018-01-15 08:55] LABS: Hypochromasia 1+; Ovalocytes 2+; Poikilocytes 2+; Polychromasia Present
[2018-01-15 10:31] VITALS: PULSE 70
[2018-01-15] MEDS: Cholestyramine/Aspartame PKT 1 EACH PO (11:12)
[2018-01-15 11:51] VITALS: BP 129/71; PULSE 70; RESP 16; TEMP 36.1; O2SAT 96
--- NOTE | 2018-01-15 13:35 | PDOC.CMPRO ---
- If Service Date Differs Date of service: 01/15/18 Time of Service: 13:35 Care Management Progress Note S/O: Gus is sitting up in bed this morning. He is inquiring about hemodialysis and how this is arranged, CM explained that this would be arranged through the physician for an appointment for him to see his president and chief executive officer. Gus is understanding of the process and will speak with the hospitalist in regards to the above. A: 67 y/o male admitted 01/08/18 for HCAP P: Gus will return home with no anticipated services. He will F/U with PCP and plan of care as prescribed. Gus will drive himself home when medically cleared.
--- NOTE | 2018-01-15 13:39 | CMPROGNOTE_ITS ---
- If Service Date Differs Date of service: 01/15/18 Time of Service: 13:35 Care Management Progress Note S/O: Gus is sitting up in bed this morning. He is inquiring about hemodialysis and how this is arranged, CM explained that this would be arranged through the physician for an appointment for him to see his dry curer. Gus is understanding of the process and will speak with the hospitalist in regards to the above. A: 67 y/o male admitted 01/08/18 for HCAP P: Gus will return home with no anticipated services. He will F/U with PCP and plan of care as prescribed. Gus will drive himself home when medically cleared.
--- NOTE | 2018-01-15 14:31 | W.PM.DS.N ---
Date of service: 01/15/18 Time of Service: 14:32 DS: Diagnosis Discharge Diagnosis (1) Pneumonia: Status: Acute (2) Anemia: Status: Chronic (3) Cardiomyopathy: Status: Chronic (4) CKD (chronic kidney disease): Status: Chronic (5) Atrial fibrillation: Status: Chronic (6) Colitis: Status: Chronic (7) History of TIA (transient ischemic attack): Status: Chronic Discharge Plan Disposition Patient Disposition: HOME Condition: Stable Discharge Details Reason For Visit: HCAP Admit Date/Time: 01/08/18 13:45 Admit Provider: Boy Augustine Attending Provider: Boy Augustine Primary Care Provider: Basilio Antunez Hospital Course Hospital Course: Mr Collins is a 67 year old male who was admitted to [facility] on 01/08/18 for HCAP, having failed outpatient therapy. At [facility], he completed a seven day course of IV vancomycin and cefepime with clinical resolution of disease. He required a transfusion of a total of 1 unit of pRBC's for his anemia. There was no gross GI bleeding, but hemoccult positivity is expected in this patient with a history of UC. Additionally, his CKD 5 is playing a significant role in his anemia. He was continued on anticoagulation due to the fact that he has a significant history of arterial thromboses, Afib, history of DVT's and PE's, with hemoglobin remaining stable for the duration of therapy. As far as his kidney failure, the patient did have a transient worsening of his creatinine, likely in light of us attempting to gently diurese him here. On day of discharge, his creatinine is improving - off of diuretics. The patient states that he is ready for dialysis, which in my opinion he does not need emergently and will need to have set up as an outpatient via his adzing and boring machine feeder. His potassium is trending up (4.6 at the time of discharge) and, therefore, spironolactone which was gently re-attempted on this admission, will not be continued as outpatient. He is to have blood work done on 01/17/18 - specifically, to check his CBC, BMP, Magnesium - results are expected to be followed up by his PCP. Home Meds and New Rx's Prescriptions: New furosemide 20 mg tablet 20 mg PO DAILY PRN (Reason: edema) Qty: 7 RF: 0 Continue amlodipine 5 mg tablet 10 mg PO DAILY RF: 0 budesonide [Entocort EC] 3 mg capsule,delayed,extend.release 3 mg PO DAILY RF: 0 mirtazapine 15 mg tablet 15 mg PO DAILY RF: 0 pravastatin 20 MG tablet 40 mg PO DAILY RF: 0 finasteride 5 MG tablet 5 mg PO DAILY Qty: 90 RF: 4 nitroglycerin 0.4 MG tablet, sublingual 0.4 mg Sublingual PRN PRNRF: 0 Metoprolol Succinate 50 MG TAB.ER.24H 50 mg PO DAILY RF: 0 acetaminophen [Mapap Extra Strength] 500 MG tablet 500 mg PO PRN PRNRF: 0 aspirin [Aspirin Low-Strength] 81 MG tablet,chewable 81 mg PO DAILY RF: 0 Psyllium [Metamucil] 1 EACH Pkt 1 tsp PO DAILY RF: 0 multivitamin [Multiple Vitamins] Tablet 1 tab PO DAILY Qty: 30 RF: 0 cholecalciferol (vitamin D3) [Vitamin D3] 400 unit Tablet 400 unit PO BID Qty: 30 RF: 0 cholestyramine-aspartame [Prevalite] 4 gram Powder In Packet 1 ea PO 1000,1900 Qty: 14 RF: 0 pantoprazole [Protonix] 40 mg tablet,delayed release (DR/EC) 40 mg PO DAILY Qty: 30 RF: 0 apixaban [Eliquis] 5 mg tablet 5 mg PO BID Qty: 60 RF: 0 calcitriol 0.25 mcg Capsule 0.25 mcg PO QWEEK RF: 0 magnesium oxide 400 mg capsule 400 mg PO DAILY Qty: 10 RF: 0 calcium carbonate [Tums Ultra] 1,177 mg tablet,chewable 1,177 mg PO DAILY PRNRF: 0 Discontinued furosemide 40 mg Tablet 40 mg PO DAILY PRNRF: 0 Discharge Instructions Instructions: Bacterial Pneumonia (DC), Hemodialysis (DC) Additional Instructions: Return to the hospital with any fever, bleeding, chest pain, or shortness of breath. Call your adzing and boring machine feeder's office on Wednesday to set up a follow up appointment. Wear RADAMES Stockings during the day and elevate your legs while seating. Stand Alone Forms: Nursing Discharge Form Referrals: Basilio Antunez MD [Primary Care Provider] - 01/28/18 10:30 am Activity:: Activity as Tolerated Equipment/Supplies:: No Equipment Needed Diet:: renal Discharge Orders Discharge Orders: Discharge Order (Routine); Ordered 01/15/18 Ordered By: Kate Forbes Other Ambulatory Orders: Basic Metabolic Panel (Routine) Timeframe: 3 Days Location: Determined by Patient Ordered By: Kate Forbes Complete Blood Count No Diff (Routine) Timeframe: 3 Days Location: Determined by Patient Ordered By: Kate Forbes Magnesium (Routine) Timeframe: 3 Days Location: Determined by Patient Ordered By: Kate Forbes Exam Narrative Exam Narrative: General: A&OX3, NAD, anxious HEENT: EOMI, Dry MM Heart: RRR, CECILIA Lungs: CTAB Abdomen: soft, nontender, nondistended Extremities: 1+ B ankle edema, no clubbing or cyanosis. DS: Data Vitals/I&O Vitals and I&O: Vital Signs Temperature 36.1 C L 01/15/18 11:51 Temperature Source Tympanic 01/15/18 11:51 Pulse 70 01/15/18 11:51 Pulse Rhythm Regular 01/15/18 08:10 Pulse 70 01/08/18 13:31 Respiratory Rate 16 01/15/18 11:51 Respiratory Effort Non-Labored 01/15/18 08:10 Respiratory Depth Normal 01/15/18 08:10 Respiratory Pattern Normal 01/15/18 08:10 Blood Pressure 129/71 01/15/18 11:51 Blood Pressure Mean 88 01/08/18 13:31 Pulse Oximetry 96 01/15/18 11:51 Oxygen Delivery Method Room Air 01/15/18 11:51 Oxygen Flow Rate 0 01/15/18 11:51 Pain Level 0 01/15/18 11:51 Comment 01/11/18 02:28 Intake & Output 01/14/18 01/15/18 01/15/18 23:59 11:59 23:59 Intake Total 1066.5 / 1066.5 520 / 520 240 / 240 Output Total 325 / 325 600 / 600 Balance 741.5 / 741.5 -80 / -80 240 / 240 Weight 66.5 kg Intake: IV 346.5 / 346.5 Oral 720 / 720 520 / 520 240 / 240 Output: Urine 325 / 325 600 / 600 Other: Urine Color Yellow Yellow Urine Appearance Clear Clear Urine Odor None Comment Void x1 in the urinal. pT stated from power and recovery shift engineer. Voiding Methods Urinal Urinal Completed studies during hospitalization [Text1]: CXR 01/08/18: Some interval worsening of right upper lobe pneumonia. Labs on day of discharge: Labs from last 24 hours 01/15/18 01/15/18 06:30 06:30 WBC 8.33 RBC 3.13 L Hgb 8.7 L Hct 28.8 L MCV 92.0 MCH 27.8 MCHC 30.2 L RDW 16.1 H Plt Count 393 MPV 9.3 Immature Gran % 1.2 Neutrophils % 73.5 Lymphocytes % 11.5 Monocytes % 7.4 Eosinophils % 5.6 Basophils % 0.8 Absolute Neutrophils 6.11 Absolute Lymphocytes 0.96 L Absolute Monocytes 0.62 Absolute Eosinophils 0.47 Absolute Basophils 0.07 Differential Comment Rbc morph reviewed RBC Morphology See below Polychromasia Present Hypochromasia 1+ Poikilocytosis 2+ Anisocytosis 2+ Ovalocytes 2+ Sodium 139 Potassium 4.6 Chloride 108 H Carbon Dioxide 20.0 L Anion Gap 11.0 BUN 61 H Creatinine 4.93 H* Estimated GFR/1.73 m2 11.90 Glucose 89 Calcium 8.5 Magnesium 1.9 PFSH History of TIA (transient ischemic attack) (Chronic) 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) Cardiomyopathy (Chronic) Peptic ulcer disease (Chronic) CKD (chronic kidney disease) (Chronic) Atrial fibrillation (Chronic) Colitis (Chronic) Atrial fibrillation CHF (congestive heart failure), NYHA class I Chronic anticoagulation Chronic kidney disease Essential hypertension GERD with esophagitis History of pulmonary embolism Hyperlipidemia Colonoscopy - MAC EGD - MAC (01/29/16) Pacemaker Medical History History of TIA (transient ischemic attack) (Chronic) 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) Cardiomyopathy (Chronic) Peptic ulcer disease (Chronic) CKD (chronic kidney disease) (Chronic) Atrial fibrillation (Chronic) Colitis (Chronic) Atrial fibrillation CHF (congestive heart failure), NYHA class I Chronic anticoagulation Chronic kidney disease Essential hypertension GERD with esophagitis History of pulmonary embolism Hyperlipidemia Social History Smoking/Tobacco Use Status: Former Tobacco Use alcohol intake: former substance use type: does not use Surgical History Colonoscopy - MAC EGD - MAC (01/29/16) Pacemaker Social History Smoking/Tobacco Use Status: Former Tobacco Use alcohol intake: former substance use type: does not use
--- NOTE | 2018-01-15 14:36 | DSE_ITS ---
Date of service: 01/15/18 Time of Service: 14:32 DS: Diagnosis Discharge Diagnosis (1) Pneumonia: Status: Acute (2) Anemia: Status: Chronic (3) Cardiomyopathy: Status: Chronic (4) CKD (chronic kidney disease): Status: Chronic (5) Atrial fibrillation: Status: Chronic (6) Colitis: Status: Chronic (7) History of TIA (transient ischemic attack): Status: Chronic Discharge Plan Disposition Patient Disposition: HOME Condition: Stable Discharge Details Reason For Visit: HCAP Admit Date/Time: 01/08/18 13:45 Admit Provider: Boy Augustine Attending Provider: Boy Augustine Primary Care Provider: Basilio Antunez Hospital Course Hospital Course: Mr Collins is a 67 year old male who was admitted to [facility] on 01/08/18 for HCAP, having failed outpatient therapy. At [facility], he completed a seven day course of IV vancomycin and cefepime with clinical resolution of disease. He required a transfusion of a total of 1 unit of pRBC's for his anemia. There was no gross GI bleeding, but hemoccult positivity is expected in this patient with a history of UC. Additionally, his CKD 5 is playing a significant role in his anemia. He was continued on anticoagulation due to the fact that he has a significant history of arterial thromboses, Afib, history of DVT's and PE's, with hemoglobin remaining stable for the duration of therapy. As far as his kidney failure, the patient did have a transient worsening of his creatinine, likely in light of us attempting to gently diurese him here. On day of discharge , his creatinine is improving - off of diuretics. The patient states that he is ready for dialysis, which in my opinion he does not need emergently and will need to have set up as an outpatient via his glue drier operator. His potassium is trending up (4.6 at the time of discharge) and, therefore, spironolactone which was gently re-attempted on this admission, will not be continued as outpatient. He is to have blood work done on 01/17/18 - specifically, to check his CBC, BMP, Magnesium - results are expected to be followed up by his PCP. Home Meds and New Rx's Prescriptions: New furosemide 20 mg tablet 20 mg PO DAILY PRN (Reason: edema) Qty: 7 RF: 0 Continue amlodipine 5 mg tablet 10 mg PO DAILY RF: 0 budesonide [Entocort EC] 3 mg capsule,delayed,extend.release 3 mg PO DAILY RF: 0 mirtazapine 15 mg tablet 15 mg PO DAILY RF: 0 pravastatin 20 MG tablet 40 mg PO DAILY RF: 0 finasteride 5 MG tablet 5 mg PO DAILY Qty: 90 RF: 4 nitroglycerin 0.4 MG tablet, sublingual 0.4 mg Sublingual PRN PRNRF: 0 Metoprolol Succinate 50 MG TAB.ER.24H 50 mg PO DAILY RF: 0 acetaminophen [Mapap Extra Strength] 500 MG tablet 500 mg PO PRN PRNRF: 0 aspirin [Aspirin Low-Strength] 81 MG tablet,chewable 81 mg PO DAILY RF: 0 Psyllium [Metamucil] 1 EACH Pkt 1 tsp PO DAILY RF: 0 multivitamin [Multiple Vitamins] Tablet 1 tab PO DAILY Qty: 30 RF: 0 cholecalciferol (vitamin D3) [Vitamin D3] 400 unit Tablet 400 unit PO BID Qty: 30 RF: 0 cholestyramine-aspartame [Prevalite] 4 gram Powder In Packet 1 ea PO 1000,1900 Qty: 14 RF: 0 pantoprazole [Protonix] 40 mg tablet,delayed release (DR/EC) 40 mg PO DAILY Qty: 30 RF: 0 apixaban [Eliquis] 5 mg tablet 5 mg PO BID Qty: 60 RF: 0 calcitriol 0.25 mcg Capsule 0.25 mcg PO QWEEK RF: 0 magnesium oxide 400 mg capsule 400 mg PO DAILY Qty: 10 RF: 0 calcium carbonate [Tums Ultra] 1,177 mg tablet,chewable 1,177 mg PO DAILY PRNRF: 0 Discontinued furosemide 40 mg Tablet 40 mg PO DAILY PRNRF: 0 Discharge Instructions Instructions: Bacterial Pneumonia (DC), Hemodialysis (DC) Additional Instructions: Return to the hospital with any fever, bleeding, chest pain, or shortness of breath. Call your glue drier operator's office on Wednesday to set up a follow up appointment. Wear RADAMES Stockings during the day and elevate your legs while seating. Stand Alone Forms: Nursing Discharge Form Referrals: Basilio Antunez MD [Primary Care Provider] - 01/28/18 10:30 am Activity:: Activity as Tolerated Equipment/Supplies:: No Equipment Needed Diet:: renal Discharge Orders Discharge Orders: Discharge Order (Routine); Ordered 01/15/18 Ordered By: Kate Forbes Other Ambulatory Orders: Basic Metabolic Panel (Routine) Timeframe: 3 Days Location: Determined by Patient Ordered By: Kate Forbes Complete Blood Count No Diff (Routine) Timeframe: 3 Days Location: Determined by Patient Ordered By: Kate Forbes Magnesium (Routine) Timeframe: 3 Days Location: Determined by Patient Ordered By: Kate Forbes Exam Narrative Exam Narrative: General: A&OX3, NAD, anxious HEENT: EOMI, Dry MM Heart: RRR, CECILIA Lungs: CTAB Abdomen: soft, nontender, nondistended Extremities: 1+ B ankle edema, no clubbing or cyanosis. DS: Data Vitals/I&O Vitals and I&O: Vital Signs Temperature 36.1 C L 01/15/18 11:51 Temperature Source Tympanic 01/15/18 11:51 Pulse 70 01/15/18 11:51 Pulse Rhythm Regular 01/15/18 08:10 Pulse 70 01/08/18 13:31 Respiratory Rate 16 01/15/18 11:51 Respiratory Effort Non-Labored 01/15/18 08:10 Respiratory Depth Normal 01/15/18 08:10 Respiratory Pattern Normal 01/15/18 08:10 Blood Pressure 129/71 01/15/18 11:51 Blood Pressure Mean 88 01/08/18 13:31 Pulse Oximetry 96 01/15/18 11:51 Oxygen Delivery Method Room Air 01/15/18 11:51 Oxygen Flow Rate 0 01/15/18 11:51 Pain Level 0 01/15/18 11:51 Comment 01/11/18 02:28 Intake & Output 01/14/18 01/15/18 01/15/18 23:59 11:59 23:59 Intake Total 1066.5 / 1066.5 520 / 520 240 / 240 Output Total 325 / 325 600 / 600 Balance 741.5 / 741.5 -80 / -80 240 / 240 Weight 66.5 kg Intake: IV 346.5 / 346.5 Oral 720 / 720 520 / 520 240 / 240 Output: Urine 325 / 325 600 / 600 Other: Urine Color Yellow Yellow Urine Appearance Clear Clear Urine Odor None Comment Void x1 in the urinal. pT stated from slot shift manager. Voiding Methods Urinal Urinal Completed studies during hospitalization [Text1]: CXR 01/08/18: Some interval worsening of right upper lobe pneumonia. Labs on day of discharge: Labs from last 24 hours 01/15/18 01/15/18 06:30 06:30 WBC 8.33 RBC 3.13 L Hgb 8.7 L Hct 28.8 L MCV 92.0 MCH 27.8 MCHC 30.2 L RDW 16.1 H Plt Count 393 MPV 9.3 Immature Gran % 1.2 Neutrophils % 73.5 Lymphocytes % 11.5 Monocytes % 7.4 Eosinophils % 5.6 Basophils % 0.8 Absolute Neutrophils 6.11 Absolute Lymphocytes 0.96 L Absolute Monocytes 0.62 Absolute Eosinophils 0.47 Absolute Basophils 0.07 Differential Comment Rbc morph reviewed RBC Morphology See below Polychromasia Present Hypochromasia 1+ Poikilocytosis 2+ Anisocytosis 2+ Ovalocytes 2+ Sodium 139 Potassium 4.6 Chloride 108 H Carbon Dioxide 20.0 L Anion Gap 11.0 BUN 61 H Creatinine 4.93 H* Estimated GFR/1.73 m2 11.90 Glucose 89 Calcium 8.5 Magnesium 1.9 PFSH History of TIA (transient ischemic attack) (Chronic) 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) Cardiomyopathy (Chronic) Peptic ulcer disease (Chronic) CKD (chronic kidney disease) (Chronic) Atrial fibrillation (Chronic) Colitis (Chronic) Atrial fibrillation CHF (congestive heart failure), NYHA class I Chronic anticoagulation Chronic kidney disease Essential hypertension GERD with esophagitis History of pulmonary embolism Hyperlipidemia Colonoscopy - MAC EGD - MAC (01/29/16) Pacemaker Medical History History of TIA (transient ischemic attack) (Chronic) 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) Cardiomyopathy (Chronic) Peptic ulcer disease (Chronic) CKD (chronic kidney disease) (Chronic) Atrial fibrillation (Chronic) Colitis (Chronic) Atrial fibrillation CHF (congestive heart failure), NYHA class I Chronic anticoagulation Chronic kidney disease Essential hypertension GERD with esophagitis History of pulmonary embolism Hyperlipidemia Social History Smoking/Tobacco Use Status: Former Tobacco Use alcohol intake: former substance use type: does not use Surgical History Colonoscopy - MAC EGD - MAC (01/29/16) Pacemaker Social History Smoking/Tobacco Use Status: Former Tobacco Use alcohol intake: former substance use type: does not use
== END 2018-01-15 15:35 | disposition home or self-care (01) | DRG 195 ==
LOC: ER 14:13 → MS 14:22
PROVIDERS: Admitting Provider Internal Medicine; Emergency Provider Nurse Practitioner Family; PCP General Practice; Referring Provider Internal Medicine; Visit Provider Internal Medicine
DX: J18.9 Pneumonia, unspecified organism (principal); N18.5 Chronic kidney disease, stage 5; I42.9 Cardiomyopathy, unspecified; I12.0 Hypertensive chronic kidney disease with stage 5 chronic kidney disease or end stage renal disease; K51.90 Ulcerative colitis, unspecified, without complications; Y95 Nosocomial condition; E87.5 Hyperkalemia; T50.0X5A Adverse effect of mineralocorticoids and their antagonists, initial encounter; D63.1 Anemia in chronic kidney disease; I48.91 Unspecified atrial fibrillation; R60.0 Localized edema; R79.89 Other specified abnormal findings of blood chemistry; Z79.01 Long term (current) use of anticoagulants; Z86.711 Personal history of pulmonary embolism; Z86.718 Personal history of other venous thrombosis and embolism; Z86.73 Personal history of transient ischemic attack (TIA), and cerebral infarction without residual deficits
CPT/HCPCS: 36410; 36415; 36430; 80048; 80053; 82550; 86850; 86900; 86901; 86920; 87040; 93005; 99223; 99232; 99233; 99239; 99285; 71046; 80202; 81003; 81015; 82272; 82607; 82728; 82746; 83540; 83550; 83735; 83880; 84443; 84484; 85014; 85018; 85025; 85610; 85730; 93010; 99284; J1756; J1940; J3490; P9016

== ENCOUNTER 2018-01-14 00:45 | Outpatient (RCR) | payer MEDICARE, MEDICAID, SELFPAY ==
[2018-01-04] MEDS: Normal Saline Flush 10 ML SYR IVP (08:35)
== END 2018-01-14 23:59 | disposition home or self-care (01) ==
LOC: INF 00:45
PROVIDERS: PCP General Practice; Visit Provider Internal Medicine
DX: N18.5 Chronic kidney disease, stage 5 (principal); D63.1 Anemia in chronic kidney disease
CPT/HCPCS: 96365; 96366; J1756

== ENCOUNTER 2018-01-18 01:02 | Outpatient (RCR) | payer MEDICARE, MEDICAID, SELFPAY ==
[2018-01-18] MEDS: Normal Saline Flush 10 ML SYR IVP (08:08)
== END 2018-02-14 23:59 | disposition home or self-care (01) ==
LOC: INF 01:02
PROVIDERS: PCP General Practice
DX: N18.5 Chronic kidney disease, stage 5 (principal); D63.1 Anemia in chronic kidney disease; D50.9 Iron deficiency anemia, unspecified
CPT/HCPCS: 96365; 96366; J1756

== ENCOUNTER 2018-02-28 10:34 | Outpatient (CLI) | payer MEDICARE, SELFPAY ==
[2018-02-28 11:21] LABS: Abs Immature Grans 0.02 k/cumm (0.0-0.09); Absolute Basophil Count 0.03 k/cumm (0.0-0.2); Absolute Eosinophil Count 0.13 k/cumm (0.0-0.7); Absolute Lymphocyte Count 0.58 k/cumm (1.2-3.4); Absolute Monocyte Count 0.48 k/cumm (0.11-0.7); Absolute Neutrophil Count 5.32 k/cumm (1.2-6.7); Basophils % 0.5; HCT 32.8 % (40.0-50.0); HGB 10.1 g/dL (13.5-17.5); Immature Grans % 0.3; Lymphocytes % 8.8; Mean Corp. HGB Concentration 30.8 g/dL (32.0-36.0); Mean Corpuscular Hemoglobin 29.3 pg (27.0-33.0); Mean Corpuscular Volume 95.1 fL (80-95); Mean Platelet Volume 8.7 fL (8.0-11.0); Monocytes % 7.3; Neutrophils % 81.1; Platelet Count 245 x1000/uL (130-400); RBC 3.45 m/cumm (4.50-6.00); RBC Distribution Width 17.7 % (11.8-14.1); White Blood Cell Count 6.56 k/cumm (4.4-10.8)
[2018-02-28 12:13] LABS: Ferritin 157 ng/mL (8-388)
[2018-02-28 12:37] LABS: Albumin 3.6 g/dL (3.4-5.0); PHOSPHORUS 4.5 mg/dL (2.6-4.7)
[2018-02-28 12:39] LABS: Anion Gap 10.8 mmol/L (3-11); BUN 42 mg/dL (7-18); CO2 24.2 mmol/L (21.0-32.0); Calcium 7.7 mg/dL (8.5-10.1); Chloride 107 mmol/L (98-107); Estimated GFR 11.47 (mL/min/1.73m2); Glucose 91 mg/dL (70-100); Potassium 3.9 mmol/L (3.5-5.1); Sodium 142 mmol/L (136-145)
[2018-02-28 12:52] LABS: CREATININE 5.09 mg/dL (0.70-1.30); Iron 39 ug/dL (50-175); Total Iron Binding Capacity 327 ug/dL (250-450); Transferrin Sat 12 % (20-55)
[2018-03-01 11:16] LABS: Parathyroid Hormone,Intact 606 pg/ml (19-88)
== END 2018-02-28 10:54 ==
PROVIDERS: PCP General Practice; Visit Provider Internal Medicine Nephrology
DX: N18.5 Chronic kidney disease, stage 5 (principal); D63.1 Anemia in chronic kidney disease
CPT/HCPCS: 36415; 80048; 85027; 82040; 82728; 83540; 83550; 83735; 83970; 84100; 85025

== ENCOUNTER 2018-03-08 00:17 | Outpatient (CLI) | payer MEDICARE, SELFPAY ==
--- NOTE | 2018-03-08 14:06 | DI.US_ITS ---
SYMPTOMS/DIAGNOSIS: BILATERAL KIDNEY STONES, N20.0, ? HYDRONEPHROSIS RENAL ULTRASOUND: Comparison ultrasounds dating back to [address] scans dating back to 2016 were also reviewed. There is again seen moderately severe atrophy of the right kidney. The right kidney measures 6.5 cm in length. There does appear to be a 5 mm echogenic focus in the lower pole of the right kidney suspicious for a nonobstructing stone. No hydronephrosis is seen. No solid mass is seen. There is blood flow seen to the right kidney. The left kidney likewise shows marked renal cortical atrophy. It measures 7.4 cm in length. There do appear to be echogenic foci in the left, the largest measuring 5 mm located in the superior pole. No solid renal mass is seen. No hydronephrosis is present. The prevoid urinary bladder volume is 50 cc, postvoid urinary bladder volume is 3 cc. Both ureteral jets were visualized. Prostatic volume is 55 cc. IMPRESSION: 1. Prominent bilateral renal cortical atrophy. 2. Bilateral nephrolithiasis. No evidence of hydronephrosis. 3. Enlarged prostate gland.
== END 2018-03-08 00:37 ==
PROVIDERS: PCP General Practice; Visit Provider Urology
DX: N20.0 Calculus of kidney (principal); N40.0 Benign prostatic hyperplasia without lower urinary tract symptoms
CPT/HCPCS: 76770; 99213

== ENCOUNTER 2018-04-21 09:49 | Outpatient (CLI) | payer MEDICARE, SELFPAY ==
[2018-04-22 09:58] LABS: Hepatitis B Surface Ag Negative (NEGAT)
== END 2018-04-21 10:09 ==
PROVIDERS: PCP General Practice; Visit Provider Internal Medicine Nephrology
DX: N18.5 Chronic kidney disease, stage 5 (principal)
CPT/HCPCS: 36415; 87340

== ENCOUNTER → 2018-06-07 09:12 | Outpatient (BNVA) | payer MEDICARE, SELFPAY | PROVIDERS: PCP General Practice; Visit Provider Urology | DX: N20.0 Calculus of kidney (principal); N18.6 End stage renal disease; Z99.2 Dependence on renal dialysis | CPT/HCPCS: 99213 ==

== ENCOUNTER 2018-09-20 12:26 | Outpatient (CLI) | payer MEDICARE, SELFPAY ==
--- NOTE | 2018-09-20 12:28 | DI.US_ITS ---
SYMPTOMS/DIAGNOSIS: MONITOR STONE SIZE, N20.0, CALCULUS OF KIDNEY RENAL ULTRASOUND: Comparison is made with February, and CT of the abdomen and pelvis dated October,. Again noted is bilateral renal cortical atrophy and scarring. The right kidney measures 6.5 cm in length. There is a 5 mm stone seen at the lower pole of the right kidney, not significantly changed. The left kidney measures 6.4 cm in length. A 5 x 8 mm nonobstructing stone is seen near the upper pole. There is no evidence of hydronephrosis. The bladder was empty and not evaluated. IMPRESSION: Stable appearance of bilateral renal cortical atrophy, scarring and bilateral renal calculi.
[2018-09-22 09:43] LABS: PSA, Diagnostic 6.6 ng/ml (0-4.5)
== END 2018-09-20 12:46 ==
PROVIDERS: PCP General Practice; Visit Provider Urology
DX: N20.0 Calculus of kidney (principal); R97.20 Elevated prostate specific antigen [PSA]; N19 Unspecified kidney failure; Z99.2 Dependence on renal dialysis
CPT/HCPCS: 36415; 76770; 99213; 84153

== ENCOUNTER 2019-01-15 08:25 | Emergency (ER) | payer MEDICARE, SELFPAY ==
[2019-01-15 08:32] VITALS: BP 160/63; PULSE 87; RESP 16; TEMP 36.3; O2SAT 99
--- NOTE | 2019-01-15 09:06 | W.ED.GENAD ---
Discharge Plan Disposition Patient Disposition: HOME Condition: Stable Discharge Details Chief Complaint: EyeProblem Clinical Impression: Herpes zoster ophthalmicus of right eye Primary Care Provider: Bryce Sinclair ED Provider: Kimberly Hernandez Home Meds and New Rx's Prescriptions: New valacyclovir [Valtrex] 1 gram tablet 1,000 mg PO TID 14 Days Qty: 42 RF: 0 Continued budesonide [Entocort EC] 3 mg capsule,delayed,extend.release 3 mg PO DAILY RF: 0 finasteride 5 mg tablet 5 mg PO DAILY Qty: 90 RF: 4 nitroglycerin 0.4 MG tablet, sublingual 0.4 mg Sublingual PRN PRNRF: 0 cholestyramine (with sugar) [Questran] 4 gram powder 4 gm PO BID RF: 0 calcium carbonate [Tums] 200 mg calcium (500 mg) tablet,chewable 1,000 mg PO DAILY RF: 0 furosemide [Lasix] 40 mg tablet 40 mg PO DAILY RF: 0 acetaminophen [Mapap Extra Strength] 500 MG tablet 500 mg PO PRN PRNRF: 0 aspirin [Aspirin Low-Strength] 81 MG tablet,chewable 81 mg PO DAILY RF: 0 Psyllium [Metamucil] 1 EACH Pkt 1 tsp PO DAILY RF: 0 multivitamin [Multiple Vitamins] Tablet 1 tab PO DAILY Qty: 30 RF: 0 cholecalciferol (vitamin D3) [Vitamin D3] 400 unit Tablet 400 unit PO BID Qty: 30 RF: 0 Prevalite 4 gram Powder In Packet 1 ea PO 1000,1900 Qty: 14 RF: 0 pantoprazole [Protonix] 40 mg tablet,delayed release (DR/EC) 40 mg PO DAILY Qty: 30 RF: 0 Eliquis 5 mg tablet 5 mg PO BID Qty: 60 RF: 0 calcitriol 0.25 mcg Capsule 0.5 mcg PO .3 DAYS/WK RF: 0 magnesium oxide 400 mg capsule 400 mg PO DAILY Qty: 10 RF: 0 atorvastatin 40 mg Tablet 40 mg PO DAILY RF: 0 Eliquis 5 mg Tablet 5 mg PO BID RF: 0 Discharge Instructions Instructions: Shingles (ED) Additional Instructions: You appear to have shingles of the right eye which is also called herpes zoster ophthalmicus. This is a reactivation of the varicella (chickenpox) virus. Take the Valtrex until finished. Use a half an treatment of the erythromycin ointment 4 times daily in the right eye for the next 5 days. You can use [id number] artificial tears to help with the medication. You can also apply cool compresses for comfort. Call [facility] tomorrow morning to schedule follow-up appointment for reevaluation within the next week. Return to the emergency department if you develop any worsening or new concerning symptoms. Discharge Data Discharge Date/Time-TO BE ENTERED AT DEPARTURE: 01/15/19 09:32 Discharge Physician: Kimberly Hernandez Medical Decision Making 68-year-old male with a history of end-stage renal disease on dialysis, CHF, A. fib on Eliquis, presents with right eye redness, irritation and blurry vision along with rash to right frontal and parietal aspect of head for the past 2 weeks. BP mildly hypertensive. Patient appears nontoxic and in no acute distress. Patient has right eye conjunctival injection. No ecchymosis. Foreseen staining done with no evidence of corneal abrasion or dendritic ulcers. No evidence of hazy cornea. No obvious foreign bodies. He has scattered erythematous mildly tender papules with some areas of crusting and scaling noted to right frontal and parietal aspects of head. Visual acuity 20/25 OU, OD and OS. Presentation appears consistent with herpes zoster ophthalmicus. Patient states he had the shingles vaccine a few years ago. Case discussed with [facility] ophthalmology who recommended Valtrex 1000 mg 3 times daily x14 days, erythromycin ointment, artificial tears and cool compresses and follow-up with optometry or ophthalmology in the next 1 to 2 weeks. Patient states he saw Dr. Gupta at [facility] in the past 2 weeks prior to the onset of the symptoms. He is advised to call [facility] tomorrow morning to schedule follow-up appointment within the next week. He has an appointment with his new PCP Dr. Sinclair on Wednesday. He was also placed on the list for follow-up for [facility] within 1 week. HPI General Mode of arrival: ambulatory. Date/Time Provider Initiated Documentation: 01/15/19 08:37. Limitations to Documentation: no limitations. Information obtained by: patient. HPI Narrative: Patient is a 68-year-old male presents with right eye pain, redness and blurry vision along with right forehead and right parietal head rash for the past 2 weeks. States symptoms started with nasal congestion and runny nose which is since resolved. He states he also has a right sided throbbing headache which is 5/10. States the rash on the right side top of his head was extremely painful at first but now that the lesions are healing pain is slightly improving. He denies any known injury. He does not wear contacts. He denies any fever, neck pain, photophobia. Related Data Home Medications Medication Instructions Recorded Confirmed Psyllium [Metamucil] 1 tsp PO DAILY 11/13/16 01/15/19 acetaminophen [Mapap Extra 500 mg PO PRN PRN 11/13/16 01/15/19 Strength] aspirin [Aspirin Low-Strength] 81 mg PO DAILY 11/13/16 01/15/19 nitroglycerin 0.4 mg SUBLINGUAL PRN PRN 01/11/17 01/15/19 magnesium oxide 400 mg PO DAILY #10 cap 11/08/17 01/15/19 Eliquis 5 mg PO BID #60 tab 11/21/17 01/15/19 Prevalite 1 ea PO 1000,1900 #14 ea 11/21/17 01/15/19 cholecalciferol (vitamin D3) 400 unit PO BID #30 tab 11/21/17 01/15/19 [Vitamin D3] multivitamin [Multiple Vitamins] 1 tab PO DAILY #30 tab 11/21/17 01/15/19 pantoprazole [Protonix] 40 mg PO DAILY #30 tab 11/21/17 01/15/19 budesonide 3 mg 3 mg PO DAILY cap 12/03/17 01/15/19 capsule,delayed,extended release calcitriol 0.5 mcg PO .3 DAYS/WK 12/31/17 01/15/19 finasteride 5 mg tablet 5 mg PO DAILY #90 tab-cap 09/20/18 01/15/19 calcium carbonate 200 mg calcium 1,000 mg PO DAILY tab 01/09/19 01/15/19 (500 mg) chewable tablet cholestyramine (with sugar) 4 gram 4 gm PO BID 01/09/19 01/15/19 oral powder furosemide 40 mg tablet 40 mg PO DAILY 01/09/19 01/15/19 Eliquis 5 mg PO BID 01/15/19 01/15/19 atorvastatin 40 mg PO DAILY 01/15/19 01/15/19 valacyclovir [Valtrex] 1,000 mg PO TID 14 Days #42 tab 01/15/19 Previous Rx's Medication Instructions Recorded magnesium oxide 400 mg PO DAILY #10 cap 11/08/17 Eliquis 5 mg PO BID #60 tab 11/21/17 Prevalite 1 ea PO 1000,1900 #14 ea 11/21/17 cholecalciferol (vitamin D3) 400 unit PO BID #30 tab 11/21/17 [Vitamin D3] multivitamin [Multiple Vitamins] 1 tab PO DAILY #30 tab 11/21/17 pantoprazole [Protonix] 40 mg PO DAILY #30 tab 11/21/17 finasteride 5 mg tablet 5 mg PO DAILY #90 tab-cap 09/20/18 valacyclovir [Valtrex] 1,000 mg PO TID 14 Days #42 tab 01/15/19 Allergies Allergy/AdvReac Type Severity Reaction Status Date / Time carvedilol Allergy Unverified 01/15/19 08:35 General Stated Complaint: EyeProblem BRI: 3 Review of Systems All systems reviewed & are unremarkable except as noted in HPI and below Constitutional Constitutional: Reports as per HPI, Denies chills and Denies fever(s) Eyes Eyes: Reports blurry vision and Reports eye pain ENT Ears, Nose, Mouth, and Throat: Denies dizziness, Denies sore throat and Denies throat swelling Cardiovascular Cardiovascular: Denies chest pain and Denies dyspnea Respiratory Respiratory: Denies cough and Denies dyspnea Gastrointestinal Gastrointestinal: Denies abdominal pain, Denies diarrhea and Denies vomiting Genitourinary Genitourinary: Denies hematuria and Denies dysuria Musculoskeletal Musculoskeletal: Denies back pain and Denies numbness Integumentary/Breasts Skin/Breast: Reports lesions and Reports rash Neurologic Neurologic: Denies dizziness, Denies focal weakness and Denies numbness Allergic/Immunologic Allergic/Immunologic: Denies throat swelling [facility] Medical History Acidemia (Resolved) Anemia (Chronic) Atrial fibrillation (Chronic) Benign paroxysmal positional vertigo of right ear (Chronic 01/13/16) Bilateral kidney stones (Acute 05/15/15) Cardiomyopathy (Chronic) CHF (congestive heart failure), NYHA class I Chronic anticoagulation CKD (chronic kidney disease) (Chronic) Colitis (Chronic) DVT prophylaxis (Acute) Elevated PSA (Chronic 05/15/15) 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) GERD with esophagitis Gross hematuria (Resolved 05/15/15) History of TIA (transient ischemic attack) (Chronic ~2013) Hyperlipemia (Acute) Hypertension (Chronic) Hypocalcemia (Acute) Impacted cerumen of both ears (Acute) Peptic ulcer disease (Chronic) Pneumonia (Acute) Positive blood culture (Resolved) PSVT (paroxysmal supraventricular tachycardia) (Acute) Pulmonary embolism (Chronic ~1996) Reactive depression (situational) (Acute) Renal atrophy, right (Chronic 05/15/15) Sensorineural hearing loss, bilateral (Chronic 12/29/16) Supratherapeutic INR (Resolved) Vitamin D deficiency (Chronic) Surgical History Colonoscopy - MAC EGD - MAC (01/29/16) Pacemaker Family History Brother Prostate cancer Diabetes Brother Prostate cancer Social History Smoking/Tobacco Use Status: Former Tobacco Use Quit Date: 01/15/14 Tobacco: How many years used: 45 Alcohol Intake: former Drug use: Never Substance use type: does not use Adopted: No Caregiver/Support person: No Foster care: No Household members: none Housing: apartment Do you need help understanding health information?: Rarely current occupation: Retired Sexually active: Yes Current gender identity: male Do you feel safe in your relationship?: Yes Exam Const General: cooperative, healthy appearing and no acute distress [facility] Head images: 1. Scattered erythematous mildly tender papules and vesicles, some with crusting and scaling Ears: hearing grossly normal bilaterally, external ears normal and TM's normal bilaterally General nose exam: external nose normal Face and sinus: normal facial exam Mouth: oral mucosae normal Throat: posterior oropharynx normal Eyes General: appearance normal, both eyes and all related structures Neck Neck: normal visual inspection Resp Effort & Inspection: normal respiratory effort and able to speak in complete sentences Auscultation: clear to auscultation bilaterally Cardio Rate: regular rate Rhythm: regular rhythm Skin General skin exam: no rashes or lesions noted Neuro General: alert, awake and oriented x3 Motor: muscle tone normal throughout Extrem General: normal to inspection and full ROM Psych Appearance: grossly normal Affect: normal affect Course Vital Signs Vital signs: Vital Signs Temperature 97.3 F L 01/15/19 08:32 Pulse 87 01/15/19 08:32 Respiratory Rate 16 01/15/19 08:32 Blood Pressure 160/63 H 01/15/19 08:32 Pulse Oximetry 99 01/15/19 08:32 Temperature 97.3 F L 01/15/19 08:32 Temperature Source Skin 01/15/19 08:32 Pulse 87 01/15/19 08:32 Respiratory Rate 16 01/15/19 08:32 Respiratory Effort Non-Labored 01/15/19 08:32 Blood Pressure 160/63 H 01/15/19 08:32 Blood Pressure Position Sitting 01/15/19 08:32 Pulse Oximetry 99 01/15/19 08:32 Oxygen Delivery Method Room Air 01/15/19 08:32 Oxygen Flow Rate 0 01/15/19 08:32 Pain Level 2 01/15/19 08:32
[2019-01-15] MEDS: Erythromycin Ophth Oint 3.5 GM TUBE OU (09:26)
--- NOTE | 2019-01-15 12:40 | NUR.NOTE ---
Nursing Note: Referral faxed to [facility] for follow up. Cynthia Holden.
== END 2019-01-15 09:32 | disposition home or self-care (01) ==
PROVIDERS: Emergency Provider Physician Assistant; PCP Family Medicine
DX: B02.30 Zoster ocular disease, unspecified (principal); R51 Headache; I12.0 Hypertensive chronic kidney disease with stage 5 chronic kidney disease or end stage renal disease; N18.6 End stage renal disease; Z99.2 Dependence on renal dialysis
CPT/HCPCS: 99283

== ENCOUNTER 2019-01-16 13:52 | Outpatient (CLI) | payer MEDICARE, SELFPAY ==
--- NOTE | 2019-01-16 15:34 | DI.CT_ITS ---
EXAM: CT RENAL COLIC WO CLINICAL HISTORY: HEMATURIA, LT FLANK PAIN TECHNIQUE: WO CONTRAST COMPARISON: DI.CTAPWO from 11/10/2017 FINDINGS: There is a 3 millimeter stone in the distal left ureter approximately 4 centimeters proximal to the u reterovesical junction. There is moderate hydronephrosis. There are bilateral renal stones. There is bilateral renal cortical atrophy. Bilateral renal cysts are present. The unenhanced liver, gallbladder and bile ducts, pancreas and spleen are unremarkable. There is sta ble bilateral adrenal nodularity. There is atherosclerosis of the abdominal aorta but no aneurysmal dilatation. No significant abdominal or pelvic adenopathy, ascites or pneumoperitoneum. There is di verticulosis of the colon but no evidence of acute diverticulitis. There is a normal appendix presen t. The prostate gland is enlarged and impinges upon the base of the urinary bladder. Degenerative c hanges are seen in the spine. IMPRESSION: 3 millimeter distal left ureteral stone approximately 4 centimeters proximal to the left UVJ. Modera te hydronephrosis.
== END 2019-01-16 14:12 ==
PROVIDERS: PCP Family Medicine; Visit Provider Internal Medicine Nephrology
DX: R10.32 Left lower quadrant pain (principal); R31.9 Hematuria, unspecified; N20.0 Calculus of kidney; N13.39 Other hydronephrosis; N40.0 Benign prostatic hyperplasia without lower urinary tract symptoms
CPT/HCPCS: 74176

== ENCOUNTER 2019-01-16 16:51 | Emergency (ER) | payer MEDICARE, SELFPAY ==
[2019-01-16 16:58] VITALS: BP 116/72; PULSE 89; RESP 16; TEMP 36.4; O2SAT 100
--- NOTE | 2019-01-16 17:12 | W.ED.GENAD ---
Discharge Plan Disposition Patient Disposition: HOME Condition: Improving Discharge Details Chief Complaint: FlankPain Clinical Impression: Ureteral colic Primary Care Provider: Bryce Sinclair ED Provider: Miko Saenz Home Meds and New Rx's Prescriptions: New levofloxacin [Levaquin] 500 mg tablet 250 mg PO Q48H Qty: 3 RF: 0 Continued budesonide [Entocort EC] 3 mg capsule,delayed,extend.release 3 mg PO DAILY RF: 0 finasteride 5 mg tablet 5 mg PO DAILY Qty: 90 RF: 4 nitroglycerin 0.4 MG tablet, sublingual 0.4 mg Sublingual PRN PRNRF: 0 cholestyramine (with sugar) [Questran] 4 gram powder 4 gm PO BID RF: 0 calcium carbonate [Tums] 200 mg calcium (500 mg) tablet,chewable 1,000 mg PO DAILY RF: 0 furosemide [Lasix] 40 mg tablet 40 mg PO DAILY RF: 0 acetaminophen [Mapap Extra Strength] 500 MG tablet 500 mg PO PRN PRNRF: 0 aspirin [Aspirin Low-Strength] 81 MG tablet,chewable 81 mg PO DAILY RF: 0 Psyllium [Metamucil] 1 EACH Pkt 1 tsp PO DAILY RF: 0 multivitamin [Multiple Vitamins] Tablet 1 tab PO DAILY Qty: 30 RF: 0 cholecalciferol (vitamin D3) [Vitamin D3] 400 unit Tablet 400 unit PO BID Qty: 30 RF: 0 Prevalite 4 gram Powder In Packet 1 ea PO 1000,1900 Qty: 14 RF: 0 pantoprazole [Protonix] 40 mg tablet,delayed release (DR/EC) 40 mg PO DAILY Qty: 30 RF: 0 Eliquis 5 mg tablet 5 mg PO BID Qty: 60 RF: 0 calcitriol 0.25 mcg Capsule 0.5 mcg PO .3 DAYS/WK RF: 0 magnesium oxide 400 mg capsule 400 mg PO DAILY Qty: 10 RF: 0 atorvastatin 40 mg Tablet 40 mg PO DAILY RF: 0 Eliquis 5 mg Tablet 5 mg PO BID RF: 0 valacyclovir [Valtrex] 1 gram tablet 1,000 mg PO TID 14 Days Qty: 42 RF: 0 erythromycin 5 mg/gram (0.5 %) Ointment 1 applic ophthalmic (eye) QID RF: 0 Discharge Instructions Instructions: Kidney Stones (ED) Additional Instructions: As we discussed, I will prescribe treatment of antibiotics every 2 days after dialysis. Please follow-up with Dr. Moreau by phone tomorrow morning he and I discussed your case this evening. Return if you develop a fever, worsening pain, or any other acute concerns. May use Tylenol if needed for discomfort. Medical Decision Making 68-year-old male with history of kidney stones, currently on dialysis with normal run today. Developed left flank pain hours ago, was referred for outpatient CT scan which revealed a 3 mm left distal ureteral kidney stone with mild to moderate hydronephrosis. Dr. Moreau was contacted and patient referred to the ED. He has not had a fever. He is not been vomiting. His pain is been controlled. He rates the pain at 3 out of 10 initially which improved with acetaminophen. Labs show white count of 8, hematocrit 39, platelets 214. His renal function is improved with creatinine of 4.2. Noted potassium of 2.9. Patient was given 20 mEq of potassium and screening EKG was obtained. Urinalysis with leukoesterase present, negative nitrites. Culture pending.. Case had been discussed with Dr. Moreau. As the patient is improving, has a small distal left ureteral kidney stone and no evidence of infection or persistent obstruction, he is a good candidate for outpatient management. He will follow-up with Dr. Moreau by phone tomorrow morning. I feel I must treat for possible UTI given positive leuk esterase, therefore patient will be administered Levaquin 250 mg to review repeated every 48 hours after dialysis. He will follow-up with Dr. Moreau by phone tomorrow. He understands return precautions to the ED in the interim. He will continue previously prescribed treatment for herpes zoster. Lab Data Lab results reviewed: Yes I reviewed the patient's lab results. Labs: Laboratory Results - last 24 hr 01/16/19 01/16/19 01/16/19 17:23 17:23 17:23 WBC 8.69 RBC 4.00 L Hgb 13.1 L Hct 39.3 L MCV 98.3 H MCH 32.8 MCHC 33.3 RDW 12.5 Plt Count 214 MPV 9.3 Immature Gran % 0.2 Neutrophils % 82.1 Lymphocytes % 8.5 Monocytes % 8.5 Eosinophils % 0.5 Basophils % 0.2 Absolute Neutrophils 7.13 H Absolute Lymphocytes 0.74 L Absolute Monocytes 0.74 H Absolute Eosinophils 0.04 Absolute Basophils 0.02 PT 10.8 INR 1.1 Sodium 139 Potassium 2.9 L* Chloride 96 L Carbon Dioxide 33.3 H Anion Gap 9.7 BUN 15 Creatinine 4.22 H* Estimated GFR/1.73 m2 14.19 Glucose 114 H Calcium 9.4 Total Bilirubin 0.9 AST 23 ALT 34 Alkaline Phosphatase 82 Total Protein 7.6 Albumin 4.0 ECG Data Attestation: I personally reviewed and interpreted this ECG (s) as follows: Prior ECG tracings: available for review Interpretation: Sinus rhythm with a rate of 76, there is left bundle branch block pattern present, there is no acute ST segment elevation. There is no significant change versus comparison from January 08, 2018 HPI General Mode of arrival: ambulatory. Date/Time Provider Initiated Documentation: 01/16/19 16:56. Limitations to Documentation: no limitations. Information obtained by: patient. History of Present Illness 68 year old M presents to the emergency department with the chief complaint of Left flank pain, described as similar to prior episodes, and is localized to the back, abdomen and left. Patient abdomen. Patient started experiencing this hour(s) and it has been constant. No relieving factors improve symptom(s), No exacerbating factors reported . Patient notes denies chest pain, cough, fever/chills and nausea/vomiting. Patient did receive the following treatments prior to arrival, other (Had normal dialysis run today.) Related Data Home Medications Medication Instructions Recorded Confirmed Psyllium [Metamucil] 1 tsp PO DAILY 11/13/16 01/16/19 acetaminophen [Mapap Extra 500 mg PO PRN PRN 11/13/16 01/16/19 Strength] aspirin [Aspirin Low-Strength] 81 mg PO DAILY 11/13/16 01/16/19 nitroglycerin 0.4 mg SUBLINGUAL PRN PRN 01/11/17 01/16/19 magnesium oxide 400 mg PO DAILY #10 cap 11/08/17 01/16/19 Eliquis 5 mg PO BID #60 tab 11/21/17 01/16/19 Prevalite 1 ea PO 1000,1900 #14 ea 11/21/17 01/16/19 cholecalciferol (vitamin D3) 400 unit PO BID #30 tab 11/21/17 01/16/19 [Vitamin D3] multivitamin [Multiple Vitamins] 1 tab PO DAILY #30 tab 11/21/17 01/16/19 pantoprazole [Protonix] 40 mg PO DAILY #30 tab 11/21/17 01/16/19 budesonide 3 mg 3 mg PO DAILY cap 12/03/17 01/16/19 capsule,delayed,extended release calcitriol 0.5 mcg PO .3 DAYS/WK 12/31/17 01/16/19 finasteride 5 mg tablet 5 mg PO DAILY #90 tab-cap 09/20/18 01/16/19 calcium carbonate 200 mg calcium 1,000 mg PO DAILY tab 01/09/19 01/16/19 (500 mg) chewable tablet cholestyramine (with sugar) 4 gram 4 gm PO BID 01/09/19 01/16/19 oral powder furosemide 40 mg tablet 40 mg PO DAILY 01/09/19 01/16/19 Eliquis 5 mg PO BID 01/15/19 01/16/19 atorvastatin 40 mg PO DAILY 01/15/19 01/16/19 valacyclovir [Valtrex] 1,000 mg PO TID 14 Days #42 tab 01/15/19 01/16/19 erythromycin 1 applic OPHTHALMIC (EYE) QID 01/16/19 01/16/19 levofloxacin [Levaquin] 250 mg PO Q48H #3 tab 01/16/19 Previous Rx's Medication Instructions Recorded magnesium oxide 400 mg PO DAILY #10 cap 11/08/17 Eliquis 5 mg PO BID #60 tab 11/21/17 Prevalite 1 ea PO 1000,1900 #14 ea 11/21/17 cholecalciferol (vitamin D3) 400 unit PO BID #30 tab 11/21/17 [Vitamin D3] multivitamin [Multiple Vitamins] 1 tab PO DAILY #30 tab 11/21/17 pantoprazole [Protonix] 40 mg PO DAILY #30 tab 11/21/17 finasteride 5 mg tablet 5 mg PO DAILY #90 tab-cap 09/20/18 valacyclovir [Valtrex] 1,000 mg PO TID 14 Days #42 tab 01/15/19 levofloxacin [Levaquin] 250 mg PO Q48H #3 tab 01/16/19 Allergies Allergy/AdvReac Type Severity Reaction Status Date / Time carvedilol Allergy Unverified 01/16/19 17:02 General Stated Complaint: FlankPain BRI: 3 Review of Systems Narrative: History of frequent stones. Sees Dr. Moreau. Continues to make some urine. Blood in urine today. Being treated for herpes zoster as per evaluation yesterday. Rash to right face and scalp. 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) GERD with esophagitis Gross hematuria (Resolved 05/15/15) History of TIA (transient ischemic attack) (Chronic ~2013) Hyperlipemia (Acute) Hypertension (Chronic) Hypocalcemia (Acute) Impacted cerumen of both ears (Acute) Peptic ulcer disease (Chronic) Pneumonia (Acute) Positive blood culture (Resolved) PSVT (paroxysmal supraventricular tachycardia) (Acute) Pulmonary embolism (Chronic ~1996) Reactive depression (situational) (Acute) Renal atrophy, right (Chronic 05/15/15) Sensorineural hearing loss, bilateral (Chronic 12/29/16) Supratherapeutic INR (Resolved) Vitamin D deficiency (Chronic) Surgical History Colonoscopy - MAC EGD - MAC (01/29/16) Pacemaker Social History Smoking/Tobacco Use Status: Former Tobacco Use Quit Date: 01/15/14 Tobacco: How many years used: 45 Alcohol Intake: former Drug use: Never Substance use type: does not use Adopted: No Caregiver/Support person: No Foster care: No Household members: none Housing: apartment Do you need help understanding health information?: Rarely current occupation: Retired Sexually active: Yes Current gender identity: male Do you feel safe at home: Yes Do you feel safe in your relationship?: Yes Exam Narrative Exam Narrative: GEN: awake, alert, oriented 3. Pleasant, well groomed, interactive. HEAD: Normocephalic, atraumatic ENT: Mucous membranes moist, oropharynx unremarkable, External ear exam unremarkable EYES: PERRL, EOMI NECK: Full ROM, no YANCI, no menigismus CHEST/RESP: Nontender, clear to auscultation bilateral, no wheeze/rhonchi/rales CARDIOVASCULAR: RRR, no murmur, rub landy. 2+ Rad pulse bilateral ABDOMEN: Soft, no significant tenderness present, no mass. +Bowel sounds EXT: Full ROM, no edema, no rash Neuro: Grossly normal neurologic exam, conversant, interactive. Psych: Speech fluent, thoughts congruent, affect normal Course Vital Signs Vital signs: Vital Signs Temperature 36.4 C L 01/16/19 16:58 Pulse 89 01/16/19 16:58 Respiratory Rate 16 01/16/19 16:58 Blood Pressure 116/72 01/16/19 16:58 Pulse Oximetry 100 01/16/19 16:58 Temperature 36.4 C L 01/16/19 16:58 Temperature Source Temporal Artery Scan 01/16/19 16:58 Pulse 89 01/16/19 16:58 Respiratory Rate 16 01/16/19 16:58 Respiratory Effort Non-Labored 01/16/19 16:58 Blood Pressure 116/72 01/16/19 16:58 Blood Pressure Position Sitting 01/16/19 16:58 Pulse Oximetry 100 01/16/19 16:58 Oxygen Delivery Method Room Air 01/16/19 16:58 Oxygen Flow Rate 0 01/16/19 16:58 Pain Level 4 01/16/19 17:00
[2019-01-16] MEDS: Acetaminophen 325 MG TAB 650 MG PO (17:34)
[2019-01-16 17:39] LABS: Abs Immature Grans 0.02 k/cumm (0.0-0.09); Absolute Basophil Count 0.02 k/cumm (0.0-0.2); Absolute Eosinophil Count 0.04 k/cumm (0.0-0.7); Absolute Lymphocyte Count 0.74 k/cumm (1.2-3.4); Absolute Monocyte Count 0.74 k/cumm (0.11-0.7); Absolute Neutrophil Count 7.13 k/cumm (1.2-6.7); Basophils % 0.2; Eosinophils % 0.5; HCT 39.3 % (40.0-50.0); HGB 13.1 g/dL (13.5-17.5); Immature Grans % 0.2; Lymphocytes % 8.5; Mean Corp. HGB Concentration 33.3 g/dL (32.0-36.0); Mean Corpuscular Hemoglobin 32.8 pg (27.0-33.0); Mean Corpuscular Volume 98.3 fL (80-95); Mean Platelet Volume 9.3 fL (8.0-11.0); Monocytes % 8.5; Neutrophils % 82.1; Platelet Count 214 x1000/uL (130-400); RBC Distribution Width 12.5 % (11.8-14.1); White Blood Cell Count 8.69 k/cumm (4.4-10.8)
[2019-01-16 17:49] LABS: INR 1.1 (0.9-1.1); Prothrombin Time 10.8 sec (9.3-11.0)
[2019-01-16 17:51] LABS: ALT 34 U/L (16-63); AST 23 U/L (15-37); Alkaline Phosphatase 82 U/L (46-116); Anion Gap 9.7 mmol/L (3-11); BUN 15 mg/dL (7-18); Bilirubin, Total 0.9 mg/dL (0.2-1.0); CO2 33.3 mmol/L (21.0-32.0); Calcium 9.4 mg/dL (8.5-10.1); Chloride 96 mmol/L (98-107); Estimated GFR 14.19 (mL/min/1.73m2); Glucose 114 mg/dL (74-106); Sodium 139 mmol/L (136-145); Total Protein 7.6 g/dL (6.4-8.2)
[2019-01-16 17:54] LABS: CREATININE 4.22 mg/dL (0.70-1.30)
[2019-01-16 17:55] LABS: Potassium 2.9 mmol/L (3.5-5.1)
[2019-01-16 18:24] LABS: Bilirubin Negative (Negative); Blood Large (Negative); Clarity Cloudy (Clear); Glucose Negative (Negative); Ketones Negative (Negative); Leukocyte Esterase Small (Negative); Nitrite Negative (Negative); Specific Gravity 1.025 (1.005-1.025); Urobilinogen 0.2 EU/dL (Up TO 0.2); pH 6.5 (5-8)
[2019-01-16 18:26] LABS: C & S Indicated? Yes
[2019-01-16] MEDS: Potassium Chloride 20 MEQ TABCR PO (18:26)
[2019-01-16] MEDS: levoFLOXacin 250 MG TAB PO (18:53)
[2019-01-16 19:00] VITALS: BP 154/58; PULSE 71; RESP 18; TEMP 36.4; O2SAT 99
== END 2019-01-16 19:00 | disposition home or self-care (01) ==
PROVIDERS: Emergency Provider Emergency Medicine; PCP Family Medicine
DX: N23 Unspecified renal colic (principal); N13.2 Hydronephrosis with renal and ureteral calculous obstruction; E87.6 Hypokalemia; Z99.2 Dependence on renal dialysis; Z87.442 Personal history of urinary calculi; I12.0 Hypertensive chronic kidney disease with stage 5 chronic kidney disease or end stage renal disease; N18.6 End stage renal disease; R10.32 Left lower quadrant pain; R31.9 Hematuria, unspecified; N20.0 Calculus of kidney; N13.39 Other hydronephrosis; N40.0 Benign prostatic hyperplasia without lower urinary tract symptoms
CPT/HCPCS: 36415; 80053; 93005; 99284; 74176; 81003; 81015; 85025; 85610; 87086; 93010

== ENCOUNTER 2019-02-27 05:57 | Emergency (ER) | payer MEDICARE, SELFPAY ==
[2019-02-27] VITALS (64 sets, daily range): BP systolic 108–175; BP diastolic 64–97; PULSE 68–134; RESP 5–27; TEMP 36.6; O2SAT 77–100
--- NOTE | 2019-02-27 05:51 | ED.GENADUL_ITS ---
Discharge Plan Disposition Patient Disposition: STILL A PATIENT Condition: Stable Discharge Details Chief Complaint: GenMedical Clinical Impression: General weakness, Chest pain Primary Care Provider: Bryce Sinclair ED Provider: Xochilt Williamson Home Meds and New Rx's Prescriptions: No Action budesonide [Entocort EC] 3 mg capsule,delayed,extend.release 3 mg PO DAILY RF: 0 finasteride 5 mg tablet 5 mg PO DAILY Qty: 90 RF: 4 nitroglycerin 0.4 MG tablet, sublingual 0.4 mg Sublingual PRN PRNRF: 0 calcium carbonate [Tums] 200 mg calcium (500 mg) tablet,chewable 1,000 mg PO DAILY PRN (Reason: dyspepsia) RF: 0 pantoprazole [Protonix] 40 mg tablet,delayed release (DR/EC) 40 mg PO DAILY Qty: 90 RF: 3 cholecalciferol (vitamin D3) 2,000 unit tablet 2,000 unit PO BID Qty: 180 RF: 3 magnesium oxide 400 mg magnesium capsule 400 mg PO DAILY Qty: 90 RF: 3 acetaminophen [Mapap Extra Strength] 500 MG tablet 500 mg PO PRN PRNRF: 0 aspirin [Aspirin Low-Strength] 81 MG tablet,chewable 81 mg PO DAILY RF: 0 multivitamin [Multiple Vitamins] Tablet 1 tab PO DAILY Qty: 30 RF: 0 calcitriol 0.25 mcg Capsule 0.5 mcg PO .3 DAYS/WK RF: 0 atorvastatin 40 mg Tablet 40 mg PO DAILY RF: 0 erythromycin 5 mg/gram (0.5 %) ointment 1 applic ophthalmic (eye) QID RF: 0 Discharge Data Discharge Date/Time-TO BE ENTERED AT DEPARTURE: 02/27/19 13:13 Medical Decision Making <Luis Alberto Paez MD - Last Filed: 02/27/19 07:19> 68 yo male with multiple medical problems including esrd on dialysis mwf, chf, prior PE on apixiban, HTN, afib, who comes in with cc of feeling general weakness and lightheaded for several days. Denies any fevers, chills, rashes, vomit, has a mild headache. No abdominal pain and has no tenderness on exam. He is in no distress on exam without focal neuro deficits. He does have an aching as well for a day or so in the left chest. He has clear lungs on exam and no murmurs. Unclear etiology of his symptoms, will obtain lab work and imaging to eval for possible sdh, anemia, electrolyte abnormalities and monitor. Will also check for flu. He does have some dry mucous membranes and does have signs of mild dehydration, will provide gentle IV hydration pt's labs show lactate of 2.7 otherwise no significant difference from baseline labs, awaiting imaging results. Suspect the lactate is due to dehydration, will repeat this along with delta troponin. He remains stable, only has chest pain now when he turned his torso to the left which seems msuculoskelatal in nature. pt will be signed out to oncoming provider pending repeat lab work Differential Diagnosis Differential Diagnosis: anemia, sdh, acs, pe, influenza Medical Records Medical records reviewed: Yes I reviewed the patient's medical records. Imaging Data Radiologic Study: Attestation: I personally reviewed and interpreted this imaging study as follows: Imaging: X-Ray Radiologist's impression: IMPRESSION: 1. Cardiomegaly. 2. Mild prominence of the pulmonary interstitial markings. Radiologic Study #2: Attestation: I personally reviewed and interpreted this imaging study as follows: Imaging: CT Scan Radiologist's impression: IMPRESSION: 1. 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 2. No acute intracranial hemorrhage or infarct. 3. Mild cerebral atrophy. Lab Data Lab results reviewed: Yes I reviewed the patient's lab results. ECG Data Attestation: I personally reviewed and interpreted this ECG (s) as follows: Prior ECG tracings: not available for review Interpretation: sinus rhythm, rate of 65, qtc 445, no acute st t wave ischemic findings <Xochilt Williamson MD - Last Filed: 03/04/19 22:37> Gus Collins is a 68 y/o man with atrial fibrillation, history of several blood clots on Eliquis, end-stage renal disease on dialysis who was signed out to me by Dr. Paez at shift change with troponin, repeat lactate pending. Patient now reporting to me upon reassessment sharp left-sided chest pain, pleuritic, similar as what has been experiencing throughout the night. Patient reports to me that episodes have seemed to be without known inciting trigger. He states that pain last for approximately 15 minutes and then subsides. Given patient's history of pulmonary embolism, DVT, I do have concern for pulmonary embolism at this time. I discussed patient history, presentation, and results with Dr. Valdez of nephrology at [facility] regarding risk of obtaining CTA chest at this time as patient still does continue to make some urine. Dr. Valdez recommended performing CTA chest, should be little to no effect on remaining kidney function. CTA chest negative for PE. Patient reported return of pain while he was undergoing CT, pain lasted for approximately 20 minutes, now resolved. Pain is pleuritic in nature, non-positional, similar in location, quality, severity as what he has been experiencing throughout the night. Patient reports that he has been having similar episodes of pain over the past few weeks, but they have been lasting for much briefer periods of time and not occurring so frequently. Patient is high risk by HEART score, although his description of his chest pain is atypical for cardiac etiology. I discussed the patient with [facility] cardiology, who requested I speak with local cardiology. I discussed with Dr. Armenta of cardiology, who agreed with overnight admission for rule out. I discussed possibility of admission [facility] with Dr. Hutchinson, who declined admission given patient's need for dialysis either today or tomorrow in addition to having nuclear stress test performed. [facility] cardiology called back, spoke with cardiology team, accepting physician Dr. Travis. Patient remains comfortable. Plan for transfer. Pt left ED with medics for [place] [facility] [place]. Clinical Impression: chest pain [place] [facility] [place] Medical Records Medical records reviewed: Yes I reviewed the patient's medical records. Imaging Data Radiologic Study: Attestation: I personally reviewed and interpreted this imaging study as follows: Radiologist's impression: EXAM: CT CHEST PE CTA CLINICAL HISTORY: chest pain, h/o blood clots. TECHNIQUE: Imaging Protocol: Axial CT angiography was performed with multi- slice acquisition and multi-planar and/or 3D reconstructions. CONTRAST MATERIAL: Intravenous: Omnipaque 350 Contrast volume:61 mL COMPARISON: CT RENAL COLIC WO from 01/16/2019 FINDINGS: Pulmonary Arteries: No evidence of filling defect to suggest pulmonary emboli. Tracheobronchial tree: Patent where visualized. Mediastinum and Ramya: No dominant adenopathy or fluid collection. Pulmonary parenchyma: Atelectasis in the bases. Mild emphysematous change in the lung apices. Pleura: Small bilateral pleural effusions. No pneumothorax. Heart: Marked cardiomegaly. Small pericardial effusion. No evidence of right ventricular dysfunction. Coronary artery calcifications. Aorta: Atherosclerosis. No evidence of aneurysm. Upper abdomen: Unremarkable. Bones: Degenerative changes Tubes, Catheters, and Lines: Dual lead pacing device with the leads in the right atrium and right ventricle. IMPRESSION: 1. No evidence of pulmonary embolism. 2. Small bilateral pleural effusions. Small pericardial effusion. 3. These findings were discussed with the emergency department on the date of the examination. Lab Data Lab results reviewed: Yes I reviewed the patient's lab results. Labs: 02/27/19 05:50 Blood Blood Culture - Pending 02/27/19 06:20 Blood Blood Culture - Pending 02/27/19 05:35 Nose Influenza Types A,B Antigen - Final Laboratory Tests Range/Units 02/27/19 02/27/19 02/27/19 06:00 06:00 06:00 WBC (4.4-10.8) k/cumm RBC (4.50-6.00) m/cumm Hgb (13.5-17.5) g/dL Hct (40.0-50.0) % MCV (80-95) fL MCH (27.0-33.0) pg MCHC (32.0-36.0) g/dL RDW (11.8-14.1) % Plt Count (130-400) x1000/uL MPV (8.0-11.0) fL Immature Gran % % Neutrophils % Lymphocytes % Monocytes % Eosinophils % Basophils % Absolute Neutrophils (1.2-6.7) k/cumm Absolute Lymphocytes (1.2-3.4) k/cumm Absolute Monocytes (0.11-0.7) k/cumm Absolute Eosinophils (0.0-0.7) k/cumm Absolute Basophils (0.0-0.2) k/cumm Differential Comment RBC Morphology Polychromasia Poikilocytosis Anisocytosis Macrocytosis PT (9.3-11.0) sec INR (0.9-1.1) APTT (21.0-31.4) sec VBG pH (7.35-7.45) 7.38 VBG pCO2 (34-47) mm/Hg 46 VBG pO2 (28-44) mm/Hg 36 VBG HCO3 (22-28) mmol/L 27 VBG Total CO2 (22-29) mmol/L 26 VBG O2 Saturation (70-80) % 71 VBG Base Excess (-3-3) mmol/L 2.2 Sodium (136-145) mmol/L 139 Potassium (3.5-5.1) mmol/L 4.6 Chloride (98-107) mmol/L 100 Carbon Dioxide (21.0-32.0) mmol/L 28.3 Anion Gap (3-11) mmol/L 10.7 BUN (7-18) mg/dL 59 H Creatinine (0.70-1.30) mg/dL 7.48 H* Estimated GFR/1.73 m2 (mL/min/1.73m2) 7.33 Glucose (74-106) mg/dL 155 H Lactate (0.6-1.4) mmol/L Calcium (8.5-10.1) mg/dL 9.3 Magnesium (1.8-2.4) mg/dL 1.9 Total Bilirubin (0.2-1.0) mg/dL 1.0 1.0 Conjugated Bilirubin (0.00-0.20) mg/dL 0.21 H AST (15-37) U/L 42 H ALT (16-63) U/L 50 Alkaline Phosphatase (46-116) U/L 77 Troponin I (<0.06) ng/Ml < 0.05 Total Protein (6.4-8.2) g/dL 6.7 Albumin (3.4-5.0) g/dL 3.6 Lipase (73-393) U/L 407 H Range/Units 02/27/19 02/27/19 02/27/19 06:00 06:00 06:00 WBC (4.4-10.8) k/cumm 10.63 RBC (4.50-6.00) m/cumm 2.95 L Hgb (13.5-17.5) g/dL 10.4 L Hct (40.0-50.0) % 32.1 L MCV (80-95) fL 108.8 H MCH (27.0-33.0) pg 35.3 H MCHC (32.0-36.0) g/dL 32.4 RDW (11.8-14.1) % 18.5 H Plt Count (130-400) x1000/uL 220 MPV (8.0-11.0) fL 9.2 Immature Gran % % 0.4 Neutrophils % 82.3 Lymphocytes % 8.1 Monocytes % 7.2 Eosinophils % 1.4 Basophils % 0.6 Absolute Neutrophils (1.2-6.7) k/cumm 8.75 H Absolute Lymphocytes (1.2-3.4) k/cumm 0.86 L Absolute Monocytes (0.11-0.7) k/cumm 0.77 H Absolute Eosinophils (0.0-0.7) k/cumm 0.15 Absolute Basophils (0.0-0.2) k/cumm 0.06 Differential Comment Rbc morph reviewed RBC Morphology See below Polychromasia Present Poikilocytosis 2+ Anisocytosis 2+ Macrocytosis 2+ PT (9.3-11.0) sec 11.6 H INR (0.9-1.1) 1.2 H APTT (21.0-31.4) sec 23.9 VBG pH (7.35-7.45) VBG pCO2 (34-47) mm/Hg VBG pO2 (28-44) mm/Hg VBG HCO3 (22-28) mmol/L VBG Total CO2 (22-29) mmol/L VBG O2 Saturation (70-80) % VBG Base Excess (-3-3) mmol/L Sodium (136-145) mmol/L Potassium (3.5-5.1) mmol/L Chloride (98-107) mmol/L Carbon Dioxide (21.0-32.0) mmol/L Anion Gap (3-11) mmol/L BUN (7-18) mg/dL Creatinine (0.70-1.30) mg/dL Estimated GFR/1.73 m2 (mL/min/1.73m2) Glucose (74-106) mg/dL Lactate (0.6-1.4) mmol/L 2.7 H* Calcium (8.5-10.1) mg/dL Magnesium (1.8-2.4) mg/dL Total Bilirubin (0.2-1.0) mg/dL Conjugated Bilirubin (0.00-0.20) mg/dL AST (15-37) U/L ALT (16-63) U/L Alkaline Phosphatase (46-116) U/L Troponin I (<0.06) ng/Ml Total Protein (6.4-8.2) g/dL Albumin (3.4-5.0) g/dL Lipase (73-393) U/L Range/Units 02/27/19 02/27/19 09:01 09:01 WBC (4.4-10.8) k/cumm RBC (4.50-6.00) m/cumm Hgb (13.5-17.5) g/dL Hct (40.0-50.0) % MCV (80-95) fL MCH (27.0-33.0) pg MCHC (32.0-36.0) g/dL RDW (11.8-14.1) % Plt Count (130-400) x1000/uL MPV (8.0-11.0) fL Immature Gran % % Neutrophils % Lymphocytes % Monocytes % Eosinophils % Basophils % Absolute Neutrophils (1.2-6.7) k/cumm Absolute Lymphocytes (1.2-3.4) k/cumm Absolute Monocytes (0.11-0.7) k/cumm Absolute Eosinophils (0.0-0.7) k/cumm Absolute Basophils (0.0-0.2) k/cumm Differential Comment RBC Morphology Polychromasia Poikilocytosis Anisocytosis Macrocytosis PT (9.3-11.0) sec INR (0.9-1.1) APTT (21.0-31.4) sec VBG pH (7.35-7.45) VBG pCO2 (34-47) mm/Hg VBG pO2 (28-44) mm/Hg VBG HCO3 (22-28) mmol/L VBG Total CO2 (22-29) mmol/L VBG O2 Saturation (70-80) % VBG Base Excess (-3-3) mmol/L Sodium (136-145) mmol/L Potassium (3.5-5.1) mmol/L Chloride (98-107) mmol/L Carbon Dioxide (21.0-32.0) mmol/L Anion Gap (3-11) mmol/L BUN (7-18) mg/dL Creatinine (0.70-1.30) mg/dL Estimated GFR/1.73 m2 (mL/min/1.73m2) Glucose (74-106) mg/dL Lactate (0.6-1.4) mmol/L 1.6 H Calcium (8.5-10.1) mg/dL Magnesium (1.8-2.4) mg/dL Total Bilirubin (0.2-1.0) mg/dL Conjugated Bilirubin (0.00-0.20) mg/dL AST (15-37) U/L ALT (16-63) U/L Alkaline Phosphatase (46-116) U/L Troponin I (<0.06) ng/Ml < 0.05 Total Protein (6.4-8.2) g/dL Albumin (3.4-5.0) g/dL Lipase (73-393) U/L HPI <Luis Alberto Paez MD - Last Filed: 02/27/19 07:19> General Mode of arrival: EMS . Date/Time Provider Initiated Documentation: 02/27/19 05:59 . Limitations to Documentation: no limitations . Information obtained by: patient . History of Present Illness 68 year old M presents to the emergency department with the chief complaint of general weakness, Patient started experiencing this day(s) (3) and it has been constant. No relieving factors improve symptom(s), No exacerbating factors reported . Patient did receive the following treatments prior to arrival, none Related Data Home Medications Medication Instructions Recorded Confirmed acetaminophen [Mapap Extra 500 mg PO PRN PRN 11/13/16 02/27/19 Strength] aspirin [Aspirin Low-Strength] 81 mg PO DAILY 11/13/16 02/27/19 nitroglycerin 0.4 mg SUBLINGUAL PRN PRN 01/11/17 02/27/19 multivitamin [Multiple Vitamins] 1 tab PO DAILY #30 tab 11/21/17 02/27/19 budesonide 3 mg 3 mg PO DAILY cap 12/03/17 02/27/19 capsule,delayed,extended release calcitriol 0.5 mcg PO .3 DAYS/WK 12/31/17 02/27/19 finasteride 5 mg tablet 5 mg PO DAILY #90 tab-cap 09/20/18 02/27/19 atorvastatin 40 mg PO DAILY 01/15/19 02/27/19 calcium carbonate 200 mg calcium 1,000 mg PO DAILY PRN tab 01/17/19 02/27/19 (500 mg) chewable tablet erythromycin 5 mg/gram (0.5 %) eye 1 applic OPHTHALMIC (EYE) QID 01/17/19 02/27/19 ointment cholecalciferol (vitamin D3) 2,000 2,000 unit PO BID #180 tab 02/16/19 02/27/19 unit tablet magnesium oxide 400 mg PO DAILY #90 cap 02/16/19 02/27/19 pantoprazole 40 mg tablet,delayed 40 mg PO DAILY #90 tab 02/16/19 02/27/19 release Previous Rx's Medication Instructions Recorded multivitamin [Multiple Vitamins] 1 tab PO DAILY #30 tab 11/21/17 finasteride 5 mg tablet 5 mg PO DAILY #90 tab-cap 09/20/18 cholecalciferol (vitamin D3) 2,000 2,000 unit PO BID #180 tab 02/16/19 unit tablet magnesium oxide 400 mg PO DAILY #90 cap 02/16/19 pantoprazole 40 mg tablet,delayed 40 mg PO DAILY #90 tab 02/16/19 release Allergies Allergy/AdvReac Type Severity Reaction Status Date / Time carvedilol Allergy Verified 02/27/19 05:59 omeprazole AdvReac Intermediate nausea/vomi Verified 02/27/19 05:59 ting General BRI: 3 Review of Systems <Luis Alberto Paez MD - Last Filed: 02/27/19 07:19> All systems reviewed & are unremarkable except as noted in HPI and below Constitutional Constitutional: Denies chills and Denies fever(s) Cardiovascular Cardiovascular: Denies dyspnea Respiratory Respiratory: Denies cough and Denies dyspnea Gastrointestinal Gastrointestinal: Denies abdominal pain, Denies nausea and Denies vomiting Musculoskeletal Musculoskeletal: Denies joint swelling Integumentary/Breasts Skin/Breast: Denies rash PFSH <Luis Alberto Paez MD - Last Filed: 02/27/19 07:19> Social History Smoking/Tobacco Use Status: Former Tobacco Use Quit Date: 01/15/14 Tobacco: How many years used: 45 Alcohol Intake: former Drug use: Never Substance use type: does not use Adopted: No Caregiver/Support person: No Foster care: No Household members: none Housing: apartment Do you need help understanding health information?: Rarely current occupation: Retired Sexually active: Yes Current gender identity: male Do you feel safe at home: Yes Do you feel safe in your relationship?: Yes Exam <Luis Alberto Paez MD - Last Filed: 02/27/19 07:19> Const General: no acute distress Orientation: alert HENMT Head: normal to inspection Ears: external ears normal General nose exam: external nose normal Mouth: lip normal Eyes General: appearance normal, both eyes and all related structures Neck Neck: normal visual inspection Resp Effort & Inspection: normal respiratory effort and able to speak in complete sentences Cardio Rate: regular rate GI Palpation: soft and nontender Skin General skin exam: no rashes or lesions noted Neuro General: alert and oriented x3 Extrem General: normal to inspection Psych Mental Status: mental status grossly normal Course <Luis Alberto Paez MD - Last Filed: 02/27/19 07:19> Lab/Test Results Lab/Test Results: 02/27/19 05:50 Blood Blood Culture - Pending 02/27/19 05:50 Blood Blood Culture - Pending Sign Out <Luis Alberto Paez MD - Last Filed: 02/27/19 07:19> Sign Out Data: Sign Out Comment: follow up on repeat troponin and lactate Last updated by Luis Alberto Paez MD at 02/27/19 07:20
[2019-02-27 06:10] LABS: BE (Venous) 2.2 mmol/L (-3-3); HCO3 (Venous) 27 mmol/L (22-28); O2 Sat (Venous) 71 % (70-80); TCO2 (Venous) 26 mmol/L (22-29); pCO2 (Venous) 46 mm/Hg (34-47); pH (Venous) 7.38 (7.35-7.45); pO2 (Venous) 36 mm/Hg (28-44)
[2019-02-27 06:13] LABS: Abs Immature Grans 0.04 k/cumm (0.0-0.09); Absolute Basophil Count 0.06 k/cumm (0.0-0.2); Absolute Eosinophil Count 0.15 k/cumm (0.0-0.7); Absolute Lymphocyte Count 0.86 k/cumm (1.2-3.4); Absolute Monocyte Count 0.77 k/cumm (0.11-0.7); Absolute Neutrophil Count 8.75 k/cumm (1.2-6.7); Basophils % 0.6; Eosinophils % 1.4; HCT 32.1 % (40.0-50.0); HGB 10.4 g/dL (13.5-17.5); Immature Grans % 0.4 %; Lymphocytes % 8.1; Mean Corp. HGB Concentration 32.4 g/dL (32.0-36.0); Mean Corpuscular Hemoglobin 35.3 pg (27.0-33.0); Mean Corpuscular Volume 108.8 fL (80-95); Mean Platelet Volume 9.2 fL (8.0-11.0); Monocytes % 7.2; Neutrophils % 82.3; Platelet Count 220 x1000/uL (130-400); RBC 2.95 m/cumm (4.50-6.00); RBC Distribution Width 18.5 % (11.8-14.1); White Blood Cell Count 10.63 k/cumm (4.4-10.8)
[2019-02-27 06:14] LABS: Lactate 2.7 mmol/L (0.6-1.4)
[2019-02-27 06:28] LABS: Anisocytosis 2+; Diff Comment RBC Morph Reviewed; Macrocytosis 2+; Polychromasia Present
[2019-02-27 06:29] LABS: Poikilocytes 2+
[2019-02-27 06:33] LABS: ALT 50 U/L (16-63); AST 42 U/L (15-37); Albumin 3.6 g/dL (3.4-5.0); Alkaline Phosphatase 77 U/L (46-116); Anion Gap 10.7 mmol/L (3-11); BUN 59 mg/dL (7-18); CO2 28.3 mmol/L (21.0-32.0); Calcium 9.3 mg/dL (8.5-10.1); Chloride 100 mmol/L (98-107); Estimated GFR 7.33 (mL/min/1.73m2); Glucose 155 mg/dL (74-106); Lipase 407 U/L (73-393); Potassium 4.6 mmol/L (3.5-5.1); Sodium 139 mmol/L (136-145); Total Protein 6.7 g/dL (6.4-8.2)
[2019-02-27 06:36] LABS: Magnesium 1.9 mg/dL (1.8-2.4); Troponin I < 0.05 ng/Ml (<0.06)
[2019-02-27 06:38] LABS: Bilirubin, Direct 0.21 mg/dL (0.00-0.20); CREATININE 7.48 mg/dL (0.70-1.30)
[2019-02-27 06:40] LABS: INR 1.2 (0.9-1.1); PTT Activated 23.9 sec (21.0-31.4); Prothrombin Time 11.6 sec (9.3-11.0)
--- NOTE | 2019-02-27 06:48 | DI.CT_ITS ---
EXAM: CT HEAD WO CLINICAL HISTORY: headache, dizziness TECHNIQUE: Without contrast COMPARISON: HEAD WITHOUT CONTRAST from 02/09/2014 CERVICAL SPINE WITHOUT CONTRA from 11/13/2016 FINDINGS: The ventricles and sulci are consistent with the patient's age. There is an old right lacunar infarc t. No acute intracranial hemorrhage. No acute midline shift or mass effect. The ventricles are int act. The basilar cisterns are patent. The calvarium is intact. Visualized paranasal sinuses are cl ear as are the mastoid air cells. IMPRESSION: No acute intracranial process.
--- NOTE | 2019-02-27 06:50 | DI.RAD_ITS ---
EXAM: XR CHEST 2V PA LATERAL INDICATION: left sided chest pain. COMPARISON: XR CHEST 2V PA LATERAL from 01/08/2018 TECHNIQUE: 2D digital imaging was performed. FINDINGS: There is global cardiomegaly which is unchanged. Dual lead pacing wires are in stable position. The re is mild prominence of the pulmonary vasculature. Mild increased interstitial lung markings are pr esent. No focal consolidating infiltrates are seen. No pleural effusion or pneumothorax is identifi ed. Degenerative changes are seen in the spine. IMPRESSION: 1. Cardiomegaly. 2. Prominence of the interstitium and pulmonary vasculature. This may represent pulmonary edema.
[2019-02-27] MEDS: Normal Saline 1,000 ML 1000 ML IV (06:59)
--- NOTE | 2019-02-27 07:05 | NUR.NOTE ---
Nursing Note: Report to DONTA Villa
--- NOTE | 2019-02-27 07:14 | DI.VRAD_ITS ---
PROCEDURE INFORMATION: Exam: XR Chest, 2 Views Exam date and time: 02/27/2019 6:52 AM Age: 68 years old Clinical indication: Left-sided chest pain; Patient HX: Lt sided cp TECHNIQUE: Imaging protocol: XR of the chest Views: 2 views. COMPARISON: CR XR CHEST 2V PA LATERAL 01/08/2018 12:03 PM FINDINGS: Tubes, catheters and devices: Left cardiac pacemaker is identified with bipolar leads in good position. Lungs: There is mild prominence of the pulmonary interstitial markings bilaterally. Pleural space: Unremarkable. No pleural effusion. No pneumothorax. Heart/Mediastinum: The heart is enlarged. Bones/joints: Unremarkable. IMPRESSION: 1. Cardiomegaly. 2. Mild prominence of the pulmonary interstitial markings. Dictated and Authenticated by: Gera Xiao MD. Ordering:INGA Sahu MD
--- NOTE | 2019-02-27 07:19 | DI.VRAD_ITS ---
PROCEDURE INFORMATION: Exam: CT Head Without Contrast Exam date and time: 02/27/2019 6:45 AM Age: 68 years old Clinical indication: Pain; Dizziness; Headache not specified; Patient HX: Dizzy, headache TECHNIQUE: Imaging protocol: Computed tomography of the head without contrast. Radiation optimization: All CT scans at this facility use at least one of these dose optimization techniques: automated exposure control; mA and/or kV adjustment per patient size (includes targeted exams where dose is matched to clinical indication); or iterative reconstruction. COMPARISON: CT HEAD WITHOUT CONTRAST 02/09/2014 12:25 PM FINDINGS: Brain: No acute intracranial hemorrhage or infarct is identified. The cortical sulci are mildly prominent. Old infarcts are seen involving the body of the right caudate nucleus, a finding also present on the previous study. Ventricles: The ventricles are mildly prominent. Bones/joints: Unremarkable. No acute fracture. Sinuses: Visualized sinuses are unremarkable. No fluid levels. Mastoid air cells: Visualized mastoid air cells are well aerated. Soft tissues: Unremarkable. Vasculature: There are calcifications of the carotid siphons. There is calcification of the left vertebral artery. IMPRESSION: 1. 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 2. No acute intracranial hemorrhage or infarct. 3. Mild cerebral atrophy. Dictated and Authenticated by: Gera Xiao MD. Ordering:INGA Sahu MD
[2019-02-27] MEDS: Normal Saline Flush 10 ML SYR IVP (09:06)
[2019-02-27 09:09] LABS: Lactate 1.6 mmol/L (0.6-1.4)
[2019-02-27 09:28] LABS: Troponin I < 0.05 ng/Ml (<0.06)
--- NOTE | 2019-02-27 10:14 | DI.CT_ITS ---
EXAM: CT CHEST PE CTA CLINICAL HISTORY: chest pain, h/o blood clots. TECHNIQUE: Imaging Protocol: Axial CT angiography was performed with multi-slice acquisition and mu lti-planar and/or 3D reconstructions. CONTRAST MATERIAL: Intravenous: Omnipaque 350 Contrast volume:61 mL COMPARISON: CT RENAL COLIC WO from 01/16/2019 FINDINGS: Pulmonary Arteries: No evidence of filling defect to suggest pulmonary emboli. Tracheobronchial tree: Patent where visualized. Mediastinum and Ramya: No dominant adenopathy or fluid collection. Pulmonary parenchyma: Atelectasis in the bases. Mild emphysematous change in the lung apices. Pleura: Small bilateral pleural effusions. No pneumothorax. Heart: Marked cardiomegaly. Small pericardial effusion. No evidence of right ventricular dysfunctio n. Coronary artery calcifications. Aorta: Atherosclerosis. No evidence of aneurysm. Upper abdomen: Unremarkable. Bones: Degenerative changes Tubes, Catheters, and Lines: Dual lead pacing device with the leads in the right atrium and right rose marie tricle. IMPRESSION: 1. No evidence of pulmonary embolism. 2. Small bilateral pleural effusions. Small pericardial effusion. 3. These findings were discussed with the emergency department on the date of the examination. DATA REPOSITORY: All CT scans at this facility are submitted to the National Radiology Data Registry (NRDR) Dose Index Registry (DIR) with the [employer] ([employer]). RADIATION OPTIMIZATION: All CT scans at this facility use at least one of these dose optimization te chniques: automated exposure control; mA and/or kV adjustment per patient size (includes targeted exa ms where dose is matched to clinical indication); or iterative reconstruction.
[2019-02-27] MEDS: Omnipaque 350 MG/ML 100 ML BTL IJ (10:25)
--- NOTE | 2019-03-04 07:17 | NUR.NOTE ---
patient transferred [place] [facility] [place] positive blood culture result faxed to [phone].Nursing Note:
== END 2019-02-27 13:13 | disposition still patient (30) ==
LOC: ER 07:35
PROVIDERS: Emergency Medicine; Emergency Provider Student in an Organized Health Care Education/Training Program; PCP Family Medicine
DX: R53.1 Weakness (principal); R07.81 Pleurodynia; E86.0 Dehydration; N18.6 End stage renal disease; I12.0 Hypertensive chronic kidney disease with stage 5 chronic kidney disease or end stage renal disease; Z79.2 Long term (current) use of antibiotics; Z79.01 Long term (current) use of anticoagulants; Z86.711 Personal history of pulmonary embolism
CPT/HCPCS: 36415; 71275; 80053; 82805; 83690; 87040; 87077; 87449; 93005; 96360; 99285; 70450; 71046; 82247; 82248; 83605; 83735; 84484; 85025; 85610; 85730; 93010; J3490

== ENCOUNTER 2019-04-04 02:04 | Outpatient (CLI) | payer MEDICARE, SELFPAY ==
--- NOTE | 2019-04-04 08:15 | DI.US_ITS ---
EXAM: US RENAL CLINICAL HISTORY: monitor bilateral kidney stones, N20.0-calculus of kidney. TECHNIQUE: Alvarado scale, color and spectral Doppler were used. COMPARISON: US renal from 09/20/2018 CT RENAL COLIC WO from 01/16/2019 FINDINGS: Renal size in cm: Right: 5.5 left: 6.5 Echogenicity: Normal Hydronephrosis: No Cyst or mass: Bilateral simple renal cysts. Nephrolithiasis: Left renal stones. The largest measures 3 mm and is located in the midpole. Other findings: Bilateral renal cortical atrophy. Bladder:Could not be evaluated sonographically due to inadequate distension. Prevoid vol:1 cc IMPRESSION: 1. Left nephrolithiasis. No hydronephrosis. 2. Bilateral renal cysts. 3. Bilateral renal cortical atrophy. 4. Urinary bladder cannot be evaluated sonographically due to inadequate distention.
== END 2019-04-04 02:24 ==
PROVIDERS: PCP Family Medicine; Visit Provider Urology
DX: R69 Illness, unspecified (principal)
CPT/HCPCS: 76770; 99213

== ENCOUNTER 2019-04-04 09:54 | Outpatient (CLI) | payer MEDICARE, SELFPAY ==
[2019-04-05 10:09] LABS: PSA, Diagnostic 4.4 ng/mL (0.0-4.5)
== END 2019-04-04 10:14 ==
PROVIDERS: PCP Family Medicine; Visit Provider Urology
DX: R97.20 Elevated prostate specific antigen [PSA] (principal); N20.0 Calculus of kidney; N28.1 Cyst of kidney, acquired; I13.0 Hypertensive heart and chronic kidney disease with heart failure and stage 1 through stage 4 chronic kidney disease, or unspecified chronic kidney disease; N18.9 Chronic kidney disease, unspecified; I50.9 Heart failure, unspecified
CPT/HCPCS: 36415; 76770; 99213; 84153

== ENCOUNTER 2019-04-06 08:48 | Outpatient (CLI) | payer MEDICARE, SELFPAY | END 2019-04-06 09:08 | PROVIDERS: PCP Family Medicine; Visit Provider Internal Medicine Cardiovascular Disease | DX: I48.21 Permanent atrial fibrillation (principal); I13.2 Hypertensive heart and chronic kidney disease with heart failure and with stage 5 chronic kidney disease, or end stage renal disease; I42.9 Cardiomyopathy, unspecified; Z95.0 Presence of cardiac pacemaker; N18.6 End stage renal disease; Z79.01 Long term (current) use of anticoagulants | CPT/HCPCS: 99203; 99214; 93005; 93010 ==

== ENCOUNTER 2019-07-04 01:33 | Outpatient (CLI) | payer MEDICARE, SELFPAY ==
--- NOTE | 2019-07-04 06:30 | DI.US_ITS ---
EXAM: US RENAL CLINICAL HISTORY: monitor stones.BILAT KIDNEY STONES, N20.0. TECHNIQUE: Alvarado scale, color and spectral Doppler were used. COMPARISON: CT CT RENAL COLIC WO from 01/16/2019 US US RENAL from 04/04/2019 FINDINGS: Renal size in cm: Right: 5.7 left: 6.6 There is bilateral renal atrophy. Bilateral echogenic foci are seen within the kidneys suggesting no nobstructing stones. No hydronephrosis. There are bilateral renal cysts present. Bladder:Not visualized. Ureteral jets: Right: Not visualized. Left: Not visualized. IMPRESSION: 1. Limited examination. 2. Bilateral renal cortical atrophy with bilateral nephrolithiasis. No evidence of hydronephrosis. DATA REPOSITORY:
== END 2019-07-04 01:53 ==
PROVIDERS: PCP Family Medicine; Visit Provider Urology
DX: N20.0 Calculus of kidney (principal); N28.1 Cyst of kidney, acquired; R97.20 Elevated prostate specific antigen [PSA]; I13.0 Hypertensive heart and chronic kidney disease with heart failure and stage 1 through stage 4 chronic kidney disease, or unspecified chronic kidney disease; I50.9 Heart failure, unspecified; N18.9 Chronic kidney disease, unspecified
CPT/HCPCS: 76770; 99213

== ENCOUNTER → 2019-07-11 11:06 | Outpatient (BNVA) | payer MEDICARE, SELFPAY | PROVIDERS: PCP Family Medicine; Referring Provider Family Medicine; Visit Provider Internal Medicine Cardiovascular Disease | DX: Z95.0 Presence of cardiac pacemaker (principal); I50.9 Heart failure, unspecified; I48.21 Permanent atrial fibrillation; I13.0 Hypertensive heart and chronic kidney disease with heart failure and stage 1 through stage 4 chronic kidney disease, or unspecified chronic kidney disease; N18.9 Chronic kidney disease, unspecified | CPT/HCPCS: 99214; 99443 ==

== ENCOUNTER 2019-09-26 04:35 | Outpatient (CLI) | payer MEDICARE, SELFPAY ==
[2019-09-26 17:36] LABS: PSA, Diagnostic 6.5 ng/mL (0.0-4.5)
== END 2019-09-26 04:55 ==
PROVIDERS: PCP Family Medicine; Visit Provider Urology
DX: R97.20 Elevated prostate specific antigen [PSA] (principal)
CPT/HCPCS: 36415; 84153

== ENCOUNTER 2019-09-28 01:08 | Outpatient (CLI) | payer MEDICARE, SELFPAY ==
--- NOTE | 2019-09-28 06:30 | DI.US_ITS ---
EXAM: US RENAL CLINICAL HISTORY: monitor known left stone, kidney stones,n20.0. TECHNIQUE: Alvarado scale, color and spectral Doppler were used. COMPARISON: US US RENAL from 07/04/2019 FINDINGS: There is bilateral renal atrophy. Renal size in cm: Right: 4.2. Left: 6.3. Echogenicity: Normal. Hydronephrosis: No. Cyst or mass: No. Nephrolithiasis: Bilateral nephrolithiasis. Other findings: None. Bladder:The urinary bladder was not prepared for evaluation. IMPRESSION: Bilateral nephrolithiasis. No hydronephrosis. DATA REPOSITORY:
== END 2019-09-28 01:28 ==
PROVIDERS: PCP Family Medicine; Visit Provider Urology
DX: N20.0 Calculus of kidney (principal); R97.20 Elevated prostate specific antigen [PSA]; I13.0 Hypertensive heart and chronic kidney disease with heart failure and stage 1 through stage 4 chronic kidney disease, or unspecified chronic kidney disease; N18.6 End stage renal disease; I50.9 Heart failure, unspecified; Z99.2 Dependence on renal dialysis
CPT/HCPCS: 76770; 99213

== ENCOUNTER 2019-11-13 05:58 | Emergency (ER) | payer MEDICARE, SELFPAY ==
--- NOTE | 2019-11-13 06:00 | DI.CT_ITS ---
EXAM: CT RENAL COLIC WO CLINICAL HISTORY: known kidney stones, left flank pain. TECHNIQUE: Imaging Protocol: Axial computed tomography images with coronal and sagittal reformatted images were created and reviewed. CONTRAST MATERIAL: Noncontrast COMPARISON: CT RENAL COLIC WO CONTRAST from 02/23/[address] RENAL COLIC WO from 01/16/[address] CHEST PE CTA from 02/27/2019 FINDINGS: ABDOMEN: Lung Bases: Normal where visualized. Markedly enlarged heart. Liver: Normal density. No measurable mass. Gallbladder and biliary tract: No radiodense calculus or dilation. Pancreas: Normal density, no abnormal calcifications or inflammatory process. Spleen: Normal. Kidneys: Both kidneys are again noted to be atrophic. There are multiple small renal cysts. There i s left hydronephrosis. There is debris in the upper left ureter. Ureter is normal in diameter dista lly. The previously noted stone is no longer present. There are tiny bilateral punctate renal calc diann. Adrenal glands: No masses seen. Abdominal Aorta: Abdominal portion non-dilated. Moderate calcification. PELVIS: Bladder: Nearly empty but unremarkable. Bowel: No obstruction or bowel wall thickening. Diverticulosis of the descending and sigmoid colon. No evidence of diverticulitis. Peritoneal cavity: No ascites, collection or mesenteric inflammatory response. Bones: Disc changes at L5-S1. Enlarged prostate with calcifications. IMPRESSION: Bilateral atrophic kidneys. Moderate left hydronephrosis secondary to small calcifications or debris in the upper left ureter. RADIATION DOSE DELIVERED: 606.23mGy.cm Total DLP DATA REPOSITORY: All CT scans at this facility are submitted to the National Radiology Data Registry (NRDR) Dose Index Registry (DIR) with the [employer] (A[employer]). RADIATION OPTIMIZATION: All CT scans at this facility use at least one of these dose optimization te chniques: automated exposure control; mA and/or kV adjustment per patient size (includes targeted exa ms where dose is matched to clinical indication); or iterative reconstruction.
[2019-11-13 06:01] VITALS: BP 141/75; PULSE 89; RESP 16; TEMP 36.9; O2SAT 96
--- NOTE | 2019-11-13 06:12 | ED.GENADUL_ITS ---
Discharge Plan Disposition Patient Disposition: HOME Condition: Stable Discharge Details Clinical Impression: Kidney stone Primary Care Provider: Bryce Sinclair ED Provider: Ryan Moser Home Meds and New Rx's Prescriptions: New hydrocodone-acetaminophen [London] 7.5-325 mg tablet 1 tab PO Q8H PRNQty: 6 RF: 0 Continued psyllium Powder 2 tsp PO BID RF: 0 apixaban 2.5 mg tablet 2.5 mg PO BID Qty: 180 RF: 0 finasteride 5 mg tablet 5 mg PO DAILY Qty: 90 RF: 4 nitroglycerin 0.4 MG tablet, sublingual 0.4 mg Sublingual PRN PRNRF: 0 calcium carbonate [Tums] 200 mg calcium (500 mg) tablet,chewable 1,000 mg PO DAILY PRN (Reason: dyspepsia) RF: 0 pantoprazole [Protonix] 40 mg tablet,delayed release (DR/EC) 40 mg PO DAILY Qty: 90 RF: 3 cholecalciferol (vitamin D3) 2,000 unit tablet 2,000 unit PO BID Qty: 180 RF: 3 magnesium oxide 400 mg magnesium capsule 400 mg PO DAILY Qty: 90 RF: 3 metoprolol succinate 50 mg tablet extended release 24 hr 50 mg PO DAILY Qty: 90 RF: 3 amlodipine 5 mg tablet 5 mg PO DAILY Qty: 90 RF: 3 acetaminophen [Mapap Extra Strength] 500 MG tablet 500 mg PO PRN PRNRF: 0 aspirin [Aspirin Low-Strength] 81 MG tablet,chewable 81 mg PO DAILY RF: 0 multivitamin [Multiple Vitamins] Tablet 1 tab PO DAILY Qty: 30 RF: 0 calcitriol 0.25 mcg Capsule 0.5 mcg PO .3 DAYS/WK RF: 0 atorvastatin 40 mg tablet 40 mg PO HS RF: 0 Discharge Instructions Instructions: Kidney Stones (ED) Additional Instructions: At this time you do have a kidney stone on the left-hand side. You may need a stent for this. Unfortunately Dr. Moreau is not able to perform the stenting procedure at this time. He would like to evaluate for any progress of the stone over the next 24 to 48 hours. If at any point you notice worsening of your pain, or new concerning symptoms such as fever, chills, vomiting you need to return immediately for reassessment. Please contact Dr. Moreau in 24 to 48 hours to discuss the progress of your pain, to decide whether or not you will need to follow-up at [facility] for potential stent. I have written you a prescription for some pain medications. This has some Tylenol in it. You can take normal Tylenol 500 mg 4 times a day, and with that dose you can still take a pain pill with the Tylenol if you feel like you need something additional to help with the pain. If you notice any worsening of your symptoms, or any new symptoms such as vomiting, diarrhea, fever, chills, shortness of breath, chest pain, numbness, weakness, or fainting , please return immediately to the emergency department f or reevaluation. Please follow up with your primary care provider as soon as possible for reassessment and reevaluation. As always, it was a pleasure participating in your medical care today. Referrals: Yazan Moreau MD [ [facility] STAFF PHYSICIAN] - Medical Decision Making Pleasant 68-year-old male with a past medical history of atrial fibrillation, congestive heart failure, pacemaker, end-stage renal disease on dialysis, previous PE on Eliquis, high cholesterol, hypertension, and history of multiple kidney stones in the past presents today for evaluation of left flank pain. Patient states last night he developed sudden left-sided pain in his flank which she states feels identical to his previous kidney stones. EMS was called and he was brought in for further evaluation. Does admit to a small amount of blood in his urine but he does not make much urine at baseline. He denies any chest pain, vomiting, or diarrhea. He denies any other modifying or aggravating factors. No other complaints at this time. Pain is described as 5 out of 10. Exam is relatively unremarkable, vital signs stable. Mild left fla nk tenderness. We will treat the patient's pain, get a CT scan to evaluate for the location of suspected stone, monitor closely and reassess. 7:31 AM Laboratory work-up is returned, no white count, no bandemia or left shift. Renal function is notably dysfunctional which correlates with his dialysis. Electrolytes will be managed at dialysis. He demonstrates no dysrhythmias here, and has no symptoms of palpitation whatsoever. No indication for emergent electrolyte replacement as he is having dialysis in a few hours. The patient does not urinate currently. He has no fever or chills. Signs and symptoms inconsistent with infectious etiology. I get did contact Dr. Moreau and discussed the case and CT findings with him. CT scan per virtual radiology does suggest an obstruction of debris and or stone in the left ureter. Dr. Moreau feels that the patient is notably reliable and can be discharged with close follow-up in the next 24 to 48 hours. If he is not having resolution of his s ymptoms and he will likely require a stent. He recommends discharge for the time being with close follow-up. I discussed this plan with the patient the patient feels notably comfortable with it. His pain is resolved at this point. We will give him London to go, and a small prescription. Recommend continue Tylenol and discussed the appropriate dosing for this. Discussed the plan with the patient and he understands. I have extensively reviewed the treatment plan and discharge instructions with the patient. I have addressed all patient concerns at this time. The patient was made aware of what symptoms to monitor for that would warrant a return to the emergency department. Discussed the plan with the patient, they demonstrate verbal understanding and agreement with our assessment and plan at this time. FINDINGS: Lungs: Minimal dependent basilar atelectasis. Heart: Cardiomegaly. No definite pericardial effusion. Mediastinal space: Patulous distal esophagus. Liver: No enlargement or mass. Gallbladder and bile ducts: Unremarkable without gallstones, wall thickening or other findings of acute cholecystitis. Biliary tract nondilated. Pancreas: No enlargement. No mass. No ductal dilatation. Spleen: Normal size. No mass. Adrenals: Left adrenal thickening, similar to previous without discrete mass. Right adrenal gland unremarkable. Kidneys and ureters: Left-sided obstructive uropathy with faintly visualized calcifications and/or debris within the proximal left ureter just below the ureteropelvic junction. There is moderate hydroureteronephrosis to this level with minimal perinephric/periureteral edema. The distal left ureter is unremarkable on today's exam without evidence of the previously noted distal ureteral calculus. Kidneys are severely atrophic bilaterally. Bilateral nonobstructive nephrolithiasis with multiple calcifications centrally bilaterally. Multiple small cortical cysts appear stable. Follow-up per facility radiologist recommendation. No right-sided obstructive uropathy demonstrated. Stomach and bowel: Moderate to advanced diverticulosis within the descending and sigmoid colon without acute diverticulitis. Moderate fecal load proximally. No colitis. Gastric wall thickening, lack of distention versus gastritis. No outlet obstruction. Suspect very mild focal proximal small bowel ileus, presumably related to left-sided obstructive uropathy. No mechanical small bowel obstruction. No pneumatosis or free air. Appendix: Normal appearance without acute inflammation. Intraperitoneal space: No significant free fluid demonstrated. No free intraperitoneal air demonstrated. Vasculature: Aortic atherosclerotic calcification. No aneurysm demonstrated. Lymph nodes: Unremarkable. No enlarged lymph nodes. Urinary bladder: Decompressed without wall thickening, mass or calculus. Reproductive: Prostate is markedly enlarged. Calcification within the prostate. Bones/joints: Mild degenerative changes noted throughout the spine. Soft tissues: Small uncomplicated fat containing umbilical hernia. IMPRESSION: 1. Left-sided obstructive uropathy with faintly visualized calcifications and/or debris within the proximal left ureter just below the ureteropelvic junction. There is moderate hydroureteronephrosis to this level with minimal perinephric/periureteral edema. The distal left ureter is unremarkable on today's exam without evidence of the previously noted distal ureteral calculus. 2. Additional nonemergent findings as described above. Thank you for allowing us to participate in the care of your patient. Dictated and Authenticated by: Reji Panchal MD 11/13/2019 7:06 AM Eastern Time ([place] & [place]) HPI General Date/Time Provider Initiated Documentation: 11/13/19 06:03 . HPI Narrative: Pleasant 68-year-old male with a past medical history of atrial fibrillation, congestive heart failure, pacemaker, end-stage renal disease on dialysis, previous PE on Eliquis, high cholesterol, hypertension, and history of multiple kidney stones in the past presents today for evaluation of left flank pain. Patient states last night he developed sudden left-sided pain in his flank which she states feels identical to his previous kidney stones. EMS was called and he was brought in for further evaluation. Does admit to a small amount of blood in his urine but he does not make much urine at baseline. He denies any chest pain, vomiting, or diarrhea. He denies any other modifying or aggravating factors. No other complaints at this time. Pain is described as 5 out of 10. Related Data Home Medications Medication Instructions Recorded Confirmed acetaminophen [Mapap Extra 500 mg PO PRN PRN 11/13/16 11/13/19 Strength] aspirin [Aspirin Low-Strength] 81 mg PO DAILY 11/13/16 11/13/19 nitroglycerin 0.4 mg SUBLINGUAL PRN PRN 01/11/17 11/13/19 multivitamin [Multiple Vitamins] 1 tab PO DAILY #30 tab 11/21/17 11/13/19 calcitriol 0.5 mcg PO .3 DAYS/WK 12/31/17 11/13/19 calcium carbonate 200 mg calcium 1,000 mg PO DAILY PRN tab 01/17/19 11/13/19 (500 mg) chewable tablet cholecalciferol (vitamin D3) 50 2,000 unit PO BID #180 tab 02/16/19 11/13/19 mcg (2,000 unit) tablet magnesium oxide 400 mg PO DAILY #90 cap 02/16/19 11/13/19 pantoprazole 40 mg tablet,delayed 40 mg PO DAILY #90 tab 02/16/19 11/13/19 release apixaban 2.5 mg tablet 2.5 mg PO BID #180 tab 03/07/19 11/13/19 psyllium 2 tsp PO BID gm 04/18/19 11/13/19 amlodipine 5 mg tablet 5 mg PO DAILY #90 tab 06/19/19 11/13/19 metoprolol succinate 50 mg 50 mg PO DAILY #90 tab 06/19/19 11/13/19 tablet,extended release 24 hr finasteride 5 mg tablet 5 mg PO DAILY #90 tab-cap 09/28/19 11/13/19 atorvastatin 40 mg PO HS 11/13/19 11/13/19 hydrocodone-acetaminophen [London] 1 tab PO Q8H PRN #6 tab 11/13/19 Previous Rx's Medication Instructions Recorded multivitamin [Multiple Vitamins] 1 tab PO DAILY #30 tab 11/21/17 cholecalciferol (vitamin D3) 50 2,000 unit PO BID #180 tab 02/16/19 mcg (2,000 unit) tablet magnesium oxide 400 mg PO DAILY #90 cap 02/16/19 pantoprazole 40 mg tablet,delayed 40 mg PO DAILY #90 tab 02/16/19 release apixaban 2.5 mg tablet 2.5 mg PO BID #180 tab 03/07/19 amlodipine 5 mg tablet 5 mg PO DAILY #90 tab 06/19/19 metoprolol succinate 50 mg 50 mg PO DAILY #90 tab 06/19/19 tablet,extended release 24 hr finasteride 5 mg tablet 5 mg PO DAILY #90 tab-cap 08/13/20 hydrocodone-acetaminophen [London] 1 tab PO Q8H PRN #6 tab 11/13/19 Allergies Allergy/AdvReac Type Severity Reaction Status Date / Time carvedilol Allergy excess Verified 11/13/19 06:05 bradycardia omeprazole AdvReac Intermediate nausea/vomi Verified 11/13/19 06:05 ting General Stated Complaint: FlankPain BRI: 3 Review of Systems All systems reviewed & are unremarkable except as noted in HPI and below PFSH Medical History (Updated 11/13/19 @ 07:26 by Ryan Moser DO) Acidemia Anemia Atrial fibrillation Benign paroxysmal positional vertigo of right ear (01/13/16) Bilateral kidney stones (05/15/15) Cardiomyopathy CHF (congestive heart failure), NYHA class I Chronic anticoagulation CKD (chronic kidney disease) Colitis DVT prophylaxis Elevated PSA (05/15/15) Embolus and thrombosis of iliac artery Ex-cigarette smoker GERD with esophagitis Gross hematuria (05/15/15) History of TIA (transient ischemic attack) (~2013) Hyperlipemia Hypertension Hypocalcemia Impacted cerumen of both ears Peptic ulcer disease Pneumonia Positive blood culture PSVT (paroxysmal supraventricular tachycardia) Pulmonary embolism (~1996) Reactive depression (situational) Renal atrophy, right (05/15/15) Sensorineural hearing loss, bilateral (12/29/16) Supratherapeutic INR Vitamin D deficiency Surgical History Colonoscopy - MAC EGD - MAC (01/29/16) Pacemaker Family History Brother Prostate cancer Diabetes Brother Prostate cancer Social History Smoking/Tobacco Use Status: Former Tobacco Use Quit Date: 01/15/14 Tobacco: How many years used: 45 Alcohol Intake: former Drug use: Never Substance use type: does not use Adopted: No Caregiver/Support person: No Foster care: No Household members: none Housing: apartment Number of Children: 0 Communication Needs: Corrective Lenses Do you need help understanding health information?: Rarely current occupation: Retired Sexually active: Yes Current gender identity: male What is your relationship status?: don't know Panel score (0-1 are the most socially isolated patients): 0 What type of physical activity do you participate in: none Seatbelt use: always 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 3.ENT: Atraumatic external nose and ears. Moist MM. Neck: Symmetric, trachea midline, No thyromegaly. 4.CVS: +S1/S2, No murmurs or gallops. Peripheral pulses 2+ and equal in all extremities. Brisk capillary refill in all extremities. 5.RESP: Unlabored respiratory effort. Clear to auscultation bilaterally. No wheezes rales or rhonchi 6.GI: Soft, Nontender/Nondistended, No hepatosplenomegaly. No guarding or rebound. Mild left-sided CVA tenderness 7.MSK: Normocephalic/Atraumatic, Extremities w/o deformity or ttp No cyanosis or clubbing, Normal movement of all extremities 8.Skin: Warm, Dry. No rashes or lesions. 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 Sensation grossly intact, no focal neurologic deficits. 10.Psych: (AAO) x3. Appropriate mood and affect Course Vital Signs Vital signs: Vital Signs Temperature 36.9 C 11/13/19 06:01 Pulse 89 11/13/19 06:01 Respiratory Rate 16 11/13/19 06:01 Blood Pressure 141/75 H 11/13/19 06:01 Pulse Oximetry 96 11/13/19 06:01 Temperature 36.9 C 11/13/19 06:01 Temperature Source Skin 11/13/19 06:01 Pulse 89 11/13/19 06:01 Respiratory Rate 16 11/13/19 06:01 Respiratory Effort Non-Labored 11/13/19 06:05 Blood Pressure 141/75 H 11/13/19 06:01 Blood Pressure Position Sitting 11/13/19 06:01 Pulse Oximetry 96 11/13/19 06:01 Oxygen Delivery Method Room Air 11/13/19 06:01 Oxygen Flow Rate 0 11/13/19 06:01 Pain Level 6 11/13/19 06:06
[2019-11-13 06:30] LABS: Abs Immature Grans 0.03 10^3/uL (0.0-0.06); Absolute Basophil Count 0.03 10^3/uL (0.0-0.2); Absolute Eosinophil Count 0.14 10^3/uL (0.0-0.7); Absolute Lymphocyte Count 0.67 10^3/uL (1.2-3.4); Absolute Monocyte Count 0.68 10^3/uL (0.1-0.8); Absolute Neutrophil Count 5.51 10^3/uL (1.2-6.7); Basophils % 0.4; HCT 38.2 % (40.0-50.0); HGB 12.8 g/dL (13.5-17.5); Immature Grans % 0.4; Lymphocytes % 9.5; MCHC 33.5 % (32.0-36.0); MCV 98.5 fL (80-95); MPV 9.3 fL (8.0-11.0); Monocytes % 9.6; Neutrophils % 78.1; Nucleated RBC 0 %; Platelet Count 206 10^3/uL (130-400); RBC 3.88 10^6/uL (4.36-5.78); RDW-SD 46.2 fL; WBC 7.06 10^3/uL (4.4-10.8)
[2019-11-13] MEDS: ACETAMINOPHEN 1,000 MG/100 ML BTL 400 MG IVPB (06:31)
[2019-11-13 06:45] LABS: ALT 25 U/L (16-63); AST 15 U/L (15-37); Albumin 3.7 g/dL (3.4-5.0); Alkaline Phosphatase 78 U/L (46-116); Anion Gap 10.8 mmol/L (3-11); Bilirubin, Total 0.6 mg/dL (0.2-1.0); CO2 26.2 mmol/L (21.0-32.0); Calcium 8.9 mg/dL (8.5-10.1); Chloride 95 mmol/L (98-107); Estimated GFR 5.66 (mL/min/1.73m2); Glucose 112 mg/dL (74-106); PTT Activated 26.1 sec (21.0-31.4); Prothrombin Time 10.4 sec (9.3-11.0); Sodium 132 mmol/L (136-145); Total Protein 7.2 g/dL (6.4-8.2)
[2019-11-13 06:48] LABS: BUN 82 mg/dL (7-18); CREATININE 9.36 mg/dL (0.70-1.30)
--- NOTE | 2019-11-13 07:07 | DI.VRAD_ITS ---
PROCEDURE INFORMATION: Exam: CT Abdomen And Pelvis Without Contrast Exam date and time: 11/13/2019 6:12 AM Age: 68 years old Clinical indication: Other: L flank pain, known kidney stones; Patient HX: Left flank pain, known kidney stones TECHNIQUE: Imaging protocol: Computed tomography of the abdomen and pelvis without contrast. Radiation optimization: All CT scans at this facility use at least one of these dose optimization techniques: automated exposure control; mA and/or kV adjustment per patient size (includes targeted exams where dose is matched to clinical indication); or iterative reconstruction. COMPARISON: CT RENAL COLIC WO 01/16/2019 3:34 PM FINDINGS: Lungs: Minimal dependent basilar atelectasis. Heart: Cardiomegaly. No definite pericardial effusion. Mediastinal space: Patulous distal esophagus. Liver: No enlargement or mass. Gallbladder and bile ducts: Unremarkable without gallstones, wall thickening or other findings of acute cholecystitis. Biliary tract nondilated. Pancreas: No enlargement. No mass. No ductal dilatation. Spleen: Normal size. No mass. Adrenals: Left adrenal thickening, similar to previous without discrete mass. Right adrenal gland unremarkable. Kidneys and ureters: Left-sided obstructive uropathy with faintly visualized calcifications and/or debris within the proximal left ureter just below the ureteropelvic junction. There is moderate hydroureteronephrosis to this level with minimal perinephric/periureteral edema. The distal left ureter is unremarkable on today's exam without evidence of the previously noted distal ureteral calculus. Kidneys are severely atrophic bilaterally. Bilateral nonobstructive nephrolithiasis with multiple calcifications centrally bilaterally. Multiple small cortical cysts appear stable. Follow-up per facility radiologist recommendation. No right-sided obstructive uropathy demonstrated. Stomach and bowel: Moderate to advanced diverticulosis within the descending and sigmoid colon without acute diverticulitis. Moderate fecal load proximally. No colitis. Gastric wall thickening, lack of distention versus gastritis. No outlet obstruction. Suspect very mild focal proximal small bowel ileus, presumably related to left-sided obstructive uropathy. No mechanical small bowel obstruction. No pneumatosis or free air. Appendix: Normal appearance without acute inflammation. Intraperitoneal space: No significant free fluid demonstrated. No free intraperitoneal air demonstrated. Vasculature: Aortic atherosclerotic calcification. No aneurysm demonstrated. Lymph nodes: Unremarkable. No enlarged lymph nodes. Urinary bladder: Decompressed without wall thickening, mass or calculus. Reproductive: Prostate is markedly enlarged. Calcification within the prostate. Bones/joints: Mild degenerative changes noted throughout the spine. Soft tissues: Small uncomplicated fat containing umbilical hernia. IMPRESSION: 1. Left-sided obstructive uropathy with faintly visualized calcifications and/or debris within the proximal left ureter just below the ureteropelvic junction. There is moderate hydroureteronephrosis to this level with minimal perinephric/periureteral edema. The distal left ureter is unremarkable on today's exam without evidence of the previously noted distal ureteral calculus. 2. Additional nonemergent findings as described above. Dictated and Authenticated by: Reji Panchal MD. Ordering:POLLY Davis MD
--- NOTE | 2019-11-13 07:32 | NUR.NOTE ---
Nursing Note: Referral for [facility] to do a call back to see how pt is doing was faxed. Dr. Moreau was consulted. Cynthia Holden
[2019-11-13 07:35] VITALS: BP 117/64; PULSE 69; RESP 16; TEMP 36.9; O2SAT 97
== END 2019-11-13 08:06 | disposition home or self-care (01) ==
PROVIDERS: Emergency Provider Student in an Organized Health Care Education/Training Program; PCP Family Medicine
DX: N13.2 Hydronephrosis with renal and ureteral calculous obstruction (principal); N13.4 Hydroureter; Z87.442 Personal history of urinary calculi; I12.0 Hypertensive chronic kidney disease with stage 5 chronic kidney disease or end stage renal disease; N18.6 End stage renal disease; Z99.2 Dependence on renal dialysis
CPT/HCPCS: 36415; 80053; 96365; 96375; 99284; 74176; 85025; 85610; 85730; 99285; J0131

== ENCOUNTER → 2019-11-23 11:14 | Outpatient (BNVA) | payer MEDICARE, SELFPAY | PROVIDERS: PCP Family Medicine; Referring Provider Family Medicine; Visit Provider Urology | DX: N20.0 Calculus of kidney (principal); I10 Essential (primary) hypertension | CPT/HCPCS: 99213; 99442 ==

== ENCOUNTER → 2020-02-12 11:05 | Outpatient (BNVA) | payer MEDICARE, SELFPAY | PROVIDERS: PCP Family Medicine; Referring Provider Family Medicine; Visit Provider Internal Medicine Cardiovascular Disease | DX: I48.0 Paroxysmal atrial fibrillation (principal); I35.9 Nonrheumatic aortic valve disorder, unspecified; N18.6 End stage renal disease; Z79.01 Long term (current) use of anticoagulants; Z99.2 Dependence on renal dialysis; I13.2 Hypertensive heart and chronic kidney disease with heart failure and with stage 5 chronic kidney disease, or end stage renal disease; I50.9 Heart failure, unspecified | CPT/HCPCS: 99214 ==

== ENCOUNTER 2020-04-09 01:18 | Outpatient (CLI) | payer MEDICARE, SELFPAY ==
--- NOTE | 2020-04-09 07:15 | DI.US_ITS ---
EXAM: US RENAL CLINICAL HISTORY: monitor known stones,BILAT, N20.0. TECHNIQUE: Alvarado scale, color and spectral Doppler were used. COMPARISON: US US RENAL from 09/28/2019 US US RENAL from 09/28/[address] RENAL COLIC WO from 11/13/[address] RENAL COLIC WO from 11/13/2019 FINDINGS: Renal size in cm: Right: 5.7 left: 6.0 both kidneys are atrophic and show parenchymal thinning. Echogenicity: Difficult to evaluate. Hydronephrosis: Question of left [id number] hydronephrosis as was seen on previous CT. Cyst or mass: Small cysts. Nephrolithiasis: 4 millimeter stone lower pole left kidney. 3 millimeter stone lower pole left kidne y. Other findings: No perinephric collection. Bladder:Nondistended. Prevoid vol: Not measured Postvoid vol: Not measured IMPRESSION: Severely limited exam due to atrophic kidneys and surrounding perirenal fat. Small stones are seen a t the lower pole of the left kidney. There is a question [id number] left hydronephrosis. DATA REPOSITORY:
== END 2020-04-09 01:19 ==
LOC: DI 01:18
PROVIDERS: PCP Family Medicine; Visit Provider Urology
DX: N20.0 Calculus of kidney (principal); Z99.2 Dependence on renal dialysis; N18.6 End stage renal disease
CPT/HCPCS: 76770; 99213

== ENCOUNTER → 2020-05-01 08:15 | Outpatient (BNVA) | payer MEDICARE, SELFPAY | PROVIDERS: PCP Family Medicine; Referring Provider Family Medicine; Visit Provider Physician Assistant | DX: I48.21 Permanent atrial fibrillation (principal); Z45.018 Encounter for adjustment and management of other part of cardiac pacemaker | CPT/HCPCS: 93279 ==

== ENCOUNTER 2020-07-09 01:37 | Outpatient (CLI) | payer MEDICARE, SELFPAY ==
--- NOTE | 2020-07-09 07:30 | DI.US_ITS ---
Exam(s) US RENAL EXAM: US RENAL CLINICAL HISTORY: monitor known stones N18.6 END STAGE RENAL DISEASE N20.0 CALCULUS KIDNEY. TECHNIQUE: Alvarado scale, color and spectral Doppler were used. COMPARISON: CT CT RENAL COLIC WO from 11/13/2019 US US RENAL from 04/09/2020 FINDINGS: Kidneys are difficult to visualize due to increased echogenicity and atrophic parenchyma, blending in with surrounding perinephric fat. Renal size in cm: Right: 7.2 left: 7.4 Echogenicity: Increased echogenicity and parenchymal thinning. Hydronephrosis: Moderate left hydronephrosis. Cyst or mass: Several small bilateral cysts. Nephrolithiasis: 6 millimeter stone upper pole left kidney. 5 millimeter stone lower pole left kidne y. Bladder:Not well evaluated, nearly empty. Prostate: Enlarged with multiple calcifications. IMPRESSION: Stable appearance of atrophic bilateral kidneys. Stable mild to moderate left hydronephrosis. Left renal calculi. DATA REPOSITORY:
== END 2020-07-09 01:57 ==
PROVIDERS: PCP Family Medicine; Visit Provider Urology
DX: N20.0 Calculus of kidney (principal); N18.6 End stage renal disease; R31.0 Gross hematuria; N13.30 Unspecified hydronephrosis; I48.21 Permanent atrial fibrillation; R07.89 Other chest pain; Z95.0 Presence of cardiac pacemaker; Z87.448 Personal history of other diseases of urinary system
CPT/HCPCS: 76770; 99213; 99214

== ENCOUNTER → 2020-08-01 11:04 | Outpatient (BNVA) | payer MEDICARE, SELFPAY | PROVIDERS: PCP Family Medicine; Referring Provider Family Medicine; Visit Provider Internal Medicine Cardiovascular Disease | DX: I48.21 Permanent atrial fibrillation (principal); I35.9 Nonrheumatic aortic valve disorder, unspecified; I10 Essential (primary) hypertension; Z95.0 Presence of cardiac pacemaker | CPT/HCPCS: 99214 ==

== ENCOUNTER 2020-09-03 01:38 | Outpatient (CLI) | payer MEDICARE, SELFPAY ==
--- NOTE | 2020-09-03 06:30 | DI.US_ITS ---
APPROVED REPORT EXAM: Comprehensive 2D, Doppler, and color-flow Echocardiogram Patient Location: Out-Patient Globe Changer: Angelia Baez RDCS (AE) Indications: Chest pain, Atrial Fibrillation Other Information Study Quality: Adequate Conclusion Left Ventricle : The left ventricle is normal size. The left ventricular systolic function is normal. The left ventricular ejection fraction is within the normal range. There is normal left ventricular wall thickness. There is normal LV segmental wall motion. The left ventricular diastolic function is normal. LVEF is 56%. Right Ventricle : Right ventricle is mildly dilated. The right ventricular systolic function is diogenes l. The RVSP is 32mmHg. Atria : Left atrium is severely dilated. Right atrium is severely dilated. Aortic Valve : The Aortic valve is sclerotic. Trace aortic regurgitation. There is mild aortic stenos is. Peak aortic valve gradient is 21.0mmHg. Highest mean aortic valve gradient is 11.3mmHg. Mitral Valve : The mitral valve is normal in structure. Mild to moderate mitral regurgitation. No clinton dence of mitral valve stenosis. Great Vessels : The aortic root is normal in size. The ascending aorta is normal in size. Aortic arch is not well visualized. IVC is normal in size and collapses >50% with inspiration. Please see remainder of study for further details. Wall motion Left Ventricle The left ventricle is normal size. The left ventricular systolic function is normal. The left ventric ular ejection fraction is within the normal range. There is normal left ventricular wall thickness. T here is normal LV segmental wall motion. The left ventricular diastolic function is normal. There is no ventricular septal defect visualized. LVEF is 56%. Right Ventricle Right ventricle is mildly dilated. The right ventricular systolic function is normal. The RVSP is 32m mHg. Pacemaker lead is present in the right ventricle. Atria Left atrium is severely dilated. Right atrium is severely dilated. The interatrial septum is intact w ith no evidence for an atrial septal defect. Aortic Valve The Aortic valve is sclerotic. There is mild aortic stenosis. Peak aortic valve gradient is 21.0mmHg. Highest mean aortic valve gradient is 11.3mmHg. Trace aortic regurgitation. Mitral Valve The mitral valve is normal in structure. No evidence of mitral valve stenosis. Mild to moderate elizabeth l regurgitation. Tricuspid Valve The tricuspid valve is normal in structure. There is no tricuspid valve stenosis. Moderate tricuspid regurgitation. Pulmonic Valve The pulmonary valve is normal in structure. There is no pulmonic valvular stenosis. Trace pulmonic re gurgitation. Great Vessels The aortic root is normal in size. The ascending aorta is normal in size. Aortic arch is not well vis ualized. IVC is normal in size and collapses >50% with inspiration. Pericardium There is no pericardial effusion. 2D Dimensions IVSD d PLAX 0.87 cm M: 0.6-1.2 LV Vol A2C d MOD 137.1 mL LVPW d PLAX 0.90 cm M: 0.6 - 1.2 LV Vol A4C d MOD 109.9 mL LVID d PLAX 5.76 cm M: 4.2 - 5.8 LA vol/ BSA A2C s A-L 121.8 mL/m2 LVDs 3.80 cm M: 2.5 - 4.0 LA Area A2C s MOD 43.36 cm2 Ao Root d 2.75 cm M: 3.1 - 3.7 LV EF A4C MOD 55.1 % RA Area A4C 47.25 cm2 LV EF A2C MOD 55.7 % RA Vol/ BSA A4C s A-L 117.8 mL/m2 LV EF Biplane MOD 56.7 % Ao Asc Diam d 2.80 cm M: 2.6 - 3.4 SV 72.25 mL LV EF Teichholz 61.0 % SV Index 43.86 mL/m2 LVEF (Ruano's) 56.70 % M: 52 - 72 LV Volume 102.39 mL M: 62 - 150 LV Volume Index 62.43 mL/m2 M: 34 - 74 LV Vol Biplane MOD 127.4 mL FS 37.00 % M-Mode TAPSE 1.68 cm (M/F) >1.7 LV Diastology MV E' medial 0.102 (>0.07 m/s) MV E Vmax 1.02 (0.4-1.3 m/s) LV E/e MED 10.00 (<14) MV E' lateral 0.134 (>0.1 m/s) LV E/e LAT 7.60 (<14) MV E/E' medial 10.03 MV E/E' lateral 7.61 Aortic Valve LVOT Area 2.90 cm2 AoV Area Vmax 2.24 cm2 LVOT Vmax 1.77 m/s AoV Area/ BSA (Vmax) 1.36 cm2/m2 LVOT Mean Perico. 1.24 m/s DARLIN Mean Perico. 2.28 cm2 LVOT Peak Grad 12.5 mmHg DARLIN Mean Perico. Index 1.38 cm2/m2 LVOT Mean Grad 6.9 mmHg AR DT 3138 msec LVOT VTI 0.323 m AR PHT 910 msec LVOT Diam s 1.90 cm AoV Vmax 2.29 m/s Velocity Ratio 0.77 AoV Mean Perico. 1.58 m/s AoV Peak Grad 21.0 mmHg LVOT SV 93.84 mL AoV Mean Grad 11.3 mmHg AoV VTI 0.395 m AoV Area VTI 2.37 cm2 AoV Area/ BSA (VTI) 1.44 cm/m2 Mitral Valve MV DT 136 (160-240 msec) MR Vmax 4.99 m/s MV PHT 39 msec MR VTI 1.796 m MV Area PHT 5.59 cm2 MR Peak Grad 99.5 mmHg MV VTI 0.269 m MR Mean Grad 64.1 mmHg MV VTI Annulus 0.281 m MR PISA Radius 0.48 cm MV Area VTI 3.65 (4.0-6.0 cm2) MR EROA 0.10 cm2 MR Aliasing Velocity 0.35 m/s MR PISA 1.42 cm2 Pulmonary Valve PV Vmax 1.08 (0.5-1.5 m/s) RVOT Peak Gr. 3.70 mmHg PV Peak Grad 4.7 mmHg RVOT Mean Gr. 1.70 mmHg PV Mean Grad 2.4 mmHg RVOT VTI 0.143 m PV VTI 0.213 m RVOT Vmax 0.96 m/s Tricuspid Valve TR Peak Grad 29.0 mmHg TR Vmax 2.70 m/s RA Pressure 3.00 mmHg RVSP (TR) 32.1 mmHg
== END 2020-09-03 01:58 ==
PROVIDERS: PCP Family Medicine; Visit Provider Internal Medicine Cardiovascular Disease
DX: I48.21 Permanent atrial fibrillation (principal); R07.9 Chest pain, unspecified; I08.0 Rheumatic disorders of both mitral and aortic valves
CPT/HCPCS: 93306

== ENCOUNTER → 2020-10-30 08:16 | Outpatient (BNVA) | payer MEDICARE, SELFPAY | PROVIDERS: PCP Family Medicine; Referring Provider Family Medicine; Visit Provider Physician Assistant | DX: I48.21 Permanent atrial fibrillation (principal); Z45.018 Encounter for adjustment and management of other part of cardiac pacemaker; N18.6 End stage renal disease | CPT/HCPCS: 93279; 99212 ==

== ENCOUNTER 2020-12-17 01:19 | Outpatient (CLI) | payer MEDICARE, SELFPAY ==
--- NOTE | 2020-12-17 06:45 | DI.US_ITS ---
Exam(s) US RENAL EXAM: US RENAL CLINICAL HISTORY: monitor known stones and hydronephrosis,n13.30,n20.0 TECHNIQUE: Ultrasound performed using standard protocol. COMPARISON: CT CT RENAL COLIC WO from 11/13/[address] RENAL COLIC WO from 11/13/2019 US US ECHOCARDIOGRAM from 09/03/2020 FINDINGS: Renal ultrasound was performed according to the usual protocol. The examination is technically limit ed due to the patient's body habitus. The renal cortex is thinned bilaterally. Right kidney measure s 69 x 26 x 23 millimeters and left kidney measures 61 x 24 x 23 millimeters. There are couple of ti ny poorly visualized presumed left renal calculi. There is no hydronephrosis on either side. Urinar y bladder was nonvisualized. IMPRESSION: Probable left nephrolithiasis. No evidence of urinary tract obstruction. The kidneys show atrophic cortex bilaterally. DATA REPOSITORY:
== END 2020-12-17 01:39 ==
PROVIDERS: PCP Family Medicine; Visit Provider Urology
DX: R93.41 Abnormal radiologic findings on diagnostic imaging of renal pelvis, ureter, or bladder; N20.0 Calculus of kidney; N18.6 End stage renal disease; Z99.2 Dependence on renal dialysis
CPT/HCPCS: 76770; 99214

== ENCOUNTER → 2021-02-11 09:44 | Outpatient (BNVA) | payer MEDICARE, SELFPAY | PROVIDERS: PCP Family Medicine; Visit Provider Internal Medicine Cardiovascular Disease | DX: I35.9 Nonrheumatic aortic valve disorder, unspecified (principal); I48.21 Permanent atrial fibrillation; I12.9 Hypertensive chronic kidney disease with stage 1 through stage 4 chronic kidney disease, or unspecified chronic kidney disease; Z95.0 Presence of cardiac pacemaker; N18.6 End stage renal disease; Z99.2 Dependence on renal dialysis | CPT/HCPCS: 99213 ==

== ENCOUNTER → 2021-06-04 08:13 | Outpatient (BNVA) | payer MEDICARE, SELFPAY | PROVIDERS: PCP Family Medicine; Visit Provider Physician Assistant | DX: Z99.2 Dependence on renal dialysis (principal); I48.21 Permanent atrial fibrillation; Z95.0 Presence of cardiac pacemaker; N18.6 End stage renal disease | CPT/HCPCS: 93279 ==

== ENCOUNTER 2021-06-17 00:36 | Outpatient (CLI) | payer MEDICARE, SELFPAY ==
--- NOTE | 2021-06-17 06:30 | DI.US_ITS ---
Exam(s) US RENAL EXAM: US RENAL CLINICAL HISTORY: monitor known bilat stones,end stage renal disease,n20.0,n18.6 TECHNIQUE: Ultrasound of both kidneys performed using standard protocol. COMPARISON: CT CT RENAL COLIC WO from 11/13/2019 US US RENAL from 12/17/2020 FINDINGS: RIGHT KIDNEY: Right kidney is again noted to be atrophic. Measures 6.3 cm in length. Contains a peripheral cyst. Kidney is hyperechoic and there is lack of co rticomedullary differentiation. No obvious calculi in the right kidney. LEFT KIDNEY: Left kidney is also atrophic. Measures 6 cm in length. Few cysts, the largest measuring 1.5 cm also exhibits cortical thinning and loss of corticomedullary differentiation. No intrarenal calculi nor hydonephrosis. URINARY BLADDER: Empty and not able to be scanned. IMPRESSION: 1. Bilateral renal atrophy again noted. Cysts noted in both kidneys. 2. No obvious calculi. No obvious hydronephrosis. DATA REPOSITORY:
== END 2021-06-17 00:56 ==
PROVIDERS: PCP Family Medicine; Visit Provider Urology
DX: N20.0 Calculus of kidney (principal); N18.6 End stage renal disease; N28.1 Cyst of kidney, acquired
CPT/HCPCS: 76770

== ENCOUNTER → 2021-08-12 07:47 | Outpatient (BNVA) | payer MEDICARE, SELFPAY | PROVIDERS: PCP Family Medicine; Referring Provider Family Medicine; Visit Provider Urology | DX: Z99.2 Dependence on renal dialysis (principal); Z85.51 Personal history of malignant neoplasm of bladder; Z87.891 Personal history of nicotine dependence; R31.0 Gross hematuria; R97.20 Elevated prostate specific antigen [PSA]; N18.6 End stage renal disease; N20.0 Calculus of kidney | CPT/HCPCS: 93005; 99214; 99213 ==

== ENCOUNTER → 2021-08-12 09:46 | Outpatient (BNVA) | payer MEDICARE, SELFPAY | PROVIDERS: PCP Family Medicine; Visit Provider Internal Medicine Cardiovascular Disease | DX: R31.9 Hematuria, unspecified (principal); I48.21 Permanent atrial fibrillation; I35.9 Nonrheumatic aortic valve disorder, unspecified; Z95.0 Presence of cardiac pacemaker | CPT/HCPCS: 93005; 99214; 99213 ==

== ENCOUNTER 2021-08-12 10:06 | Outpatient (CLI) | payer MEDICARE, SELFPAY ==
--- NOTE | 2021-08-12 10:00 | RT.EKG_ITS ---
APPROVED REPORT Exam: Resting ECG Reason for Exam: Baseline EKG needed Patient Location: O HR:72 bpm ECG Measurements Heart Rate 72 AXIS CA 338 P 16 QRSd 186 QRS 116 QT 457 T -43 QTc 501 Conclusion Ventricular-paced rhythm No further analysis attempted due to paced rhythm
== END 2021-08-12 10:07 | disposition home or self-care (01) ==
LOC: DI.CARD 10:07
PROVIDERS: PCP Family Medicine; Visit Provider Internal Medicine Cardiovascular Disease
DX: I42.9 Cardiomyopathy, unspecified (principal); I47.1 Supraventricular tachycardia; I48.91 Unspecified atrial fibrillation; Z95.0 Presence of cardiac pacemaker
CPT/HCPCS: 93010

== ENCOUNTER → 2021-08-14 01:45 | Outpatient (CLI) | payer MEDICARE, SELFPAY ==
--- NOTE | 2021-08-14 06:15 | DI.CT_ITS ---
Exam(s) CT ABDOMEN PELVIS WO EXAM: CT ABDOMEN PELVIS WO CLINICAL HISTORY: HEMATURIA,R31.0,CALCULUS OF KIDNEY,N20.0,PT NOT MAKE MUCH URINE. TECHNIQUE: Imaging Protocol: Axial computed tomography images with coronal and sagittal reformatted images were created and reviewed. COMPARISON: CT ABD/PELVIS WO W CONTRAST from 04/18/2015 CT DI.CTAPWO from 11/10/[address] RENAL COLIC WO from 11/13/2019 FINDINGS: ABDOMEN: Lung Bases: Marked cardiomegaly. Liver: Normal density. No measurable mass. Gallbladder and biliary tract: No radiodense calculus or biliary ductal dilation. Pancreas: Normal density, no abnormal calcifications or inflammatory process. Spleen: Normal. Kidneys: There is marked bilateral renal atrophy.There are calcifications seen in the renal ratna bila terally. These may be vascular or represent nonobstructing stones. There is a 2 mm stone in the pro ximal right ureter with minimal dilatation of the proximal ureter. Bilateral renal cysts are present . Adrenal glands: There is unchanged nodularity of the left adrenal gland. The right adrenal gland is unremarkable. Lymph nodes: Within normal limits. Abdominal Aorta: Abdominal portion non-dilated. Atherosclerosis is present. PELVIS: Bladder:The kidney is not well distended limiting evaluation. Bowel: No obstruction or bowel wall thickening. Appendix is unremarkable. Extensive sigmoid divertic ulosis but no evidence of acute diverticulitis. Peritoneal cavity: No ascites, collection or mesenteric inflammatory response. No free air. Reproductive organs: Prostate gland is markedly enlarged. Bones: Degenerative changes are seen in the spine. There are persistent radiolucencies seen within t he bones particularly particularly the iliac bone. These are unchanged. Soft Tissues: Within normal limits. IMPRESSION: 1. Marked renal cortical atrophy. 2. 2 mm stone in the proximal right ureter with minimal dilatation of the proximal ureter. 3. Bilateral renal calcifications which may be vascular or represent nonobstructing stones. RADIATION DOSE DELIVERED: 643.34mGy.cm Total DLP DATA REPOSITORY: All CT scans at this facility are submitted to the National Radiology Data Registry (NRDR) Dose Index Registry (DIR) with the [employer] (ACR). RADIATION OPTIMIZATION: All CT scans at this facility use at least one of these dose optimization te chniques: automated exposure control; mA and/or kV adjustment per patient size (includes targeted exa ms where dose is matched to clinical indication); or iterative reconstruction.
== END ==
PROVIDERS: PCP Family Medicine; Visit Provider Urology
DX: N19 Unspecified kidney failure (principal); N20.2 Calculus of kidney with calculus of ureter; N26.1 Atrophy of kidney (terminal); N28.89 Other specified disorders of kidney and ureter
CPT/HCPCS: 74176

== ENCOUNTER → 2021-08-19 14:16 | Outpatient (BNVA) | payer MEDICARE, SELFPAY | PROVIDERS: PCP Family Medicine; Referring Provider Family Medicine; Visit Provider Urology | DX: Z99.2 Dependence on renal dialysis (principal); R31.0 Gross hematuria; N20.0 Calculus of kidney; Z87.891 Personal history of nicotine dependence | CPT/HCPCS: 99214 ==

== ENCOUNTER → 2021-12-03 08:12 | Outpatient (BNVA) | payer MEDICARE, SELFPAY | PROVIDERS: PCP Family Medicine; Visit Provider Physician Assistant | DX: Z95.0 Presence of cardiac pacemaker (principal); I48.21 Permanent atrial fibrillation; N18.6 End stage renal disease | CPT/HCPCS: 93279 ==

== ENCOUNTER → 2022-02-10 08:42 | Outpatient (BNVA) | payer MEDICARE, SELFPAY | PROVIDERS: PCP Family Medicine; Referring Provider Family Medicine; Visit Provider Internal Medicine Cardiovascular Disease | DX: I48.21 Permanent atrial fibrillation (principal); I35.9 Nonrheumatic aortic valve disorder, unspecified; Z95.0 Presence of cardiac pacemaker; I12.9 Hypertensive chronic kidney disease with stage 1 through stage 4 chronic kidney disease, or unspecified chronic kidney disease; N18.5 Chronic kidney disease, stage 5; Z79.01 Long term (current) use of anticoagulants | CPT/HCPCS: 99214 ==

== ENCOUNTER 2022-07-21 01:44 | Outpatient (CLI) | payer MEDICARE, SELFPAY ==
--- NOTE | 2022-07-21 06:30 | DI.US_ITS ---
APPROVED REPORT EXAM: Comprehensive 2D, Doppler, and color-flow Echocardiogram Patient Location: Out-Patient Meter Reader Inspector: Josue Almonte RDMS, RVT Indications: aortic stenosis, a fib Other Information Study Quality: Adequate Conclusion Left ventricle is moderately dilated. Ejection fraction is 50%. No segmental wall motion abnormalit ies are identified Right ventricle is mildly dilated. Right ventricular systolic function appears normal Both atria are severely dilated Device lead noted in the right heart The aortic valve is sclerotic and trileaflet with trace regurgitation. There is no hemodynamically s ignificant aortic stenosis Normal tricuspid valve with severe regurgitation. Estimated right ventricular systolic pressure is 2 7 mmHg Mildly thickened mitral leaflets with mild to moderate regurgitation Wall motion Left Ventricle Left ventricle is moderately dilated. Left ventricular systolic function is mildly decreased. There i s normal left ventricular wall thickness. There is global hypokinesis of the left ventricle. There is no ventricular septal defect visualized. LVEF is 50%. Right Ventricle Right ventricle is mildly dilated. The RVSP is 27.4 mmHg. Pacemaker lead is present in the right vent ricle. Atria Left atrium is severely dilated. Right atrium is severely dilated. The interatrial septum is intact w ith no evidence for an atrial septal defect. Aortic Valve Aortic valve is calcified. Aortic valve is trileaflet. No hemodynamically significant valvular aorti c stenosis. Peak aortic valve gradient is 26.7 mmHg. Highest mean aortic valve gradient is 14.3 mmHg. Calculated DARLIN by the continuity equation is 2.35 cm2. Trace aortic regurgitation. Mitral Valve Mildly thickened mitral leaflets No evidence of mitral valve stenosis. Mild to moderate mitral regu rgitation. Tricuspid Valve The tricuspid valve is normal in structure. There is no tricuspid valve stenosis. Severe tricuspid r egurgitation. Pulmonic Valve The pulmonary valve is normal in structure. There is no pulmonic valvular stenosis. Trace pulmonic re gurgitation. Great Vessels The aortic root is normal in size. The ascending aorta is normal in size. Aortic arch is not well vis ualized. The IVC collapses <50% with inspiration. Pericardium There is no pericardial effusion. 2D Dimensions IVSD d PLAX 0.78 cm M: 0.6-1.2 LV Vol A2C d MOD 175.3 mL LVPW d PLAX 0.85 cm M: 0.6 - 1.2 LV Vol A4C d MOD 158.9 mL LVID d PLAX 6.64 cm M: 4.2 - 5.8 LA vol/ BSA A2C s A-L 123.5 mL/m2 LVDs 5.20 cm M: 2.5 - 4.0 LA vol/ BSA A4C s A-L 93.8 mL/m2 Ao Root d 2.70 cm M: 3.1 - 3.7 LA Vol/ BSA Biplane s A-L 118.0 mL/m2 RA Area A4C 47.44 cm2 LA Area A4C s MOD 41.80 cm2 RA Vol/ BSA A4C s A-L 121.4 mL/m2 LA Area A2C s MOD 43.78 cm2 Ao Asc Diam d 2.70 cm M: 2.6 - 3.4 LV EF A4C MOD 45.1 % LV EF Teichholz 42.7 % LV EF A2C MOD 50.7 % LVEF (Ruano's) 46.22 % M: 52 - 72 LV EF Biplane MOD 46.2 % LV Volume 137.33 mL M: 62 - 150 SV 78.15 mL LV Volume Index 85.83 mL/m2 M: 34 - 74 SV Index 48.79 mL/m2 LV Vol Biplane MOD 169.1 mL FS 21.55 % LV Diastology MV E Vmax 0.88 (0.4-1.3 m/s) Aortic Valve LVOT Area 3.18 cm2 AoV Area Vmax 2.35 cm2 LVOT Vmax 1.91 m/s AoV Area/ BSA (Vmax) 1.46 cm2/m2 LVOT Mean Perico. 1.18 m/s DARLIN Mean Perico. 2.09 cm2 LVOT Peak Grad 14.6 mmHg DARLIN Mean Perico. Index 1.31 cm2/m2 LVOT Mean Grad 6.8 mmHg LVOT VTI 0.338 m LVOT Diam s 2.00 cm AoV Vmax 2.58 m/s Velocity Ratio 0.74 AoV Mean Perico. 1.79 m/s AoV Peak Grad 26.7 mmHg LVOT SV 107.28 mL AoV Mean Grad 14.3 mmHg AoV VTI 0.424 m AoV Area VTI 2.53 cm2 AoV Area/ BSA (VTI) 1.58 cm/m2 Mitral Valve MV DT 148 (160-240 msec) MV PHT 43 msec MV Area PHT 5.12 cm2 MV VTI 0.234 m MV Area VTI 4.59 (4.0-6.0 cm2) Pulmonary Valve PV Vmax 0.75 (0.5-1.5 m/s) RVOT Peak Gr. 1.08 mmHg PV Peak Grad 2.2 mmHg RVOT Mean Gr. 0.45 mmHg PV Mean Grad 1.2 mmHg RVOT VTI 0.090 m PV VTI 0.149 m RVOT Vmax 0.52 m/s Tricuspid Valve TR Peak Grad 19.3 mmHg TR Vmax 2.20 m/s RA Pressure 8.00 mmHg RVSP (TR) 27.4 mmHg
== END 2022-07-21 02:04 ==
LOC: DI 01:44
PROVIDERS: PCP Family Medicine; Visit Provider Internal Medicine Cardiovascular Disease
DX: I48.21 Permanent atrial fibrillation (principal)
CPT/HCPCS: 93306

== ENCOUNTER → 2022-08-11 08:46 | Outpatient (BNVA) | payer MEDICARE, SELFPAY | PROVIDERS: PCP Family Medicine; Referring Provider Family Medicine; Visit Provider Internal Medicine Cardiovascular Disease | DX: Z79.01 Long term (current) use of anticoagulants (principal); I48.21 Permanent atrial fibrillation; Z95.0 Presence of cardiac pacemaker; I42.9 Cardiomyopathy, unspecified; I10 Essential (primary) hypertension | CPT/HCPCS: 99214 ==

== ENCOUNTER → 2022-08-28 11:14 | Outpatient (BNVA) | payer MEDICARE, SELFPAY | PROVIDERS: PCP Family Medicine; Referring Provider Family Medicine; Visit Provider Surgery | DX: K62.89 Other specified diseases of anus and rectum (principal) | CPT/HCPCS: 99213 ==

== ENCOUNTER → 2022-09-02 12:47 | Outpatient (BNVA) | payer MEDICARE, SELFPAY | PROVIDERS: PCP Family Medicine; Referring Provider Family Medicine; Visit Provider Physician Assistant | DX: Z45.010 Encounter for checking and testing of cardiac pacemaker pulse generator [battery] (principal); Z79.01 Long term (current) use of anticoagulants; N18.6 End stage renal disease; N48.21 Abscess of corpus cavernosum and penis | CPT/HCPCS: 93279 ==

== ENCOUNTER → 2022-09-16 11:19 | Outpatient (BNVA) | payer MEDICARE, SELFPAY | PROVIDERS: PCP Family Medicine; Referring Provider Family Medicine; Visit Provider Surgery | DX: K62.89 Other specified diseases of anus and rectum (principal) | CPT/HCPCS: 99213 ==

== ENCOUNTER → 2023-02-09 08:48 | Outpatient (BNVA) | payer MEDICARE, SELFPAY | PROVIDERS: PCP Family Medicine; Referring Provider Family Medicine; Visit Provider Internal Medicine Interventional Cardiology | DX: I48.11 Longstanding persistent atrial fibrillation (principal); N18.6 End stage renal disease; Z79.01 Long term (current) use of anticoagulants; Z95.0 Presence of cardiac pacemaker | CPT/HCPCS: 99213 ==

== ENCOUNTER → 2023-03-03 12:46 | Outpatient (BNVA) | payer MEDICARE, SELFPAY | PROVIDERS: PCP Family Medicine; Referring Provider Family Medicine; Visit Provider Physician Assistant | DX: I44.2 Atrioventricular block, complete (principal); Z95.0 Presence of cardiac pacemaker | CPT/HCPCS: 93279 ==

== ENCOUNTER 2023-06-08 05:41 | Emergency (ER) | payer MEDICARE, SELFPAY ==
[2023-06-08 05:51] VITALS: BP 148/59; PULSE 82; RESP 17; TEMP 36.7; O2SAT 99
[2023-06-08 05:54] VITALS: BP 148/59; PULSE 79
--- NOTE | 2023-06-08 06:00 | DI.CT_ITS ---
Exam(s) CT ABDOMEN PELVIS WO EXAM: CT ABDOMEN PELVIS WO CLINICAL HISTORY: hx stone, left flank pain, on dialysis. TECHNIQUE: Imaging Protocol: Axial computed tomography images with coronal and sagittal reformatted images were created and reviewed CONTRAST MATERIAL: Intravenous: none Oral: None COMPARISON: CT CT ABDOMEN PELVIS WO from 08/14/2021 FINDINGS: VISUALIZED LUNG BASES: No nodules nor pleural effusions evident. Prominent cardiomegaly is again not ed. ABDOMEN: There is no ascites. LIVER: There are no obvious focal hepatic lesions evident of this noninfused study. GALLBLADDER/BILIARY: No obvious gallbladder pathology. CBD is not dilated. PANCREAS: No evidence of pancreatic mass nor dilatation of the pancreatic duct. SPLEEN: Spleen is not enlarged. No obvious intrasplenic lesions. ADRENALS: Nodular left adrenal gland again noted. Right adrenal gland remains unremarkable. KIDNEYS:Both kidneys are again noted to be severely atrophic and contain cysts and calculi. There is a uniformly hyperdense exophytic lesion off the lateral cortex of the right kidney measuring 1.4 x 1 .2 cm which has appearance of a probable hemorrhagic cyst, this in addition to the more simple cysts. This has significantly increased in size, previously measuring 0.[address] scan of July 2021. Lef t kidney now contains a 3 x 1.8 cm uniformly hyperdense lesion just above the midpole level which may be a large hemorrhagic cyst, not previously present. At this level there was previously a slightly smaller benign-appearing cysts. There also benign cysts in left kidney. There is no hydronephrosis nor hydroureter on either side. Urinary bladder is collapsed but does not contain radiopaque calculi . Prostate is enlarged and measures 5 cm wide. ABDOMINAL AORTA: Calcified but not enlarged. Common iliac arteries are also calcified but not enlarg ed. LYMPH NODES: There is no retroperitoneal nor paraaortic adenopathy. ABDOMINAL WALL: No evidence of significant anterior abdominal wall nor inguinal hernia. GI: There is no evidence of bowel obstruction, free air, nor abscess. PELVIS: LYMPH NODES: There is no intrapelvic nor inguinal adenopathy. GI: No evidence of appendicitis.Sigmoid diverticulosis. No obvious acute diverticulitis. URINARY BLADDER: Collapsed. REPRODUCTIVE: Enlarged prostate. OSSEOUS: No significant osseous lesions. No fractures. Advanced disc space narrowing at L5-S1 disc level noted. No pars defects. IMPRESSION: 1. Compared to the prior CT scan of 08/14/2021 there are again noted severely atrophic kidneys which contain multiple benign cysts and intrarenal calculi without evidence of obvious calculi in the urete rs nor hydronephrosis. There is also a new finding in each kidney, specifically a 3 x 1.2 cm uniform ly hyperdense midpole level possible hemorrhagic cyst in left kidney and a smaller partially exophyti c 1.4 x 1.2 cm probable hemorrhagic cyst in the right kidney. Recommend follow-up renal ultrasound t o ensure that these are hemorrhagic cysts, as opposed to solid masses. 2. Urinary bladder is collapsed and difficult to assess. However there is a faint density measuring 3 mm in the right side of the urinary bladder which may be a recently passed calculus. This is best seen on the reconstructed sagittal and coronal images. 3. Sigmoid diverticulosis. No obvious acute diverticulitis. Called by myself to ER provider RADIATION DOSE DELIVERED: 537.77mGy.cm Total DLP DATA REPOSITORY: All CT scans at this facility are submitted to the National Radiology Data Registry (NRDR) Dose Index Registry (DIR) with the [employer] (ACR). RADIATION OPTIMIZATION: All CT scans at this facility use at least one of these dose optimization te chniques: automated exposure control; mA and/or kV adjustment per patient size (includes targeted exa ms where dose is matched to clinical indication); or iterative reconstruction.
[2023-06-08] MEDS: ACETAMINOPHEN 1,000 MG/100 ML BTL 400 MG IVPB (06:17)
[2023-06-08] MEDS: Tamsulosin 0.4 MG CAPCR PO (06:19)
[2023-06-08 06:27] LABS: Abs Immature Grans 0.02 10^3/uL (0.0-0.06); Absolute Basophil Count 0.05 10^3/uL (0.0-0.2); Absolute Eosinophil Count 0.15 10^3/uL (0.0-0.7); Absolute Lymphocyte Count 0.47 10^3/uL (1.2-3.4); Absolute Monocyte Count 0.61 10^3/uL (0.1-0.8); Absolute Neutrophil Count 4.05 10^3/uL (1.2-6.7); Basophils % 0.9; Eosinophils % 2.8; HCT 32.9 % (40.0-50.0); HGB 10.7 g/dL (13.5-17.5); Immature Grans % 0.4; Lymphocytes % 8.8; MCH 32.2 pg (27.0-33.0); MCHC 32.5 % (32.0-36.0); MCV 99 fL (80-95); MPV 8.8 fL (8.0-11.0); Monocytes % 11.4; Neutrophils % 75.7; Platelet Count 149 10^3/uL (130-400); RBC 3.32 10^6/uL (4.36-5.78); RDW 13.7 % (11.8-14.1); RDW-SD 50.4 fL; WBC 5.35 10^3/uL (4.4-10.8)
--- NOTE | 2023-06-08 06:31 | W.ED.GENAD ---
Discharge Plan Discharge Details Chief Complaint: FlankPain Clinical Impression: Hematuria Primary Care Provider: Bryce Sinclair ED Provider: Ryan Moser Home Meds and New Rx's Prescriptions: No Action cinacalcet 30 mg tablet 60 mg PO .COMPLEX Patient Comments: take at dialysis Rx Instructions: 60 mg orally @dialysis M/W/F Metamucil (sugar) Powder 2 tsp PO DAILY apixaban 2.5 mg tablet 2.5 mg PO BID Qty: 180 3RF amlodipine 5 mg tablet 5 mg PO DAILY PRN (Reason: BP higher than 130) Qty: 90 3RF atorvastatin 40 mg tablet 40 mg PO HS Qty: 90 3RF finasteride 5 mg tablet 5 mg PO DAILY Qty: 90 4RF nitroglycerin 0.4 mg tablet, sublingual 0.4 mg Sublingual PRN PRN (Reason: chest pain) Qty: 60 0RF acetaminophen [Mapap Extra Strength] 500 MG tablet 500 mg PO PRN PRN cholecalciferol (vitamin D3) 50 mcg (2,000 unit) tablet 50 mcg PO .COMPLEX Rx Instructions: 50 mcg orally @dialysis M//; HPI General Date/Time Provider Initiated Documentation: 06/08/23 05:43. HPI Narrative: Pleasant 72-year-old male with a past medical history of atrial fibrillation, congestive heart failure, pacemaker, end-stage renal disease on dialysis, previous PE on Eliquis, high cholesterol, hypertension, and history of multiple kidney stones in the past who presents today for evaluation of left flank pain and hematuria. Patient states that he has had symptoms of mild achiness in the left flank for the last month or so, he has been receiving his regular scheduled Wednesday dialysis, however yesterday he noticed that after dialysis he had significant hematuria which was atypical. With the persistent pain and hematuria he has come here for further evaluation. He states the symptoms feel very similar to his previous kidney stones. He denies any chest pain or shortness of breath. He denies any fever or chills. He did take Tylenol last night with minimal improvement. No other complaints at this time. Related Data Home Medications Medication Instructions Recorded Confirmed acetaminophen 500 mg tablet (Mapap 500 mg PO PRN PRN 11/13/16 06/08/23 Extra Strength) amlodipine 5 mg tablet 5 mg PO DAILY PRN BP higher than 08/12/21 06/08/23 130 #90 tabs cinacalcet 30 mg tablet 60 mg PO .COMPLEX 02/09/23 06/08/23 apixaban 2.5 mg tablet 2.5 mg PO BID #180 tabs 02/18/23 06/08/23 atorvastatin 40 mg tablet 40 mg PO HS #90 tabs 03/26/23 06/08/23 finasteride 5 mg tablet 5 mg PO DAILY prostate #90 tab-caps 03/26/23 06/08/23 nitroglycerin 0.4 mg sublingual 0.4 mg sublingual PRN PRN chest 03/26/23 06/08/23 tablet pain #60 tabs psyllium seed (sugar) oral powder 2 tsp PO DAILY 05/11/23 06/08/23 (Metamucil (sugar) oral powder) cholecalciferol (vitamin D3) 50 50 mcg PO .COMPLEX 06/08/23 06/08/23 mcg (2,000 unit) tablet Previous Rx's Medication Instructions Recorded amlodipine 5 mg tablet 5 mg PO DAILY PRN BP higher than 08/12/21 130 #90 tabs apixaban 2.5 mg tablet 2.5 mg PO BID #180 tabs 02/18/23 atorvastatin 40 mg tablet 40 mg PO HS #90 tabs 03/26/23 finasteride 5 mg tablet 5 mg PO DAILY prostate #90 tab-caps 03/26/23 nitroglycerin 0.4 mg sublingual 0.4 mg sublingual PRN PRN chest 03/26/23 tablet pain #60 tabs Allergies Allergy/AdvReac Type Severity Reaction Status Date / Time omeprazole AdvReac Intermediate nausea/vomi Verified 06/08/23 05:58 ting carvedilol AdvReac excess Verified 06/08/23 05:58 bradycardia General Stated Complaint: FlankPain BRI: 3 Review of Systems All systems reviewed & are unremarkable except as noted in HPI and below Exam Narrative Exam Narrative: 1.Const: Well-nourished, Well-developed, appearing stated age 2.Eyes: PERRL, no conjunctival injection, and symmetrical lids. 3.ENT: Atraumatic external nose and ears. Moist MM. Neck: Symmetric, trachea midline, No thyromegaly. 4.CVS: +S1/S2, No murmurs or gallops. Peripheral pulses 2+ and equal in all extremities. Brisk capillary refill in all extremities. 5.RESP: Unlabored respiratory effort. Clear to auscultation bilaterally. No wheezes rales or rhonchi 6.GI: Soft, Nontender/Nondistended, No hepatosplenomegaly. No guarding or rebound. Mild left CVA tenderness, on percussion. No pain at McBurney's point, negative Brown sign. Genital exam demonstrates unremarkable male genitalia with no hernia, blood at the urethral meatus, or penile tenderness. 7.MSK: Normocephalic/Atraumatic, Extremities w/o deformity or ttp No cyanosis or clubbing, Normal movement of all extremities 8.Skin: Warm, Dry. No rashes or lesions. 9.Neuro: kier pleater II-XII grossly intact. Sensation grossly intact, no focal neurologic deficits. 10.Psych: (AAO) x3. Appropriate mood and affect Course Vital Signs Vital signs: Vital Signs Temperature 36.7 C 06/08/23 05:51 Pulse 82 06/08/23 05:51 Respiratory Rate 17 06/08/23 05:51 Blood Pressure 148/59 H 06/08/23 05:51 Pulse Oximetry 99 06/08/23 05:51 Temperature 36.7 C 06/08/23 05:51 Temperature Source Temporal Artery Scan 06/08/23 05:51 Pulse 82 06/08/23 05:51 Respiratory Rate 17 06/08/23 05:51 Respiratory Effort Normal, Non-Labored 06/08/23 05:54 Blood Pressure 148/59 H 06/08/23 05:51 Blood Pressure Position Sitting 06/08/23 05:51 Pulse Oximetry 99 06/08/23 05:51 Oxygen Delivery Method Room Air 06/08/23 05:51 Oxygen Flow Rate 0 06/08/23 05:51 Pain Level 7 06/08/23 05:55 Lab/Test Results Lab/Test Results: Laboratory Tests Range/Units 06/08/23 06:05 WBC (4.4-10.8) 10^3/uL 5.35 RBC (4.36-5.78) 10^6/uL 3.32 L Hgb (13.5-17.5) g/dL 10.7 L Hct (40.0-50.0) % 32.9 L MCV (80-95) fL 99 H MCH (27.0-33.0) pg 32.2 MCHC (32.0-36.0) % 32.5 RDW (11.8-14.1) % 13.7 Plt Count (130-400) 10^3/uL 149 MPV (8.0-11.0) fL 8.8 Immature Gran % 0.4 Neutrophils % 75.7 Lymphocytes % 8.8 Monocytes % 11.4 Eosinophils % 2.8 Basophils % 0.9 Nucleated RBC % (0.0-0.3) % 0.0 Absolute Neutrophils (1.2-6.7) 10^3/uL 4.05 Absolute Lymphocytes (1.2-3.4) 10^3/uL 0.47 L Absolute Monocytes (0.1-0.8) 10^3/uL 0.61 Absolute Eosinophils (0.0-0.7) 10^3/uL 0.15 Absolute Basophils (0.0-0.2) 10^3/uL 0.05 Medical Decision Making Pleasant 72-year-old male with a past medical history of atrial fibrillation, congestive heart failure, pacemaker, end-stage renal disease on dialysis, previous PE on Eliquis, high cholesterol, hypertension, and history of multiple kidney stones in the past who presents today for evaluation of left flank pain and hematuria. Patient states that he has had symptoms of mild achiness in the left flank for the last month or so, he has been receiving his regular scheduled Wednesday dialysis, however yesterday he noticed that after dialysis he had significant hematuria which was atypical. With the persistent pain and hematuria he has come here for further evaluation. He states the symptoms feel very similar to his previous kidney stones. He denies any chest pain or shortness of breath. He denies any fever or chills. He did take Tylenol last night with minimal improvement. No other complaints at this time. Of note patient had been seen by Dr. Moreau in the past, however he did have a conversation with Dr. Moreau that perhaps in the future for procedures it should be done at [facility] secondary to his needs for dialysis if there was a complication. Unfortunately referral was made but [facility] never followed up with the patient, and the patient states that he has not been in contact with Dr. Moreau for the last few years either for any repeat ultrasounds. Exam demonstrates well-appearing male, minimal left-sided CVA tenderness. Genital exam unremarkable. No blood at the urethral meatus. No other significant abnormalities. Differential is highest for urolithiasis, will give Ofirmev, get a CT scan without contrast, monitor closely and reassess. 7:40 AM On reassessment patient remains comfortable after Ofirmev. Laboratory workup shows hemoglobin of 10.7 which actually appears around his baseline, electrolytes stable, creatinine 7.3 she is also near baseline. Urinalysis shows evidence of gross blood. CT scan was ordered, however we are still pending formal results. Patient will be signed out to my colleague for follow-up on CT imaging. Quality:SDOH Health Related Social Needs: No Data to Display PFSH All Active Problems (Updated 06/08/23 @ 07:43 by Ryan Moser DO) Hematuria (Acute) CHB (complete heart block) (Acute) Perianal cyst (Acute) Chronic kidney disease, stage 5 (Acute ~10/2021) 10/27/21 [facility] thumb of left hand (Acute) Conductive hearing loss, external ear (Acute) Family history of prostate cancer (Chronic) Two brothers, unclear if metastatic Aortic valve disease (Acute) Pacemaker (Chronic) [employer] Sensia programmed VVIR abandoned atrial lead - permanent afib End stage renal disease (Acute) dialysis Ex-cigarette smoker (Acute) Hypocalcemia (Acute) Vitamin D deficiency (Chronic) Reactive depression (situational) (Chronic) Anemia (Chronic) Benign paroxysmal positional vertigo of right ear (Chronic 01/13/16) Elevated PSA (Chronic 05/15/15) Renal atrophy, right (Chronic 05/15/15) Sensorineural hearing loss, bilateral (Chronic 12/29/16) Impacted cerumen of both ears (Acute) Pulmonary embolism (Chronic ~1996) PSVT (paroxysmal supraventricular tachycardia) (Acute) Hyperlipemia (Acute) Bilateral kidney stones (Acute 05/15/15) History of TIA (transient ischemic attack) (Chronic ~2013) 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) Cardiomyopathy (Chronic) Peptic ulcer disease (Chronic) Atrial fibrillation (Chronic) Medical History Gross hematuria (05/15/15) Acidemia Supratherapeutic INR Positive blood culture DVT prophylaxis Surgical History History of tonsillectomy and adenoidectomy Pacemaker EGD - [facility] (01/29/16) Colonoscopy - [facility] Family History Brother Prostate cancer Diabetes Brother Prostate cancer Social History Smoking/Tobacco Use Status: Former Tobacco Use Quit Date: 01/15/14 Tobacco: How many years used: 45 Smoking risk assessment performed?: Yes Alcohol Intake: former Drug use: Never Substance use type: does not use Adopted: No Caregiver/Support person: No Foster care: No Housing: apartment Number of Children: 0 Communication Needs: Hard of Hearing and Corrective Lenses Education Level: high school Do you need help understanding health information?: Rarely current occupation: Retired Pets and animals: No Sexually active: Yes Do you think of yourself as: straight/heterosexual Current gender identity: male What is your relationship status?: never How often do you talk on the phone with friends or family?: once per week How often do you get together with friends or relatives?: never Do you belong to any clubs or organized social groups?: no Panel score (0-1 are the most socially isolated patients): 0 What type of physical activity do you participate in: walking Maddie/Episcopal: Muslim Seatbelt use: always Helmet use: No Drive intox or ride w/intox tow car driver: No Working smoke detector in home: Yes Carbon monox detector in home: Yes Do you feel safe at home: Yes Do you feel safe in your relationship?: Yes
[2023-06-08 06:40] LABS: INR 1.2 (0.9-1.1); PTT Activated 33.6 sec (23.6-32.8); Prothrombin Time 12.3 sec (9.1-11.1)
[2023-06-08 06:42] LABS: ALT 28 U/L (16-63); AST 17 U/L (15-37); Albumin 3.8 g/dL (3.4-5.0); Alkaline Phosphatase 124 U/L (46-116); Anion Gap 11.1 mmol/L (3-11); BUN 49 mg/dL (7-18); CO2 29.9 mmol/L (21.0-32.0); Calcium 7.8 mg/dL (8.5-10.1); Chloride 97 mmol/L (98-107); Estimated GFR 7.45 (mL/min/1.73m2); Glucose 111 mg/dL (74-106); Potassium 3.5 mmol/L (3.5-5.1); Sodium 138 mmol/L (136-145); Total Protein 7.2 g/dL (6.4-8.2)
[2023-06-08 06:49] LABS: CREATININE 7.3 mg/dL (0.70-1.30)
[2023-06-08 07:05] VITALS: BP 133/67; PULSE 70; RESP 16; TEMP 36.3; O2SAT 99
[2023-06-08 07:36] LABS: Bilirubin Negative (Negative); Blood Large (Negative); Clarity Cloudy (Clear); Glucose 100 mg/dL (Negative); Ketones Trace mg/dL (Negative); Leukocyte Esterase Small (Negative); Nitrite Negative (Negative); Specific Gravity 1.025 (1.005-1.025); Urobilinogen 0.2 mg/dL (Up to 0.2)
[2023-06-08 07:47] LABS: RBC >50 HPF (0-2)
[2023-06-08 07:48] LABS: C & S Indicated? Yes
[2023-06-08 08:10] VITALS: BP 129/61; PULSE 70; RESP 18; TEMP 36.6; O2SAT 99
--- NOTE | 2023-06-08 08:30 | DI.US_ITS ---
Exam(s) US RENAL EXAM: US RENAL CLINICAL HISTORY: new masses bilat, possible hemorrhagic renal mass TECHNIQUE: Ultrasound of both kidneys performed using standard protocol. COMPARISON: CT CT ABDOMEN PELVIS WO from 08/14/2021 US US ECHOCARDIOGRAM from 07/21/[address] ABDOMEN PELVIS WO from 06/08/2023 FINDINGS: KIDNEYS: Both kidneys are atrophic, measure approximately 7 cm size and with decreased corticomedulla ry differentiation evident in both kidneys. There are benign cysts and calculi both kidneys. With r espect to the single finding of concern in each kidney seen on today's CT scan... On the right side the finding appears to be a 1.2 x 1.6 cm partially exophytic cyst. In the left kidney the finding described on the CT scan has the appearance of more solid mass measuri ng approximately 2.6 x 2.8 x 2.1 cm and exhibiting some peripheral calcification. URINARY BLADDER: Poorly visualized/collapsed IMPRESSION: 1. Bilateral atrophic kidneys which contain calculi and benign cysts. 2. There is, however, a 2.8 x 2.6 x 2.1 cm solid mass in the midpole level of the left kidney which appears to correspond to the finding on the CT scan. Cannot exclude neoplasm. Recommend follow-up contrast infused MRI DATA REPOSITORY:
--- NOTE | 2023-06-08 09:04 | DI.VRAD_ITS ---
PROCEDURE INFORMATION: Exam: CT Abdomen And Pelvis Without Contrast Exam date and time: 06/08/2023 6:26 AM Age: 72 years old Clinical indication: Other: L flak pain; Patient HX: L flank pain, HX of stones, hematuria, dialysis PT TECHNIQUE: Imaging protocol: Computed tomography of the abdomen and pelvis without contrast. Radiation optimization: All CT scans at this facility use at least one of these dose optimization techniques: automated exposure control; mA and/or kV adjustment per patient size (includes targeted exams where dose is matched to clinical indication); or iterative reconstruction. COMPARISON: CT ABDOMEN PELVIS WO 08/14/2021 8:00 AM FINDINGS: Limitations: Lack of intravenous contrast limits evaluation for certain processes. Lungs: Minimal linear left basilar scarring. Lung bases are otherwise clear. No pleural effusions. Heart: Severe cardiomegaly is again noted, incompletely imaged. Liver: The liver has a subtle lobulated surface contour, suspicious for cirrhosis. Gallbladder and bile ducts: Unremarkable. No calcified gallstones. No intrahepatic or extrahepatic biliary ductal dilation. Pancreas: Unremarkable. Spleen: Unremarkable. The spleen is normal in size. Adrenal glands: Unremarkable. Kidneys and ureters: The kidneys are again noted to be markedly atrophic. There is no hydronephrosis or hydroureter. There is a 3 cm mildly hyperdense cortical mass in the mid left kidney where a lobulated, approximately 1.8 cm simple-appearing cyst was present previously. There are multiple simple-appearing cortical cysts in both kidneys,. There is a 1.4 cm soft tissue attenuation cortical lesion in the lower pole of the right kidney where a 0.7 cm hyperdense presumed hemorrhagic cyst was present previously. There are multiple irregular nonobstructing calculi in both kidneys. Stomach and bowel: The stomach is nondilated. The small and large bowel are normal in caliber. There are diverticula throughout the descending and sigmoid colon without pericolonic inflammatory changes to suggest diverticulitis. Appendix: A nondilated appendix is identified. Intraperitoneal space: No ascites, fluid collection, or pneumoperitoneum. Retroperitoneal space: No retroperitoneal collection or mass. Vasculature: Moderate atherosclerotic vascular calcifications. Normal caliber abdominal aorta. Lymph nodes: No pathologically enlarged lymph nodes. Urinary bladder: Completely collapsed/decompressed. Reproductive: Moderately enlarged prostate gland. Bones/joints: Degenerative changes. Faint hazy sclerosis in the osseous structures consistent with renal osteodystrophy. No suspicious osseous lesions. Soft tissues: Unremarkable. IMPRESSION: 1. No evidence of obstructive uropathy. 2. A 3 cm mildly hyperdense cortical lesion in the mid left kidney is a presumed hemorrhagic cyst, where a smaller simple-appearing simple cyst was present previously. Recent hemorrhage into this pre-existing cyst might account for the patient's symptoms. 3. Marked bilateral renal atrophy with multiple additional cortical lesions in both kidneys, some complex. These could be further evaluated with nonemergent renal ultrasound. 4. Bilateral nephrolithiasis. 5. Additional stable chronic and incidental findings are discussed in the body of the report. Dictated and Authenticated by: Jennifer Mello MD. Ordering:POLLY Davis MD
[2023-06-08 09:35] VITALS: BP 123/58; PULSE 71; RESP 16; TEMP 36.6; O2SAT 99
--- NOTE | 2023-06-08 10:29 | ED.PROG_ITS ---
Date of service: 06/08/23 Time of Service: 10:29 Medical Decision Making Resting comfortably no acute distress. Voiding normally. Hemodynamically stable. Evidence of left renal mass. Patient feels comfortable following up with Dr. Moreau in the coming weeks for evaluation of renal mass and hematuria. Home care instructions and strict return precautions given. Quality:[facility] Health Related Social Needs: No Data to Display Sign Out Sign Out Data: Sign Out Comment: Renal failure on dialysis, still makes urine, Eliquis secondary to PE and A-fib, presents for left flank plain and hematuria. Concern for kidney stone. Follow-up on CT imaging. Recommend discussion with Dr. Moreau or potential outpatient [facility] referral. Last updated by Ryan Moser DO at 06/08/23 07:46 Discharge Plan Disposition Patient Disposition: Home Condition: Stable Discharge Details Chief Complaint: FlankPain Clinical Impression: Hematuria, Kidney mass Primary Care Provider: Bryce Sinclair ED Provider: Adrian Ying Home Meds and New Rx's Prescriptions: No Action cinacalcet 30 mg tablet 60 mg PO .COMPLEX Patient Comments: take at dialysis Rx Instructions: 60 mg orally @dialysis M/W/F Metamucil (sugar) Powder 2 tsp PO DAILY apixaban 2.5 mg tablet 2.5 mg PO BID Qty: 180 3RF amlodipine 5 mg tablet 5 mg PO DAILY PRN (Reason: BP higher than 130) Qty: 90 3RF atorvastatin 40 mg tablet 40 mg PO HS Qty: 90 3RF finasteride 5 mg tablet 5 mg PO DAILY Qty: 90 4RF nitroglycerin 0.4 mg tablet, sublingual 0.4 mg Sublingual PRN PRN (Reason: chest pain) Qty: 60 0RF acetaminophen [Mapap Extra Strength] 500 MG tablet 500 mg PO PRN PRN cholecalciferol (vitamin D3) 50 mcg (2,000 unit) tablet 50 mcg PO .COMPLEX Rx Instructions: 50 mcg orally @dialysis M/W/F; Discharge Instructions Instructions: Hematuria (ED) Additional Instructions: Please follow-up with urology team within the next week. Please return to the emergency department for any worsening symptoms.
[2023-06-08 10:33] VITALS: BP 127/58; PULSE 69; RESP 16; TEMP 36.7; O2SAT 98
--- NOTE | 2023-06-08 12:19 | NUR.NOTE ---
Referral faxed to [facility] Urology for kidney mass, hematuria, in 1 week. Nursing Note:
== END 2023-06-08 10:43 | disposition home or self-care (01) ==
PROVIDERS: Student in an Organized Health Care Education/Training Program; Emergency Provider Emergency Medicine; PCP Family Medicine
DX: R31.9 Hematuria, unspecified (principal); N28.89 Other specified disorders of kidney and ureter; I13.2 Hypertensive heart and chronic kidney disease with heart failure and with stage 5 chronic kidney disease, or end stage renal disease; N18.6 End stage renal disease; N50.9 Disorder of male genital organs, unspecified; I48.91 Unspecified atrial fibrillation; E78.5 Hyperlipidemia, unspecified; Z86.711 Personal history of pulmonary embolism; Z79.01 Long term (current) use of anticoagulants; Z95.0 Presence of cardiac pacemaker; Z86.73 Personal history of transient ischemic attack (TIA), and cerebral infarction without residual deficits
CPT/HCPCS: 00123; 76770; 80053; 99285; 74176; 81003; 81015; 85025; 85610; 85730; 87086; 99284; J0131

== ENCOUNTER 2023-07-08 09:48 | Outpatient (CLI) | payer MEDICARE, SELFPAY ==
[2023-07-14 11:05] LABS: Protein C, Functional 91 % (71-199); Protein S, Functional 127 % (73-156)
== END 2023-07-08 09:49 | disposition home or self-care (01) ==
LOC: LBO 09:53
PROVIDERS: PCP Family Medicine; Visit Provider Family Medicine
DX: I74.5 Embolism and thrombosis of iliac artery (principal)
CPT/HCPCS: 36415; 85306; 85303

== ENCOUNTER 2023-07-20 08:30 | Outpatient (CLI) | payer MEDICARE, SELFPAY ==
--- NOTE | 2023-07-20 08:30 | RT.EKG_ITS ---
APPROVED REPORT Exam: Resting ECG Reason for Exam: afib Patient Location: O HR:84 bpm ECG Measurements Heart Rate 84 AXIS SD 166 P -48 QRSd 172 QRS 130 QT 466 T -58 QTc 551 Conclusion Ventricular-paced complexes...other complexes also detected No further analysis attempted due to paced rhythm
== END 2023-07-20 08:31 | disposition home or self-care (01) ==
LOC: DI.CARD 08:31
PROVIDERS: PCP Family Medicine; Visit Provider Internal Medicine Cardiovascular Disease
DX: I48.11 Longstanding persistent atrial fibrillation (principal)
CPT/HCPCS: 93010

== ENCOUNTER → 2023-07-20 08:40 | Outpatient (BNVA) | payer MEDICARE, SELFPAY | PROVIDERS: PCP Family Medicine; Visit Provider Internal Medicine Cardiovascular Disease | DX: I48.11 Longstanding persistent atrial fibrillation (principal); Z95.0 Presence of cardiac pacemaker | CPT/HCPCS: 93005; 99213 ==

== ENCOUNTER → 2023-09-01 12:45 | Outpatient (BNVA) | payer MEDICARE, SELFPAY | PROVIDERS: PCP Family Medicine; Visit Provider Physician Assistant | DX: Z95.810 Presence of automatic (implantable) cardiac defibrillator (principal); I44.2 Atrioventricular block, complete; I48.11 Longstanding persistent atrial fibrillation | CPT/HCPCS: 93282 ==

== ENCOUNTER 2023-11-30 01:35 | Outpatient (CLI) | payer MEDICARE, SELFPAY ==
--- NOTE | 2023-11-30 06:45 | DI.CT_ITS ---
Exam(s) CT ABDOMEN PELVIS W EXAM: CT ABDOMEN PELVIS W CLINICAL HISTORY: Hematochezia,on dialysis,K92.1 TECHNIQUE: Imaging Protocol: Axial computed tomography images with coronal and sagittal reformatted images were created and reviewed. CONTRAST MATERIAL: Intravenous: Omnipaque 350 Contrast volume:85 mL Oral: Yes COMPARISON: CT CT ABDOMEN PELVIS WO from 06/08/2023 FINDINGS: ABDOMEN: Lung Bases: Marked cardiomegaly. Liver: Normal density. No measurable mass. Portal, Superior Mesenteric, and Splenic Veins: Unremarkable. Gallbladder and Biliary Tract: No radiodense calculus or dilation. Pancreas: Normal density, no abnormal calcifications or inflammatory process. Spleen: Normal. Adrenals: No masses seen. Kidneys: The kidneys are atrophic and multi-cystic. No radiodense stones or obstructive uropathy. Mu ltiple bilateral renal cysts are present. No follow-up is recommended. Abdominal Aorta: Abdominal portion non-dilated. Atherosclerotic calcification is present. Bowel: There are colonic diverticula but no evidence of acute diverticulitis. There is no evidence of bowel wall thickening or obstruction. No evidence of appendicitis. Peritoneal Cavity: No ascites, collection or mesenteric inflammatory response. No free air. Lymph Nodes: Within normal limits. Bones: Within normal limits for the patient's age. Soft Tissues: There is fatty atrophy of the paraspinal muscles. PELVIS: Bladder: The urinary bladder is poorly distended, limiting evaluation. Reproductive Organs: Enlarged prostate gland is present. Lymph Nodes: Within normal limits. Bones: Within normal limits for the patient's age. IMPRESSION: 1. No evidence of bowel obstruction or bowel inflammation. 2. Colonic diverticulosis without evidence of acute diverticulitis. 3. Marked renal atrophy. 4. Enlarged prostate gland. RADIATION DOSE DELIVERED: 196.19mGy.cm Total DLP DATA REPOSITORY: All CT scans at this facility are submitted to the National Radiology Data Registry (NRDR) Dose Index Registry (DIR) with the [employer] (ACR). RADIATION OPTIMIZATION: All CT scans at this facility use at least one of these dose optimization te chniques: automated exposure control; mA and/or kV adjustment per patient size (includes targeted exa ms where dose is matched to clinical indication); or iterative reconstruction.
[2023-11-30] MEDS: Barium Sulfate 2% W/V-Berry Smoothie 450 ML BTL PO (08:19)
[2023-11-30] MEDS: Barium Sulfate 2% W/V-Creamy Vanilla Smoothie 450 ML BTL PO (08:20)
[2023-11-30 08:40] LABS: Estimated GFR 7.45 (mL/min/1.73m2)
[2023-11-30 08:45] LABS: CREATININE 7.3 mg/dL (0.70-1.30)
[2023-11-30] MEDS: Normal Saline - Diluent 50 ML VIAL IJ (10:57)
[2023-11-30] MEDS: Omnipaque 350 MG/ML 100 ML BTL 85 ML IJ (10:58)
== END 2023-11-30 01:55 ==
LOC: DI 01:35
PROVIDERS: PCP Family Medicine; Visit Provider Family Medicine
DX: K92.1 Melena (principal); K57.20 Diverticulitis of large intestine with perforation and abscess without bleeding
CPT/HCPCS: 74177; 82565; J3490

== ENCOUNTER → 2023-12-10 10:35 | Outpatient (BNVA) | payer MEDICARE, SELFPAY | PROVIDERS: PCP Family Medicine; Referring Provider Family Medicine; Visit Provider Student in an Organized Health Care Education/Training Program | DX: K62.5 Hemorrhage of anus and rectum (principal); D64.9 Anemia, unspecified; K64.8 Other hemorrhoids; Z99.2 Dependence on renal dialysis | CPT/HCPCS: 99214 ==

== ENCOUNTER 2024-01-04 12:51 | Day surgery (SDC) | payer MEDICARE, SELFPAY ==
--- NOTE | 2024-01-04 10:57 | ANES.PREOP_ITS ---
General Info Height: 5 ft 3 in Weight: 53.977 kg Body Mass Index (BMI): 21.0 Surgical Procedure: Operation Date: 01/04/24 13:10 Proposed Procedure Side Surgeon p Anoscopy Asael Elias MD s Hemorrhoid Banding Asael Elias MD Meds Allergies and Home Medications Allergies Allergy/AdvReac Type Severity Reaction Status Date / Time omeprazole AdvReac Intermediate nausea/vomi Verified 01/03/24 12:08 ting carvedilol AdvReac excess Verified 01/03/24 12:08 bradycardia Home Medication ?Medication ?Instructions ?Recorded acetaminophen 500 mg tablet (Mapap 500 mg PO PRN PRN 11/13/16 Extra Strength) amlodipine 5 mg tablet 5 mg PO DAILY PRN BP higher than 08/12/21 130 #90 tabs cinacalcet 30 mg tablet 60 mg PO .COMPLEX 02/09/23 apixaban 2.5 mg tablet 2.5 mg PO BID #180 tabs 02/18/23 atorvastatin 40 mg tablet 40 mg PO HS #90 tabs 03/26/23 finasteride 5 mg tablet 5 mg PO DAILY prostate #90 tab-caps 03/26/23 nitroglycerin 0.4 mg sublingual 0.4 mg sublingual PRN PRN chest 03/26/23 tablet pain #60 tabs psyllium seed (sugar) oral powder 2 tsp PO DAILY 05/11/23 (Metamucil (sugar) oral powder) cholecalciferol (vitamin D3) 50 50 mcg PO .COMPLEX 06/08/23 mcg (2,000 unit) tablet cinacalcet 60 mg tablet 60 mg PO ONCE 12/10/23 Current Visit Medications: Current Medications Generic Name Dose Route Start Last Admin Trade Name Freq PRN Reason Stop Dose Admin Ringer's Solution 1,000 mls @ 80 mls/hr 01/04/24 06:00 IV 01/04/24 23:59 INFUSION NAN IV Miscellaneous Supplies 1 each 01/04/24 06:00 Iv Access IV 01/04/24 23:59 DIRECTED NAN Sodium Biphosphate/Sodium Phosphate 133 ml 01/04/24 06:00 Na Phosphate Enema-Adult 133 Ml Btl MI 01/04/24 23:59 PREOP NAN Sodium Chloride 0 ml 01/04/24 06:00 Normal Saline Flush 10 Ml Syr IV 01/04/24 23:59 PRN PRN Sodium Chloride 0 ml 01/04/24 06:00 Normal Saline 10 Ml Vial IJ 01/04/24 23:59 DIRECTED PRN Sterile Water 0 ml 01/04/24 06:00 Water,Injection,Sterile 10 Ml Vial IJ 01/04/24 23:59 DIRECTED PRN PFSH Active Problems Active Problems: Problem Status Onset Code Hematochezia Acute K92.1 Pinguecula, bilateral Acute H11.153 Open angle with borderline findings, low risk, bilateral Acute H40.013 Glaucomatous optic atrophy, bilateral Acute H47.233 Combined forms of age-related cataract, bilateral Acute H25.813 Hemangioma Acute D18.00 CHB (complete heart block) Acute I44.2 Perianal cyst Acute K62.89 Chronic kidney disease, stage 5 Acute ~10/2021 N18.5 Trigger thumb of left hand Acute M65.312 Conductive hearing loss, external ear Acute H90.2 Family history of prostate cancer Chronic Z80.42 Aortic valve disease Acute I35.9 Pacemaker Chronic Z95.0 End stage renal disease Acute N18.6 Ex-cigarette smoker Acute Z87.891 Hypocalcemia Acute E83.51 Vitamin D deficiency Chronic E55.9 Reactive depression (situational) Chronic F32.9 Anemia Chronic D64.9 Benign paroxysmal positional vertigo of right ear Chronic 01/13/16 H81.11 Elevated PSA Chronic 05/15/15 R97.20 Renal atrophy, right Chronic 05/15/15 N26.1 Sensorineural hearing loss, bilateral Chronic 12/29/16 H90.3 Impacted cerumen of both ears Acute H61.23 Pulmonary embolism Chronic ~1996 I26.99 PSVT (paroxysmal supraventricular tachycardia) Acute I47.1 Hyperlipemia Acute E78.5 Bilateral kidney stones Acute 05/15/15 N20.0 History of TIA (transient ischemic attack) Chronic ~2013 Z86.73 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 Cardiomyopathy Chronic I42.9 Peptic ulcer disease Chronic K27.9 Atrial fibrillation Chronic I48.91 Medical History Medical History Gross hematuria (05/15/15) Acidemia Supratherapeutic INR Positive blood culture DVT prophylaxis Surgical History Surgical History History of tonsillectomy and adenoidectomy Pacemaker EGD - MAC (01/29/16) Colonoscopy - MAC Tobacco Smoking/Tobacco Use Status: Former Tobacco Use Passive smoking exposure: No Alcohol Alcohol Intake: former Substance Use Substance use: Never Substance use type: does not use Vital Signs and Lab Results Lab Results Blood Type / Crossmatch: No Data to Display Complete Blood Count: No Data to Display Complete Metabolic Panel: No Data to Display Liver Function Panel: No Data to Display Coagulation Panel: No Data to Display Cardiac Panel: No Data to Display Arterial Blood Gas: No Data to Display Venous Blood Gas: No Data to Display Pancreas Panel: No Data to Display Thyroid Panel: No Data to Display Infectious Disease: No Data to Display Blood Cultures: No Data to Display Toxicology Panel: No Data to Display Anesthesia Assessment and Plan Anesthesia History Personal History: No History of Anesthesia Complications Family History: No Family History of Anesthesia Complications Implantable Cardiac Device Does patient have a Pacemaker or an ICD?: Yes Device 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 Sig PMHx: CHF, PE, AFib/PSVT, TIA, CKD5, depression, former smoker. ECHO: LVEF 50%, trace AR. severe TR, RVSP 27. mild-mod MR. EKG: paced. Carotid US: no acute abnormality.
[2024-01-04 13:27] VITALS: BP 126/72; PULSE 91; RESP 16; TEMP 36.4; O2SAT 99
[2024-01-04 14:26] VITALS: BP 144/74; PULSE 71; RESP 16; TEMP 36.3; O2SAT 99
--- NOTE | 2024-01-04 14:39 | ROE_ITS ---
Operative Note Operative Note Refer to Anesthesia Record Procedure Description: PROCEDURES PERFORMED: 1. Anoscopy 2. Internal hemorrhoid banding x3 PREOPERATIVE DIAGNOSIS: Hematochezia POSTOPERATIVE DIAGNOSIS: Grade 2 internal hemorrhoids SURGEON: Janny Elias MD INDICATION FOR PROCEDURE: The patient is a 73-year-old man on dialysis with many comorbidities who has a long standing history of painless rectal bleeding both many years ago as well as currently. He is also on blood thinners. FINDINGS: No obvious external hemorrhoid disease, normal anal canal, grade 2 internal hemorrhoids present in all 3 columns. Banding performed x 3. [place] noting that his hemorrhoids bleed and ooze just with the lubricated?speculum examination. SURVEILLANCE interval/FOLLOW-UP: As needed SPECIMENS: None EBL: Minimal COMPLICATIONS: None Procedure in detail: The patient gave written consent and was in agreement with the indications, the potential risks as well as the benefits of the procedure. I started the banding/anoscopy portion of the procedure. A well?lubricated anoscope was gently introduced. The anal canal was carefully inspected and appeared normal. Internal hemorrhoid disease was readily visible at all 3 columns. Banding was performed in usual fashion. The patient tolerated the procedure well and was taken to the PACU in hemodynamically stable condition. Date of Procedure: 01/04/24
--- NOTE | 2024-01-04 14:39 | W.PM.DSUDISC ---
Date of service: 01/04/24 Time of Service: 14:39 Discharge Plan Disposition Patient Disposition: Home Condition: Good Discharge Details Attending Provider: Asael Elias Primary Care Provider: Bryce Sinclair Home Meds and New Rx's Prescriptions: No Action cinacalcet 30 mg tablet 60 mg PO .COMPLEX Patient Comments: take at dialysis Rx Instructions: 60 mg orally @dialysis M/W/F Metamucil (sugar) Powder 2 tsp PO DAILY cinacalcet 60 mg tablet 60 mg PO ONCE Rx Instructions: Takes at dialysis Mon, wed, fri apixaban 2.5 mg tablet 2.5 mg PO BID Qty: 180 3RF amlodipine 5 mg tablet 5 mg PO DAILY PRN (Reason: BP higher than 130) Qty: 90 3RF atorvastatin 40 mg tablet 40 mg PO HS Qty: 90 3RF finasteride 5 mg tablet 5 mg PO DAILY Qty: 90 4RF nitroglycerin 0.4 mg tablet, sublingual 0.4 mg Sublingual PRN PRN (Reason: chest pain) Qty: 60 0RF acetaminophen [Mapap Extra Strength] 500 MG tablet 500 mg PO PRN PRN cholecalciferol (vitamin D3) 50 mcg (2,000 unit) tablet 50 mcg PO .COMPLEX Rx Instructions: 50 mcg orally @dialysis M/W/; Discharge Instructions Additional Instructions: FINDINGS: Hemorrhoids were banded x 3. Call and schedule follow-up appointment to see me in the next couple of months and see how you are doing. Activity:: Activity as Tolerated Diet:: As Tolerated
== END 2024-01-04 15:07 | disposition home or self-care (01) ==
PROVIDERS: PCP Family Medicine; Visit Provider Student in an Organized Health Care Education/Training Program
PROC: 0DJD8ZZ Inspection of Lower Intestinal Tract, Via Natural or Artificial Opening Endoscopic (ICD-10-PCS; CPT 46615; principal; 2024-01-04 13:00)
PROC: (CPT 46221; 2024-01-04 13:00)
DX: K64.1 Second degree hemorrhoids (principal); N18.5 Chronic kidney disease, stage 5
CPT/HCPCS: 46221; 00123

== ENCOUNTER 2024-01-10 10:18 | Emergency (ER) | payer MEDICARE, SELFPAY ==
[2024-01-10] VITALS (18 sets, daily range): BP systolic 133–155; BP diastolic 72–87; PULSE 70–87; RESP 12–23; TEMP 36; O2SAT 93–100
--- NOTE | 2024-01-10 10:30 | RT.EKG_ITS ---
APPROVED REPORT Exam: Resting ECG Reason for Exam: GI bleed Patient Location: E HR:71 bpm ECG Measurements Heart Rate 71 AXIS ND 228 P 151 QRSd 184 QRS 131 QT 489 T -56 QTc 532 Conclusion Ventricular-paced rhythm, rate 71 [place] negative, no evidence of acute ischemia No significant changes when compared to priors
--- NOTE | 2024-01-10 10:48 | W.ED.GENAD ---
Discharge Plan Disposition Patient Disposition: Home Condition: Stable Discharge Details Clinical Impression: BRBPR (bright red blood per rectum), Atrial fibrillation, Cardiomyopathy, History of TIA (transient ischemic attack), CHF (congestive heart failure), NYHA class I, End stage renal disease, Pacemaker, Aortic valve disease, Chronic kidney disease, stage 5, Chronic anticoagulation, Internal hemorrhoids, Kidney mass Primary Care Provider: Bryce Sinclair ED Provider: Fannie Castro Home Meds and New Rx's Prescriptions: No Action cinacalcet 30 mg tablet 60 mg PO .COMPLEX Patient Comments: take at dialysis Rx Instructions: 60 mg orally @dialysis // Metamucil (sugar) Powder 2 tsp PO DAILY cinacalcet 60 mg tablet 60 mg PO ONCE Rx Instructions: Takes at dialysis Wed, wed, wed apixaban 2.5 mg tablet 2.5 mg PO BID Qty: 180 3RF amlodipine 5 mg tablet 5 mg PO DAILY PRN (Reason: BP higher than 130) Qty: 90 3RF atorvastatin 40 mg tablet 40 mg PO HS Qty: 90 3RF finasteride 5 mg tablet 5 mg PO DAILY Qty: 90 4RF nitroglycerin 0.4 mg tablet, sublingual 0.4 mg Sublingual PRN PRN (Reason: chest pain) Qty: 60 0RF acetaminophen [Mapap Extra Strength] 500 MG tablet 500 mg PO PRN PRN cholecalciferol (vitamin D3) 50 mcg (2,000 unit) tablet 50 mcg PO .COMPLEX Rx Instructions: 50 mcg orally @dialysis //; Discharge Instructions Instructions: Hemorrhoids ED Additional Instructions: You were seen in the emergency department today for evaluation of ongoing bleeding after your hemorrhoid surgery. In our department you have a full physical examination performed, you were not anemic to the point where you require blood transfusion, but you did have a slight decrease in your potassium likely due to dialysis. I provided you with a small dose of potassium supplementation but you need to make sure that you go to dialysis on Wednesday, as your body can easily accumulate dialysis when your kidneys do not function. We discussed your bleeding with the surgeon, and they recommend holding your apixaban for 24 hours (that means that you skip tonight's dose and tomorrow morning's dose, and restart it tomorrow evening). This should be enough to reduce the level of bleeding, though it may not stop entirely as the bands come loose and attached. Please maintain good hydration and nutrition and continue to use your stool softener to avoid straining. Finally, you need to follow-up with your waste and batting waste chopper/dialysis doctor to discuss the mass that was noted on your kidney on CT scan last spring. As you cannot have MRIs they may recommend repeating your CT scan to determine if this is growing or changing. The general surgery clinic will call you to discuss a follow-up visit either later this week or early next week. You should return to the emergency department if you have dizziness, chest pain, large volumes of blood that you passed with stool, or any other concerning symptoms. Thank you for allowing us to be part of your care. HPI General Mode of arrival: ambulatory. Date/Time Provider Initiated Documentation: 01/10/24 10:26. Limitations to Documentation: no limitations. Information obtained by: patient, family and old records reviewed. HPI Narrative: HPI: This is a 73-year-old male patient with a past medical history significant for CKD stage V on hemodialysis Wednesday and Wednesday, last dialysis completed this morning, as well as a history of thromboembolic disease on apixaban, hyperlipidemia, cardiomyopathy, atrial fibrillation, pacemaker. He is presenting for evaluation of ongoing rectal bleeding in the setting of internal hemorrhoid banding performed 5 days ago. The patient reports that the procedure was uneventful, and he has noted persistent rectal bleeding since that procedure. He notes that whenever he wipes there is blood on the tissue, notes blood on the outside of his stool, and occasionally notes some drops of blood from his anus into the toilet when he defecates. He reports that this bleeding is painless, and notes that he has been having painless rectal bleeding for the last 11 weeks. The patient reports that he was prompted to seek care today because he is not sure how long this bleeding should continue after surgery, and given his anticoagulated status was concerned that he required evaluation. He states that he has been eating and drinking normally, has not had nausea or vomiting, does still make a small amount of urine that has not been painful to pass. He does have a history of hematuria but has not noted any today. The patient reports that he had a CT scan performed in the spring 2023, which did reveal an exophytic mass from one of his kidneys, which had peripheral calcifications on ultrasound and could not be excluded as a neoplasm at that time. He states that he is following up with his waste and batting waste chopper on this finding and they suspect that they may have to take his kidney out at some point. The patient has otherwise been in his normal state of health. Last dose of apixaban was taken this morning. Exam: Gen: Awake and alert, in no apparent distress HEENT: Non-icteric sclera Neck: Supple Lungs: No apparent respiratory distress, normal respiratory effort. Lung sounds clear and equal bilaterally. CV: Appears well perfused, systolic ejection murmur appreciated, heart with regular rate and rhythm, strong distal pulses, symmetrical bilaterally. Abdomen: Non-distended, soft, nontender : Rectal examination supervised by DONTA Kennedy, revealing normal anus without fissures, external hemorrhoidal disease. Palpable internal hemorrhoid banding sites x 3, scant bright red blood on glove after this procedure. No tenderness or fluctuance during this procedure. MSK: Moves 4 extremities without apparent limitation in ROM Skin: Visualized skin without rashes, cyanosis. Neuro: Normal Gait, no obvious focal deficits or facial asymmetry. Speaks in full, clear sentences. Psych: Appropriate for situation. MDM: This is a 73-year-old male patient presenting for evaluation of ongoing rectal bleeding after internal hemorrhoid banding. My differential includes but is not limited to coagulopathy due to anticoagulated status, certainly considered residual hemorrhoidal disease though the patient did have all 3 columns banded at his procedure 5 days ago. Considered anemia, ACS including type II NSTEMI, metabolic and electrolyte derangement, kidney/liver disease. The patient is not experiencing any abdominal pain and given his recent surgery I have a lower suspicion for other causes of bright red rectal bleeding such as diverticular bleed, AVM, etc. We will obtain EKG and laboratory studies to include CBC, CMP, magnesium, troponin, PT/INR, and type and screen. ED Course: I reviewed the patient's laboratory studies, which shows no leukocytosis, the patient has a mild anemia to 11.7 which is actually improved compared to his priors, and no thrombocytopenia. The chemistry panel is most notable for a low potassium to 2.5, as well as renal dysfunction that is at baseline for just after dialysis in the CKD patient. The patient has no evidence of significant liver dysfunction. The hypokalemia may be due to electrolyte shifts during dialysis, but is slightly lower than I am comfortable with, and so a very small supplement was provided, 20 meq 1 time. The patient will have no difficulty following up for his Wednesday dialysis and I do not suspect that the small dose will put him at risk for hyperkalemia. The patient did have an elevated troponin, without increased on 1 hour troponin testing. Given that his EKG shows no evidence of acute ischemia and he himself is without chest pain, I suspect that this is an elevation due to his end-stage renal disease and do not see any indication for further ischemic cardiac workup. I discussed this patient's case with the on-call surgeon, who notes that there is likely to be bleeding for the first week or so, as the bands will gradually detach and passed. Additionally, the patient is anticoagulated status does make his risk of bleeding higher. The surgeons recommendations were to hold the medication for 24 hours to allow the mucosa to heal, and I did discuss this with the patient. I do feel that the risks of doing so are low enough to warrant the benefits, as the patient's anticoagulation cannot be held indefinitely due to his limb threatening thromboembolic event. However, brief duration is likely to be well-tolerated. The general surgery clinic will follow-up with the patient in the next few days to schedule a clinic check, and at this time the patient does not meet criteria for blood transfusion. I did review the patient's prior imaging which noted an exophytic lesion with peripheral calcifications, imaging performed in the spring 2023 and could not exclude neoplasm. Unfortunately, the patient does not have an MRI compatible pacemaker, and he will need to follow with his outpatient waste and batting waste chopper and primary care doctor to determine what sort of follow-up and surveillance is required for this finding. He states that he has been discussing this with his outpatient providers and I have no concern that this incidental finding has been lost to follow-up. At this time, the patient has had a full medical evaluation and is safe for discharge to home. They are hemodynamically stable, ambulatory, and tolerating PO. They are understanding of the follow-up plan and return precautions. They left our facility without incident. Fannie Castro MD Related Data Home Medications ?Medication ?Instructions ?Recorded ?Confirmed acetaminophen 500 mg tablet (Mapap 500 mg PO PRN PRN 11/13/16 01/10/24 Extra Strength) amlodipine 5 mg tablet 5 mg PO DAILY PRN BP higher than 08/12/21 01/10/24 130 #90 tabs cinacalcet 30 mg tablet 60 mg PO .COMPLEX 02/09/23 01/10/24 apixaban 2.5 mg tablet 2.5 mg PO BID #180 tabs 02/18/23 01/10/24 atorvastatin 40 mg tablet 40 mg PO HS #90 tabs 03/26/23 01/10/24 finasteride 5 mg tablet 5 mg PO DAILY prostate #90 tab-caps 03/26/23 01/10/24 nitroglycerin 0.4 mg sublingual 0.4 mg sublingual PRN PRN chest 03/26/23 01/10/24 tablet pain #60 tabs psyllium seed (sugar) oral powder 2 tsp PO DAILY 05/11/23 01/10/24 (Metamucil (sugar) oral powder) cholecalciferol (vitamin D3) 50 50 mcg PO .COMPLEX 06/08/23 01/10/24 mcg (2,000 unit) tablet cinacalcet 60 mg tablet 60 mg PO ONCE 12/10/23 01/10/24 Previous Rx's ?Medication ?Instructions ?Recorded amlodipine 5 mg tablet 5 mg PO DAILY PRN BP higher than 08/12/21 130 #90 tabs apixaban 2.5 mg tablet 2.5 mg PO BID #180 tabs 02/18/23 atorvastatin 40 mg tablet 40 mg PO HS #90 tabs 03/26/23 finasteride 5 mg tablet 5 mg PO DAILY prostate #90 tab-caps 03/26/23 nitroglycerin 0.4 mg sublingual 0.4 mg sublingual PRN PRN chest 03/26/23 tablet pain #60 tabs Allergies Allergy/AdvReac Type Severity Reaction Status Date / Time omeprazole AdvReac Intermediate nausea/vomi Verified 01/10/24 10:32 ting carvedilol AdvReac excess Verified 01/10/24 10:32 bradycardia General Stated Complaint: GI Bleed BRI: 3 Course Vital Signs Vital signs: Vital Signs Temperature 36.0 C L 01/10/24 10:22 Pulse 82 01/10/24 10:22 Respiratory Rate 18 01/10/24 10:22 Blood Pressure 155/87 H 01/10/24 10:22 Pulse Oximetry 100 01/10/24 10:22 Temperature 36.0 C L 01/10/24 10:22 Temperature Source Temporal Artery Scan 01/10/24 10:22 Pulse 82 01/10/24 10:22 Respiratory Rate 18 01/10/24 10:22 Respiratory Effort Normal 01/10/24 10:33 Blood Pressure 155/87 H 01/10/24 10:22 Pulse Oximetry 100 01/10/24 10:22 Oxygen Delivery Method Room Air 01/10/24 10:22 Oxygen Flow Rate 0 01/10/24 10:22 Pain Level 2 01/10/24 10:22 Medical Decision Making Quality:SDOH Health Related Social Needs: Health related social needs inadequate housing(Z59.1) Health related social needs details None PFSH All Active Problems (Updated 01/10/24 @ 12:24 by Fannie Castro MD) Kidney mass (Acute) Internal hemorrhoids (Acute) BRBPR (bright red blood per rectum) (Acute) Hematochezia (Acute) Pinguecula, bilateral (Acute) Open angle with borderline findings, low risk, bilateral (Acute) Glaucomatous optic atrophy, bilateral (Acute) Combined forms of age-related cataract, bilateral (Acute) Hemangioma (Acute) CHB (complete heart block) (Acute) Perianal cyst (Acute) Chronic kidney disease, stage 5 (Acute ~10/2021) 10/27/21 [facility] Trigger thumb of left hand (Acute) Conductive hearing loss, external ear (Acute) Family history of prostate cancer (Chronic) Two brothers, unclear if metastatic Aortic valve disease (Acute) Pacemaker (Chronic) [employer] Sensia programmed VVIR abandoned atrial lead - permanent afib End stage renal disease (Acute) dialysis Ex-cigarette smoker (Acute) Chronic anticoagulation (Acute) Hypocalcemia (Acute) Vitamin D deficiency (Chronic) Reactive depression (situational) (Chronic) Anemia (Chronic) Benign paroxysmal positional vertigo of right ear (Chronic 01/13/16) Elevated PSA (Chronic 05/15/15) Renal atrophy, right (Chronic 05/15/15) Sensorineural hearing loss, bilateral (Chronic 12/29/16) Impacted cerumen of both ears (Acute) CHF (congestive heart failure), NYHA class I (Acute) Pulmonary embolism (Chronic ~1996) PSVT (paroxysmal supraventricular tachycardia) (Acute) Hyperlipemia (Acute) Bilateral kidney stones (Acute 05/15/15) History of TIA (transient ischemic attack) (Chronic ~2013) 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) Cardiomyopathy (Chronic) Peptic ulcer disease (Chronic) Atrial fibrillation (Chronic) Medical History Gross hematuria (05/15/15) Acidemia Supratherapeutic INR Positive blood culture DVT prophylaxis Surgical History History of tonsillectomy and adenoidectomy Pacemaker EGD - MAC (01/29/16) Colonoscopy - MAC Family History Brother Prostate cancer Diabetes Brother Prostate cancer Social History Smoking/Tobacco Use Status: Former Tobacco Use tobacco type: cigarettes Quit Date: 01/15/14 Tobacco: How many years used: 40 Smoking risk assessment performed?: Yes Alcohol Intake: former Drug use: Never Substance use type: does not use Adopted: No Caregiver/Support person: No Foster care: No Household members: none Housing: apartment Number of Children: 0 number of grandchildren: 0 Communication Needs: Hard of Hearing and Corrective Lenses Education Level: high school Do you need help understanding health information?: Never current occupation: Retired Pets and animals: No Sexually active: Yes Do you think of yourself as: straight/heterosexual Current gender identity: male What is your relationship status?: never How often do you talk on the phone with friends or family?: once per week How often do you get together with friends or relatives?: never Do you belong to any clubs or organized social groups?: no Panel score (0-1 are the most socially isolated patients): 0 What type of physical activity do you participate in: walking Duration: 15-30 minutes/day Frequency: 1-2 times per week Maddie/Yarsanism: Gnosticism Special maddie needs: No Seatbelt use: always Helmet use: No (Never) Drive intox or ride w/intox hazmat cdl driver: No Working smoke detector in home: Yes Carbon monox detector in home: Yes Do you feel safe at home: Yes Do you feel safe in your relationship?: Yes
[2024-01-10 10:55] LABS: Abs Immature Grans 0.02 10^3/uL (0.0-0.06); Absolute Basophil Count 0.06 10^3/uL (0.0-0.2); Absolute Eosinophil Count 0.18 10^3/uL (0.0-0.7); Absolute Lymphocyte Count 0.68 10^3/uL (1.2-3.4); Absolute Monocyte Count 0.57 10^3/uL (0.1-0.8); Absolute Neutrophil Count 4.82 10^3/uL (1.2-6.7); Basophils % 0.9 %; Eosinophils % 2.8 %; HCT 35.6 % (40.0-50.0); HGB 11.7 g/dL (13.5-17.5); Immature Grans % 0.3 %; Lymphocytes % 10.7 %; MCH 32.7 pg (27.0-33.0); MCHC 32.9 % (32.0-36.0); MCV 99 fL (80-95); MPV 8.9 fL (8.0-11.0); Neutrophils % 76.3 %; Platelet Count 179 10^3/uL (130-400); RBC 3.58 10^6/uL (4.36-5.78); RDW 13.9 % (11.8-14.1); RDW-SD 50.8 fL; WBC 6.33 10^3/uL (4.4-10.8)
[2024-01-10 11:07] LABS: INR 1.2 (0.9-1.1); Prothrombin Time 11.6 sec (9.1-11.1)
[2024-01-10 11:21] LABS: ALT 29 U/L (16-63); AST 25 U/L (15-37); Alkaline Phosphatase 114 U/L (46-116); Anion Gap 10.4 mmol/L (3-11); BUN 24 mg/dL (7-18); Bilirubin, Total 1.27 mg/dL (0.2-1.0); CO2 32.6 mmol/L (21.0-32.0); Calcium 9.4 mg/dL (8.5-10.1); Chloride 95 mmol/L (98-107); Estimated GFR 12.25 (mL/min/1.73m2); Glucose 97 mg/dL (74-106); Magnesium 1.9 mg/dL (1.8-2.4); Sodium 138 mmol/L (136-145); Total Protein 8.4 g/dL (6.4-8.2)
[2024-01-10 11:24] LABS: CREATININE 4.8 mg/dL (0.70-1.30); Potassium 2.5 mmol/L (3.5-5.1); Troponin I 668 ng/L (<or=76)
[2024-01-10 12:14] LABS: Troponin I 614 ng/L (<or=76)
[2024-01-10] MEDS: Potassium Chloride 20 MEQ TABCR PO (12:34)
== END 2024-01-10 12:46 | disposition home or self-care (01) ==
PROVIDERS: Emergency Provider Emergency Medicine; PCP Family Medicine
DX: K62.5 Hemorrhage of anus and rectum (principal); E87.6 Hypokalemia; I48.91 Unspecified atrial fibrillation; E78.5 Hyperlipidemia, unspecified; I13.2 Hypertensive heart and chronic kidney disease with heart failure and with stage 5 chronic kidney disease, or end stage renal disease; N18.5 Chronic kidney disease, stage 5; I50.9 Heart failure, unspecified; Z86.73 Personal history of transient ischemic attack (TIA), and cerebral infarction without residual deficits; Z99.2 Dependence on renal dialysis; Z95.0 Presence of cardiac pacemaker; Z79.01 Long term (current) use of anticoagulants; Z86.718 Personal history of other venous thrombosis and embolism; Z98.890 Other specified postprocedural states
CPT/HCPCS: 36415; 80053; 86850; 86900; 86901; 93005; 99284; 83735; 84484; 85025; 85610; 93010

== ENCOUNTER → 2024-01-18 09:45 | Outpatient (BNVA) | payer MEDICARE, SELFPAY | PROVIDERS: PCP Family Medicine; Referring Provider Family Medicine; Visit Provider Internal Medicine Cardiovascular Disease | DX: I42.9 Cardiomyopathy, unspecified (principal); I48.11 Longstanding persistent atrial fibrillation; Z95.0 Presence of cardiac pacemaker | CPT/HCPCS: 99214 ==

== ENCOUNTER → 2024-02-01 08:10 | Outpatient (BNVA) | payer MEDICARE, SELFPAY | PROVIDERS: PCP Family Medicine; Referring Provider Family Medicine; Visit Provider Surgery | DX: K64.8 Other hemorrhoids (principal) | CPT/HCPCS: 46600; 99213 ==

== ENCOUNTER 2024-02-07 10:34 | Day surgery (SDC) | payer MEDICARE, SELFPAY ==
--- NOTE | 2024-02-06 16:22 | PDOC.DSDIS_ITS ---
Date of service: 02/07/24 Discharge Plan Disposition Patient Disposition: Home Condition: Good Discharge Details Reason For Visit: hemorrhoid banding Attending Provider: Reji Narayanan Primary Care Provider: Bryce Sinclair Home Meds and New Rx's Prescriptions: Continued cinacalcet 30 mg tablet 60 mg PO .COMPLEX Patient Comments: take at dialysis Rx Instructions: 60 mg orally @dialysis M/W/F Metamucil (sugar) Powder 2 tsp PO DAILY cinacalcet 60 mg tablet 60 mg PO ONCE Rx Instructions: Takes at dialysis Mon, wed, wed apixaban 2.5 mg tablet 2.5 mg PO BID Qty: 180 3RF amlodipine 5 mg tablet 5 mg PO DAILY PRN (Reason: BP higher than 130) Qty: 90 3RF atorvastatin 40 mg tablet 40 mg PO HS Qty: 90 3RF finasteride 5 mg tablet 5 mg PO DAILY Qty: 90 4RF nitroglycerin 0.4 mg tablet, sublingual 0.4 mg Sublingual PRN PRN (Reason: chest pain) Qty: 60 0RF acetaminophen [Mapap Extra Strength] 500 MG tablet 500 mg PO PRN PRN cholecalciferol (vitamin D3) 50 mcg (2,000 unit) tablet 50 mcg PO .COMPLEX Rx Instructions: 50 mcg orally @dialysis M/W/; Discharge Instructions Instructions: Hemorrhoids, How to Do a Sitz Bath Additional Instructions: Kameron, it was nice seeing you again today, and I hope you feel well after the hemorrhoid banding. As we talked about immediately after the procedure, there was 1 dominant hemorrhoid today that I banded in a fashion similar to what she had done previously. Hopefully, this will help continue to make progress with regards to the bleeding symptoms that you have been experiencing. Although I some sure you understand, with the ongoing blood thinning medications, this can be quite challenging. In the days to come, Tylenol and ibuprofen may be helpful if you feel any discomfort in the area of your rectum or anus. I often times recommend patient to use stool softeners over the first week after banding as well just to ensure easy transit of stool through the area. Although I do not generally recommend sitz bath's for treatment of internal hemorrhoids, if patients are experiencing discomfort after the procedure, this may help provide some relief. I have attached some basic information here about how to do a sitz bath. Let me know if you need anything at all, otherwise we look forward to seeing you in the office on the Stand Alone Forms: Shelly Claudio (DSU) Referrals: Reji Narayanan MD [ [facility] STAFF PHYSICIAN] - 02/15/24 10:30 am Activity:: Activity as Tolerated Diet:: As Tolerated Discharge Orders Discharge Orders: Discharge Order (Routine); Ordered 02/06/24 Ordered By: Reji Narayanan DS: Diagnosis Discharge Diagnosis (1) Internal hemorrhoids: Status: Acute Asessment and Plan: Discharge home with outpatient follow-up
--- NOTE | 2024-02-06 16:24 | W.PROCNOTE ---
Date of service: 02/07/24 Time of Service: 12:15 Procedure Note Date of procedure: 02/07/24 Procedure: hemorrhoid banding Surgeon/Proceduralist/Physician: Reji Narayanan Procedure Diagnosis: internal hemorrhoids Procedure Indications: Kameron is a 73-year-old male who has ongoing hematochezia. He had some improvement with internal hemorrhoid banding, but does continue still have intermittent bleeding. Procedure Description: Kameron was brought back to the procedure room, and assisted to the left lateral decubitus position. Next, I performed a digital rectal exam. Everything felt normal. I then inserted a lift anoscope for a direct visual examination. Left lateral sidewall looked healthy, and I did not see any signs of active hemorrhoid disease. There does appear to be a little bit of scar tissue there that seems consistent with his previous hemorrhoid banding. Similarly, the right posterior column does not show any obvious internal hemorrhoid pathology. There is, however, a large dominant hemorrhoid on the right anterior column. A band was applied with the assistance of the suction ligation device, and he tolerated the procedure just fine. The scope was removed, and the patient was transferred back to the day surgery unit prior to discharge home. Will plan to see him again in the office on the for repeat examination and assessment of symptoms.
[2024-02-07 11:07] VITALS: BP 123/77; PULSE 97; RESP 16; TEMP 36.6; O2SAT 97
[2024-02-07] MEDS: Na Phosphate Enema-Adult 133 ML BTL PR (11:15)
[2024-02-07 12:05] VITALS: BP 128/79; PULSE 74; RESP 16; TEMP 36.3; O2SAT 99
== END 2024-02-07 12:22 | disposition home or self-care (01) ==
LOC: SUR 10:34
PROVIDERS: PCP Family Medicine; Visit Provider Surgery
PROC: 0DJD8ZZ Inspection of Lower Intestinal Tract, Via Natural or Artificial Opening Endoscopic (ICD-10-PCS; CPT 46615; principal; 2024-02-07 11:30)
PROC: (CPT 46221; 2024-02-07 11:30)
DX: K64.1 Second degree hemorrhoids (principal); K63.5 Polyp of colon
CPT/HCPCS: 46221

== ENCOUNTER → 2024-02-15 10:22 | Outpatient (BNVA) | payer MEDICARE, SELFPAY | PROVIDERS: PCP Family Medicine; Referring Provider Family Medicine; Visit Provider Surgery | DX: K92.1 Melena (principal) ==

== ENCOUNTER → 2024-02-22 08:40 | Outpatient (BNVA) | payer MEDICARE, SELFPAY | PROVIDERS: PCP Family Medicine; Referring Provider Family Medicine; Visit Provider Surgery | DX: K92.1 Melena (principal); Z79.01 Long term (current) use of anticoagulants | CPT/HCPCS: 99213 ==

== ENCOUNTER → 2024-03-01 13:17 | Outpatient (BNVA) | payer MEDICARE, SELFPAY | PROVIDERS: PCP Family Medicine; Visit Provider Student in an Organized Health Care Education/Training Program | DX: Z95.810 Presence of automatic (implantable) cardiac defibrillator (principal); I48.11 Longstanding persistent atrial fibrillation; I44.2 Atrioventricular block, complete | CPT/HCPCS: 93279 ==

== ENCOUNTER → 2024-03-07 08:24 | Outpatient (BNVA) | payer MEDICARE, SELFPAY | PROVIDERS: PCP Family Medicine; Referring Provider Family Medicine; Visit Provider Surgery | DX: K92.1 Melena (principal); D64.9 Anemia, unspecified | CPT/HCPCS: 99213 ==

== ENCOUNTER 2024-03-14 09:11 | Emergency (ER) | payer MEDICARE, SELFPAY ==
[2024-03-14] VITALS (40 sets, daily range): BP systolic 127–149; BP diastolic 67–88; PULSE 66–96; RESP 12–28; TEMP 36.4; O2SAT 84–100
--- NOTE | 2024-03-14 09:30 | RT.EKG_ITS ---
APPROVED REPORT Exam: Resting ECG Reason for Exam: Dizzy Patient Location: E HR:72 bpm ECG Measurements Heart Rate 72 AXIS DC 305 P 0 QRSd 184 QRS -68 QT 493 T 112 QTc 540 Conclusion Ventricular-paced rhythm, rate 72 PVC Q waves II, III, aVF, new from priors Sgarbosa negative
--- NOTE | 2024-03-14 09:30 | DI.CT_ITS ---
Exam(s) CT HEAD WO EXAM: CT HEAD WO CLINICAL HISTORY: Fall 1 week ago on thinners. TECHNIQUE: Imaging Protocol: Axial computed tomography images with coronal and sagittal reformatted images were created and reviewed COMPARISON: CT CT HEAD WO from 02/27/2019 FINDINGS: Ventricles and Extra axial spaces: Normal in size and morphology for the patient's age. Hemorrhage: None. Cerebral parenchyma: No acute territorial infarct is present. There are old lacunar infarcts present . No mass effect is seen. Midline shift: None. Brainstem/Cerebellum: Normal. Calvarium: Normal. Visualized Paranasal sinuses/Mastoids: Clear. Soft Tissues: Unremarkable. IMPRESSION: No acute intracranial process. RADIATION DOSE DELIVERED: 897.3mGy.cm Total DLP DATA REPOSITORY: All CT scans at this facility are submitted to the National Radiology Data Registry (NRDR) Dose Index Registry (DIR) with the [employer] [place] [employer] (ACR). RADIATION OPTIMIZATION: All CT scans at this facility use at least one of these dose optimization te chniques: automated exposure control; mA and/or kV adjustment per patient size (includes targeted exa ms where dose is matched to clinical indication); or iterative reconstruction.
[2024-03-14 10:01] LABS: Abs Immature Grans 0.02 10^3/uL (0.0-0.06); Absolute Basophil Count 0.05 10^3/uL (0.0-0.2); Absolute Eosinophil Count 0.15 10^3/uL (0.0-0.7); Absolute Monocyte Count 0.44 10^3/uL (0.1-0.8); Basophils % 1.2 %; Eosinophils % 3.6 %; HCT 34.4 % (40.0-50.0); Immature Grans % 0.5 %; Lymphocytes % 9.5 %; MCV 103 fL (80-95); MPV 8.9 fL (8.0-11.0); Monocytes % 10.5 %; Neutrophils % 74.7 %; Platelet Count 107 10^3/uL (130-400); RBC 3.33 10^6/uL (4.36-5.78); RDW 13.7 % (11.8-14.1); RDW-SD 52.5 fL; WBC 4.21 10^3/uL (4.4-10.8)
[2024-03-14 10:04] LABS: Absolute Neutrophil Count 3.14 10^3/uL (1.2-6.7)
--- NOTE | 2024-03-14 10:08 | ED.GENADUL_ITS ---
Discharge Plan Disposition Patient Disposition: Home Condition: Stable Discharge Details Clinical Impression: Dizziness, Atrial fibrillation, History of TIA (transient ischemic attack), End stage renal disease, Pacemaker, Aortic valve disease, Chronic kidney disease, stage 5, Chronic anticoagulation, Closed head injury Primary Care Provider: Bryce Sinclair ED Provider: Fannie Castro Home Meds and New Rx's Prescriptions: No Action cinacalcet 30 mg tablet 60 mg PO .COMPLEX Patient Comments: take at dialysis Rx Instructions: 60 mg orally @dialysis M/W/F Metamucil (sugar) Powder 2 tsp PO DAILY docusate sodium [Colace] 100 mg capsule 100 mg PO DAILY amlodipine 5 mg tablet 5 mg PO DAILY PRN (Reason: BP higher than 130) Qty: 90 3RF atorvastatin 40 mg tablet 40 mg PO HS Qty: 90 3RF finasteride 5 mg tablet 5 mg PO DAILY Qty: 90 4RF nitroglycerin 0.4 mg tablet, sublingual 0.4 mg Sublingual PRN PRN (Reason: chest pain) Qty: 60 0RF apixaban 2.5 mg tablet 2.5 mg PO BID Qty: 180 3RF acetaminophen [Mapap Extra Strength] 500 MG tablet 500 mg PO PRN PRN Discharge Instructions Instructions: Dizziness, Adult ED Additional Instructions: You were seen at the ED for evaluation of dizziness and a fall. You had a normal CT head, and labs that were reassuring. Your anemia is stable. You need to follow up for a pacemaker battery change, and check your blood pressure at home if you are continuing to feel lightheaded. You need to call the clinic to discuss supports for your upcoming colonoscopy. Please follow-up with your primary care provider in the next few days to discuss this visit and any symptoms that change, worsen, or persist. Thank you for allowing us to be part of your care. Discharge Data Discharge Date/Time-TO BE ENTERED AT DEPARTURE: 03/14/24 14:57 HPI General Mode of arrival: ambulatory . Date/Time Provider Initiated Documentation: 03/14/24 09:13 . Limitations to Documentation: no limitations . Information obtained by: patient and old records reviewed . HPI Narrative: HPI: This is a 73-year-old male patient with a past medical history significant for CKD stage V on hemodialysis Wednesday and Wednesday, and history of aortic valve disease and pacemaker, history of hemorrhoidal bleeding, TIA, atrial fibrillation on Eliquis, who is presenting for evaluation of dizziness. The patient reports that 1 week ago he was leaning over to pick something up, felt dizzy and fell forward, striking his head and his nose on the ground. He had some soreness in his nose and his head for the first few days which has since resolved. He reports that he has had some lightheadedness for the last few days, that does not seem to be related to positioning. He states that he has otherwise been in his normal state of health, went to dialysis yesterday with no concerns. He states that he continues to pass a small amount of blood per rectum, is following with Dr. Narayanan and [facility] [place] to schedule colonoscopy and has undergone hemorrhoidal banding and states that he has not had any significant change in his GI bleed symptoms. The patient reports that he does not experiencing any vision changes, his headache has resolved, and he is not experiencing any numbness, weakness, or tingling. Exam: Gen: Awake and alert, in no apparent distress HEENT: Non-icteric sclera, PERRL, EOMs full. The patient has a well-healing abrasion to the superior aspect of his forehead, and some mild bruising around the bridge of his nose. No midface instability, no septal hematoma, no dental malocclusion. Neck: Supple, no cervical spine tenderness Lungs: No apparent respiratory distress, normal respiratory effort. CV: Appears well perfused, strong distal pulses, no tachycardia Abdomen: Non-distended MSK: Moves 4 extremities without apparent limitation in ROM Skin: Visualized skin without rashes, cyanosis. Neuro: Normal Gait, cranial nerves II through XII intact and symmetrical bilaterally, 5 out of 5 strength x 4 extremities, no sensory changes Psych: Appropriate for situation. MDM: This is a 73-year-old male patient presenting for evaluation of dizziness and fall 1 week ago. Differential includes but is not limited to intracranial hemorrhage, skull fracture, consider facial bone fracture that the patient is reassuringly without significant deformity, tenderness. I did consider medical etiologies for his dizziness including arrhythmia, ACS, anemia, metabolic and electrolyte derangement, dehydration. The patient is reassuringly without severe neuro deficit to increase my concern for herniation or other severe space-occupying lesion or large intracranial hemorrhage. We will obtain CT of the head to evaluate for intracranial hemorrhage, an EKG and laboratory studies to include CBC, CMP, magnesium, troponin, INR. ED Course: I reviewed the patient's laboratory studies, which show no leukocytosis, stable anemia without significant decrease, and certainly he remains above the threshold for transfusion. He does have a mild thrombocytopenia to 107. INR 1.2, chemistry panel without significant electrolyte derangement, baseline renal dysfunction consistent with his ESRD on hemodialysis. The patient does have an elevation in his troponin, 437 today, has been in the 600s before. Likely this is in setting of his end-stage renal disease, though his EKG today does have new Q waves compared to priors in the inferior leads. CT scan of his brain shows no evidence of intracranial hemorrhage or other abnormality to explain his dizziness. I have a low concern for stroke in this patient who does not have any significant neurodeficits, and additionally he is well outside of the window for any acute intervention. Orthostatic vital signs were negative, patient did tolerate oral fluids without difficulty. Second troponin obtained, 420, which is a greater than 15 delta change and for this reason we did proceed with 3-hour troponin, which is down to 413. Per our high-sensitivity troponin protocol this is indeterminate, and given his EKG changes I did elect to reach out to [facility] cardiology to discuss this patient's case. 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 They recommended interrogating his pacer, which was done, showed a single episode of an 8-second ventricular rhythm, that occurred 2 days ago. The patient has 7 months of battery left and they will reach out when it is time to reschedule. Cardiology felt that outpatient workup with his flight control tower operator was appropriate, and recommended checking his blood pressure during any subsequent episodes of lightheadedness, which the patient feels comfortable doing. At this time, the patient has had a full medical evaluation and is safe for discharge to home. They are hemodynamically stable, ambulatory, and tolerating PO. They are understanding of the follow-up plan and return precautions. They left our facility without incident. Fannie Castro MD Related Data Home Medications ?Medication ?Instructions ?Recorded ?Confirmed acetaminophen 500 mg tablet (Mapap 500 mg PO PRN PRN 11/13/16 03/14/24 Extra Strength) amlodipine 5 mg tablet 5 mg PO DAILY PRN BP higher than 08/12/21 03/14/24 130 #90 tabs cinacalcet 30 mg tablet 60 mg PO .COMPLEX 02/09/23 03/14/24 atorvastatin 40 mg tablet 40 mg PO HS #90 tabs 03/26/23 03/14/24 finasteride 5 mg tablet 5 mg PO DAILY prostate #90 tab-caps 03/26/23 03/14/24 nitroglycerin 0.4 mg sublingual 0.4 mg sublingual PRN PRN chest 03/26/23 03/14/24 tablet pain #60 tabs psyllium seed (sugar) oral powder 2 tsp PO DAILY 05/11/23 03/14/24 (Metamucil (sugar) oral powder) apixaban 2.5 mg tablet 2.5 mg PO BID #180 tabs 02/22/24 03/14/24 docusate sodium 100 mg capsule 100 mg PO DAILY 03/07/24 03/14/24 (Colace) Previous Rx's ?Medication ?Instructions ?Recorded amlodipine 5 mg tablet 5 mg PO DAILY PRN BP higher than 08/12/21 130 #90 tabs atorvastatin 40 mg tablet 40 mg PO HS #90 tabs 03/26/23 finasteride 5 mg tablet 5 mg PO DAILY prostate #90 tab-caps 03/26/23 nitroglycerin 0.4 mg sublingual 0.4 mg sublingual PRN PRN chest 03/26/23 tablet pain #60 tabs apixaban 2.5 mg tablet 2.5 mg PO BID #180 tabs 02/22/24 Allergies Allergy/AdvReac Type Severity Reaction Status Date / Time omeprazole AdvReac Intermediate nausea/vomi Verified 03/14/24 09:13 ting carvedilol AdvReac excess Verified 03/14/24 09:13 bradycardia General Stated Complaint: HeadInjury BRI: 3 Course Vital Signs Vital signs: Vital Signs Temperature 36.4 C L 03/14/24 09:16 Pulse 80 03/14/24 09:16 Respiratory Rate 16 03/14/24 09:16 Blood Pressure 149/88 H 03/14/24 09:16 Pulse Oximetry 99 03/14/24 09:16 Temperature 36.4 C L 03/14/24 09:16 Temperature Source Oral 03/14/24 09:16 Pulse 80 03/14/24 09:16 Respiratory Rate 16 03/14/24 09:16 Respiratory Effort Normal, Non-Labored 03/14/24 09:20 Respiratory Depth Normal 03/14/24 09:20 Respiratory Pattern Normal 03/14/24 09:20 Blood Pressure 149/88 H 03/14/24 09:16 Pulse Oximetry 99 03/14/24 09:16 Pain Level 0 03/14/24 09:20 Lab/Test Results Lab/Test Results: Laboratory Tests Range/Units 03/14/24 09:52 WBC (4.4-10.8) 10^3/uL 4.21 L RBC (4.36-5.78) 10^6/uL 3.33 L Hgb (13.5-17.5) g/dL 11.0 L Hct (40.0-50.0) % 34.4 L MCV (80-95) fL 103 H MCH (27.0-33.0) pg 33.0 MCHC (32.0-36.0) % 32.0 RDW (11.8-14.1) % 13.7 Plt Count (130-400) 10^3/uL 107 L MPV (8.0-11.0) fL 8.9 Immature Gran % % 0.5 Neutrophils % % 74.7 Lymphocytes % % 9.5 Monocytes % % 10.5 Eosinophils % % 3.6 Basophils % % 1.2 Nucleated RBC % (0.0-0.3) % 0.0 Absolute Neutrophils (1.2-6.7) 10^3/uL 3.14 Absolute Lymphocytes (1.2-3.4) 10^3/uL 0.40 L Absolute Monocytes (0.1-0.8) 10^3/uL 0.44 Absolute Eosinophils (0.0-0.7) 10^3/uL 0.15 Absolute Basophils (0.0-0.2) 10^3/uL 0.05 Medical Decision Making Quality:SDOH Health Related Social Needs: Health related social needs details None PFSH All Active Problems (Updated 03/14/24 @ 14:20 by Fannie Castro MD) Closed head injury (Acute) Dizziness (Acute) Hematochezia (Acute) Pinguecula, bilateral (Acute) Open angle with borderline findings, low risk, bilateral (Acute) Glaucomatous optic atrophy, bilateral (Acute) Combined forms of age-related cataract, bilateral (Acute) Hemangioma (Acute) CHB (complete heart block) (Acute) Perianal cyst (Acute) Chronic kidney disease, stage 5 (Acute ~10/2021) 10/27/21 [facility] Tr[facility] thumb of left hand (Acute) Conductive hearing loss, external ear (Acute) Family history of prostate cancer (Chronic) Two brothers, unclear if metastatic Aortic valve disease (Acute) Pacemaker (Chronic) [employer] Sensia programmed VVIR abandoned atrial lead - permanent afib End stage renal disease (Acute) dialysis Ex-cigarette smoker (Acute) Chronic anticoagulation (Acute) Hypocalcemia (Acute) Vitamin D deficiency (Chronic) Reactive depression (situational) (Chronic) Anemia (Chronic) Benign paroxysmal positional vertigo of right ear (Chronic 01/13/16) Elevated PSA (Chronic 05/15/15) Renal atrophy, right (Chronic 05/15/15) Sensorineural hearing loss, bilateral (Chronic 12/29/16) Impacted cerumen of both ears (Acute) Pulmonary embolism (Chronic ~1996) PSVT (paroxysmal supraventricular tachycardia) (Acute) Hyperlipemia (Acute) Bilateral kidney stones (Acute 05/15/15) History of TIA (transient ischemic attack) (Chronic ~2013) 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) Cardiomyopathy (Chronic) Peptic ulcer disease (Chronic) Atrial fibrillation (Chronic) Medical History Gross hematuria (05/15/15) Acidemia Supratherapeutic INR Positive blood culture DVT prophylaxis Surgical History Hx of hemorrhoidectomy (~01/2024) History of tonsillectomy and adenoidectomy Pacemaker EGD - MAC (01/29/16) Colonoscopy - MAC Family History Brother Prostate cancer Diabetes Brother Prostate cancer Social History Smoking/Tobacco Use Status: Former Tobacco Use tobacco type: cigarettes Quit Date: 01/15/14 Tobacco: How many years used: 40 Smoking risk assessment performed?: Yes Alcohol Intake: former Drug use: Never Substance use type: does not use Adopted: No Caregiver/Support person: No Foster care: No Household members: none Housing: apartment Number of Children: 0 number of grandchildren: 0 Communication Needs: Hard of Hearing and Corrective Lenses Education Level: high school Do you need help understanding health information?: Never current occupation: Retired Pets and animals: No Sexually active: Yes Do you think of yourself as: straight/heterosexual Current gender identity: male What is your relationship status?: never How often do you talk on the phone with friends or family?: once per week How often do you get together with friends or relatives?: never Do you belong to any clubs or organized social groups?: no Panel score (0-1 are the most socially isolated patients): 0 What type of physical activity do you participate in: walking Duration: 15-30 minutes/day Frequency: 1-2 times per week Maddie/Denominational: Buddhist Special maddie needs: No Seatbelt use: always Helmet use: No (Never) Drive intox or ride w/intox pile driver operator helper: No Working smoke detector in home: Yes Carbon monox detector in home: Yes Do you feel safe at home: Yes Do you feel safe in your relationship?: Yes
[2024-03-14 10:12] LABS: INR 1.2 (0.9-1.1); Prothrombin Time 12.1 sec (9.1-11.1)
[2024-03-14 10:19] LABS: ALT 25 U/L (16-63); AST 22 U/L (15-37); Albumin 3.5 g/dL (3.4-5.0); Alkaline Phosphatase 103 U/L (46-116); Anion Gap 4.1 mmol/L (3-11); BUN 38 mg/dL (7-18); Bilirubin, Total 0.76 mg/dL (0.2-1.0); CO2 34.9 mmol/L (21.0-32.0); Calcium 8.7 mg/dL (8.5-10.1); Chloride 101 mmol/L (98-107); Estimated GFR 7.79 (mL/min/1.73m2); Glucose 142 mg/dL (74-106); Potassium 3.8 mmol/L (3.5-5.1); Sodium 140 mmol/L (136-145); Total Protein 7.2 g/dL (6.4-8.2)
[2024-03-14 10:22] LABS: Troponin I 437 ng/L (<or=76)
[2024-03-14 11:14] LABS: Troponin I 420 ng/L (<or=76)
[2024-03-14 12:54] LABS: Troponin I 413 ng/L (<or=76)
--- NOTE | 2024-03-14 15:40 | NUR.NOTE ---
[employer] interrogation [place] [facility] Nursing Note:
== END 2024-03-14 14:57 | disposition home or self-care (01) ==
PROVIDERS: Emergency Provider Emergency Medicine; PCP Family Medicine
DX: R42 Dizziness and giddiness (principal); S09.8XXA Other specified injuries of head, initial encounter; I48.91 Unspecified atrial fibrillation; I12.0 Hypertensive chronic kidney disease with stage 5 chronic kidney disease or end stage renal disease; N18.6 End stage renal disease; Z95.0 Presence of cardiac pacemaker; Z86.73 Personal history of transient ischemic attack (TIA), and cerebral infarction without residual deficits; Z99.2 Dependence on renal dialysis; Z87.891 Personal history of nicotine dependence
CPT/HCPCS: 36415; 80053; 93005; 99285; 70450; 84484; 85025; 85610; 93010; 99284

== ENCOUNTER 2024-03-23 14:15 | Outpatient (CLI) | payer MEDICARE, SELFPAY ==
[2024-03-23 10:33] LABS: HGB 11.7 g/dL (13.5-17.5)
[2024-03-23 11:26] LABS: Ferritin > 2000 ng/mL (26-388)
[2024-03-23 11:43] LABS: Iron 34 ug/dL (65-175); Total Iron Binding Capacity 263 ug/dL (250-450); Transferrin Sat 13 % (20-55)
[2024-03-23 22:49] LABS: PSA, Diagnostic 11.6 ng/mL (<=6.5)
== END 2024-03-23 14:16 | disposition home or self-care (01) ==
LOC: LBO 14:17
PROVIDERS: Emergency Medicine; PCP Family Medicine; Visit Provider Surgery
DX: K62.5 Hemorrhage of anus and rectum (principal); C61 Malignant neoplasm of prostate; R97.20 Elevated prostate specific antigen [PSA]; T50.905A Adverse effect of unspecified drugs, medicaments and biological substances, initial encounter
CPT/HCPCS: 36415; 82728; 83540; 83550; 84153; 85018

== ENCOUNTER 2024-04-04 02:23 | Outpatient (CLI) | payer MEDICARE, SELFPAY ==
--- NOTE | 2024-04-04 08:30 | DI.US_ITS ---
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 Ejection fraction is approximately 40%. Septal motion is paradoxic, possibly due to paced beats. The inferior wall is akinetic Mildly dilated right ventricle. Mildly hypocontractile right ventricular function Left atrium is severely dilated Right atrium is massively dilated Device lead is noted in the right heart Aortic valve is sclerotic and trileaflet. There is trace aortic regurgitation. Mean valve gradient is 16 mmHg Mildly thickened mitral leaflets with moderate mitral regurgitation Severe tricuspid regurgitation. Estimated right ventricular systolic pressure is 57 mmHg Small pericardial effusion Wall motion Left Ventricle Left ventricle is moderately dilated. Left ventricular systolic function is moderately decreased. The re is normal left ventricular wall thickness. Paradoxic septal motion consistent with paced rhythm. I nferior wall is hypo to akinetic There is no ventricular septal defect visualized. LVEF is 40%. Right Ventricle Right ventricle is mildly dilated. Right ventricle is mildly hypokinetic. Device lead is present in t he right ventricle. Atria Left atrium is severely dilated. Right atrium is massively dilated. The interatrial septum is intact with no evidence for an atrial septal defect. Aortic Valve The Aortic valve is sclerotic. Aortic valve is probably trileaflet. Mean gradient is 16 mmHg Trace ao rtic regurgitation. Mitral Valve Mitral valve leaflets are mildly thickened. No evidence of mitral valve stenosis. Moderate mitral reg urgitation. Tricuspid Valve The tricuspid valve is normal in structure. There is no tricuspid valve stenosis. Severe tricuspid re gurgitation. The RVSP is 56.3 mmHg. Pulmonic Valve The pulmonary valve is normal in structure. There is no pulmonic valvular stenosis. Trace pulmonic re gurgitation. Great Vessels The aortic root is normal in size. Ascending aorta is not well visualized. Aortic arch is not well vi sualized. The IVC is dilated. The IVC collapses <50% with inspiration. Pericardium Mild circumferential pericardial effusion. 2D Dimensions IVSD d PLAX 0.88 cm M: 0.6-1.2 Ao Root d 2.84 cm M: 3.1 - 3.7 LVPW d PLAX 0.89 cm M: 0.6 - 1.2 LVID d PLAX 6.25 cm M: 4.2 - 5.8 LVDs 5.32 cm M: 2.5 - 4.0 LV EF Teichholz 30.9 % FS 14.86 % LV EDV (Teich) 197.2 mL LV ESV (Teich) 136.4 mL Stroke Vol Index (Teich) 39.51 M-Mode TAPSE 0.72 cm (M/F) >1.7 LV Volumes - Method of Disks (Ruano's) Single Plane 2D LV Volumes Biplane 2D LV Volumes LV EDV A4C 107.6 mL LV EDV BP 148.43 mL M: 62 - 150 LV ESV A4C 75.1 mL LV ESV BP 97.6 mL LVEF(%) A4C 30.2 % LVEF(%) BP 34.21 % M: 52 - 72 LV EDV A2C 192.4 mL LV EDV BP Index 96.38 mL/m2 M: 34 - 74 LV ESV A2C 112.9 mL SV BP LVEF(%) A2C 41.3 % SV Index LA Volume LA Length A4C 9.5 cm LA Length A2C LA Area A4C s 44.14 cm2 LA Area A2C s LA Vol A4C A-L 174.28 mL LA Vol A2C A-L LA Vol Biplane A-L LA Vol A4C MOD 173.7 mL LA Vol A2C MOD LA Vol BP MOD RA Volume RA Area A4C 35.4 cm2 RA ESV A4C (A-L) 103.5mL RA Vol/BSA A4C A-L RA Length A4C 10.3 cm RA ESV A4C (MOD) 100.7mL LV Diastology MV E' medial 0.086 (>0.07 m/s) MV E Vmax 1.27 (0.4-1.3 m/s) MV E/E' MED 14.82 (<14) MV E' lateral 0.142 (>0.1 m/s) MV E/E' LAT 8.94 (<14) MV E' Average 0.114 m/s MV E/E'(average) 11.15 Aortic Valve AoV Vmax 2.68 m/s LVOT Vmax 0.83 m/s AoV Peak Grad 28.7 mmHg LVOT Peak Grad 2.8 mmHg AoV Area (Vmax) 0.66 cm2 LVOT VTI 0.163 m AoV VTI 0.549 m LVOT Mean Grad 1.4 mmHg AoV Mean Perico. 1.89 m/s LVOT SV 34.74 mL AoV Mean Grad 16.2 mmHg LVOT Diam s 1.60 cm AoV Area (VTI) 0.63 cm2 AV Regurg Peak Gr. 28.72 mmHg Velocity Ratio 0.31 Mitral Valve MV DT 107 (160-240 msec) Tricuspid Valve RA Pressure 15.00 mmHg TR Vmax 3.21 m/s TR Peak Grad 41.2 mmHg RVSP (TR) 56.3 mmHg
== END 2024-04-04 02:43 ==
LOC: DI 02:23
PROVIDERS: PCP Family Medicine; Visit Provider Internal Medicine Cardiovascular Disease
DX: I42.9 Cardiomyopathy, unspecified (principal); I35.0 Nonrheumatic aortic (valve) stenosis; I34.0 Nonrheumatic mitral (valve) insufficiency; I36.1 Nonrheumatic tricuspid (valve) insufficiency
CPT/HCPCS: 93306

== ENCOUNTER 2024-07-05 13:42 | Outpatient (CLI) | payer MEDICARE, SELFPAY ==
--- NOTE | 2024-07-05 14:00 | RT.EKG_ITS ---
APPROVED REPORT Exam: Resting ECG Reason for Exam: PSVT Patient Location: O HR:86 bpm ECG Measurements Heart Rate 86 AXIS WI [id number] P 0 QRSd 152 QRS -51 QT 468 T 130 QTc 560 Conclusion Ventricular-paced complexes...other complexes also detected No further rhythm analysis attempted due to paced rhythm
== END 2024-07-05 13:43 | disposition home or self-care (01) ==
LOC: DI.CARD 14:13
PROVIDERS: PCP Family Medicine; Referring Provider Family Medicine; Visit Provider Student in an Organized Health Care Education/Training Program
DX: I48.11 Longstanding persistent atrial fibrillation
CPT/HCPCS: 93010

== ENCOUNTER → 2024-07-05 13:42 | Outpatient (BNVA) | payer MEDICARE, SELFPAY | PROVIDERS: PCP Family Medicine; Referring Provider Family Medicine; Visit Provider Registered Nurse | DX: Z45.018 Encounter for adjustment and management of other part of cardiac pacemaker (principal); I44.2 Atrioventricular block, complete; I48.11 Longstanding persistent atrial fibrillation; N18.6 End stage renal disease | CPT/HCPCS: 93005; 93279 ==

== ENCOUNTER → 2024-07-20 10:43 | Outpatient (BNVA) | payer MEDICARE, SELFPAY | PROVIDERS: PCP Family Medicine; Visit Provider Internal Medicine Cardiovascular Disease | DX: I35.9 Nonrheumatic aortic valve disorder, unspecified (principal); Z95.0 Presence of cardiac pacemaker; I48.11 Longstanding persistent atrial fibrillation; N18.6 End stage renal disease; Z99.2 Dependence on renal dialysis | CPT/HCPCS: 99214 ==

== ENCOUNTER → 2024-08-30 11:11 | Outpatient (BNVA) | payer MEDICARE, SELFPAY | PROVIDERS: PCP Family Medicine; Referring Provider Family Medicine; Visit Provider Student in an Organized Health Care Education/Training Program | DX: I44.2 Atrioventricular block, complete (principal); I48.11 Longstanding persistent atrial fibrillation; Z45.018 Encounter for adjustment and management of other part of cardiac pacemaker; Z79.01 Long term (current) use of anticoagulants; N18.6 End stage renal disease; Z99.2 Dependence on renal dialysis | CPT/HCPCS: 99213; 93280 ==

== ENCOUNTER 2024-09-21 14:01 | Outpatient (REF) | payer MEDICARE, SELFPAY | END 2024-09-21 14:02 | disposition home or self-care (01) | LOC: LBN 14:01 | PROVIDERS: PCP Family Medicine; Visit Provider Internal Medicine Gastroenterology | DX: K51.311 Ulcerative (chronic) rectosigmoiditis with rectal bleeding (principal) | CPT/HCPCS: 83993 ==